=== PATIENT | female | born 1985 | race Caucasian/White ===

== ENCOUNTER 2022-01-10 08:04 | Outpatient (CLI) | payer OTHER, SELFPAY ==
--- OUTSIDE RECORDS SUMMARY | 2022-01-10 08:07 | XMS_ITS | Encounter Summary ---
:1985 Author Organization [facility] Address [address] [place] [address] Care Team Providers Name Role Phone Anca Matos MD Primary Care Provider Callie Kumar Unavailable Unavailable Reason for Visit Auth/Cert Specialty Diagnoses / Procedures Referred By Contact Refer red To Contact sweat band separator Diagnoses Previous section Previous section [Z98.891] [facility] Labor And Deliv eduardo Procedures ZZC DELIVERY ONLY ZZC DELIVERY+ CARE ZZC C-SEC ONLY,PREV C-SEC SECTION repeat [address] [place] [address] Phone: Fax: Referral ID Status Reason Start Date Expiration Date Visits Requ ested Visits Authorized [id number] 1 1 Encounter Details Date Type Department Care Team Description 03/07/2020 Anesthesia Event [facility] Segundo Oglesby MD [facility] ANESTHESIA [address] [facility] [place] [address] [facility] Mikel Santana, APPELLATE CONFEREE ARCH SUPPORT TECHNICIAN [facility] ANES [address] [place] [address] [address] [place] [address] Anesthesia Record Procedure Summary Procedure Name Responsible Anesthesia Start Anesthesia Stop Time Anesthesiologist Time SECTION Junaid Oglesby, 03/07/20 0855 03/07 1048 repeat (Abdomen) MD Events Date Time Event Comment 03/07/2020 0855 An Start 0855 Present 0858 An Start Data 0900 MD Present 0905 Present 0910 Present 0911 An Induction 0911 MD Present 09 MD Present 09 MD Present 09 AN INCISION 0932 MD Present 0935 MD Present 0935 Uterine Incision 0937 Baby Delivered 0937 MD Present 0938 Placenta Delivered 0940 MD Present 1008 MD Present 1043 an stop data 1048 An Stop Electronically s igned by Mikel Santana APRN CRNA on March 07, 2020 10:48 AM 1048 MD Present Name Total bupivacaine spinal 0.75% in dextrose 8.25% 10.5 mg morphine PF 1mg/mL 0.3 mg ondansetron 2mg/mL 4 mg oxytocin 30 units in 500 mL 0.9% NaCl infusion 500 mL ceFAZolin (ANCEF) intermittent infusion 2 g in 100 mL dextrose PRE-MIX 2 g phenylephrine 0.1 mg/ml infusion (mcg/min) 700 mcg lactated ringers infusion 1,800 mL Agents Name NO HELIOX O2 N2O Air Exp Sevoflurane Exp Isoflurane Exp Desflurane Exp N2O Ins Sevoflurane Ins Isoflurane Ins Desflurane O2 Auxiliary Blood No blood administrations on file. Lines, Drains, and Airways Type Details Placement Removal Incision/Surgical Site 03/07/20; 1033; 03/07/20 1033 by Abdomen Mariana Nash RN Peripheral IV 03/07/20; 0735; 18 G; 03/07/20 0735 by 03/08/20 1045 by BD; Left; Lower Sarika Pacheco RN [place], [facility], forearm; RN Chlorhexidine; None; Tolerated well Urethral Catheter 03/07/20; 0910; No; 03/07/20 0910 by 03/07/20 1130 by Anesthesia; 16 fr Mariana Nash RN Miller, Diane M, RN documented in this encounter Social History Tobacco Use Types Packs/Day Years Used Date Smoking Tobacco: Never Smokeless Tobacco: Never Alcohol Use Standard Drinks/Week Comments No 0 (1 standard drink = 0.6 oz pure alcoho l) Sex Assigned at Date Recorded Not on file COVID-19 Exposure Response Date Recorded In the last month, have you been in contact with No / Unsure 03/06/2020 3:52 PM PROFESSOR OF CHEMICAL ENGINEERING someone who was confirmed or suspected to have Coronavirus / COVID-19? documented as of this encounter OR Notes Anesthesia Postprocedure Evaluation - Shayne Hays MD - 03/07/2020 2:08 PM CST Patient: Mindy Jacob Procedure(s): SECTION repeat Diagnosis:Previous section [Z98.891] Diagnosis Additional Information: No value filed. Anesthesia Type: Spinal Note: Anesthesia Post Evaluation Patient location during evaluation: Phase 2 Patient participation: Able to fully participate in evaluation Level of consciousness: awake Pain management: adequate Airway patency: patent Cardiovascular status: acceptable Respiratory status: acceptable Hydration status: acceptable PONV: controlled Anesthetic complications: None Last vitals: Vitals: 03/07/20 1245 03/07/20 1300 03/07/20 1330 BP: 139/84 (!) 142/84 127/71 Pulse: Resp: Temp: 98 ??F (36.7 ??C) 98.4 ??F (36.9 ??C) SpO2: 100% Electronically Signed By: Shayne Hays MD March 07, 2020 2:08 PM ESSOR OF CHEMICAL ENGINEERING Anesthesia Procedure Notes - Junaid Oglesby MD - 03/07/2020 9:14 AM CSTAssociated Order(s): Spinal Block Procedure note : intrathecal Staff - Anesthesiologist: Junaid Oglesby MD Performed By: anesthesiologist Pre-Procedure Performed by Junaid Oglesby MD Location: OB, OR Pre-Anesthestic Checklist: patient identified, IV checked, risks and benefits discussed, informed consent, monitors and equipment checked and pre-op evaluation Timeout Correct Patient: Yes Correct Procedure: Yes Correct Site: Yes Correct Laterality: N/A Correct Position: Yes Site Marked: No . Procedure Documentation ASA 2 . Procedure: intrathecal, . Patient Position:sitting Insertion Site:L2-3 (midline approach) Patient Prep/Sterile Barriers; mask, sterile gloves, povidone-iodine 7.5% surgical scrub. . Needle: Spinal Needle (gauge): 22 Spinal/LP Needle Length (inches): 5 # of attempts: 1 and # of redirects: 3 No introducer used . Assessment/Narrative Paresthesias: No. . . . Time Injected: 09:11 Comments: corey CLARKE [id number], exp. 2021-06-20 10.5 mg bupivicaine and 0.3 mg morphine placed. ESSOR OF CHEMICAL ENGINEERING Anesthesia Preprocedure Evaluation - Junaid Oglesby MD - 03/07/2020 8:52 AM CST 0852Anesthesia Pre-Procedure Evaluation Patient: Mindy Jacob : 1985 Preoperative Diagnosis: Previous section [Z98.891] Procedure(s): SECTION repeat Past Medical History: Diagnosis Date ??? Coagulation disorder (H) Poss Gestational thrombocitopenia ??? Depressive disorder anxiety ??? Deviated septum 05/08/2011 ??? Esotropia, unspecified ??? Generalized anxiety disorder 01/03/2011 ??? OCP (oral contraceptive pills) initiation 01/03/2011 ??? PONV (postoperative nausea and vomiting) ??? Thyroid nodule 01/03/2011 partial thyroidectomy on left ??? Varicella without mention of complication Past Surgical History: Procedure Laterality Date ??? SECTION 01/10/2010 ??? SECTION 05/31/2012 Procedure: SECTION; Repeat Section; Surgeon: Anca Matos MD; Location: [facility] L+D ??? MARKETING RECRUITER SURGERY 2009 c/s ??? THYROIDECTOMY 05/13/2011 Procedure:THYROIDECTOMY; Left Thyroid Lobectomy ; Surgeon:DANIEL DECKER; Location:[facility] OR ? ? [facility] NONSPECIFIC PROCEDURE 1993 & Eye surgeries Anesthesia Evaluation . Pt has had prior anesthetic. Type: General No history of anesthetic complications ROS/MED HX ENT/Pulmonary: - neg pulmonary ROS Neurologic: - neg neurologic ROS Cardiovascular: - neg cardiovascular ROS METS/Exercise Tolerance: Hematologic: - neg hematologic ROS Musculoskeletal: - neg musculoskeletal ROS GI/Hepatic: - neg GI/hepatic ROS Renal/Genitourinary: - ROS Renal section negative Endo: - neg endo ROS Psychiatric: (+) psychiatric history anxiety and depression Infectious Disease: - neg infectious disease ROS Malignancy: - no malignancy Other: (+) Possibly C-spine cleared: N/A, no H/O Chronic Pain,no other significant disability Physical Exam Normal systems: cardiovascular, pulmonary and dental Airway Mallampati: II TM distance: >3 FB Neck ROM: full Dental Cardiovascular Pulmonary Lab Results Component Value Date WBC 6.2 03/07/2020 HGB 10.5 (L) 03/07/2020 HCT 32.3 (L) 03/07/2020 PLT 122 (L) 03/07/2020 NA 142 07/04/2011 POTASSIUM 3.7 07/04/2011 CHLORIDE 103 07/04/2011 CO2 24 07/04/2011 BUN 9 07/04/2011 CR 0.77 07/04/2011 GLC 102 (H) 07/04/2011 CARL 9.6 07/04/2011 ALBUMIN 4.6 07/04/2011 PROTTOTAL 8.0 07/04/2011 ALT 12 07/04/2011 AST 14 07/04/2011 ALKPHOS 129 07/04/2011 BILITOTAL 1.5 (H) 07/04/2011 INR 0.9 04/30/2011 TSH 2.76 04/30/2011 T4 0.71 01/03/2011 HCG Negative 07/04/2011 HCGS Negative 09/09/2010 Preop Vitals BP Readings from Last 3 Encounters: 03/07/20 136/88 05/07/18 149/86 10/02/16 128/74 Pulse Readings from Last 3 Encounters: 03/07/20 100 05/07/18 75 10/02/16 98 Resp Readings from Last 3 Encounters: 03/07/20 18 05/07/18 20 10/02/16 16 SpO2 Readings from Last 3 Encounters: 03/07/20 98% 05/07/18 100% 10/02/16 100% Temp Readings from Last 1 Encounters: 03/07/20 99 ??F (37.2 ??C) (Oral) Ht Readings from Last 1 Encounters: 03/07/20 1.676 m (5' 6) Wt Readings from Last 1 Encounters: 03/07/20 115.7 kg (255 lb) Estimated body mass index is 41.16 kg/m?? as calculated from the following: Height as of this encounter: 1.676 m (5' 6). Weight as of this encounter: 115.7 kg (255 lb). Anesthesia Plan History & Physical Review History and physical reviewed and following examination; no interval change. ASA Status: 2 . NPO Status: > 8 hours Plan for Spinal PONV prophylaxis: Ondansetron (or other 5HT-3) and Dexamethasone or Solumedrol The patient is not a current smoker , Patient not instructed to abstain from smoking on day of procedure and patient did not smoke on day of surgery Postoperative Care Postoperative pain management: IV analgesics, Oral pain medications and Neuraxial analgesia. Consents Anesthetic plan, risks, benefits and alternatives discussed with: Patient.. Junaid Oglesby MD . ESSOR OF CHEMICAL ENGINEERING documented in this encounter Miscellaneous Notes Anesthesia Care Transfer Note - Mikel Santana APRN CRNA - 03/07/2020 10:48 AM CST Patient: Mindy Jacob Procedure(s): SECTION repeat Diagnosis: Previous section [Z98.891] Diagnosis Additional Information: No value filed. Anesthesia Type: Spinal Note: Airway :Room Air Patient transferred to:Labor and Delivery Handoff Report: Identifed the Patient, Identified the Reponsible Provider, Reviewed the pertinent medical history, Discussed the surgical course, Reviewed Intra-OP anesthesia mangement and issues during anesthesia, Set expectations for post-procedure period and Allowed opportunity for questions and acknowledgement of understanding Vitals: (Last set prior to Anesthesia Care Transfer) JARRELL VITALS 03/07/2020 1013 - 03/07/2020 1048 03/07/2020 Pulse: 74 SpO2: 98 % Electronically Signed By: Mikel Santana APRN CRNA March 07, 2020 10:48 AM ESSOR OF CHEMICAL ENGINEERING documented in this encounter Plan of Treatment Not on filedocumented as of this encounter Procedures Procedure Name Priority Date/Time Associated Diagnosis Comme nts ANE SPINAL BLOCK Routine 03/07/2020 9:14 AM Resul ts for this FORM PROFESSOR OF CHEMICAL ENGINEERING procedure are i n the results section. documented in this encounter Results Spinal Block (03/07/2020 9:14 AM PROFESSOR OF CHEMICAL ENGINEERING) Narrative Junaid Oglesby MD - 0 9:14 AM PROFESSOR OF CHEMICAL ENGINEERING Junaid Oglesby MD ? 03/07/2020 ??9:16 AM Procedure note : intrathecal Staff - Anesthesiologist: ??Junaid Oglesby MD Performed By: anesthesiologist Pre-Procedure Performed by Junaid Oglesby M D Location: OB, OR ?? Pre-Anesthestic Checklist: patient ident ified, IV checked, risks and benefits discussed, informed consent, mo nitors and equipment checked and pre-op evaluation ?? Timeout Correct Patient: Yes Correct Procedure: Yes Correct Site: Yes Correct Laterality: N/A Correct Position: Yes Site Marked: No . Procedure Documentation ASA 2 . ?? Procedure: intrathecal, . Patient Position:sitting Insertion Site: L2-3 ??(midline approach) Patient Prep/Sterile Barriers; mask, jacklyn rile gloves, povidone-iodine 7.5% surgical scrub. ??. ??Needle: ??Spinal N eedle (gauge): 22 ??Spinal/LP Needle Length (inches): 5 # of attempts: 1 and ??# of redirects: ??3 No introducer used . ?? Assessment/Narrative Paresthesias: No. ??. ??. ??. Time Injec sudhir: 09:11 ??Comments: ??PENRM, lot [id number], exp. 2021-06-20 10.5 mg bupivicaine and 0.3 mg morphine placed. Junaid Oglesby MD DC ANESTHESIA documented in this encounter Visit Diagnoses Not on filedocumented in this encounter Administered Medications Inactive Administered Medications - up to 3 most recent administrations Medication Order MAR Action Action Date Dose Rate Site bupivacaine 0.75% in dextrose Given 03/07/2020 9:11 AM PROFESSOR OF CHEMICAL ENGINEERING 10.5 mg 8.25% (intrathecal) (SENSORCAINE) 0.75-8.25 % injection PRN, Starting on Thu03/07/20 at 0911, Anesthesia Intra-op ceFAZolin (ANCEF) intermittent infusion 2 g in Given 020 8:55 AM PROFESSOR OF CHEMICAL ENGINEERING 2 g 100 mL dextrose PRE-MIX Routine, 2 g, Intravenous, PRE-OP/PRE-PROCEDURE, Starting on Thu03/07/20 at 0731, For 1 dose, Give no sooner than 30 minutes prior to incision. If patient weight is greater than or equal to 120 kg increase dose to 3 g., Indications: Perioperative Pharmacoprophylaxis, Pre-procedure lactated ringers infusion New Bag 03/07/2020 9:29 AM PROFESSOR OF CHEMICAL ENGINEERING at 200 mL/hr, Intravenous, CONTINUOUS, Up to 500 mL total, Pre-procedure, Starting on Thu03/07/20 at 0800, Until Thu03/07/20 at 1308 New Bag 03/07/2020 7:45 AM PROFESSOR OF CHEMICAL ENGINEERING 200 mL/hr morphine (PF) (DURAMORPH) injection Given 03/07/2020 9:11 AM PROFESSOR OF CHEMICAL ENGINEERING 0.3 mg Intrathecal, PRN, Administer over 4-5 Minutes, Starting on Thu03/07/20 at 0911, Anesthesia Intra-op ondansetron (ZOFRAN) injection Given 03/07/2020 9:00 AM PROFESSOR OF CHEMICAL ENGINEERING 4 mg PRN, Administer over 2-5 Minutes, Starting on Thu03/07/20 at 0900, Anesthesia Intra-op oxytocin (PITOCIN) 30 units in 500 mL 0.9% Given 03/07 10:36 AM PROFESSOR OF CHEMICAL ENGINEERING 499 mLs NaCl infusion Intravenous, PRN, Starting on Thu03/07/20 at 0938, Anesthesia Intra-op Given 03/07/2020 9:38 AM PROFESSOR OF CHEMICAL ENGINEERING 1 mL phenylephrine (KARINA-SYNEPHRINE) New Bag 03/07/2020 9:14 AM 50 mcg/m in 30 mL/hr injection PROFESSOR OF CHEMICAL ENGINEERING Intravenous, CONTINUOUS PRN, Starting on Thu03/07/20 at 0914, Anesthesia Intra-op documented in this encounter Care Teams Internal Grinding Machine Operator Relationship Specialty Start Date End Date Anca Matos MD PCP - General sweat band separator 05/12/12 Callie Kumar Assigned OBGYN Provider 01/13/20 04/20/21 documented as of this encounter
--- OUTSIDE RECORDS SUMMARY | 2022-01-10 08:07 | XMS_ITS | Encounter Summary ---
:1985 Author Organization [facility] Address [address] [place] [address] Care Team Providers Name Role Phone Anca Matos MD Primary Care Provider Callie Kumar Unavailable Unavailable Encounter Details Date Type Department Care Team Description 03/04/2020 Travel Social History Tobacco Use Types Packs/Day Years Used Date Smoking Tobacco: Never Smokeless Tobacco: Never Alcohol Use Standard Drinks/Week Comments No 0 (1 standard drink = 0.6 oz pure alcoho l) Sex Assigned at Date Recorded Not on file COVID-19 Exposure Response Date Recorded In the last month, have you been in contact Unable to assess 03/04/2020 9:17 AM HYBRID TESTER with someone who was confirmed or suspected to have Coronavirus / COVID-19? documented as of this encounter Plan of Treatment Not on filedocumented as of this encounter Visit Diagnoses Not on filedocumented in this encounter Care Teams Front Clerk Relationship Specialty Start Date End Date Anca Matos MD PCP - General hose sprayer 05/12/12 Callie Kumar Assigned OBGYN Provider 01/13/20 04/20/21 documented as of this encounter
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
--- OUTSIDE RECORDS SUMMARY | 2022-01-10 08:07 | XMS_ITS | Encounter Summary ---
:1985 Author Organization [facility] Address [address] [place] [id number] Care Team Providers Name Role Phone Anca Matos MD Primary Care Provider Callie Kumar Unavailable Unavailable Reason for Visit Reason Comments Scheduled Section Auth/Cert Specialty Diagnoses / Procedures Referred By Contact Refer red To Contact trace clerk Diagnoses Previous section Previous section [Z98.891] [facility] Del[facility] eduardo Procedures ZZC DELIVERY ONLY Z[facility] DELIVERY+ CARE ZZC C-SEC ONLY,PREV C-SEC SECTION repeat [address] [place], [place] [address] Phone: Fax: Referral ID Status Reason Start Date Expiration Date Visits Requ ested Visits Authorized [id number] 1 1 Encounter Details Date Type Department Care Team Description 03/07/2020 - Hospital Encounter [facility] Alba Villarreal of 03/09/2020 Corry Birthangel Erazo MD by [address] [place] section [place], [place] OBGYN CONSULTS (Primary Dx) [id number] [phone] [address] [id number] Social History Tobacco Use Types Packs/Day Years Used Date Smoking Tobacco: Never Smokeless Tobacco: Never Alcohol Use Standard Drinks/Week Comments No 0 (1 standard drink = 0.6 oz pure alcoho l) Sex Assigned at Date Recorded Not on file COVID-19 Exposure Response Date Recorded In the last month, have you been in contact with No / Unsure 03/06/2020 3:52 PM BUILDING ILLUMINATING ENGINEER someone who was confirmed or suspected to have Coronavirus / COVID-19? documented as of this encounter Last Filed Vital Signs Vital Sign Reading Time Taken Comments Blood Pressure 130/78 03/09/2020 7:54 AM BUILDING ILLUMINATING ENGINEER Pulse 77 03/09/2020 7:54 AM BUILDING ILLUMINATING ENGINEER Temperature 36.7 ??C (98 ??F) 03/09/2020 7:54 AM BUILDING ILLUMINATING ENGINEER Respiratory Rate 20 03/09/2020 7:54 AM BUILDING ILLUMINATING ENGINEER Oxygen Saturation 98% 03/08/2020 5:02 AM BUILDING ILLUMINATING ENGINEER Inhaled Oxygen Concentration - - Weight 115.7 kg (255 lb) 03/07/2020 7:10 AM BUILDING ILLUMINATING ENGINEER Height 167.6 cm (5' 6) 03/07/2020 7:25 AM BUILDING ILLUMINATING ENGINEER Body Mass Index 41.16 03/07/2020 7:10 AM BUILDING ILLUMINATING ENGINEER documented in this encounter Discharge Summaries Alba Villarreal MD - 03/09/2020 11:40 AM CST Admit Date: 03/07/2020 Discharge Date: 03/09/2020 ADMISSION DIAGNOSES: 1. Intrauterine , 39 weeks' gestation. 2. Previous section x 2. 3. Patient elects repeat section. 4. Gestational thrombocytopenia. DISCHARGE DIAGNOSES: Status post repeat low segment transverse section and lysis of minimalomental adhesions. PATIENT IDENTIFICATION: Stuart Diego is a 34-year-old woman, 4, para 2, who was admitted to [facility] for repeat section. The patient was followed at our officesince early . Her course was complicated by 2 previous sections. 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 She had a repeat section in 2012. The patient furthermore is of advanced maternal age, elevated BMI and has gestational thrombocytopenia. She also has a mixed anxiety and depression disorder. The patient was followed during this since the first trimester. She was monitored carefully given her history of 2 previous C- sections and her history of -induced hypertension. She was followed very carefully in the third trimester with blood pressure evaluations and pree clampsia laboratory evaluations as necessary. She had a normal [id number] test and a normal 20-week ultrasound. The patient had a normal 1-hour glucose screen, and there was no evidence of gestational diabetes. She was found to have a low platelet count at the initial visit, and this was monitored during the . Her platelet count always remained above 100,000 and was in general, between 120 and 130,000. The platelet count was repeated the morning of surgery and was 122,000. The patient elected to have a repeat section given her 2 previous C-sections. A preoperative historyand physical was performed. She was felt to be an excellent candidate for surgery. Appropriate consent forms were signed. The patient's and her 's questions were answered to their satisfaction, and we proceeded. A spinal anesthetic was planned, particularly given the platelet count above 100,000. HOSPITAL COURSE: The patient was admitted on 03/07/2020. She underwent a repeat low segment transverse section and lysis of minimal omental adhesions. She was delivered of an infant female, 8 pounds 12 ounces with Apgars of 8 and 9 at 1 and 5 minutes, respectively. No resuscitation was necessary. The baby was in a cephalic presentation. There was a nuchal cord and a cord draped around the baby's torso. The amniotic fluid was clear, and there was no evidence of infection. The uterus, fallopian tubes and ovaries were normal. The uterine cavity was completely normal. The placenta was anteriorand otherwise appeared normal with 3 vessels. The delivery was unremarkable. The patient's blood loss for the surgery was 903 mL, mainly due to lower uterine segment vascularity. The surgery was otherwise uncomplicated. The patient tolerated the procedure well, and she had excellent anesthesia. The patient's postoperative course was unremarkable. By postoperative day #1, she was being managed with oral pain medication. She was tolerating a regular diet and voiding. Her vital signs were normal. Her hemoglobin reached a ruben of 8.3 grams percent. Oral iron supplementation was initiated and continued after discharge. The patient's blood type was AB positive, and her rubella titer showed immunity. The patient was ready for hospital discharge by postoperative day #2. She expressed a desire forhospital discharge, and this was accomplished. Appropriate indications to call or return were reviewed, and the patient expressed understanding. On 03/09/2020, the patient was discharged home without incident. She was given instructions regarding the Steri-Strips on the incision and subcuticular closure. The patient continued her iron supplementation at discharge. She was instructed to return in 6 weeks for a routine visit. She was also offered a 2-week visit for any mood issues if necessary. ALBA VILLARREAL MD MT: Name: STUART DIEGO Account: [id number] : 1985 Admit Date: 03/07/2020 Discharge Date: 03/09/2020 Document: [id number] cc: Alba Matos MD DING ILLUMINATING ENGINEER documented in this encounter Discharge Instructions Discharge InstructionsSarah Tracy, RN - 03/09/2020 10:03 AM CST Contact your doctor if you have a temperature >100.4F, if you experience heavy bleeding and are soaking through a pad in less than one hour, if you are not able to eat or drink, or have severe abdominal pain. Nothing in the vagina for 6 weeks post . No intercourse, tampons or douching. Showers are okay. No soaking in a bath, sitz baths for 15-20 min 2x daily are okay. Please make a follow up appointment in the office in 4-6 weeks. Please call the office with chest pain with shortness of breath or blurry vision with a headache, orupper abdominal pain as this could be concerning for preeclampsia (blood pressure problems with and post ). No heavy lifting over 20 pounds for 6 weeks If you have increase in drainage or signs of infection (redness, warmth), please be seen. Postop Instructions Activity ?? Do not lift more than 10 pounds for 6 weeks after surgery. Ask family and friends for help when you need it. ?? No driving until you have stopped taking your pain medications (usually two weeks after surgery). ?? No heavy exercise or activity for 6 weeks. Don't do anything that will put a strain on your surgery site. ?? Don't strain when using the toilet. Your care team may prescribe a stool softener if you have problems with your bowel movements. To care for your incision: ?? Keep the incision clean and dry. ?? Do not soak your incision in water. No swimming or hot tubs until it has fully healed. You may soak in the bathtub if the water level is below your incision. ?? Do not use peroxide, gel, cream, lotion, or ointment on your incision. ?? Adjust your clothes to avoid pressure on your surgery site (check the elastic in your underwear for example). You may see a small amount of clear or pink drainage and this is normal. Check with your health care provider: ?? If the drainage increases or has an odor. ?? If the incision reddens, you have swelling, or develop a rash. ?? If you have increased pain and the medicine we prescribed doesn't help. ?? If you have a fever above 100.4 F (38 C) with or without chills when placing thermometer under your tongue. The area around your incision (surgery wound), will feel numb. This is normal. The numbness should go away in less than a year. Keep your hands clean: Always wash your hands before touching your incision (surgery wound). This helps reduce your risk ofinfection. If your hands aren't dirty, you may use an alcohol hand-rub to clean your hands. Keep your nails clean and short. Call your healthcare provider if you have any of these symptoms: ?? You soak a sanitary pad with blood within 1 hour, or you see blood clots larger than a golf ball. ?? Bleeding that lasts more than 6 weeks. ?? Vaginal discharge that smells bad. ?? Severe pain, cramping or tenderness in your lower belly area. ?? A need to urinate more frequently (use the toilet more often), more urgently (use the toilet veryquickly), or it roe when you urinate. ?? Nausea and vomiting. ?? Redness, swelling or pain around a vein in your leg. ?? Problems or a red or painful area on your breast. ?? Chest pain and cough or are gasping for air. ?? Problems with coping with sadness, anxiety or depression. If you have concerns about hurting yourself or the baby, call your provider immediately. ?? You have questions or concerns after you return home. DING ILLUMINATING ENGINEER AttachmentsThe following attachments cannot be sent through Care Everywhere. Section (), Discharge Instructions for ([place]oz[place]ican), Nutrition While ([place]oz[place]ican)documented in this encounter Medications at Time of Discharge Medication Sig Dispensed Refills Start Date End Date acetaminophen (TYLENOL) Take 3 tablets (975 60 tablet 0 325 MG tabletIndications: mg) by mouth every 6 Delivery of by hours section Ferrous Gluconate (FERGON) Take 20 mg by mouth 90 tablet 0 03/09/2020 240 (27 Fe) MG daily chewable TABSIndications: Delivery of by section ibuprofen (ADVIL/MOTRIN) Take 1 tablet (800 60 tablet 0 800 MG tabletIndications: mg) by mouth every 6 Delivery of by hours section oxyCODONE (ROXICODONE) 5 Take 1 tablet (5 mg) 20 tablet 0 1 05/10/2019 MG tabletIndications: by mouth every 4 Delivery of by hours as needed for section severe pain Vit-Fe Take 1 tablet by 0 Fumarate-FA ( mouth daily. MULTIVITAMIN PLUS IRON) 27-0.8 MG TABS senna-docusate Take 1 tablet by 60 tablet 0 03/09/2020 (SENOKOT-S/PERICOLACE) mouth 2 times daily 8.6-50 MG tabletIndications: Delivery of by section sertraline (ZOLOFT) 50 MG Take 50 mg by mouth 0 tablet daily documented as of this encounter Progress Notes Lorraine Solomon MD - 03/09/2020 8:11 AM CST Post- Note S: Patient is doing well today. Pain is controlled with PO medications. Tolerating regular diet without nausea or vomiting. Ambulating without dizziness. Urinating without difficulty. Lochia normal. . Has passed gas, no BM yet. Would like to go home today. Mood is good today O: Patient Vitals for the past 24 hrs: BP Temp Temp src Pulse Resp 03/09/20 0754 130/78 98 ??F (36.7 ??C) Oral 77 20 03/09/20 0030 135/76 97.8 ??F (36.6 ??C) Oral 78 18 03/08/20 1714 119/73 -- -- 81 18 03/08/20 1040 114/68 98 ??F (36.7 ??C) Oral 78 18 Gen: Resting comfortably, NAD Pulm: Breathing comfortably on room air Abd: Soft, appropriately ttp, non-distended.Fundus at 1 below umbilicus, firm and non-tender. Incision: c/d/i with sutures/steri strips Ext: non-tender, trace bilateral LE edema No intake/output data recorded. Hgb: Hemoglobin Date Value Ref Range Status 03/08/2020 8.3 (L) 11.7 - 15.7 g/dL Final 03/07/2020 10.5 (L) 11.7 - 15.7 g/dL Final Assessment/Plan: 34 year old on POD2 after rpt LTCS at 39w0d 1. Continue with routine management 2. Incision is c/d/I with sutures 3. EBL: 903 ml ; pre hemoglobin 10.5, post hemogobin 8.3, acute surgical blood loss anemia, no symptoms of anemia. On iron, will discharge with iron as well. 4. Lab Results Component Value Date ABO AB 03/06/2020 RH Pos 03/06/2020 5. Feed: 6. CV/RESP: no acute issues. VSS -history of gHTN in last 7. DVT PPX: ambulation 8. Gestational thrombocytopenia: follow up in post period. Predelivery was 122. 9. COVID negative 10. History of anxiety and depressoin Dispo: Anticipate DC home today. Warning signs reviewed. Follow-up in 4-6 weeks. Consider 2 week post visit for mood if needed. MD Mira Greenberg SANITIZER 03/09/2020, 8:12 AM DING ILLUMINATING ENGINEER Augusta Briseno MD - 03/08/2020 9:06 AM CST OB Post-op Section Progress Note POD# 1 S: Patient doing well. Pain well controlled with oral Tylenol/Motrin for pain medication. Ambulating. Tolerating reg diet. No N/V. Passing flatus. Voiding. Bleeding is normal. . O: BP 118/69 Pulse 77 Temp 98.4 ??F (36.9 ??C) Resp 16 Ht 1.676 m (5' 6) Wt 115.7 kg (255lb) LMP 06/08/2019 SpO2 98% Unknown BMI 41.16 kg/m?? UOP- Since [place] 575cc Gen- A&O, NAD Abd- soft, non tender, non distended Fundus- firm, non tender Incision/Dressing- C/D/I Ext- non-tender, trace edema. Hemoglobin Date Value Ref Range Status 03/08/2020 8.3 (L) 11.7 - 15.7 g/dL Final AB + Rubella immune A/P: 34 year old POD# 1 s/p repeat LTCS 1. Routine post-op cares 2. Analgesia adequate 3. Ambulate 4. Discharge home POD#2 Augusta Briseno MD 03/08/2020 9:07 AM DING ILLUMINATING ENGINEER documented in this encounter H&P Notes Alba Villarreal MD - 03/07/2020 8:25 AM CST I visited with the patient and her in the pre-induction area and once again discussed the proposed procedure being a repeat section. The patient has had two previous deliveries and has gestational thrombocytopenia. Her platelet count today is 122,000. She has signed appropriat e consent forms and a blood transfusion consent. All questions were answered and we will proceed. DING ILLUMINATING ENGINEER Source Note - Ita, Provider - 03/06/2020 5:48 PM BUILDING ILLUMINATING ENGINEER documented in this encounter Miscellaneous Notes Plan of Care - Sarah Tracy RN - 03/09/2020 11:20 AM CST Data: Vital signs within normal limits. checks within normal limits - see flow record. Patient eating and drinking normally. Patient able to empty bladder independently and is up ambulating.No apparent signs of infection. Incision healing well. Patient performing self cares and is able to care for infant. Action: Patient medicated during the shift for pain and cramping. See MAR. Patient reassessed within1 hour after each medication and pain was improved - patient stated she was comfortable. Patient education done about discharge instructions, take home medications, post depression, and follow up appointments. Patient verbalized understanding of all discharge instructions and states she has no further questions/concerns at this time. Response: Positive attachment behaviors observed with infant. Support persons present. Plan: Anticipate discharge home with . DING ILLUMINATING ENGINEER Plan of Care - Deisi Wilburn RN - 03/09/2020 4:10 AM CST Patient vital signs stable and meeting expected outcomes. independently, feels like milk is starting to come in. Up independently and voiding adequately. Pain well controlled with tylenoland ibuprofen. Incision CDI, with steri strips. Able to perform all cares for self and infant. Bonding well with baby. FOB present and supportive at bedside. Will continue to monitor. DING ILLUMINATING ENGINEER Plan of Care - Kristin Wray RN - 03/08/2020 1:49 PM CST Patient vitally stable, voiding without issue, tolerating regular diet, ambulating independently, IVSL removed. checks WDL. Pain adequately managed with prn Tylenol and Ibuprofen. Foam tapeoff incision today, steri strips remain and are intact. Patient up in shower, tolerated well. Breastf eeding independently. present and supportive. Attentive to infant, independent with self andinfant cares. Retained care of patient from [id number]. Stable as above. Working on discharge paperwork, would liketo discharge tomorrow 03/09. DING ILLUMINATING ENGINEER Plan of Care - Erika Kraft RN - 03/08/2020 4:05 AM CST Patient vital signs stable and meeting expected outcomes. well with minimal assistancefrom staff. Patient also requesting to start pumping to help bring milk in. Discussed normal path, and patient stated she didn't have any issues feeding her other kids. Up independently and voiding adequately. No bouts of emesis this shift. Patient requested one dose of zofran, just as a precaution. Pain well controlled with tylenol and toradol. Incision WDL. Able to perform all cares for self and infant. Bonding well with baby. present and supportive at bedside. Will continue to monitor. DING ILLUMINATING ENGINEER Plan of Care - Erika Kraft RN - 03/07/2020 9:29 PM CST Patients mobililty level scored using the bedside mobility assistance tool (BMAT). Patient is at a mobility level test number: 4. Mobility equipment used: none required. Required assist of 0 staff members. Further use of BMAT scoring not required. DING ILLUMINATING ENGINEER Plan of Care - Irene Hernandez RN - 03/07/2020 5:25 PM CST Pt. vitals stable. Pain managed with scheduled Toradol. Dressing CDI, without signs of infection. Fluid bolus given due to low urine output. Patient nauseous and zofran given without much improvement. Scopolamine patch in place. Ambulating SBA. Independent in personal and cares. infant. Attentive to infant needs and bonding well with infant. FOB at bedside. DING ILLUMINATING ENGINEER Op Note - Alba Villarreal MD - 03/07/2020 4:54 PM CST Procedure Date: 03/07/2020 PREOPERATIVE DIAGNOSES: 1. Intrauterine , 39 weeks' gestation. 2. Previous section x 2, patient elects repeat section. 3. Gestational thrombocytopenia. POSTOPERATIVE DIAGNOSES: 1. Intrauterine , 39 weeks' gestation. 2. Previous section x 2, patient elects repeat section. 3. Gestational thrombocytopenia. Repeat section, lysis of minimal omental adhesions. SURGEON: Alba Villarreal MD ELECTRONICS UTILITY WORKER: Maria M Adams MD ANESTHESIA: Spinal. BLOOD LOSS: 903 mL. PATIENT IDENTIFICATION: Stuart Diego is a 34-year-old female, 4, para 2, who is to undergo the above-named procedure for a desire for repeat section. The patient was followed at our office since early . Her course was complicated by her 2 previous sections. The patient had a in 12/2009 for mild -induced hypertension with thrombocytopenia and a failed induction. She had a repeat section in 2012. The patient, furthermore,is of advanced maternal age, elevated BMI, and gestational thrombocytopenia. She also has a mixed anxiety and depression disorder. The patient was followed during this since the first trimester. She was monitored carefully, given her history of 2 previous sections and her history ofpregnancy-induced hypertension. The patient was monitored carefully particularly into the third trimester with blood pressure evaluations and preeclampsia laboratory evaluations as necessary. She had a normal [id number] test and a normal 20-week ultrasound. The patient had a normal 1-hour glucose screen, and there was no evidence of gestational diabetes. She was found to have a low platelet count at the initial visit, and this was monitored during the . Her platelet count always remained above 100,000 and was, in general, between 120,000 and 130,000. The platelet count was repeated in the morning of surgery and was 122,000. The patient elected a repeat section, which wasrecommended given her history of 2 previous sections. A preoperative history and physical was performed, and she was felt to be an excellent candidate for surgery. Appropriate consent forms wer e signed. The patient's and her 's questions were answered to their satisfaction, and we proceeded. A spinal anesthetic was planned, particularly given the platelet count above 100,000. OPERATIVE FINDINGS: At the time of section, the patient was delivered of an female, 8 pounds 12 ounces with Apgars of 8 and 9 at 1 and 5 minutes respectively. The baby required no resuscitation. The baby was in a cephalic presentation. There was a nuchal cord and a cord draped around the baby's torso. The amniotic fluid was clear, and there was no evidence of infection. The uterus, fallopian tubes and ovaries were normal. The uterine cavity was completely normal. The placenta was anterior and otherwise appeared normal with 3 vessels. The delivery was atraumatic, and there were no com plications of the procedure. OPERATIVE PROCEDURE: Stuart Diego was taken to the operating room at [facility]. She was placed in the sitting position. Dr. Oglesby then placed a spinal anesthetic. The patient was quickly placed in the left lateral tilt position. heart tones were identified and were in the normal range with normal variability. The patient was then prepped and draped in the usual fashion for section. Once the patient was completely prepped and draped, all instruments were readied. The spinal anesthetic was tested using a pinch technique, and the patient had excellent anesthesia. It should be noted that a timeout was held, during which the patient's identity, medical record number, date of and surgery to be performed were reviewed. All members of the operating room staff werein agreement with the scheduled procedure and the patient's identity. She had also received 2 grams of Ancef. A low transverse skin incision was made, excising the previous scar. The dissection was carried down to the fascia. The underlying fascia was incised bilaterally and the fascial incision extended using Donis scissors. The rectus muscles were then from the fascia both superiorly and inferiorly. The underlying peritoneum was identified. The peritoneum was elevated and incised, entering the peritoneal cavity. The peritoneal incision was extended superiorly and inferiorly, with care taken to avoid injury to the dome of the bladder. The bladder blade was placed and the lower uterine segment identified. The bladder flap was then created and the bladder dissected away from the lower uterine segment. Hysterotomy was performed, and the uterine incision was extended using bandage scissors. Clear fluid was present. The baby was then delivered by cephalic presentation through the uterine incision without difficulty. As noted above, there was a nuchal cord and a cord around the baby's torso. The product of the was an female, 8 pounds 12 ounces with Apgars of 8 and 9 at 1 and 5 minutes respectively. The baby was immediately shown to the patient and her . The baby was in excellent condition, had a strong cry, and was appropriately suctioned. The umbilical cord was then doubly clamped, ligated, and the baby was brought to the warmer. No resuscitation was necessary. The placenta was then removed manually and was intact with a 3-vessel cord. Uterus was cleansed of all clot and membrane. The uterus was closed in two layers. The first was a running locked stitch of 0 Vicryl, and the second was an imbricating stitch of 0 Monocryl. Additional figure-of-X sutures were placed for hemostasis. Excellent uterine hemostasis was achieved. The bladder flap was then closed using 3-0 Vicryl in a running unlocked stitch. Copious irrigation of the abdomen and pelvis was then performed with the findings documented above. All sponge and needle counts were correct. The anterior peritoneum was closed using a running unlocked stitch of 3-0 Vicryl. It should be noted that upon entering the peritoneal cavity initially, there were a few filmy adhesions of the omentum to the anterior abdominal wall. These were easily lysed, and hemostasis was confirmed on the adherent portionof the omentum. At closure, once the peritoneum was closed, hemostasis was confirmed in the subfascial tissues. The fascia was closed using a running unlocked stitch of 0 Vicryl x2, meeting in the midline. Excellent fascial reapproximation was achieved, and the fascial integrity was normal. Copious irrigation of the subcutaneous was performed. The subcutaneous was reapproximated using 3-0 Vicryl in the interrupted sutures. The skin was closed using a subcuticular stitch of 4-0 Monocryl. Satisfactoryskin reapproximation was achieved with a subcuticular closure. Steri-Strips were applied, and an island dressing was placed. The procedure was then brought to a close. All final sponge and needle counts were correct. A debriefing was held, during which the patient's identity was again reviewed, the surgery performed, namely a repeat section with lysis of minimal omental adhesions, the only specimen was cord blood, and the product of the an infant female, 8 pounds 12 ounces with Apgars of 8 and 9. There were no intraoperative complications identified. The quantitative blood loss was 903 mL. The patient's vital signs were normal, and she was in excellent condition when brought to the recovery room. ALBA VILLARREAL MD MT: HANNA Name: STUART DIEGO Account: [id number] : 1985 Procedure Date: 03/07/2020 Document: [id number] DING ILLUMINATING ENGINEER Provider Notification - Irene Hernandez RN - 03/07/2020 4:37 PM CST 03/07/20 1636 Provider Notification Provider Name/Title Dr. Villarreal Method of Notification Phone Request Evaluate-Remote Notification Reason Medication Request;Status Update MD updated on patient's nausea and multiple episodes of emesis. Urine output of 100mL over the last 3 hours. New orders to discontinue pitocin, increase Zofran dose, and give bolus of LR. DING ILLUMINATING ENGINEER Plan of Care - Sarika Pacheco RN - 03/07/2020 1:00 PM CST Data: Stuart Diego transferred to [facility] via cart at 1300. Baby transferred via parent's arms. Action: Receiving unit notified of transfer: Yes. Patient and family notified of room change. Reportgiven to Autumn GALLEGOS at 1300. Belongings sent to receiving unit. Accompanied by Registered Nurse. Oriented patient to surroundings. Call light within reach. ID bands double-checked with receiving RN. Response: Patient tolerated transfer and is stable. DING ILLUMINATING ENGINEER Plan of Care - Sarika Pacheco RN - 03/07/2020 12:07 PM CST Returned to MAC # 1 at 1043 following a scheduled repeat . Incision is covered with an Island dressing, which had blood shadowing along the incision line. Island dressing was re enforced with and ABD dressing and foam tape. This is dry and intact. Denies any pain. Baby placed skin to skin and breast fed well on both sides. DING ILLUMINATING ENGINEER Brief Op Note - Alba Villarreal MD - 03/07/2020 10:44 AM CST [facility] Brief Operative Note Pre-operative diagnosis: Previous section [Z98.891] Post-operative diagnosis Same, with omental adhesions to the anterior abdominal wall Procedure: Procedure(s): SECTION repeat, lysis of omental adhesions Surgeon(s): Surgeon(s) and Role: * Alba Villarreal MD - Primary Lumber Yard Worker Mraia M Vital Estimated blood loss: 903 ml Specimens: ID Type Source Tests Collected by Time Destination 1 : Cord blood Blood OR DOCUMENTATION ONLY Alba Villarreal MD 03/07/2020 9:37 AM Findings: Infant female 8# 12 oz Apgars. Baby in cephalic presentation. Clear fluid. Normal uterine cavity. Tubes and ovaries normal. Few adhesions of the omentum to the anterior abdominal wall, lysed during entry. No complications. DING ILLUMINATING ENGINEER Plan of Care - Sarika Pacheco RN - 03/07/2020 10:43 AM CST Continuous cardiac monitoring is being followed by Deandra Riggins RN/TT. DING ILLUMINATING ENGINEER Plan of Care - Sarika Pacheco RN - 03/07/2020 8:00 AM CST [facility]. VS stable. Positive movement. EFM monitors explained and placed x's 2. Baseline FHR 145, moderate variability with accelerations present. PIV placed. CBC with Plts drawn. LR is infusing. Procedure explained to patient. Questions answered. Consents signed. Patient prepped for surgery. DING ILLUMINATING ENGINEER Pharmacy-Admission Medication History - [facility] - 03/06/2020 9:51 AM CST Admission medication history interview status for this patient is complete. See [facility] admission navigator for allergy information, prior to admission medications and immunization status. Med rec completed by preadmitting RN Reviewed by Gemma Ortega RN (Registered Nurse) on 02/29/20 at 1532 No further clarifications needed - note on zoloft order says has not been taking while Prior to Admission medications Medication Sig Last Dose Taking? Auth Provider Vit-Fe Fumarate-FA ( MULTIVITAMIN PLUS IRON) 27-0.8 MG TABS Take 1 tablet by mouth daily. Yes Reported, Patient sertraline (ZOLOFT) 50 MG tablet Take 50 mg by mouth daily Reported, Patient DING ILLUMINATING ENGINEER documented in this encounter Plan of Treatment Not on filedocumented as of this encounter Procedures Procedure Name Priority Date/Time Associated Diagnosis Comme nts HEMOGLOBIN Routine 03/08/2020 7:07 AM Results f or this BUILDING ILLUMINATING ENGINEER procedure are i n the results section. SECTION 03/07/2020 8:35 AM Previous BUILDING ILLUMINATING ENGINEER section Special Needs 5'7 259.6# stated CBC WITH PLATELETS STAT 03/07/2020 7:35 AM BUILDING ILLUMINATING ENGINEER Results for this procedure are in the results sec tion. GROUP B STREP PCR Routine 02/13/2020 Results fo r this procedure are in the results sec tion. documented in this encounter Results (ABNORMAL) Hemoglobin (03/08/2020 7:07 AM BUILDING ILLUMINATING ENGINEER) P athologist Signature Hemoglobin 8.3 (L) 11.7 - 15.7 03/08/2020 [place] g/dL 7:38 AM [facility] Specimen Anatomical Collection Method Collection Time Receive d Time (Source) Location / / Volume Laterality Blood specimen 03/08/2020 7:07 AM 020 7:08 (specimen) BUILDING ILLUMINATING ENGINEER AM BUILDING ILLUMINATING ENGINEER Alba Villarreal MD LAB - BLOOD ORDERABLES Performing Organization Address City/State/ZIP Code Phon e Number [facility] [address] [address] [facility] [address] [phone] (ABNORMAL) CBC with platelets (03/07/2020 7:35 AM BUILDING ILLUMINATING ENGINEER) Analysis Performed At Patho logist Time Signature WBC 6.2 4.0 - 11.0 03/07/2020 [place] 10e9/L 7:54 AM [facility] RBC Count 3.47 (L) 3.8 - 5.2 03/07/2020 [facility] 10e12/L 7:54 AM [facility] Hemoglobin 10.5 (L) 11.7 - 03/07/2020 [facility] 15.7 g/dL 7:54 AM [facility] Hematocrit 32.3 (L) 35.0 - 03/07/2020 [facility] 47.0 % 7:54 AM [facility] MCV 93 78 - 100 03/07/2020 [facility] fl 7:54 AM [facility] MCH 30.3 26.5 - 03/07/2020 [facility] 33.0 pg 7:54 AM [facility] MCHC 32.5 31.5 - 03/07/2020 [facility] 36.5 g/dL 7:54 AM [facility] RDW 12.9 10.0 - 03/07/2020 [facility] 15.0 % 7:54 AM [facility] Platelet Count 122 (L) 150 - 450 03/07/2020 [facility] 10e9/L 7:54 AM [facility] Specimen Anatomical Collection Method Collection Time Receive d Time (Source) Location / / Volume Laterality Blood specimen 03/07/2020 7:35 AM 020 7:51 (specimen) BUILDING ILLUMINATING ENGINEER AM BUILDING ILLUMINATING ENGINEER Alba Villarreal MD LAB - BLOOD ORDERABLES Performing Organization Address City/State/ZIP Code Phon e Number [facility] [address] [place] [phone] Group B strep PCR (02/13/2020) P athologist Signature Group B Strep negative PCR Patient Reported LAB - MICRO GENERAL ORDERABL ES documented in this encounter Visit Diagnoses Diagnosis Delivery of by sectio n - Primary Delivery of by sectio n Post-operative state Other postprocedural status documented in this encounter Administered Medications Inactive Administered Medications - up to 3 most recent administrations Medication Order MAR Action Action Date Dose Rate Site acetaminophen (TYLENOL) tablet 975 Given 03/07/2020 8:17 AM BUILDING ILLUMINATING ENGINEER 975 mg mg 975 mg, Oral, ONCE, On Thu03/07/20 at 0800, For 1 dose, Pre procedure Maximum acetaminophen dose from all sources = 75 mg/kg/day not to exceed 4 grams/day. acetaminophen (TYLENOL) tablet 975 mg Given 03/09/2020 6:26 AM BUILDING ILLUMINATING ENGINEER 975 mg 975 mg, Oral, EVERY 6 HOURS, First dose on Thu03/07/20 at 1130, Maximum acetaminophen dose from all sources = 75 mg/kg/day not to exceed 4 grams/day., Post-procedure Given 03/09/2020 12:30 AM BUILDING ILLUMINATING ENGINEER 975 mg Given 03/08/2020 5:16 PM BUILDING ILLUMINATING ENGINEER 975 mg dextrose 5% in lactated ringers infusion New Bag 03/07/2020 6:54 PM BUILDING ILLUMINATING ENGINEER 125 mL/hr at 125 mL/hr, Intravenous, CONTINUOUS, Subsequent IV at nurse's discretion. DC IV when tolerating fluids or at nurse's discretion & saline lock., Post-procedure, Starting on Thu03/07/20 at 1130, Until Thu03/09/20 at 1343 ferrous gluconate (FERGON) tablet 324 mg Given 03/09/2020 7:53 AM BUILDING ILLUMINATING ENGINEER 324 mg 324 mg, Oral, DAILY WITH BREAKFAST, First dose on Thu03/09/20 at 0900, DO NOT CRUSH. Absorbed best on an empty stomach. If stomach upset occurs, can take with meals. ibuprofen (ADVIL/MOTRIN) tablet 800 mg Given 03/09/2020 7:53 AM BUILDING ILLUMINATING ENGINEER 800 mg 800 mg, Oral, EVERY 6 HOURS, First dose on Kia 03/08/20 at 0700, Post-procedure Given 03/09/2020 1:42 AM BUILDING ILLUMINATING ENGINEER 800 mg Given 03/08/2020 6:51 PM BUILDING ILLUMINATING ENGINEER 800 mg ketorolac (TORADOL) injection 30 mg Given 03/08/2020 1:01 AM BUILDING ILLUMINATING ENGINEER 30 mg 30 mg, Intravenous, EVERY 6 HOURS, First dose on Thu03/07/20 at 1230, For 3 doses, Can cause pain on injection. If ordered intravenously (IV) : administer through a running maintenance fluid over 1 minute followed by a flush. If patient complains of pain on injection, may dilute 15-30 mg in 5 mL and push over 1 to 2 minutes. , Post-procedure Given 03/07/2020 6:01 PM BUILDING ILLUMINATING ENGINEER 30 mg Given 03/07/2020 12:13 PM BUILDING ILLUMINATING ENGINEER 30 mg lactated ringers BOLUS 1,000 mL New Bag 03/07/2020 5:05 PM BUILDING ILLUMINATING ENGINEER 1,000 mLs 1000 mL/hr Intravenous, 1,000 mL, ONCE, at 1,000 mL/hr, Administer over 1 Hours, On Thu03/07/20 at 1700, For 1 dose lactated ringers infusion New Bag 03/07/2020 9:29 AM BUILDING ILLUMINATING ENGINEER at 200 mL/hr, Intravenous, CONTINUOUS, Up to 500 mL total, Pre-procedure, Starting on Thu03/07/20 at 0800, Until Thu03/07/20 at 1308 New Bag 03/07/2020 7:45 AM BUILDING ILLUMINATING ENGINEER 200 mL/hr lactated ringers infusion at 100 mL/hr, Intravenous, CONTINUOUS, Continue until IV catheter is weaned, Starting on Thu03/07/20 at 1000, Until Thu03/09/20 a t 1343 nalbuphine (NUBAIN) injection 2.5-5 mg 2.5-5 mg, Intravenous, EVERY 6 HOURS PRN, other, for p ruritus, Starting on Thu03/07/20 at 0847, Give 2.5 mg initially. If pruritus persists after 30 minutes, may give additional 2.5 mg. If effective, th en repeat effective dose Q6H PRN pruritus. Note to RN: Do not discontinue this anes thesia order until 24 hours after epidural infusion discontinued. naloxone (NARCAN) injection 0.2 mg 0.2 mg, Intravenous, EVERY 2 MIN PRN, op ioid reversal, Starting on Thu03/07/20 at 0847, Administer intravenous route when available and notify provider when administered. For unintended sedation or respiratory depression if all of the below criteria are met: ~ respiratory rate LES S than or EQUAL to 8. ~SaO2 less than 92% and or/end-tidal CO2 is greater than 50. ~ the patient is receiving an opioid, has unintended sedations assessed as RASS (-3), and is cur rently not on mechanical ventilation. RASS scale moderate (-3) is movement or eye opening to voice but no eye contact. Patient Monitoring Once the patient has demonstrated a response to the naloxone, continue to monitor respiratory rate, depth, oxygen saturation and end-tidal CO2 (if available) every 15 mi nutes x 2, then every 30 minutes x 2, then every 1 hour x 1 after each naloxone dose. Consider zeus bynum to ICU if patient respiratory parameters have not improved after 4 nalox one doses. For ordered IV doses 0.1-2mg give IVP. Give each 0.4mg over 15 seconds in emergency situations. For non-emergent situations further dilu te in 9mL of NS to facilitate titration of response. naloxone (NARCAN) injection 0.2 mg 0.2 mg, Intramuscular, EVERY 2 MIN PRN, opioid reversal, Starting on Thu03/07/20 at 0847, Administer intramuscular if an intravenous ro cabazon is not available and notify provider when administered. For unintended jose carlos tion or respiratory depression if all of the below criteria are met: ~ respiratory rate LESS than or EQUAL to 8. ~SaO2 less than 92% and or/end-tidal CO2 i s greater than 50. ~ the patient is receiving an opioid, has unin tended sedations assessed as RASS (-3), and is currently not on mechanical ventilati on. RASS scale moderate (-3) is movement or eye opening to voice but no eye contact. Patient Monitoring Once the patient has demonstrated a response to the naloxone, continue to m onitor respiratory rate, depth, oxygen saturation and end-tidal CO2 (if availab le) every 15 minutes x 2, then every 30 minutes x 2, then every 1 hour x 1 after each naloxone dose. Consider transfer to ICU if patient respiratory parameters have not improved after 4 naloxone doses. For ordered IV doses 0.1-2mg give IVP. Give each 0.4mg over 15 seconds in emergency situations. For non -emergent situations further dilute in 9mL of NS to facilitate titration of response. naloxone (NARCAN) injection 0.4 mg 0.4 mg, Intravenous, EVERY 2 MIN PRN, op ioid reversal, Starting on Thu03/07/20 at 0847, Administer intravenous route when available and notify provider when administered. For unintended sedation or respiratory depression if all of the below criteria are met: ~ respiratory rate LES S than or EQUAL to 8. ~ SaO2 less than 92% and or/end-tidal CO2 is greater than 50. ~ the patient is receiving an opioid, has unintended sedation assessed as RASS (-4 ) or (-5) and patient is currently not on mechanical ventilation. RASS scale (-4) is deep sedation with no response to voice but movement or eye opening to physical stimulation. R ASS scale (-5) is unarousable. Patient Monitoring Once the patient has demonstrated a response to the naloxone, continue to monitor respiratory rate, depth, oxygen saturation and end-tidal CO2 (if available) every 15 mi nutes x 2, then every 30 minutes x 2, then every 1 hour x 1 after each naloxone dose. Consider tr ansfer to ICU if patient respiratory parameters have not improved after 4 nalox one doses. For ordered IV doses 0.1-2mg give IVP. Give each 0.4mg over 15 seconds in emergency situations. For non-emergent situations further dilu te in 9mL of NS to facilitate titration of response. naloxone (NARCAN) injection 0.4 mg 0.4 mg, Intramuscular, EVERY 2 MIN PRN, opioid reversal, Starting on Thu03/07/20 at 0847, Administer intramuscular if an intravenous ro cabazon is not available and notify provider when administered. For unintended jose carlos tion or respiratory depression if all of the below criteria are met: ~ respiratory rate LESS than or EQUAL to 8. ~ SaO2 less than 92% and or/end-tidal CO2 is greater than 50. ~ the patient is receiving an opioid, has unin tended sedation assessed as RASS (-4) or (-5) and patient is currently not on mechanical ventil ation. RASS scale (-4) is deep sedation with no response to voice but movement o r eye opening to physical stimulation. RASS scale (-5) is unarousa ble. Patient Monitoring Once the patient has demonstrated a response to the nalox one, continue to monitor respiratory rate, depth, oxygen saturation and end-tidal CO2 (if availab le) every 15 minutes x 2, then every 30 minutes x 2, then every 1 hour x 1 after each naloxone dose. Consider transfer to ICU if patient respiratory parameters have not improved after 4 naloxone doses. For ordered IV doses 0.1-2mg give IVP. Give each 0.4mg over 15 seconds in emergency situations. For non -emergent situations further dilute in 9mL of NS to facilitate titration of response. ondansetron (ZOFRAN) injection 4 mg Given 03/07/2020 4:12 PM BUILDING ILLUMINATING ENGINEER 4 mg 4 mg, Intravenous, EVERY 4 HOURS PRN, nausea, if scopalamine patch ineffective, Administer over 2-5 Minutes, Starting on Thu03/07/20 at 0847, For 2 doses, Irritant. For ordered IV doses 0.1-4 mg, give IV Push undiluted over 2-5 minutes. ondansetron (ZOFRAN) injection 4 mg Given 03/07/2020 11:45 PM BUILDING ILLUMINATING ENGINEER 4 mg 4 mg, Intravenous, EVERY 30 MIN PRN, nausea, Administer over 2-5 Minutes, Starting on Thu03/07/20 at 0958, For 2 doses, MAX total dose = 8 mg, including OR dosing. If not resolved in 15 minutes, then go to step 2 [prochlorperazine (COMPAZINE), if ordered]. Irritant. For ordered IV doses 0.1-4 mg, give IV Push undiluted over 2-5 minutes. Given 03/07/2020 12:21 PM BUILDING ILLUMINATING ENGINEER 4 mg ondansetron (ZOFRAN) injection 8 mg 8 mg, Intravenous, EVERY 6 HOURS PRN, nausea, vomiting , Administer over 2-5 Minutes, Starting on Thu03/07/20 at 163 9, If nausea not resolved in 15 minutes, notify provider before proceeding to prochlorperazine (COMPAZINE) [if ordered]. Irritant. For ordered IV doses 0.1-4 mg, give IV Push undiluted over 2-5 minutes., Post-procedure oxytocin (PITOCIN) 30 units in New Bag 03/07/2020 3:37 PM BUILDING ILLUMINATING ENGINEER 100 mL/hr 100 mL/hr 500 mL 0.9% NaCl infusion 100 mL/hr, Intravenous, CONTINUOUS, Starting on Thu03/07/20 at 1130, Anesthesia Provider to administer at 340 mL/hr for 30 minutes (or longer per provider discretion) then decrease to 100 mL/hr. Continue until a total of 2 bags administered (1st bag initiated by Anesthesia Provider.) Discontinue IV or saline lock IV per nurse discretion., Post-procedure Rate/Dose Verify 03/07/2020 1:27 PM BUILDING ILLUMINATING ENGINEER 100 mL/hr 100 mL/hr Patient NOT a candidate for azithromycin (ZITHROMAX) antibiotic. CONTINUOUS, Starting on Thu03/07/20 at 0800, Until Fr i 03/09/20 at 1343 scopolamine (TRANSDERM) Patch/Med Applied 03/07/2020 12:04 1 patch Behind Right 72 hr patch 1 patch PM BUILDING ILLUMINATING ENGINEER Ear 1 patch, Transdermal, ONCE, Administer over 24 Hours, On Thu03/07/20 at 0900, For 1 dose, For nausea/vomiting. Apply patch to skin, behind ear. Remove after 24 hours. Each 1.5 mg patch delivers 1 mg of scopolamine. Reminder: Remove previous patch before applying new patch. senna-docusate (SENOKOT-S/PERICOLACE) Given 03/09/2020 7:[address] 1 tablet 8.6-50 MG per tablet 1 tablet 1 tablet, Oral, 2 TIMES DAILY, First dose on Thu03/07/20 at 1130, If no bowel movement in 24 hours, increase to 2 tablets PO. Hold for loose stools. Preferred agent for constipation related to opioids. Hold for loose stools., Post-procedure Given 03/08/2020 8:16 PM BUILDING ILLUMINATING ENGINEER 1 tablet Given 03/08/2020 10:40 AM BUILDING ILLUMINATING ENGINEER 1 tablet senna-docusate (SENOKOT-S/PERICOLACE) 8. 6-50 MG per tablet 2 tablet 2 tablet, Oral, 2 TIMES DAILY, First dos e on Thu03/07/20 at 1130, Hold for loose stools. Preferred agent for constipation related to op ioids. Hold for loose stools., Post-procedure sodium chloride 0.9% (bottle) Given 03/07/2020 10:20 AM BUILDING ILLUMINATING ENGINEER 500 mLs Abdominal Tissue irrigation PRN, Starting on Thu03/07/20 at 0957, Anesthesia Intra-op Given 03/07/2020 9:57 AM BUILDING ILLUMINATING ENGINEER 400 mLs sodium citrate-citric acid (BICITRA) solution Given 8:16 AM BUILDING ILLUMINATING ENGINEER 30 mLs 30 mL 30 mL, Oral, PRE-OP/PRE-PROCEDURE, Starting on Thu03/07/20 at 0731, For 1 dose, For gastric pH neutralization. GIVE WITHIN 45 minutes PRIOR TO SURGICAL PROCEDURE., Pre-procedure documented in this encounter Active and Recently Administered Medications Times are shown in BUILDING ILLUMINATING ENGINEER. Scheduled Medication Order 03/07/2020 03/08/2020 03/09/2020 acetaminophen (TYLENOL) tablet 975 mg (COMPLETED) 0817 (Given - Provider: Sarika Pacheco RN) 975 mg, Oral, ONCE, Thu03/07/20 at 0800 , For 1 dose, Pre procedure Maximum acetaminophen dose from all sources = 75 mg/kg/day not to exceed 4 grams/day. acetaminophen (TYLENOL) tablet 975 mg 1338 (Not Given - Provider: Irene Hernandez RN - Reason: Other - Comment: last dose 0817)1615 (Not Given - Provider: Irene Hernandez RN - Reason: Nausea)2252 (Given - Provider: Erika Kraft RN) 0502 (Given - Provider: Erika Kraft RN)1040 (Given - Provider: Kristin Wray RN)1716 (Given - Provider: Kristin Wray RN) 0030 (Given - Provider: Deisi Wilburn RN)0626 (Given - Provider: Deisi Wilburn RN)1230 (Canceled Entry - Provider: Orders Generic Provider - Comment: Automatically canceled at discontinue of medication order) 975 mg, Oral, EVERY 6 HOURS, First dose on Thu03/07/20 at 1130, Maximum acetaminophen dose from all sources = 75 mg/kg/day not to exceed 4 grams/day., Post-procedure ceFAZolin (ANCEF) intermittent infusion 2 g in 100 mL dextrose PRE-MIX (COMPLETED) 0855 (Given - Provider: Mikel Santana APRN [employer]NAGER [employer]) Routine, 2 g, Intravenous, PRE-OP/PRE-CT OCEDURE, Starting Thu03/07/20 at 0731, For 1 dose, Give no sooner than 30 minutes prior to incision. If patient weight is greater than or equal to 120 kg increas e dose to 3 g., Indications: Perioperative Pharmacoprophylaxis, Pre-procedure ferrous gluconate (FERGON) tablet 324 mg 0753 (Given - Provider: Farrah Bentley RN)1024 (Canceled Entry - Provider: Sarah Tracy RN) 324 mg, Oral, DAILY WITH BREAKFAST, Firs t dose on Thu03/09/20 at 0900, DO NOT CRUSH. Absorbed best on an empty stomach. If stomach upset occurs, can take with meals. ibuprofen (ADVIL/MOTRIN) tablet 800 mg 0 719 (Given - Provider: Erika Kraft RN)1322 (Given - Provider: Kristin Wray RN)1851 (Given - Provider: Kristin Wray RN) 0142 (Given - Provider: Deisi samayoa RN)0753 (Given - Provider: Farrah Bentley, ROSY)1330 (Canceled Entry - Provider: Orders Generic Provider - Comment: Automatically canceled at discontinue of medication order) 800 mg, Oral, EVERY 6 HOURS, First dose on Kia 0 at 0700, Post-procedure ketorolac (TORADOL) injection 30 mg (COMPLETED) 1213 ( Given - Provider: Sarika Pacheco, RN)1801 (Given - Provider: Irene Hernandez, ROSY) 0101 (Given - Provider: Erika Kraft, ROSY) 30 mg, Intravenous, EVERY 6 HOURS, First dose on Thu03/07/20 at 1230, For 3 doses, Can cause pain on injection. If ordered intravenously (IV) : administer through a running maintenance fluid over 1 min cabazon followed by a flush. If patient comp lains of pain on injection, may dilute 15-30 mg in 5 mL and push over 1 to 2 minutes. , Post-procedure lactated ringers BOLUS 1,000 mL (COMPLETED) 1705 (New Bag - Provider: Irene Hernandez RN) Intravenous, 1,000 mL, ONCE, at 1,000 mL /hr, Administer over 1 Hours, Thu03/07/20 at 1700, For 1 dose Measles, Mumps & Rubella Vac (MMR) injection 0.5 mL 1000 (Canceled Entry - Provider: Kristin Wray RN) 0.5 mL, Subcutaneous, ONCE, Kia 03/08/20 at 1000, For 1 dose, Give ONLY if not immune or equivocal / borderline / low level Rubella titer., Post-procedure scopolamine (TRANSDERM) 72 hr patch 1 patch (COMPLETED ) 1204 (Patch/Med Applied - Provider: Sarika Pacheco RN) 1716 (Patch/Med Removed - Provider: Tae Wray RN) 1 patch, Transdermal, ONCE, Administer o genesis 24 Hours, Thu03/07/20 at 0900, For 1 dose, For nausea/vomiting. Apply patch to skin, behind ear. Remove after 24 hours. Each 1.5 mg patch delivers 1 mg of sc opolamine. Reminder: Remove previous patch before applying new p atch. senna-docusate (SENOKOT-S/PERICOLACE) 8. 6-50 MG per tablet 1 tablet(Linked Group 1) 1158 (Not Given - Provider: Sarika callahan RN - Reason: Nausea)2144 (Not Given - Provider: Erika Kraft RN - Reason: Patient/family refused - Comment: Patient will start in the AM) 1040 (Given - Provider: Kristin Wray RN)2015 (Given - Provider: Deisi Wilburn RN) 0753 (Given - Provider: Farrah Bentley RN)1024 (Canceled Entry - Provider: Sarah Tracy RN) 1 tablet, Oral, 2 TIMES DAILY, First dos e on Thu03/07/20 at 1130, If no bowel movement in 24 hours, increase to 2 tablets PO. Hold for loose stools. Preferred agent for constipation related to opioids. Hold for loose stools., Post-procedure senna-docusate (SENOKOT-S/PERICOLACE) 8. 6-50 MG per tablet 2 tablet(Linked Group 1) 1158 (See Alternative - Provider: Sarika Pacheco RN)2143 (See Alternative - Provider: Erika Kraft RN) 1040 (See Alternative - Provider: Kristin Wray RN)2015 (See Alternative - Provider: Deisi Wilburn RN) 0753 (See Alternative - Provider: Farrah Bentley RN)1024 (See Alternative - Provider: Sarah Tracy RN) 2 tablet, Oral, 2 TIMES DAILY, First dos e on Thu03/07/20 at 1130, Hold for loose stools. Preferred agent for constipation related to opioids. Hold for loose stools., Post-procedure sodium chloride (PF) 0.9% PF flush 3 mL 1327 (Not Give n - Provider: Irene Hernandez RN - Reason: IV Infusing)1999 (Not Given - Provider: rEika Kraft RN - Reason: IV Infusing) 0338 (Canceled Entry - Provider: Erika Kraft RN)1322 (Canceled Entry - Provider: Kristin Wray RN)2336 (Not Given - Provider: Deisi Wilburn RN - Reason: Loss of IV access) 0444 (Not Given - Provider: Deisi M Olchefeski, RN - Reason: No IV Access)1130 (Canceled Entry - Provider: Orders Generic Provider - Comment: Automatically canceled at discontinue of medication order) 3 mL, Intracatheter, EVERY 8 HOURS, Firs t dose on Thu03/07/20 at 1130, And PRN to lock peripheral IV dormant line., Post-procedure sodium citrate-citric acid (BICITRA) solution 30 mL (C OMPLETED) 0816 (Given - Provider: Sarika Pacheco RN) 30 mL, Oral, PRE-OP/PRE-PROCEDURE, Start ing Thu03/07/20 at 0731, For 1 dose, For gastric pH neutralization. GIVE WITHIN 45 minutes PRIOR TO SURGICAL PROCEDURE., Pre-procedure Tdap (hshawpc-fyzgtvsayl-eugyp pertussis) (ADACEL) injection 0.5 mL 1000 (Canceled Entry - Provider: Kristin Wray RN) 0.5 mL, Intramuscular, ONCE, [facility] 0 at 1000, For 1 dose, Administer Tdap PRIOR to discharge IF ALL apply: Tdap was NOT administered in AND has NOT had a Tdap after age 10 years., Post-procedure Continuous Medication Order 03/07/2020 03/08/2020 03/09/2020 dextrose 5% in lactated ringers infusion 1854 (New Bag - Provider: Irene Hernandez RN) 0300 (Stopped - Provider: Erika Kraft RN) at 125 mL/hr, Intravenous, CONTINUOUS, S ubsequent IV at nurse's discretion. DC IV when tolerating fluids or at nurse's discretion & saline lock., Post- procedure, Starting Thu03/07/20 at 1130, Until Thu03/09/20 at 1343 lactated ringers infusion (CANCELED) 0745 (New Bag - P rovider: Sarika Pacheco RN)0929 (New Bag - Provider: Mikel Santana APRN CRNA)1036 (Anesthesia Volume Adjustment - Provider: Mikel Santana APRN CRNA) at 200 mL/hr, Intravenous, CONTINUOUS, U p to 500 mL total, Pre-procedure, Starting Thu03/07/20 at 0800, Until Thu03/07/20 at 1308 lactated ringers infusion 1327 (Canceled Entry - Provider: Lo Hernandez RN) at 100 mL/hr, Intravenous, CONTINUOUS, C ontinue until IV catheter is weaned, Starting Thu03/07/20 at 1000, Until Thu03/09/20 at 1343 oxytocin (PITOCIN) 30 units in 500 mL 0.9% NaCl infusi on 1327 (Rate/Dose Verify - Provider: Irene Hernandez RN)1537 (New Bag - Provider: Irene Hernandez RN)1706 (Stopped - Provider: Irene Hernandez RN - Comment: Per Dr. Villarreal) 100 mL/hr, at 100 mL/hr, Intravenous, CO NTINUOUS, Starting Thu03/07/20 at 1130, Anesthesia Provider to administer at 340 mL/hr for 30 minutes (or longer per provider discretion) then decrease to 100 mL /hr. Continue until a total of 2 bags ad ministered (1st bag initiated by Anesthesia Provider.) Discontinue IV or saline lock IV per nurse discretion., Post-procedure Patient NOT a candidate for azithromycin (ZITHROMAX) a ntibiotic. 1158 (Not Given - Provider: Sarika Pacheco RN - Reason: Order parameters not met) CONTINUOUS, Starting Thu03/07/20 at 0800, Until Thu03/09/20 at 1343 PRN Medication Order 03/07/2020 03/08/2020 03/09/2020 bisacodyl (DULCOLAX) Suppository 10 mg 10 mg, Rectal, DAILY PRN, constipation, Starting Thu03/09/20 at 0000, Start POD 2 Hold for loose stools., Post-procedure hydrocortisone 2.5 % cream Rectal, 3 TIMES DAILY PRN, hemorrhoids, Starting Thu03/07/20 at 1116, Apply to hemorrhoids. Send only if nurse requests., Post-procedure lactated ringers BOLUS 1,000 mL Intravenous, 1,000 mL, ONCE PRN, post pa rtum hemorrhage (PPH), Starting Thu03/07/20 at 1116, For 1 dose, Rate: 500-1000 mL/hr. Start IF HEMORRHAGE, Post-procedure lanolin cream Topical, EVERY 1 HOUR PRN, dry skin, sor eness, Starting Thu03/07/20 at 1116, Apply to sore nipples after feedings, Post-procedure lidocaine (LMX4) cream Topical, EVERY 1 HOUR PRN, pain, with VA D insertion., Starting Thu03/07/20 at 1116, Apply at least 30 minutes prior to VAD insertion. In divided doses as needed for size of site for insertion. MAX Dose : 2.5 g (?? of 5 g tube) Do NOT give if patient has a history of allergy to any local anesthetic or any bella product., Post-procedure lidocaine 1 % 0.1-1 mL 0.1-1 mL, Other, EVERY 1 HOUR PRN, mild pain with VAD insertion., Starting Thu03/07/20 at 1116, MAX dose 1 mL subcutaneous OR intradermal along the side of the vein in divided doses as needed for VAD i nsertion. Do NOT give if patient has a h istory of allergy to any local anesthetic or any bella product., Post-procedure nalbuphine (NUBAIN) injection 2.5-5 mg 2.5-5 mg, Intravenous, EVERY 6 HOURS PRN , other, for pruritus, Starting Thu03/07/20 at 0847, Give 2.5 mg initially. If pruritus persists after 30 minutes, may give additional 2.5 mg. If effective, then repeat effective dose Q6H PRN pruritus. Note to RN: Do not discontinue this anesthesia order until 24 hours after epidural infusion discontinued. naloxone (NARCAN) injection 0.2 mg 0.2 mg, Intravenous, EVERY 2 MIN PRN, op ioid reversal, Starting Thu03/07/20 at 0847, Administer intravenous route when available and notify provider when administered. For unintended sedation or respir atory depression if all of the below cri teria are met: ~ respiratory rate LESS than or EQUAL to 8. ~SaO2 less than 92% and or/end-tidal CO2 is greater than 50. ~ the patient is receiving an opioid, has unintended sedations assessed as RASS (- 3), and is currently not on mechanical ventilation. RASS scale moderate (-3) is movement or eye opening to voice but no eye contact. Patient Monitoring Once the p atient has demonstrated a response to th e naloxone, continue to monitor respiratory rate, depth, oxygen saturation and end-tidal CO2 (if available) every 15 minutes x 2, then every 30 minutes x 2, then every 1 hour x 1 after each naloxone dos e. Consider transfer to ICU if patient respiratory parameters have not improved after 4 naloxone doses. For ordered IV doses 0.1-2mg give IVP. Give each 0.4mg ove r 15 seconds in emergency situations. Fo r non-emergent situations further dilute in 9mL of NS to facilitate titration of response. naloxone (NARCAN) injection 0.2 mg 0.2 mg, Intramuscular, EVERY 2 MIN PRN, opioid reversal, Starting Thu03/07/20 at 0847, Administer intramuscular if an intravenous route is not available and notify provider when administered. For unint ended sedation or respiratory depression if all of the below criteria are met: ~ respiratory rate LESS than or EQUAL to 8. ~SaO2 less than 92% and or/end-tidal CO2 is greater than 50. ~ the patient is r eceiving an opioid, has unintended sedat ions assessed as RASS (-3), and is currently not on mechanical ventilation. RASS scale moderate (-3) is movement or eye opening to voice but no eye contact. Patie nt Monitoring Once the patient has demon strated a response to the naloxone, continue to monitor respiratory rate, depth, oxygen saturation and end-tidal CO2 (if available) every 15 minutes x 2, then colby ry 30 minutes x 2, then every 1 hour x 1 after each naloxone dose. Consider transfer to ICU if patient respiratory parameters have not improved after 4 naloxone doses. For ordered IV doses 0.1-2mg give IVP. Give each 0.4mg over 15 seconds in emergency situations. For non-emergent situations further dilute in 9mL of NS to facilitate titration of response. naloxone (NARCAN) injection 0.4 mg 0.4 mg, Intravenous, EVERY 2 MIN PRN, op ioid reversal, Starting Thu03/07/20 at 0847, Administer intravenous route when available and notify provider when administered. For unintended sedation or respir atory depression if all of the below cri teria are met: ~ respiratory rate LESS than or EQUAL to 8. ~ SaO2 less than 92% and or/end-tidal CO2 is greater than 50. ~ the patient is receiving an opioid, has unintended sedation assessed as RASS (- 4) or (-5) and patient is currently not on mechanical ventilation. RASS scale (-4) is deep sedation with no response to voice but movement or eye opening to physi sumaya stimulation. RASS scale (-5) is unar ousable. Patient Monitoring Once the patient has demonstrated a response to the naloxone, continue to monitor respiratory rate, depth, oxygen saturation and end-t idal CO2 (if available) every 15 minutes x 2, then every 30 minutes x 2, then every 1 hour x 1 after each naloxone dose. Consider transfer to ICU if patient respiratory parameters have not improved afte r 4 naloxone doses. For ordered IV doses 0.1-2mg give IVP. Give each 0.4mg over 15 seconds in emergency situations. For non-emergent situations further dilute in 9mL of NS to facilitate titration of response. naloxone (NARCAN) injection 0.4 mg 0.4 mg, Intramuscular, EVERY 2 MIN PRN, opioid reversal, Starting Thu03/07/20 at 0847, Administer intramuscular if an intravenous route is not available and notify provider when administered. For unint ended sedation or respiratory depression if all of the below criteria are met: ~ respiratory rate LESS than or EQUAL to 8. ~ SaO2 less than 92% and or/end-tidal CO2 is greater than 50. ~ the patient is receiving an opioid, has unintended jose carlos tion assessed as RASS (-4) or (-5) and patient is currently not on mechanical ventilation. RASS scale (-4) is deep sedation with no response to voice but movement or eye opening to physical stimulation. RASS scale (-5) is unarousable. Patient Monitoring Once the patient has demonstrated a response to the naloxone, continue to monitor respiratory rate, depth, oxy gen saturation and end-tidal CO2 (if basim ilable) every 15 minutes x 2, then every 30 minutes x 2, then every 1 hour x 1 after each naloxone dose. Consider transfer to ICU if patient respiratory parameter s have not improved after 4 naloxone dos es. For ordered IV doses 0.1-2mg give IVP. Give each 0.4mg over 15 seconds in emergency situations. For non-emergent situations further dilute in 9mL of NS to facilitate titration of response. NO Rho (D) immune globulin (RhoGam) needed - mother Rh POSITIVE CONTINUOUS PRN, Starting Thu03/07/20 at 1116, Until Thu03/09/20 at 1343, Post-procedure ondansetron (ZOFRAN) injection 4 mg (CANCELED) 1217 (C anceled Entry - Provider: Irene Hernandez RN)1612 (Given - Provider: Irene Hernandez RN) 4 mg, Intravenous, EVERY 4 HOURS PRN, na usea, if scopalamine patch ineffective, Administer over 2-5 Minutes, Starting Thu03/07/20 at 0847, For 2 doses, Irritant. For ordered IV doses 0.1-4 mg, give IV Push undiluted over 2-5 minutes. ondansetron (ZOFRAN) injection 4 mg (COMPLETED) 1221 ( Given - Provider: Sarika Pacheco, RN)2345 (Given - Provider: Erika Kraft, ROSY) 4 mg, Intravenous, EVERY 30 MIN PRN, franklyn sea, Administer over 2-5 Minutes, Starting Thu03/07/20 at 0958, For 2 doses, MAX total dose = 8 mg, including OR dosing. If not resolved in 15 minutes, then go t o step 2 [prochlorperazine (COMPAZINE), if ordered]. Irritant. For ordered IV doses 0.1-4 mg, give IV Push undiluted over 2-5 minutes. ondansetron (ZOFRAN) injection 8 mg 8 mg, Intravenous, EVERY 6 HOURS PRN, na usea, vomiting, Administer over 2-5 Minutes, Starting Thu03/07/20 at 1639, If nausea not resolved in 15 minutes, notify provider before proceeding to prochlorper azine (COMPAZINE) [if ordered]. Irritant . For ordered IV doses 0.1-4 mg, give IV Push undiluted over 2-5 minutes., Post-procedure oxyCODONE (ROXICODONE) tablet 5 mg 5 mg, Oral, EVERY 4 HOURS PRN, other, pa in control or improvement in physical function. Hold dose for analgesic side effects., Starting Thu03/07/20 at 1116, Notify provider to assess for uncontrolled p ain or analgesic side effects. Hold whil e on HOT CAR OPERATOR or with regular IV opioid dosing. Maximum total is 60 mg in 24 hours., Post-procedure oxytocin (PITOCIN) 30 units in 500 mL 0.9% NaCl infusion 340 mL/hr, at 340 mL/hr, Intravenous, CO NTINUOUS PRN, for hemorrhage (PPH) UNTIL bleeding subsided, Starting Thu03/07/20 at 1116, When bleeding subsides decrease rate to 100 mL/hr. Notify pr ovider immediately when infusion begun. Oxytocin is first line medication for PPH., Post-procedure oxytocin (PITOCIN) injection 10 Units 10 Units, Intramuscular, ONCE PRN, postp artum hemorrhage (PPH). IF no IV access is available., Starting Thu03/07/20 at 1116, For 1 dose, Oxytocin is first line medication for PPH., Post-procedure simethicone (MYLICON) chewable tablet 80 mg 80 mg, Oral, 4 TIMES DAILY PRN, other, g as, Starting Thu03/07/20 at 1116, Chew., Post-procedure sodium chloride (PF) 0.9% PF flush 3 mL 3 mL, Intracatheter, EVERY 1 MIN PRN, li ne flush, for peripheral IV flush post IV meds, or to ensure patency., Starting Thu03/07/20 at 1116, Post-procedure sodium chloride 0.9% (bottle) irrigation 0957 (Given - Provider: Alba Villarreal MD)1020 (Given - Provider: Alba Villarreal MD) PRN, Starting Thu03/07/20 at 0957, Anesthesia Intra-op sodium phosphate (FLEET ENEMA) 1 enema 1 enema, Rectal, DAILY PRN, constipation , , Starting Thu03/09/20 at 0000, Use if bisacodyl not effective. Start POD 2. Hold for loose stools., Post-procedure tranexamic acid 1 g in 100 mL 0.7% NaCl IV bag (premix) 1 g, Intravenous, Administer over 10 Min utes, EVERY 30 MIN PRN, Post- hemorrhage (PPH), Starting Thu03/07/20 at 1116, For 2 doses, Provider consultation REQUIRED and MUST be administered as soon as the ONSET of bleeding AND within 3 ho urs of regardless of cause of the PPH (atony OR laceration). IF bleeding continues, a 2nd dose may be administered after 30 minutes. IF concern for DIC (Dis seminated Intravascular Coagulation), ob tain coagulation studies PRIOR to administration. Mix in 50 mL or 100 mL normal saline and infuse. Contraindications include: history of PE (Pulmonary Emboli), DV T (Deep Vein Thrombosis) and current Sub arachnoid hemorrhage and active DIC., Post-procedure Linked Groups Order Group 1: senna-docusate (SENOKOT-S/PERICOLACE) 8.6-50 MG per tablet 1 tabletJump to med 1 tablet, Oral, 2 TIMES DAILY, First dos e on Thu03/07/20 at 1130
If no bowel movement in 24 hours, increase to 2 tablets PO. Hold for loose stools. Preferred agent for constipation related to opioids.&nbs p;Hold for loose stools.
Post-procedure Or senna-docusate (SENOKOT-S/PERICOLACE) 8.6-50 MG per tablet 2 tabletJump to med 2 tablet, Oral, 2 TIMES DAILY, First dos e on Thu03/07/20 at 1130
Hold for loose stools. Preferred agent for constipation related to opioids. Hold for loose stools.
Post-procedure documented in this encounter Care Teams Senior Licensing Manager Relationship Specialty Start Date End Date Anca Matos MD PCP - General trace clerk 05/12/12 Callie Kumar Assigned OBGYN Provider 01/13/20 04/20/21 documented as of this encounter
--- OUTSIDE RECORDS SUMMARY | 2022-01-10 08:07 | XMS_ITS | Encounter Summary ---
:1985 Author Organization [facility] Address [address] [place] [id number] Care Team Providers Name Role Phone Anca Matos MD Primary Care Provider Callie Kumar Unavailable Unavailable Encounter Details Date Type Department Care Team Description 03/06/2020 Travel Social History Tobacco Use Types Packs/Day Years Used Date Smoking Tobacco: Never Smokeless Tobacco: Never Alcohol Use Standard Drinks/Week Comments No 0 (1 standard drink = 0.6 oz pure alcoho l) Sex Assigned at Date Recorded Not on file COVID-19 Exposure Response Date Recorded In the last month, have you been in contact with No / Unsure 03/06/2020 3:52 PM 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 documented as of this encounter Plan of Treatment Not on filedocumented as of this encounter Visit Diagnoses Not on filedocumented in this encounter Care Teams Announcer Relationship Specialty Start Date End Date Anca Matos MD PCP - General investigator vice 05/12/12 Callie Kumar Assigned OBGYN Provider 01/13/20 04/20/21 documented as of this encounter
--- OUTSIDE RECORDS SUMMARY | 2022-01-10 08:07 | XMS_ITS | Encounter Summary ---
:1985 Author Organization [facility] Address [address] [place] [address] Care Team Providers Name Role Phone Anca Matos MD Primary Care Provider Callie Kumar Unavailable Unavailable Reason for Visit Reason Comments Scheduled Section Auth/Cert Specialty Diagnoses / Procedures Referred By Contact Refer red To Contact header setup operator Diagnoses Previous section Previous section [Z98.891] Rh Labor And Deliv eduardo Procedures ZZC DELIVERY ONLY ZZC DELIVERY+ CARE ZZC C-SEC ONLY,PREV C-SEC SECTION repeat [address] [place], [place] [address] Phone: Fax: Referral ID Status Reason Start Date Expiration Date Visits Requ ested Visits Authorized [id number] 1 1 Encounter Details Date Type Department Care Team Description 03/07/2020 Surgery [facility] Alba Villarreal, SECTION repeat Birthplace [address] [facility] [place], [place] [id number] [place] [address] [address] [place] [address] Surgery Details Date/Time Status Location OR Service Patient Case Case Traum a Class Class Type Case? 03/07/20 8:40 Posted RH L+D LD 01 Obstetrics Surgery AM Admit Panel 1 Procedure LRB Anes Op Region Wound Class Commen ts SECTION repeat N/A Spinal Abdomen II-Clean Con taminated Surgeon Surgeon Role Service Panel Alba Villarreal MD Primary Obstetrics 1 Special Needs 5'7 259.6# stated documented in this encounter Social History Tobacco [...] with No / Unsure 03/06/2020 3:52 PM CONDUIT BENDER someone who was confirmed or suspected to have Coronavirus / COVID-19? documented as of this encounter Last Filed Vital Signs Vital Sign Reading Time Taken Comments Blood Pressure 136/88 03/07/2020 7:48 AM CONDUIT BENDER Pulse 100 03/07/2020 7:25 AM CONDUIT BENDER Temperature 37.2 ??C (99 ??F) 03/07/2020 7:25 AM CONDUIT BENDER Respiratory Rate 18 03/07/2020 7:25 AM CONDUIT BENDER Oxygen Saturation 98% 03/07/2020 7:48 AM CONDUIT BENDER Inhaled Oxygen Concentration - - Weight 115.7 kg (255 lb) 03/07/2020 7:10 AM CONDUIT BENDER Height 167.6 cm (5' 6) 03/07/2020 7:25 AM CONDUIT BENDER Body Mass Index 41.16 03/07/2020 7:10 AM CONDUIT BENDER documented in this encounter Discharge Summaries Alba [...] 4, para 2, who was admitted to [facility] for repeat section. The patient was followed [...] evaluations as necessary. She had a normal [id number] test and a normal 20-week ultrasound. The [...] VILLARREAL MD MT: Name: STUART DIEGO Account: [id number] : 1985 Admit Date: 03/07/2020 Discharge Date: 03/09/2020 Document: [id number] cc: Alba Matos MD UIT BENDER documented in this encounter Discharge Instructions Discharge InstructionsSarah Tracy RN - 03/09/2020 10:03 AM CST Contact [...] questions or concerns after you return home. UIT BENDER AttachmentsThe following attachments cannot be sent through Care Everywhere. Section (), Discharge Instructions for (Congolese), Nutrition While (Congolese)documented in this encounter Medications at Time of [...] for mood if needed. MD Mira Greenberg ADVENTURE EDUCATION TEACHER 03/09/2020, 8:12 AM UIT BENDER Augusta Briseno MD - 03/08/2020 9:06 AM [...] POD#2 Augusta Briseno MD 03/08/2020 9:07 AM UIT BENDER documented in this encounter H&P Notes Alba [...] questions were answered and we will proceed. UIT BENDER Source Note - Ita Provider - 03/06/2020 5:48 PM CONDUIT BENDER documented in this encounter Miscellaneous Notes Plan [...] cares and is able to care for . Action: Patient medicated during the shift for [...] time. Response: Positive attachment behaviors observed with . Support persons present. Plan: Anticipate discharge home with . UIT BENDER Plan of Care - Deisi Wilburn RN [...] supportive at bedside. Will continue to monitor. UIT BENDER Plan of Care - Kristin Wray RN - 03/08/2020 1:49 PM CST Patient vitally stable, voiding without issue, tolerating regular diet, ambulating independently, IVSL removed. checks WDL. Pain adequately managed with prn Tylenol and Ibuprofen. Foam tapeoff incision today, steri strips remain and are intact. Patient up in shower, tolerated well. Breastf eeding independently. present and supportive. Attentive to , independent with self andinfant cares. Retained care of patient from [phone]. Stable as above. Working on discharge paperwork, would liketo discharge tomorrow 03/09. UIT BENDER Plan of Care - Erika Kraft RN [...] supportive at bedside. Will continue to monitor. UIT BENDER Plan of Care - Erika Kraft RN - 03/07/2020 9:29 PM CST Patients mobililty level scored using the bedside mobility assistance tool (BMAT). Patient is at a mobility level test number: 4. Mobility equipment used: none required. Required assist of 0 staff members. Further use of BMAT scoring not required. UIT BENDER Plan of Care - Irene Hernandez RN - 03/07/2020 5:25 PM CST Pt. vitals stable. Pain managed with scheduled Toradol. Dressing CDI, without signs of infection. Fluid bolus given due to low urine output. Patient nauseous and zofran given without much improvement. Scopolamine patch in place. Ambulating SBA. Independent in personal and infant cares. . Attentive to needs and bonding well with infant. FOB at bedside. UIT BENDER Op Note - Alba Villarreal MD - [...] minimal omental adhesions. SURGEON: Alba Villarreal MD ADMINISTRATIVE ASSISTANT OFFICE MANAGER: Maria M Adams MD ANESTHESIA: Spinal. BLOOD [...] evaluations as necessary. She had a normal [id number] test and a normal 20-week ultrasound. The [...] section, the patient was delivered of an infant female, 8 [...] was taken to the operating room at [facility]. She was placed in the sitting position. [...] and the baby was brought to the infant warmer. No resuscitation was necessary. The placenta [...] MD MT: HANNA Name: STUART DIEGO Account: [id number] : 1985 Procedure Date: 03/07/2020 Document: [id number] UIT BENDER Provider Notification - Irene Hernandez RN - 03/07/2020 4:37 PM CST 03/07/20 1636 Provider Notification Provider Name/Title Dr. Villarreal Method of Notification Phone Request Evaluate-Remote Notification Reason Medication Request;Status Update updated on patient's nausea and multiple episodes of emesis. Urine output of 100mL over the last 3 hours. New orders to discontinue pitocin, increase Zofran dose, and give bolus of LR. UIT BENDER Plan of Care - Sarika Pacheco RN - 03/07/2020 1:00 PM CST Data: Stuart Diego transferred to [facility] via cart at 1300. Baby transferred via parent's arms. Action: Receiving unit notified of transfer: Yes. Patient and family notified of room change. Reportgiven to Autumn GALLEGOS at 1300. Belongings sent to receiving unit. Accompanied by Registered Nurse. Oriented patient to surroundings. Call light within reach. ID bands double-checked with receiving RN. Response: Patient tolerated transfer and is stable. UIT BENDER Plan of Care - Sarika Pacheco RN [...] and breast fed well on both sides. UIT BENDER Brief Op Note - Alba Villarrela MD - 03/07/2020 10:44 AM CST Brief Operative Note Pre-operative diagnosis: Previous section [Z98.891] Post-operative diagnosis Same, with omental adhesions to the anterior abdominal wall Procedure: Procedure(s): SECTION repeat, lysis of omental adhesions Surgeon(s): Surgeon(s) and Role: * Alba Villarreal MD - Primary Commanding Officer Garage Maria M Vital Estimated blood loss: 903 ml Specimens: ID Type Source Tests Collected by Time Destination 1 : Cord blood Blood OR DOCUMENTATION ONLY Alba Villarreal MD 03/07/2020 9:37 AM Findings: female 8# 12 oz Apgars. Baby in cephalic presentation. Clear fluid. Normal uterine cavity. Tubes and ovaries normal. Few adhesions of the omentum to the anterior abdominal wall, lysed during entry. No complications. UIT BENDER Plan of Care - Sarika Pacheco RN - 03/07/2020 10:43 AM CST Continuous cardiac monitoring is being followed by Deandra Riggins RN/TT. UIT BENDER Plan of Care - Sarika Pacheco RN - 03/07/2020 8:00 AM CST Patient [facility] to [facility] for scheduled C/S. VS stable. Positive movement. EFM monitors explained and placed x's 2. Baseline FHR 145, moderate variability with accelerations present. PIV placed. CBC with Plts drawn. LR is infusing. Procedure explained to patient. Questions answered. Consents signed. Patient prepped for surgery. UIT BENDER Pharmacy-Admission Medication History - Herlinda Lucero RPH - 03/06/2020 9:51 AM CST Admission medication history interview status for this patient is complete. See [facility] admission navigator for allergy information, prior to [...] 50 mg by mouth daily Reported, Patient UIT BENDER documented in this encounter Plan of Treatment Not on filedocumented as of this encounter Procedures Procedure Name Priority Date/Time Associated Diagnosis Comme nts HEMOGLOBIN Routine 03/08/2020 7:07 AM Results f or this CONDUIT BENDER procedure are i n the results section. SECTION 03/07/2020 8:35 AM Previous CONDUIT BENDER section Special Needs 5'7 259.6# stated CBC WITH PLATELETS STAT 03/07/2020 7:35 AM CONDUIT BENDER Results for this procedure are in the results sec tion. GROUP B STREP PCR Routine 02/13/2020 Results fo r this procedure are in the results sec tion. documented in this encounter Results (ABNORMAL) Hemoglobin (03/08/2020 7:07 AM CONDUIT BENDER) athologist Signature Hemoglobin 8.3 (L) 11.7 - 15.7 03/08/2020 [place] g/dL 7:38 AM [facility] Specimen Anatomical Collection Method Collection Time Receive d Time (Source) Location / / Volume Laterality Blood specimen 03/08/2020 7:07 AM 020 7:08 (specimen) CONDUIT BENDER AM CONDUIT BENDER Alba Villarreal MD LAB - BLOOD ORDERABLES Performing Organization Address City/State/ZIP Code Phon e Number [place] [id number] [place], [place] [address] [facility] [address] [place], [place] [address], [facility] [phone] (ABNORMAL) CBC with platelets (03/07/2020 7:35 AM CONDUIT BENDER) Analysis Performed At Patho logist Time Signature WBC 6.2 4.0 - 11.0 03/07/2020 [facility] 10e9/L 7:54 AM [facility] RBC Count 3.47 (L) 3.8 - 5.2 03/07/2020 [facility] 10e12/L 7:54 AM [facility] Hemoglobin 10.5 (L) 11.7 - 03/07/2020 [facility] 15.7 g/dL 7:54 AM [facility] Hematocrit 32.3 (L) 35.0 - 03/07/2020 [facility] 47.0 % 7:54 AM [facility] MCV 93 78 - 100 03/07/2020 [facility] fl 7:54 AM [facility] MCH 30.3 26.5 - 03/07/2020 [facility] 33.0 pg 7:54 AM [facility] MCHC 32.5 31.5 - 03/07/2020 [facility] 36.5 g/dL 7:54 AM [facility] RDW 12.9 10.0 - 03/07/2020 [facility] 15.0 % 7:54 AM [facility] Platelet Count 122 (L) 150 - 450 03/07/2020 [facility] 10e9/L 7:54 AM [facility] Specimen Anatomical Collection Method Collection Time Receive d Time (Source) Location / / Volume Laterality Blood specimen 03/07/2020 7:35 AM 020 7:51 (specimen) CONDUIT BENDER AM CONDUIT BENDER Alba Villarreal MD LAB - BLOOD ORDERABLES Performing Organization Address City/State/ZIP Code Phon e Number M [facility] [address] [place], [place] [address] [facility] [address] [place], [place] [address], [facility] [phone] Group B strep PCR (02/13/2020) P athologist Signature Group B Strep negative PCR Patient Reported LAB - MICRO GENERAL ORDERABL ES documented in this encounter Visit Diagnoses Diagnosis Delivery of by sectio n - Primary Previous section Other postprocedural status documented in this encounter Administered Medications Inactive Administered Medications - up to 3 most recent administrations Medication Order MAR Action Action Date Dose Rate Site acetaminophen (TYLENOL) tablet 975 Given 03/09/2020 6:26 AM CONDUIT BENDER 975 mg mg 975 mg, Oral, EVERY 6 HOURS, First dose on Thu03/07/20 at 1130, Maximum acetaminophen dose from all sources = 75 mg/kg/day not to exceed 4 grams/day., Post-procedure Given 03/09/2020 12:30 AM CONDUIT BENDER 975 mg Given 03/08/2020 5:16 PM CONDUIT BENDER 975 mg dextrose 5% in lactated ringers infusion New Bag 03/07/2020 6:54 PM CONDUIT BENDER 125 mL/hr at 125 mL/hr, Intravenous, CONTINUOUS, Subsequent IV at nurse's discretion. DC IV when tolerating fluids or at nurse's discretion & saline lock., Post-procedure, Starting on Thu03/07/20 at 1130, Until Thu03/09/20 at 1343 ferrous gluconate (FERGON) tablet 324 mg Given 03/09/2020 7:53 AM CONDUIT BENDER 324 mg 324 mg, Oral, DAILY WITH BREAKFAST, First dose on Thu03/09/20 at 0900, DO NOT CRUSH. Absorbed best on an empty stomach. If stomach upset occurs, can take with meals. ibuprofen (ADVIL/MOTRIN) tablet 800 mg Given 03/09/2020 7:53 AM CONDUIT BENDER 800 mg 800 mg, Oral, EVERY 6 HOURS, First dose on Kia 03/08/20 at 0700, Post-procedure Given 03/09/2020 1:42 AM CONDUIT BENDER 800 mg Given 03/08/2020 6:51 PM CONDUIT BENDER 800 mg lactated ringers infusion at 100 mL/hr, Intravenous, CONTINUOUS, Continue until IV catheter is weaned, Starting on Thu03/07/20 at 1000, Until Thu03/09/20 a t 1343 nalbuphine (NUBAIN) injection 2.5-5 mg 2.5-5 mg, Intravenous, EVERY 6 HOURS PRN, other, for p ruritus, Starting on Thu03/07/20 at 0847, Give 2.5 mg initially. If pruritus persists after 30 minutes, may give additional 2.5 mg. If effective, [facility] repeat effective dose Q6H PRN pruritus. Note [...] 0847, Administer intramuscular if an intravenous ro upper [place] is not available and notify provider when [...] 0847, Administer intramuscular if an intravenous ro [place] is not available and notify provider when [...] facilitate titration of response. ondansetron (ZOFRAN) injection 8 mg 8 mg, [...] units in New Bag 03/07/2020 3:37 PM CONDUIT BENDER 100 mL/hr 100 mL/hr 500 mL 0.9% [...] discretion., Post-procedure Rate/Dose Verify 03/07/2020 1:27 PM CONDUIT BENDER 100 mL/hr 100 mL/hr Patient NOT a candidate for azithromycin (ZITHROMAX) antibiotic. CONTINUOUS, Starting on Thu03/07/20 at 0800, Until Fr i 03/09/20 at 1343 senna-docusate (SENOKOT-S/PERICOLACE) Given 03/09/2020 7:[address] 1 tablet 8.6-50 MG per tablet 1 tablet 1 tablet, Oral, 2 TIMES DAILY, First dose on Thu03/07/20 at 1130, If no bowel movement in 24 hours, increase to 2 tablets PO. Hold for loose stools. Preferred agent for constipation related to opioids. Hold for loose stools., Post-procedure Given 03/08/2020 8:16 PM CONDUIT BENDER 1 tablet Given 03/08/2020 10:40 AM CONDUIT BENDER 1 tablet senna-docusate (SENOKOT-S/PERICOLACE) 8. 6-50 MG per tablet 2 tablet 2 tablet, Oral, 2 TIMES DAILY, First dos e on Thu03/07/20 at 1130, Hold for loose stools. Preferred agent for constipation related to op ioids. Hold for loose stools., Post-procedure sodium chloride 0.9% (bottle) Given 03/07/2020 10:20 AM CONDUIT BENDER 500 mLs Abdominal Tissue irrigation PRN, Starting on Thu03/07/20 at 0957, Anesthesia Intra-op Given 03/07/2020 9:57 AM CONDUIT BENDER 400 mLs documented in this encounter Active and Recently Administered Medications Times are shown in CONDUIT BENDER. Scheduled Medication Order 03/07/2020 03/08/2020 03/09/2020 acetaminophen (TYLENOL) tablet 975 mg (COMPLETED) 08 (Given - Provider: Sarika Pacheco RN) 975 mg, Oral, ONCE, Thu03/07/20 at 0800 , For 1 dose, Pre procedure Maximum acetaminophen dose from all sources = 75 mg/kg/day not to exceed 4 grams/day. acetaminophen (TYLENOL) tablet 975 mg 1338 (Not Given - Provider: Irene Hernandez RN - Reason: Other - Comment: last dose [phone] (Not Given - Provider: Irene Hernandez RN - Reason: Nausea)2252 (Given - Provider: Erika Kraft RN) 0502 (Given - Provider: Erika Kraft, ROSY)1040 (Given - Provider: Kristin Wray, RN)1716 (Given - Provider: Kristin Wray RN) 0030 (Given - Provider: Deisi Wilburn, ROSY)0626 (Given - Provider: Deisi Wilburn, ROSY)1230 (Canceled Entry - Provider: Orders Generic Provider - Comment: Automatically canceled at discontinue of medication order) 975 mg, Oral, EVERY 6 HOURS, First dose on Thu03/07/20 at 1130, Maximum acetaminophen dose from all sources = 75 mg/kg/day not to exceed 4 grams/day., Post-procedure ceFAZolin (ANCEF) intermittent infusion 2 g in 100 mL dextrose PRE-MIX (COMPLETED) 0855 (Given - Provider: Mikel Santana APRN CRNA) Routine, 2 g, Intravenous, PRE-OP/PRE-FL OCEDURE, Starting Thu03/07/20 at 0731, For 1 [...] 1213 ( Given - Provider: Sarika Pacheco, ROSY)1801 (Given - Provider: Irene Hernandez RN) 0101 (Given - Provider: Erika Kraft RN) 30 mg, Intravenous, EVERY 6 HOURS, First dose on Thu03/07/20 at 1230, For 3 doses, Can cause pain on injection. If ordered intravenously (IV) : administer through a running maintenance fluid over 1 min [place] followed by a flush. If patient comp [...] Reason: Nausea)2144 (Not Given - Provider: Erika Kraft, ROSY - Reason: Patient/family refused - Comment: Patient will start in the AM) 1040 (Given - Provider: Kristin Wray RN)2016 (Given - Provider: Deisi Wilburn, ROSY) 0753 (Given - Provider: Farrah Bentley, ROSY)1024 (Canceled Entry - Provider: Sarah Tracy RN) [...] 1) 1158 (See Alternative - Provider: Sarika Pacheco, RN)2144 (See Alternative - Provider: Erika Kraft RN) 1040 (See Alternative - Provider: Kristin rWay RN)2016 (See Alternative - Provider: Deisi Wilburn RN) [...] Provider: Irene Hernandez RN - Reason: IV Infusing)2000 (Not Given - Provider: Erika Kraft RN - Reason: IV Infusing) 0338 (Canceled Entry - Provider: Erika Kraft RN)1322 (Canceled Entry - Provider: Kristin Wray RN)2336 (Not Given - Provider: Deisi Wilburn RN - Reason: Loss of IV access) 0444 (Not Given - Provider: Deisi Wilburn RN - Reason: No IV Access)1130 (Canceled Entry - Provider: Orders Generic Provider - Comment: Automatically canceled at discontinue of medication order) 3 mL, Intracatheter, EVERY 8 HOURS, Firs t dose on Thu03/07/20 at 1130, And PRN to lock peripheral IV dormant line., Post-procedure sodium citrate-citric acid (BICITRA) solution 30 mL (C OMPLETED) 0816 (Given - Provider: Sarika Pacheco, ROSY) 30 mL, Oral, PRE-OP/PRE-PROCEDURE, Start ing Thu03/07/20 at 0731, For 1 dose, For gastric pH neutralization. GIVE WITHIN 45 minutes PRIOR TO SURGICAL PROCEDURE., Pre-procedure Tdap (cgiwnmf-whqncmhpia-mlril pertussis) (ADACEL) injection 0.5 mL 1000 (Canceled Entry - Provider: Kristin Wray RN) 0.5 mL, Intramuscular, ONCE, [place] 0 at 1000, For 1 dose, Administer Tdap PRIOR to discharge IF ALL apply: Tdap was NOT administered in AND has NOT had a Tdap after age 10 years., Post-procedure Continuous Medication Order 03/07/2020 03/08/2020 03/09/2020 dextrose 5% in lactated ringers infusion 1854 (New Bag - Provider: Irene Hernandez RN) 0300 (Stopped - Provider: Erika Kraft, ROSY) at 125 mL/hr, Intravenous, CONTINUOUS, S ubsequent IV at nurse's discretion. DC IV when tolerating fluids or at nurse's discretion & saline lock., Post- procedure, Starting Thu03/07/20 at 1130, Until Thu03/09/20 at 1343 lactated ringers infusion (CANCELED) 0745 (New Bag - P rovider: Sarika Pacheco RN)0929 (New Bag - Provider: Mikel Santana APRN STEREOTYPER HELPER)1036 (Anesthesia Volume Adjustment - Provider: Mikel Santana APRN STEREOTYPER HELPER) at 200 mL/hr, Intravenous, CONTINUOUS, U p [...] 1217 (C anceled Entry - Provider: Irene Hernandez, ROSY)1612 (Given - Provider: Irene Hernandez, ROSY) 4 mg, Intravenous, EVERY 4 HOURS PRN, [...] analgesic side effects. Hold whil e on RING CUTTER LATHE OPERATOR or with regular IV opioid dosing. [...]
Post-procedure documented in this encounter Care Teams Steam Plant Operator Relationship Specialty Start Date End Date Anca Matos MD PCP - General header setup operator 05/12/12 Callie Kumar Assigned OBGYN Provider 01/13/20 04/20/21 documented as of this encounter
--- OUTSIDE RECORDS SUMMARY | 2022-01-10 08:07 | XMS_ITS | Encounter Summary ---
:1985 Author Organization [facility] Address [address] [place] [id number] Care Team Providers Name Role Phone Anca Matos MD Primary Care Provider Callie Kumar Unavailable Unavailable Encounter Details Date Type Department Care Team Description 03/06/2020 Hospital Encounter [facility] Red Villarreal Pre -operative [facility] Laboratory [facility] [address] [facility] [place], [place]SULTS [id number] [phone] [address] [place] [address] Social History Tobacco Use Types Packs/Day Years Used Date Smoking Tobacco: Never Smokeless Tobacco: Never Alcohol Use Standard Drinks/Week Comments No 0 (1 standard drink = 0.6 oz pure alcoho l) Sex Assigned at Date Recorded Not on file COVID-19 Exposure Response Date Recorded In the last month, have you been in contact with No / Unsure 03/06/2020 3:52 PM MANAGER MEAT someone who was confirmed or suspected to have Coronavirus / COVID-19? documented as of this encounter Medications at Time of Discharge Medication Sig Dispensed Refills Start Date End Date acetaminophen (TYLENOL) Take 3 tablets (975 60 tablet 0 325 MG tabletIndications: mg) by mouth every 6 Delivery of by hours section Ferrous Gluconate Take 20 mg by mouth 90 tablet 0 0 (FERGON) 240 (27 Fe) MG daily chewable TABSIndications: [...] 50 mg by mouth 0 tablet daily Ferrous Gluconate (FERGON Take 20 mg by mouth 0 03/09/2020 PO) daily chewable documented as of this encounter Plan of Treatment Not on filedocumented as of this encounter Procedures Procedure Name Priority Date/Time Associated Diagnosis Comme nts TREPONEMA ABS W Routine 03/06/2020 4:11 PM Pre-operative Resul ts for this REFLEX TO RPR AND MANAGER MEAT laboratory procedure are in TITER examination the results section. HEMOGLOBIN Routine 03/06/2020 4:11 PM Pre-operative Results for this [facility]NAGER [facility] laboratory procedure are i n examination the results section. ABO/RH TYPE AND Routine 03/06/2020 4:11 PM Pre-operative Resul ts for this SCREEN [facility]NAGER MEAT laboratory procedure are i n examination the results section. documented in this encounter Results Treponema Abs w Reflex to RPR and Titer (03/06/2020 4:11 PM MANAGER MEAT) [facility] gist Method Time Signature Treponema Nonreactive NR^Nonrea 03/07/2020 [facility] ctive 12:25 PM MANAGER MEAT [facility] Comment: Methodology Change: Test performed on D[employer] Liaison XL by Treponema pallidum Total Antibodies Assay as of . Specimen Anatomical Collection Method Collection Time Receive d Time (Source) Location / / Volume Laterality Blood specimen 03/06/2020 4:11 PM 020 4:12 (specimen) MANAGER MEAT PM MANAGER MEAT Red Villarreal MD LAB - BLOOD ORDERABLES Performing Organization Address City/State/ZIP Code Phon e Number [facility] [address] [place] [address] [facility] (ABNORMAL) Hemoglobin (03/06/2020 4:11 PM MANAGER MEAT) P athologist Signature Hemoglobin 10.4 (L) 11.7 - 15.7 03/06/2020 [facility] g/dL 4:25 PM [facility] Specimen Anatomical Collection Method Collection Time Receive d Time (Source) Location / / Volume Laterality Blood specimen 03/06/2020 4:11 PM 020 4:12 (specimen) MANAGER MEAT PM MANAGER MEAT Red Villarreal MD LAB - BLOOD ORDERABLES Performing Organization Address City/State/ZIP Code Phon e Number [facility] [address] [place], [place] [address] [address], [facility] [phone] ABO/Rh type and screen (03/06/2020 4:11 PM MANAGER MEAT) Patholo gist Method Time Signature ABO AB 03/06/2020 [facility] 5:01 PM [facility] RH(D) Pos [facility] Antibody Neg 03/06/2020 [facility] Screen 5:01 PM [facility] Test Valid [facility] 03/06/2020 [facility] Only At [facility] 5:01 PM [facility] Specimen 03/09/2020 03/06/2020 [facility] Expires 5:01 PM [facility] Specimen Anatomical Collection Method Collection Time Receive d Time (Source) Location / / Volume Laterality Blood specimen 03/06/2020 4:11 PM 020 4:12 (specimen) MANAGER MEAT PM MANAGER MEAT Red Villarreal MD LAB - BLOOD BANK TEST ORDER Performing Organization Address City/[facility]/ZIP [facility] Phon e Number [facility] [address] [place], [place] [address] [facility] [address] [place], [place] [address], [facility] [phone] documented in this encounter Visit Diagnoses Diagnosis Pre-operative laboratory examination Pre-procedural laboratory examination documented in this encounter Care Teams Component Design Engineer Relationship Specialty Start Date End Date Anca Matos MD PCP - General fuel cell designer 05/12/12 Callie Kumar Assigned OBGYN Provider 01/13/20 04/20/21 documented as of this encounter
--- OUTSIDE RECORDS SUMMARY | 2022-01-10 08:08 | XMS_ITS | Encounter Summary ---
:1985 Author Organization [place] Address [address] [place] [id number] Care Team Providers Name Role Phone Anca Matos MD Primary Care Provider Reason for Visit Reason Comments Threatened Miscarriage Encounter Details Date Type Department Care Team Description 10/02/[address] [facility] Roger Zapata te miscarriage; [facility] Emergency Dep t MD Gómez Blighted ovum [address] [facility] EMERGENCY PHYSICIANS [facility] [id number] [id number] [phone] [address] [place] [address] (Wo rk) Social History Tobacco Use Types Packs/Day Years Used Date Smoking Tobacco: Never Smokeless Tobacco: Never Alcohol Use Standard Drinks/Week Comments No 0 (1 standard drink = 0.6 oz pure alcoho l) Sex Assigned at Date Recorded Not on file documented as of this encounter Last Filed Vital Signs Vital Sign Reading Time Taken Comments Blood Pressure 128/74 10/02/2016 11:03 Simultaneous fi ling. AM CDT User may not hav e seen previous data. Pulse 98 10/02/2016 11:03 AM CDT Temperature 36.5 ??C (97.7 ??F) 10/02/2016 9:29 AM CDT Respiratory Rate 16 10/02/2016 9:29 AM CDT Oxygen Saturation 100% 10/02/2016 11:03 AM CDT Inhaled Oxygen - - Concentration Weight - - Height - - Body Mass Index - - documented in this encounter Discharge Instructions Discharge InstructionsRoger Zapata MD - 10/02/2016 12:02 PM CDT Images from the original note were not included. Please make an appointment to follow up with [facility] [employer] early next week for a recheck and repeat beta hCG Return to ER immediately if you develop: worsening bleeding (>1 pad or tampon per hour), severe abdominal or pelvic pain, new lightheadedness/dizziness/shortness of breath, Fever > 101, persistent nausea or vomiting OR you have any other concerns about your health. Use tylenol and/or ibuprofen for pain or discomfort Use Oxycodone for severe pain uncontrolled by above medications Opioid Medication Information You have been given a prescription for an opioid (narcotic) pain medicine and/or have received a pain medicine while here in the emergency department. These medicines can make you drowsy or impaired. You must not drive, operate dangerous equipment, or engage in any other dangerous activities while taking these medications. If you drive while taking these medications, you could be arrested for DUI, ordriving under the influence. Do not drink any alcohol while you are taking these medications. Opioid pain medications can cause addiction. If you have a history of chemical dependency of any type, you are at a higher risk of becoming addicted to pain medications. Only take these prescribed medications to treat your pain when all other options have been tried. Take it for as short a time and asfew doses as possible. Store your pain pills in a secure place, as they are frequently stolen and provide a dangerous opportunity for children or visitors in your house to start abusing these powerful medications. We will not replace any lost or stolen medicine. As soon as your pain is better, you should flush all your remaining medication. Many prescription pain medications contain Tylenol (acetaminophen), including Vicodin, Tylenol #3, Beth[place], Lortab, and Percocet. You should not take any extra pills of Tylenol if you are using these prescription medications or you can get very sick. Do not ever take more than 4000 mg of acetaminophen in any 24 hour period. All opioids tend to cause constipation. Drink plenty of water and eat foods that have a lot of fiber, such as fruits, vegetables, prune juice, apple juice and high fiber cereal. Take a laxative if you don???t move your bowels at least every other day. Miralax, Milk of Magnesia, Colace, or Senna can beused to keep you regular. Incomplete Miscarriage Today's exams show your has ended suddenly. This can be emotionally difficult. There is little that can be done to change the way you feel. But understand that miscarriages are common. About 1 or 2 out of every [address] Some even end before you know you are . This happens for a number of reasons, and usually the cause is never known. It???s important you know that it is not your fault. It didn???t happen because you did anything wrong. Having sex or exercising does not cause a miscarriage. These activities are usually safe unless you have pain or bleeding or your doctor tells you to stop. Even minor falls won???t cause a miscarriage.Miscarriages happen because things were not developing as they were supposed to. No medicine can prevent a miscarriage. After you have recovered, you should still be able to get again. But before trying, talk with your healthcare provider. It appears that your miscarriage is not yet complete. Some tissue from the is in the uterus. You will probably have more cramping and bleeding for the next few days as the tissue leaves your uterus.??Usually??all of the tissue will pass out by itself. But sometimes tissue remains. In that case, it must be removed to stop bleeding and prevent infection. Home care Follow these tips to take of yourself at home: ?? You can go back to your normal activities if you don???t have heavy bleeding or pain. ?? You may have some cramping and bleeding, but it shouldn???t be severe. Until the bleeding stops completely and to prevent infection: ?? Don???t have sex until your healthcare provider says it???s OK. ?? Use sanitary napkins instead of tampons. ?? Don???t douche. Having a miscarriage can be very difficult emotionally. It is natural to feel sadness or grief. It may help to talk about your feelings with family and friends, or with a counselor. Follow-up care You may pass tissue.??If you see anything, it may??appear as a 1-inch or larger piece of escobar or pink flesh. If tissue has not passed from your vagina within the next 5 days, you need to see your healthcare provider for another exam. To prevent infection in the uterus, your provider might need to take out the tissue by surgery. Or you may be given medicine to take at home to help your body expel the rest of the tissue. If you had an ultrasound, a radiologist will review it. You will be told of any new findings that may affect your care. Call 911 Call 911 if you have: ?? Severe pain and very heavy bleeding ?? Severe lightheadedness, passing out, or fainting ?? Rapid heart rate ?? Difficulty breathing ?? Confusion or difficulty waking up When to seek medical advice Call your healthcare provider right away if any of these occur: ?? Heavy bleeding. This means soaking 1 new pad an hour over 3 hours. ?? Foul-smelling vaginal discharge ?? Fever of 100.4??F (38??C) or higher, or as directed by your healthcare provider ?? Pain in your lower belly (abdomen) that gets worse ?? Weakness or dizziness Date Last Reviewed: 11/22/2015 ?? [id number] [employer]. [address] [place] [address]. All rights reserved. This information is not intended as a substitute for professional medical care. Always follow your healthcare professional's instructions. documented in this encounter Medications at Time of Discharge Medication Sig Dispensed Refills Start Date End Date Vit-Fe Take 1 tablet by 0 Fumarate-FA ( mouth daily. MULTIVITAMIN PLUS IRON) 27-0.8 MG TABS ondansetron (ZOFRAN ODT) Take 1 tablet (4 mg) 10 tablet 0 0 10/02/2016 10/05/2016 4 MG ODT tab by mouth every 8 hours as needed oxyCODONE (ROXICODONE) 5 Take 1-2 tablets 12 tablet 0 10/0202/29/2020 MG IR tablet (5-10 mg) by mouth every 6 hours as needed for moderate to severe pain documented as of this encounter ED Notes Radha Peres RN - 10/02/2016 12:25 PM CDT Pt expressed concerns for cramping and pain from taking Cytotec. aware, will place order for painmedication. ABCs intact. Roxana Hernandez RN - 10/02/2016 9:35 AM CDT Patient is 10 weeks , diagnosed with demise last week after lack of heartbeat on ultrasound. Bleeding started at 0200 today with cramping. Tearful. Roger Zapata MD - 10/02/2016 9:20 AM CDT History Chief Complaint: Threatened Miscarriage HPI Mindy Jacob is a 31 year old female who presents with abdominal pain and vaginal bleeding. Patient is currently 10 weeks with known demise after ultrasound done at [facility] [employer] clinic 1 week ago. Round 2 AM this morning she had the onset of vaginal bleeding and lower abdominal cramping. She's been passing large clots has not noticed any tissue, it has been changing a pad and less than one hour apart was scheduled to have another ultrasound today at the clinic called them and was referred here to the emergency department. Previous records show she is Rh+ for a blood type. She has no known coagulopathy other than mild -induced thrombocytopenia. Denies any significant lightheadedness and dizziness chest pain shortness of breath. No assisted reproduction. Allergies: Celexa [Citalopram Hydrobromide] Sulfamethoxazole W/Trimethoprim Medications: Oxycodone Multivitamin plus Iron Past Medical History: Coagulation disorder Deviated septum Esotropia, unspecified Generalized anxiety disorder OCP (oral contraceptive pills) initiation PONV (postoperative nausea and vomiting) Thyroid nodule Varicella without mention of complication Past Surgical History: Eye surgeries section x2 Gynecological surgery- c/s Thyroidectomy Family History: Maternal Grandmother: Neurologic Disorder Maternal Grandfather: Heart Disease Paternal Grandmother: Hypertension Social History: Smoking Status: Never Smoker Smokeless Tobacco: Never Used Alcohol Use: Negative Marital Status: Review of Systems ROS: 10 point ROS neg other than the symptoms noted above in the HPI. Physical Exam Vitals: Patient Vitals for the past 24 hrs: BP Temp Temp src Pulse Heart Rate Resp SpO2 10/02/16 1103 128/74 - - 98 98 - 100 % 10/02/16 0930 148/83 - - - - - 100 % 10/02/16 0929 (!) 145/98 97.7 ??F (36.5 ??C) Oral 94 94 16 100 % Physical Exam HEENT: mmm Neck: supple CV: ppi, regular Resp: speaking in full sentences with any resp distress Abd:soft, mild ttp lower abd Pelvic: Exam done with female assistant property manager in room (Ert/Rn). Exam showed normal external genitalia, multiple small clotsnoted again ongoing bleeding cervical os closed Ext: no edema Skin: warm dry well perfused Neuro: Alert, no gross motor or sensory deficits, gait stable Emergency Department Course Imaging: Radiology findings were communicated with the patient who voiced understanding of the findings. US Pelvic Complete with Transvaginal 2.3 cm complex fluid collection in the lower uterine segment is consistent with retained products of conception. Reading per radiology Laboratory: Laboratory findings were communicated with the patient who voiced understanding of the findings. CBC: WBC 10.2, HGB 12.4, PLT 165 HCG quantitative : 6501 (H) Interventions: 1001 NS 500 mLs IV 1158 Zofran 4 mg PO 1224 Cytotec 800 mcg Rectal 1233 Oxycodone 5 mg PO Emergency Department Course: Nursing notes and vitals reviewed. I performed an exam of the patient as documented above. IV was inserted and blood was drawn for laboratory testing, results above. The patient was sent for a US Pelvic Complete with Transvaginal while in the emergency department, results above. [address] Vikas Gibbons from [facility] [employer] regarding patient's presentation, findings, and plan of care. I discussed the treatment plan with the patient. They expressed understanding of this plan and consented to discharge. They will be discharged home with instructions for care and follow up. In addition, the patient will return to the emergency department if their symptoms persist, worsen, if new symptoms arise or if there is any concern. All questions were answered. I personally reviewed the imaging and laboratory results with the patient and answered all related questions prior to discharge. Impression & Plan Medical Decision Making: Mindy Jacob is a 31 year old female currently 10 weeks with known demise basedon ultrasound at OB clinic one week ago here with acute onset of lower abdominal cramping and bleeding, likely in the process of having a miscarriage. No signs of significant secondary blood loss on pelvic exam here. No tissue at the cervical O???s opening. Will do an ultrasound to evaluate retained products. Discussed with [employer] medications versus DNC versus expected management. She is Rh positive no indication for Rhogam. Remained stable here in the emergency department. Hemoglobin and platelet count normal. Ultrasound showing retained products in the lower uterine segment. Pain and bleeding did not significantly recur here in the ED. Discussed with her [facility] [employer] physician and will do Cytotec here in the ED and then discharge her home. She will return with new or worsening pain or bleeding and follow up with [facility] [employer] early next week. Her and her significant other were comfortable and agreed with this plan. Diagnosis: ICD-10-CM 1. Incomplete miscarriage O03.4 2. Blighted ovum O02.0 Disposition: The patient is discharged to home. Discharge Medications: New Prescriptions ONDANSETRON (ZOFRAN ODT) 4 MG ODT TAB Take 1 tablet (4 mg) by mouth every 8 hours as needed OXYCODONE (ROXICODONE) 5 MG IR TABLET Take 1-2 tablets (5-10 mg) by mouth every 6 hours as needed for moderate to severe pain Scribe Disclosure: Noe Cox, am serving as a scribe at 9:53 AM on 10/02/2016 to document services personally performed by Roger Zapata DO, based on my observations and the provider's statements to me. [facility] EMERGENCY DEPARTMENT Roger Zapata MD 10/02/16 0670 documented in this encounter Plan of Treatment Not on filedocumented as of this encounter Procedures Procedure Name Priority Date/Time Associated Comments Diagnosis US PELVIC STAT 10/02/2016 11:06 Results for this TRANSABDOMINAL AND AM CDT procedure are in TRANSVAGINAL the results section. CBC WITH PLATELETS & STAT 10/02/2016 10:00 Res ults for this DIFFERENTIAL AM CDT procedure are i n the results section. HCG QUANTITATIVE STAT 10/02/2016 10:00 Results for this AM CDT procedure are i n the results section. documented in this encounter Results US Pelvic Complete with Transvaginal (10/02/2016 11:06 AM CDT) Anatomical Region Laterality Modality Abdomen/Pelvis Ultrasound Specimen (Source) Anatomical Location Collection Method / Collectio n Time Received Time / Laterality Volume Impressions 10/02/2016 12:38 PM CDT IMPRESSION: 2.3 cm complex fluid collection in the lower uterine segment is consistent with retained prod ucts of conception. MARLON JACKMAN MD Narrative 10/02/2016 12:38 PM CDT ULTRASOUND PELVIC COMPLETE WITH TRANSVAGINAL October 02, 2016 11:06 AM ?? HISTORY: Known miscarriage, evaluate for products of conception. COMPARISON: None. FINDINGS: Transabdominal and transvagina l imaging was performed. Transvaginal imaging was performed to be tter visualize the endometrium and adnexa. Uterus is normal in size and position measuring 8.3 x 5.2 x 4.7 cm. There is complex fluid collect ion in the lower uterine segment measuring approximately 2.3 x 1. 1 x 1.8 cm consistent with retained products of conception. Endomet rium in the upper uterus is normal in thickness at 0.8 cm. The right ovary is normal in size and appearance. Left ovary not seen. No free pelvic fluid. Procedure Note Marlon Jackman MD - 10/02/2016Form atting of this note might be different from the original. ULTRASOUND PELVIC COMPLETE WITH TRANSVAG INAL October 02, 2016 11:06 AM HISTORY: Known miscarriage, evaluate for products of conception. COMPARISON: None. FINDINGS: Transabdominal and transvagina l imaging was performed. Transvaginal imaging was performed to be tter visualize the endometrium and adnexa. Uterus is normal in size and position measuring 8.3 x 5.2 x 4.7 cm. There is complex fluid collect ion in the lower uterine segment measuring approximately 2.3 x 1. 1 x 1.8 cm consistent with retained products of conception. Endomet rium in the upper uterus is normal in thickness at 0.8 cm. The right ovary is normal in size and appearance. Left ovary not seen. No free pelvic fluid. IMPRESSION: 2.3 cm complex fluid collect ion in the lower uterine segment is consistent with retained prod ucts of conception. MARLON JACKMAN MD Roger Zapata MD IMG US ORDERABLES (ABNORMAL) HCG quantitative (10/02/2016 10:00 AM CDT) [facility] Method Time Signature HCG Quantitative 6,501 (H) 0 - 5 [place] Serum IU/L [facility] Comment: Specimen run with a dilution Specimen Anatomical Collection Method Collection Time Receive d Time (Source) Location / / Volume Laterality Blood specimen 10/02/2016 10:00 7 (specimen) AM CDT 10:12 AM CDT Roger Zapata MD LAB - BLOOD ORDERABLES Performing Organization Address City/State/ZIP Code Phon e Number [place] [address] [address] [place] [address] [facility] [address] [phone] (ABNORMAL) CBC with platelets differential (10/02/2016 10:00 AM CDT) [facility] Method Time Signature WBC 10.2 4.0 - [place] 11.0 [facility] 10e9/[facility] RBC Count 3.97 3.8 - 5.2 [place] 10e12/L [facility] Hemoglobin 12.4 11.7 - [place] 15.7 g/dL [facility] Hematocrit 36.1 35.0 - [place] 47.0 % [facility] MCV 91 78 - 100 [facility] MCH 31.2 26.5 - [place] 33.0 pg [facility] MCHC 34.3 31.5 - [place] 36.5 g/dL [facility] RDW 13.1 10.0 - [place] 15.0 % [facility] Platelet Count 165 150 - 450 [place] 10e9/L [facility] Diff Method Automated [facility] % Neutrophils 83.1 % [facility] % Lymphocytes 11.9 % [facility] % Monocytes 4.1 % [facility] % Eosinophils 0.2 % [facility] % Basophils 0.3 % [facility] % Immature 0.4 % [place] Granulocytes [facility] Nucleated RBCs 0 0 /100 [facility] Absolute 8.4 (H) 1.6 - 8.3 [place] Neutrophil 10e9/L [facility] Absolute 1.2 0.8 - 5.3 [place] Lymphocytes 10e9/L [facility] Absolute 0.4 0.0 - 1.3 [place] Monocytes 10e9/L [facility] Absolute 0.0 0.0 - 0.7 [place] Eosinophils 10e9/L [facility] Absolute 0.0 0.0 - 0.2 [place] Basophils 10e9/L [facility] Abs Immature 0.0 0 - 0.4 [place] Granulocytes [address] [place] [address] Absolute 0.0 [place] Nucleated RBC [facility] Specimen Anatomical Collection Method Collection Time Receive d Time (Source) Location / / Volume Laterality Blood specimen 10/02/2016 10:00 7 (specimen) AM CDT 10:12 AM CDT Roger Zapata MD LAB - BLOOD ORDERABLES Performing Organization Address City/State/ZIP Code Phon e Number [place] [address] [phone] documented in this encounter Visit Diagnoses Diagnosis Incomplete miscarriage Incomplete spontaneous without mention of complication Blighted ovum Other abnormal products of conception documented in this encounter Administered Medications Inactive Administered Medications - up to 3 most recent administrations Medication Order MAR Action Action Date Dose Rate Site 0.9% sodium chloride BOLUS New Bag 10/02/2016 10:01 AM CDT 500 mLs Intravenous, 500 mL, ONCE, On Kia 10/02/16 at 0954, For 1 dose misoprostol (CYTOTEC) suppository 800 mc g Given 10/02/2016 12:24 PM CDT 800 mcg 800 mcg, Rectal, ONCE, On Kia 10/02/16 at 1154, For 1 dose ondansetron (ZOFRAN-ODT) ODT tab 4 mg Given 10/02/2016 11:58 AM CDT 4 mg 4 mg, Oral, ONCE, On Kia 10/02/16 at 1154, For 1 dose, With dry hands, peel back foil backing and gently remove tablet; do not push oral disintegrating tablet through foil backing; administer immediately on tongue and oral disintegrating tablet dissolves in seconds; then swallow with saliva; liquid not required. oxyCODONE (ROXICODONE) IR tablet 5 mg Given 10/02/2016 12:33 PM CDT 5 mg 5 mg, Oral, ONCE, On Kia 10/02/16 at 1231, For 1 dose documented in this encounter Active and Recently Administered Medications Times are shown in CDT. Scheduled Medication Order 09/30/2016 10/01/2016 10/02/2016 0.9% sodium chloride BOLUS (COMPLETED) 1001 (New Bag - Provider: Roxana Hernandez, ROSY)1119 (Stopped - Provider: Roxana Hernandez, ROSY) Intravenous, 500 mL, ONCE, Kia 10/02/16 at 0954, For 1 dose misoprostol (CYTOTEC) suppository 800 mcg (COMPLETED) 1224 (Given - Provider: Radha Peres, ROSY) 800 mcg, Rectal, ONCE, Kia 10/02/16 at 1154, For 1 dose ondansetron (ZOFRAN-ODT) ODT tab 4 mg (COMPLETED) 1158 (Given - Provider: Roxana Hernandez, ROSY) 4 mg, Oral, ONCE, Kia 10/02/16 at 1154, F or 1 dose, With dry hands, peel back foil backing and gently remove tablet; do not push oral disintegrating tablet through foil backing; administer immediately on tongue and oral disintegrating tablet d issolves in seconds; then swallow with saliva; liquid not required. oxyCODONE (ROXICODONE) IR tablet 5 mg (COMPLETED) 1233 (Given - Provider: Radha Peres RN) 5 mg, Oral, ONCE, On Kia 10/02/16 at 1231, For 1 dose documented in this encounter Care Teams Valet Runner Relationship Specialty Start Date End Date Anca Matos MD PCP - General cane furniture maker 05/12/12 documented as of this encounter
--- OUTSIDE RECORDS SUMMARY | 2022-01-10 08:08 | XMS_ITS | Encounter Summary ---
:1985 Author Organization [facility] Address [address] [place] [address] Care Team Providers Name Role Phone Anca Matos MD Primary Care Provider Reason for Referral Diagnostic Imaging Ultrasound (Routine) - Closed Specialty Diagnoses / Procedures Referred By Contact Refer red To Contact Diagnoses related condition, antepartum Syed Tijerina MD Procedures [facility] [address] [place] [address] [place] [address] Referral ID Status Reason Start Date Expiration Date Visits Requ ested Visits Authorized [id number] Closed 09/26/2019 09/25/2020 1 1 (Routine) - Closed Specialty Diagnoses / Procedures Referred By Contact Refer red To Contact Diagnoses related condition, antepartum Syed Tijerina MD [facility] [address] [place] [address] [place] [address] Referral ID Status Reason Start Date Expiration Date Visits Requ ested Visits Authorized [id number] Closed 09/26/2019 09/25/2020 1 1 Encounter Details Date Type Department Care Team Description 09/26/2019 Transcribe [facility] Syed Tijerina Pre gnancy related Maternal MD Coleman condition, [facility] antepartum ( Primary [facility]) [address] [place], [place] [id number] Social History Tobacco Use Types Packs/Day Years Used Date Smoking Tobacco: Never Smokeless Tobacco: Never Alcohol Use Standard Drinks/Week Comments No 0 (1 standard drink = 0.6 oz pure alcoho l) Sex Assigned at Date Recorded Not on file documented as of this encounter Plan of Treatment Scheduled Referrals Name Type Priority Associated Diagnoses Order S chedule [facility] Referral Routine related Order ed: 09/26/2019 REFERRAL- condition, antepartum documented as of this encounter Results [facility] US Comprehensive Single (10/18/2019 9:41 AM CDT) Anatomical Region Laterality Modality Ultrasound Specimen (Source) Anatomical Collection Method Collection Time Re ceived Time Location / / Volume Laterality 10/18/2019 8:59 AM CDT Impressions 10/18/2019 12:05 PM CDT IMPRESSION 1) Phillips intrauterine at 1 8 & 6/7 weeks gestational age. 2) None of the anomalies commonly detect ed by ultrasound were evident in the detailed anatomic survey, however some views were suboptimal, as described above. 3) Growth parameters and estimated weight were consistent with established dates. 4) The amniotic fluid volume appeared no rmal. 5) Normal activity for gestational age. 6) On transabdominal imaging the cervix appears long and closed. Narrative 10/18/2019 12:05 PM CDT Comprehensive Pat. Name: STUART DIEGO Study Date: 8:59am Pat. NO: [id number] Referring ??MD: LYNDA TIJERINA Site: [facility] [employer] Operator: Davida eLpe RD MS : 1985 Age: 34 INDICATION Advanced Maternal Age, Class II Obesity METHOD Transabdominal ultrasound examination. V iew: Suboptimal view: limited by maternal body habitus Phillips . Number of fetuses: 1 DATING ? Date ?Details ?Gest. age ?COY LMP ?06/08/2019 ? 18 w + 6 d ? 03/14/2020 Prior assessment ? / ? GA: 10 w + 3 d ?19 w + 2 d ? 03/11/2020 U/S ? 10/18/2019 ? based upon AC, BPD, Femur, HC ? 19 w + 0 d ? 03/13/2020 Assigned dating ?Dating performed on 10/18/2019, based on the LMP ?18 w + 6 d ? 03/14/2020 GENERAL EVALUATION Cardiac activity present. FHR 147 bpm. movements present. Presentation cephalic. Placenta No Previa, > 2 cm from internal os, anterior. Umbilical cord 3 vessel cord. Amniotic fluid Amount of AF: normal. MVP 3.6 cm. BIOMETRY Main Biometry: BPD ?42.4 ?mm ? 18w 6d ?Dai PEARSON ?58.4 ?mm ? 19w 1d ?Nicolive ?160.9 ?mm ?18w 6d ?Hadlock Cerebellum tr ?19.3 ? mm ?18w 5d ?Nicolaides AC ?143.7 ?mm ?19w 5d ?Hadlock Femur ?28.5 ? mm ?18w 5d ?Hadlock Humerus ?29.4 ?mm ? 19w 4d ?Meme Weight Calculation: EFW ? 280 ? g EFW (lb,oz) ? 0 lb 10 ? oz EFW by ?Hadlock ([id number]) Head / Face / Neck Biometry: Stationary Steam Engineer ? 8.3 ? mm CM ?3.7 ? mm Nasal bone ? 5.5 ? mm Nuchal fold ? 3.8 ? mm ANATOMY The following structures appear normal: Head / Neck ? Cranium. Head size. Head shape. Lateral ventricles. Choroid plexus. Midline falx. Cavum septi pellucidi. Cerebellum. Cisterna magna. ? Parenchyma. Thalami. Vermis. ? Neck. Nuchal fold. Face ? Lips. Profile. Nose. Maxilla. Mandible. Orbits. Lens. Heart / Thorax ?Situs. Bicaval view. Superior vena cava. Inferior vena cava. 6-nlgohd-efqthjp view. Cardiac position. Cardiac size. Cardiac rhythm. ? Right lung. Left lung. Diaphragm. Abdomen ? Abdominal wall. Cord insertion. Stomach. Kidneys. Bladder. Liver. Bowel. Genitals. Extremities / Skeleton ?Rig ht arm. Left arm. Right leg. Left leg. The following structures could not be ad equately visualized: Heart / Thorax ?4-chamber view: suboptimal subcostal view, normal apical. RVOT view. LVOT view. Aortic arch view. Ductal arch view. 3-vessel view. Spine ?Cervical spine. Thoracic spine. Lumbar spine. Sacral spine. Extremities / Skeleton ?Rig ht hand. Left hand. Right foot. Left foot. Gender: female, suboptimal. MATERNAL STRUCTURES Cervix ?Visualized ? Appearance: Appears Closed ? Approach - Transabdominal: Cervical length 37.0 mm Right Ovary ?Visualized Left Ovary ?Visualized RECOMMENDATION Thank-you for referring your patient for a comprehensive ultrasound. She had cell-free DNA screening showing the expected amounts of chromosomes 21, 18 & 13. MSAFP was 1.24 MoM. I discussed the findings on today's ultr asound with the patient. I reviewed the limitations of ultrasound both in detecting aneuploidy and structural abnormalities. Ultrasound, when views completed, can routinely dete ct 80-90% of structural abnormalities. We discussed the availability of amniocentesis for the precise diagnosis of chromosomal abnormalities and Stuart declined. COVID -19 precautions were reviewed. Follow-up is scheduled here in three wee ks to reassess anatomy that was suboptimally seen today. Return to primary provider for continued care. If you have questions regarding today's evaluation or if we can be of further service, please contact the [facility]. anomalies may be present but not detected Procedure Note CrossCallie MD - 10/18/2019For matting of this note might be different from the original. Comprehensive Pat. Name:STUART DIEGOSage Date:10/17 8:59am Pat. NO: [id number] MD:SYED WHEELER [facility]Davida Lepe RDMS :1985Age:34 INDICATION Advanced Maternal Age, Class II Obesity METHOD Transabdominal ultrasound examination. V iew: Suboptimal view: limited by maternal body habitus Phillips . Number of fetuses: 1 DATING Date Details Gest. age COY LMP 06/08/2019 18 w + 6 d 03/14/2020 Prior assessment 08/17/2019 GA: 10 w + 3 d 19 w + 2 d 03/11/2020 U/S 10/18/2019 based upon AC, BPD, Femur, HC 19 w + 0 d 03/13/2020 Assigned dating Dating performed on 09/21, based on the LMP 18 w + 6 d 03/14/2020 GENERAL EVALUATION Cardiac activity present. FHR 147 bpm. movements present. Presentation cephalic. Placenta No Previa, > 2 cm from internal os, anterior. Umbilical cord 3 vessel cord. Amniotic fluid Amount of AF: normal. MVP 3.6 cm. BIOMETRY Main Biometry: BPD 42.4 mm 18w 6d Hadlock OFD 58.4 mm 19w 1d Nicolaides HC 160.9 mm 18w 6d Hadlock Cerebellum tr 19.3 mm 18w 5d Nicolaides AC 143.7 mm 19w 5d Hadlock Femur 28.5 mm 18w 5d Hadlock Humerus 29.4 mm 19w 4d Meme Weight Calculation: EFW 280 g EFW (lb,oz) 0 lb 10 oz EFW by Dai ([id number]) Head / Face / Neck Biometry: Stationary Steam Engineer 8.3 mm CM 3.7 mm Nasal bone 5.5 mm Nuchal fold 3.8 mm ANATOMY The following structures appear normal: Head / Neck Cranium. Head size. Head sha pe. Lateral ventricles. Choroid plexus. Midline falx. Cavum septi pellucidi. Cerebellum. Cisterna magna. Parenchyma. Thalami. Vermis. Neck. Nuchal fold. Face Lips. Profile. Nose. Maxilla. Simi ble. Orbits. Lens. Heart / Thorax Situs. Bicaval view. Supe rior vena cava. Inferior vena cava. 1-ifjqru-noibnsl view. Cardiac position. Cardiac size. Cardiac rhythm. Right lung. Left lung. Diaphragm. Abdomen Abdominal wall. Cord insertion. Stomach. Kidneys. Bladder. Liver. Bowel. Genitals. Extremities / Skeleton Right arm. Left a rm. Right leg. Left leg. The following structures could not be ad equately visualized: Heart / Thorax 4-chamber view: suboptima l subcostal view, normal apical. RVOT view. LVOT view. Aortic arch view. Ductal arch view. 3-vessel view. Spine Cervical spine. Thoracic spine. Raisa mbar spine. Sacral spine. Extremities / Skeleton Right hand. Left hand. Right foot. Left foot. Gender: female, suboptimal. MATERNAL STRUCTURES Cervix Visualized Appearance: Appears Closed Approach - Transabdominal: Cervical dick gth 37.0 mm Right Ovary Visualized Left Ovary Visualized RECOMMENDATION Thank-you for referring your patient for a comprehensive ultrasound. She had cell-free DNA screening showing the expected amounts of chromosomes 21, 18 & 13. MSAFP was 1.24 MoM. I discussed the findings on today's ultr asound with the patient. I reviewed the limitations of ultrasound both in detecting aneuploidy and structural abnormalities. Ultrasound, when views completed, can routinely dete ct 80-90% of structural abnormalities. We discussed the availability of amniocentesis for the precise diagnosis of chromosomal abnormalities and Stuart declined. COVID -19 precautions were reviewed. Follow-up is scheduled here in three we ks to reassess anatomy that was suboptimally seen today. Return to primary provider for continued care. If you have questions regarding today's evaluation or if we can be of further service, please contact the [facility]. anomalies may be present but not detected IMPRESSION 1) Phillips intrauterine at 1 8 & 6/7 weeks gestational age. 2) None of the anomalies commonly detect ed by ultrasound were evident in the detailed anatomic survey, however some views were suboptimal, as described above. 3) Growth parameters and estimated weight were consistent with established dates. 4) The amniotic fluid volume appeared no rmal. 5) Normal activity for gestational age. 6) On transabdominal imaging the cervix appears long and closed. Syed Tijerina MD [facility] US ORDERABLES documented in this encounter Visit Diagnoses Diagnosis related condition, antepartum - Primary related condition, antepartum documented in this encounter Care Teams Post Framer Relationship Specialty Start Date End Date Anca Matos MD PCP - General book mender 05/12/12 documented as of this encounter
--- OUTSIDE RECORDS SUMMARY | 2022-01-10 08:08 | XMS_ITS | Encounter Summary ---
:1985 Author Organization [place] Address [address] [place] [address] Care Team Providers Name Role Phone Anca Matos MD Primary Care Provider Reason for Referral Diagnostic Imaging Ultrasound (Routine) - Closed Specialty Diagnoses / Procedures Referred By Contact Refer red To Contact Diagnoses AMA (advanced maternal age) multigravida 35+, unspecified trimester Obesity affecting in second trimester Callie Kumar Procedures [facility] Single F/U [address] [address] Referral ID Status Reason Start Date Expiration Date Visits Requ ested Visits Authorized [id number] Closed 10/18/2019 10/17/2020 1 1 Reason for Visit Diagnostic Imaging Ultrasound (Routine) - Closed Specialty Diagnoses / Procedures Referred By Contact Refer red To Contact Diagnoses AMA (advanced maternal age) multigravida 35+, unspecified trimester Obesity affecting in second trimester Callie Kumar Procedures [facility] Single F/U [address] [address] Referral ID Status Reason Start Date Expiration Date Visits Requ ested Visits Authorized [id number] Closed 10/18/2019 10/17/2020 1 1 Encounter Details Date Type Department Care Team Description 11/08/2019 Hospital Encounter [facility] Callie Kumar AMA (advanced maternal age) multigravida 35+, unspecified trimester; Maternal Georgia Valentino MD [address], [place] [address] Obesity affecting in second tr [facility] [address] [facility] [address] [place] [address] Social History Tobacco Use Types Packs/Day Years Used Date Smoking Tobacco: Never Smokeless Tobacco: Never Alcohol Use Standard Drinks/Week Comments No 0 (1 standard drink = 0.6 oz pure alcoho l) Sex Assigned at Date Recorded Not on file COVID-19 Exposure Response Date Recorded In the last month, have you been in contact with No / Unsure 11/08/2019 9:02 AM CDT someone who was confirmed or suspected to have Coronavirus / COVID-19? documented as of this encounter Medications at Time of Discharge Medication Sig Dispensed Refills Start Date End Date Vit-Fe Take 1 tablet by 0 Fumarate-FA ( mouth daily. MULTIVITAMIN PLUS IRON) 27-0.8 MG TABS sertraline (ZOLOFT) 50 MG Take 50 mg by mouth 0 tablet daily oxyCODONE (ROXICODONE) 5 Take 1-2 tablets 12 tablet 0 10/0202/29/2020 MG IR tablet (5-10 mg) by mouth every 6 hours as needed for moderate to severe pain documented as of this encounter Plan of Treatment Not on filedocumented as of this encounter Procedures Procedure Name Priority Date/Time Associated Diagnosis Comme nts [facility] COMPREHENSIVE Routine 11/08/2019 10:09 AMA (advanced Re sults for this SINGLE F/U AM CDT maternal age) procedure are in multigravida 35+, the result s unspecified section. trimester Obesity affecting in second trimester documented in this encounter Results [facility] Comprehensive Single F/U (11/08/2019 10:09 AM CDT) Anatomical Region Laterality Modality Ultrasound Specimen (Source) Anatomical Collection Method Collection Time Re ceived Time Location / / Volume Laterality 11/08/2019 9:01 AM CDT Impressions 11/08/2019 10:19 AM CDT IMPRESSION 1) Phillips intrauterine at 2 1 & 6/7 weeks gestational age. 2) None of the anomalies commonly detect ed by ultrasound were evident in the anatomic survey as described above, specifically views that were previously suboptimal appear normal today. 3) Growth parameters and estimated weight were consistent with established dates. 4) The amniotic fluid volume appeared no rmal. 5) Normal activity for gestational age. 6) On transabdominal imaging the cervix appears long and closed. Narrative 11/08/2019 10:19 AM CDT Comp Follow Up Pat. Name: STUART DIEGO Study Date: 9:01am Pat. NO: [id number] Referring ??: LYNDA YEBOAH Site: [facility] Racker Octave Board: Marlyn King RDMS : 1985 Age: 34 INDICATION Advanced Maternal Age, Class II Obesity. Suboptimal anatomy on previous u/s. METHOD Transabdominal ultrasound examination. V iew: Suboptimal view: limited by maternal body habitus Phillips . Number of fetuses: 1 DATING ? Date ?Details ?Gest. age ?COY LMP ?06/08/2019 ? 21 w + 6 d ? 03/14/2020 Prior assessment ? 5/ ? GA: 10 w + 3 d ?22 w + 2 d ? 03/11/2020 U/S ? 11/08/2019 ? based upon AC, BPD, Femur, HC ? 21 w + 5 d ? 03/15/2020 Assigned dating ?Dating performed on 11/08/2019, based on the LMP ?21 w + 6 d ? 03/14/2020 GENERAL EVALUATION Cardiac activity present. FHR 142 bpm. movements present. Presentation transverse with head to mat ernal right. Placenta No Previa, > 2 cm from internal os, ante rior. Umbilical cord 3 vessel cord . Amniotic fluid Amount of AF: normal. MVP 3.9 cm. BIOMETRY Main Biometry: BPD ?48.7 ?mm ? 20w 5d ?Hadlock OFD ?73.8 ?mm ? 22w 5d ?Nicolaides HC ?198.5 ?mm ?22w 0d ?Hadlock Cerebellum tr ?22.6 ? mm ?21w 2d ?Nicolaides AC ?170.5 ?mm ?22w 0d ?Hadlock Femur ?37.9 ? mm ?22w 1d ?Hadlock Weight Calculation: EFW ? 468 ? g EFW (lb,oz) ? 1 lb 1 ?oz EFW by ?Hadlock ([id number]) Head / Face / Neck Biometry: Bridal Sales Consultant ? 7.4 ? mm CM ?2.9 ? mm ANATOMY The following structures appear normal: Head / Neck ? Cranium. Head size. Head shape. Lateral ventricles. Midline falx. Cavum septi pellucidi. Cerebellum. Cisterna magna. Thalami. Face ? Lips. Profile. Nose. Heart / Thorax ?4-chamber view. RVOT view. LVOT view. Situs. Aortic arch view. Ductal arch view. 3-vessel view. 2-vdxecx-emeruvl view. ? Diaphragm. Abdomen ? Stomach. Kidneys. Bladder. Spine ?Cervical spine. Thoracic spine. Lumbar spine. Sacral spine. Extremities / Skeleton ?Rig ht hand. Left hand. Right foot. Left foot. Gender: female. MATERNAL STRUCTURES Cervix ?Visualized ? Appearance: Appears Closed ? Approach - Transabdominal: Cervical length 58.1 mm Right Ovary ?Not examined Left Ovary ?Not examined RECOMMENDATION Thank-you for referring your patient for an ultrasound to reassess anatomy that was previously suboptimally seen on comprehensive survey. I discussed the findings on today's ultr asound with the patient. I reviewed the limitations of ultrasound. Further ultrasound studies as clinically indicated. Return to primary provider for continued care. If you have questions regarding today's evaluation or if we can be of further service, please contact the [facility]. anomalies may be present but not detected Procedure Note Georgia Valentino MD - 11/08/2019 Comp Follow Up Pat. Name:Joshua DIEGO Date:11/07 9:01am Pat. NO: [id number] MD:SYED WHEELER [facility]Marlyn King RD Kenneth :1985Age:34 INDICATION Advanced Maternal Age, Class II Obesity. Suboptimal anatomy on previous u/s. METHOD Transabdominal ultrasound examination. V iew: Suboptimal view: limited by maternal body habitus Phillips . Number of fetuses: 1 DATING Date Details Gest. age OCY LMP 06/08/2019 21 w + 6 d 03/14/2020 Prior assessment 08/17/2019 GA: 10 w + 3 d 22 w + 2 d 03/11/2020 U/S 11/08/2019 based upon AC, BPD, Femur, HC 21 w + 5 d 03/15/2020 Assigned dating Dating performed on 10/21, based on the LMP 21 w + 6 d 03/14/2020 GENERAL EVALUATION Cardiac activity present. FHR 142 bpm. movements present. Presentation transverse with head to mat ernal right. Placenta No Previa, > 2 cm from internal os, ante rior. Umbilical cord 3 vessel cord . Amniotic fluid Amount of AF: normal. MVP 3.9 cm. BIOMETRY Main Biometry: BPD 48.7 mm 20w 5d Hadlock OFD 73.8 mm 22w 5d Nicolaides HC 198.5 mm 22w 0d Hadlock Cerebellum tr 22.6 mm 21w 2d Nicolaides AC 170.5 mm 22w 0d Hadlock Femur 37.9 mm 22w 1d Hadlock Weight Calculation: EFW 468 g EFW (lb,oz) 1 lb 1 oz EFW by Hadlock ([id number]) Head / Face / Neck Biometry: Bridal Sales Consultant 7.4 mm CM 2.9 mm ANATOMY The following structures appear normal: Head / Neck Cranium. Head size. Head sha pe. Lateral ventricles. Midline falx. Cavum septi pellucidi. Cerebellum. Cisterna magna. Thalami. Face Lips. Profile. Nose. Heart / Thorax 4-chamber view. RVOT view . LVOT view. Situs. Aortic arch view. Ductal arch view. 3-vessel view. 4-qclobb-dbywuib view. Diaphragm. Abdomen Stomach. Kidneys. Bladder. Spine Cervical spine. Thoracic spine. Raisa mbar spine. Sacral spine. Extremities / Skeleton Right hand. Left hand. Right foot. Left foot. Gender: female. MATERNAL STRUCTURES Cervix Visualized Appearance: Appears Closed Approach - Transabdominal: Cervical dikc gth 58.1 mm Right Ovary Not examined Left Ovary Not examined RECOMMENDATION Thank-you for referring your patient for an ultrasound to reassess anatomy that was previously suboptimally seen on comprehensive survey. I discussed the findings on today's ultr asound with the patient. I reviewed the limitations of ultrasound. Further ultrasound studies as clinically indicated. Return to primary provider for continued care. If you have questions regarding today's evaluation or if we can be of further service, please contact the [facility]. anomalies may be present but not detected IMPRESSION 1) Phillips intrauterine at 2 1 & 6/7 weeks gestational age. 2) None of the anomalies commonly detect ed by ultrasound were evident in the anatomic survey as described above, specifically views that were previously suboptimal appear normal today. 3) Growth parameters and estimated weight were consistent with established dates. 4) The amniotic fluid volume appeared no rmal. 5) Normal activity for gestational age. 6) On transabdominal imaging the cervix appears long and closed. Callie Kumar [facility] US ORDERABLES documented in this encounter Visit Diagnoses Diagnosis AMA (advanced maternal age) multigravida 35+, unspecified trimester Obesity affecting in second tr imester documented in this encounter Care Teams Sheet Metal Assembler And Riveter Relationship Specialty Start Date End Date Anca Matos MD PCP - General calender wind up helper 05/12/12 documented as of this encounter
--- OUTSIDE RECORDS SUMMARY | 2022-01-10 08:08 | XMS_ITS | Encounter Summary ---
:1985 Author Organization [place] Address [address] [place] [address] Care Team Providers Name Role Phone Anca Matos MD Primary Care Provider Callie Kumar Unavailable Unavailable Georgia Valentino MD Unavailable Encounter Details Date Type Department Care Team Description 02/29/2020 Orders Only [facility] Red Villarreal, Pre-op [facility] Laboratory laboratory examination [address] JANNETTE OBANDREW (Primary Dx) [place], [place] CONSULTS [id number] [phone] [address] [place] [address] Social History Tobacco Use Types Packs/Day Years Used Date Smoking Tobacco: Never Smokeless Tobacco: Never Alcohol Use Standard Drinks/Week Comments No 0 (1 standard drink = 0.6 oz pure alcoho l) Sex Assigned at Date Recorded Not on file COVID-19 Exposure Response Date Recorded In the last month, have you been in contact with No / Unsure 02/29/2020 3:30 PM KNOT CUTTER someone who was confirmed or suspected to have Coronavirus / COVID-19? documented as of this encounter Plan of Treatment Not on filedocumented as of this encounter Results Treponema Abs w Reflex to RPR and Titer (03/06/2020 4:11 PM KNOT CUTTER) [facility] Method Time Signature Treponema Nonreactive NR^Nonrea 03/07/2020 [facility] Antibodies ctive 12:25 PM KNOT CUTTER [facility] Comment: Methodology Change: Test performed on e DiaSorin Liaison XL by Treponema pallidum Total Antibodies Assay as of . Specimen Anatomical Collection Method Collection Time Receive d Time (Source) Location / / Volume Laterality Blood specimen 03/06/2020 4:11 PM 020 4:12 (specimen) KNOT CUTTER PM KNOT CUTTER Red Villarreal MD LAB - BLOOD ORDERABLES Performing Organization Address City/State/ZIP Code Phon e Number [facility] [address] [place] [address] [facility] (ABNORMAL) Hemoglobin (03/06/2020 4:11 PM KNOT CUTTER) P athologist Signature Hemoglobin 10.4 (L) 11.7 - 15.7 03/06/2020 [facility] g/dL 4:25 PM [facility] Specimen Anatomical Collection Method Collection Time Receive d Time (Source) Location / / Volume Laterality Blood specimen 03/06/2020 4:11 PM 020 4:12 (specimen) KNOT CUTTER PM KNOT CUTTER Red Villarreal MD LAB - BLOOD ORDERABLES Performing Organization Address City/State/ZIP Code Phon e Number [facility] [address] [phone] [facility] [address] [phone] ABO/Rh type and screen (03/06/2020 4:11 PM KNOT CUTTER) Patholo gist Method Time Signature ABO AB 03/06/2020 [facility] 5:01 PM [facility] RH(D) Pos [facility] Antibody Neg 03/06/2020 [place] Screen 5:01 PM [facility] Test Valid [place] 03/06/2020 [facility] Only At [facility] 5:01 PM [facility] Specimen 03/09/2020 03/06/2020 [facility] Expires 5:01 PM [facility] Specimen Anatomical Collection Method Collection Time Receive d Time (Source) Location / / Volume Laterality Blood specimen 03/06/2020 4:11 PM 020 4:12 (specimen) KNOT CUTTER PM KNOT CUTTER Red Villarreal MD LAB - BLOOD BANK TEST ORDER Performing Organization Address City/State/ZIP Code Phon e Number [facility] [address] [place], [place] [address] [facility] [address] [place], [place] [address] [facility] [phone] documented in this encounter Visit Diagnoses Diagnosis Pre-operative laboratory examination - P rimary Pre-procedural laboratory examination documented in this encounter Care Teams Attorney At Law Relationship Specialty Start Date End Date Anca Matos MD PCP - General aircraft armament mechanic 05/12/12 Callie Kumar Assigned OBGYN Provider 01/13/20 04/20/21 Georgia Valentino MD Assigned OBGYN Provider 04/21/21 05/11/[address] [place] [address] documented as of this encounter
--- OUTSIDE RECORDS SUMMARY | 2022-01-10 08:08 | XMS_ITS | Encounter Summary ---
:1985 Author Organization [place] Address [address] [place] [address] Care Team Providers Name Role Phone Adolfo Reyes MD Primary Care Provider Reason for Visit Reason Onset Date Comments ER F/U 07/07/2011 ER 07/04/11 ABD PAIN Encounter Details Date Type Department Care Team Description 07/07/2011 Telephone [facility] Adolfo Reyes MD ER F/U (ER 07/04/11 ABD [facility] [place] [address] PAIN) [id number] [place] [phone] Social History Tobacco Use Types Packs/Day Years Used Date Smoking Tobacco: Never Smokeless Tobacco: Never Alcohol Use Standard Drinks/Week Comments No 0 (1 standard drink = 0.6 oz pure alcoho l) Sex Assigned at Date Recorded Not on file documented as of this encounter Miscellaneous Notes Telephone Encounter - Meng Swan - 07/11/2011 9:22 AM CDT ED / Discharge Outreach Protocol Patient Contact Attempt # 3 Was call answered? No. Left message on voicemail with information to call me back. (Use smartphrase outreacheddischarge to continue) Meng Bar RN Telephone Encounter - Bhavani Rogers - 07/09/2011 2:29 PM CDT ED / Discharge Outreach Protocol Patient Contact Attempt # 2 Was call answered? No. Left message on voicemail with information to call me back. (Use smartphrase outreacheddischarge to continue) Telephone Encounter - Meng Swan - 07/08/2011 11:24 AM CDT ED / Discharge Outreach Protocol Patient Contact Attempt # 1 Was call answered? No. Left message on voicemail with information to call me back. (Use smartphrase outreacheddischarge to continue) Meng Bar, RN Telephone Encounter - Danya Mojica - 07/07/2011 11:08 AM CDT Pls call pt for ER 07/04/11 ABD PAIN follow up. Danya Mojica Batch Attendant documented in this encounter Plan of Treatment Not on filedocumented as of this encounter Visit Diagnoses Not on filedocumented in this encounter Care Teams Teller Supervisor Relationship Specialty Start Date End Date Adolfo Reyes MD PCP - General Family Practice 01/17/11 05/11/12 [address] [place] [address] documented as of this encounter
--- OUTSIDE RECORDS SUMMARY | 2022-01-10 08:08 | XMS_ITS | Encounter Summary ---
:1985 Author Organization [place] Address [address] [place] [address]. [place] [address] Care Team Providers Name Role Phone Anca Matos MD Primary Care Provider Reason for Visit Reason Comments Ultrasound L2-suboptimal anatomy Encounter Details Date Type Department Care Team Description [facility] Georgia Valentino MD [address] [place] [address] [phone] age) multigravida 35+, Medicine Center unspecified trimester [place] (Primary Dx) [address] [facility] [address] [place] [address] Social History Tobacco Use Types [...] / COVID-19? documented as of this encounter Progress Notes Georgia Valentino MD - 11/08/2019 9:15 AM CDT Please see Imaging tab under Chart Review for full details. Georgia Valentino MD Maternal Medicine documented in this encounter Plan of Treatment Not on filedocumented as of this encounter Visit Diagnoses Diagnosis AMA (advanced maternal age) multigravida 35+, unspecified trimester - Primary documented in this encounter Care Teams Display Mechanic Relationship Specialty Start Date End Date Anca Matos MD PCP - General road oiler 05/12/12 documented as of this encounter
--- OUTSIDE RECORDS SUMMARY | 2022-01-10 08:08 | XMS_ITS | Encounter Summary ---
:1985 Author Organization [place] Address [address] [place] [address] Care Team Providers Name Role Phone Anca Matos MD Primary Care Provider Encounter Details Date Type Department Care Team Description 05/28/2012 Hospital Encounter [facility] Anca Matos ie, [facility] [address] [facility] [address] [place] [address] [place] [address] (Wo rk) Social History Tobacco Use Types Packs/Day Years Used Date Smoking Tobacco: Never Smokeless Tobacco: Never Alcohol Use Standard Drinks/Week Comments No 0 (1 standard drink = 0.6 oz pure alcoho l) Sex Assigned at Date Recorded Not on file documented as of this encounter Medications at Time of Discharge Medication Sig Dispensed Refills Start Date End Date Vit-Fe Take 1 tablet by 0 Fumarate-FA ( mouth daily. MULTIVITAMIN PLUS IRON) 27-0.8 MG TABS oxyCODONE (ROXICODONE) 5 Take 1-2 tablets by 30 tablet 0 10/02/2016 MG immediate release mouth every 3 hours tabletIndications: S/P as needed. repeat low transverse documented as of this encounter Plan of Treatment Not on filedocumented as of this encounter Procedures Procedure Name Priority Date/Time Associated Comments Diagnosis HEMOGLOBIN Routine 05/28/2012 10:42 AM Results for this SOURCING ANALYST procedure are i n the results section. ABO/RH TYPE AND Routine 05/28/2012 10:42 AM Resul ts for this SCREEN SOURCING ANALYST procedure are i n the results section. documented in this encounter Results (ABNORMAL) Hemoglobin (05/28/2012 10:42 AM SOURCING ANALYST) P athologist Signature Hemoglobin 11.5 (L) 11.7 - 15.7 [place] g/dL [facility] Specimen Anatomical Collection Method Collection Time Receive d Time (Source) Location / / Volume Laterality 05/28/2012 10:42 05/28/2012 AM SOURCING ANALYST 10:45 AM SOURCING ANALYST Anca Matos MD LAB - BLOOD ORDERABLES Performing Organization Address City/[facility]/ZIP Code Phon e Number [facility] [address] [place], [place] [address] [facility] ABO/Rh type and screen (05/28/2012 10:42 AM SOURCING ANALYST) Analysis Performed At Patho logist Time Signature ABO AB [facility] RH(D) Pos [facility] Antibody Neg [place] Screen [facility] Specimen 05/31/2012 [place] Expires [facility] Specimen Anatomical Collection Method Collection Time Receive d Time (Source) Location / / Volume Laterality 05/28/2012 10:42 05/28/2012 AM SOURCING ANALYST 10:45 AM SOURCING ANALYST Anca Matos MD LAB - BLOOD BANK TEST ORDER Performing Organization Address City/[facility]/ZIP Code Phon e Number [facility] [address] [place], [place] [address] [facility] documented in this encounter Visit Diagnoses Not on filedocumented in this encounter Care Teams Mortar Mixer Relationship Specialty Start Date End Date Anca Matos MD PCP - General scrubber machine tender 05/12/12 documented as of this encounter
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
--- OUTSIDE RECORDS SUMMARY | 2022-01-10 08:08 | XMS_ITS | Encounter Summary ---
:1985 Author Organization [facility] Address [address] [place] [id number] Care Team Providers Name Role Phone Anca Matos MD Primary Care Provider Callie Kumar Unavailable Unavailable Encounter Details Date Type Department Care Team Description 01/15/2020 Orders Only [facility] Red Villarreal Encoun ter for screening [facility] for other viral [address] [facility] (Primary Dx) [place], [place] [id number] [phone] [address] [place] [address] Social History Tobacco Use Types Packs/Day Years Used Date Smoking Tobacco: Never Smokeless Tobacco: Never Alcohol Use Standard Drinks/Week Comments No 0 (1 standard drink = 0.6 oz pure alcoho l) Sex Assigned at Date Recorded Not on file documented as of this encounter Plan of Treatment Not on filedocumented as of this encounter Results Asymptomatic COVID-19 Virus (Coronavirus) by PCR (03/04/2020 9:15 AM [employer]ACHINE OPERATOR) Component Value Ref Test Analysis Performed At [facility] Range Method Time Signature COVID-19 Nasopharyngeal 03/04/2020 [place] Virus PCR to 9:36 AM [employer] MACHINE OPERATOR CLINICS [facility] - [place] Source [place] COVID-19 Test received-See 03/04/2020 INFECTIOUS Virus PCR to reflex to IDDL 10:[address] [facility] - test SARS CoV2 [employer] OPERATOR DIAGNOSTIC Result (COVID-19) Virus LABORATORY, RT-PCR [facility] Specimen (Source) Anatomical Collection Method Collection Time Re ceived Time Location / / Volume Laterality Specimen from 03/04/2020 9:15 03/04/2020 nasopharyngeal AM [employer] MACHINE OPERATOR 9:35 AM [employer] P[employer] MACHINE OPERATOR structure (specimen) Red Villarreal MD LAB - MICRO GENERAL ORDERABL ES Performing Organization Address City/State/ZIP Code Phon e Number INFECTIOUS DISEASES DIAGNOSTIC [address] [facility] [place] [address] LABORATORY, [facility] [address] [place] [address] [facility] documented in this encounter Visit Diagnoses Diagnosis Encounter for screening for other viral diseases - Primary documented in this encounter Care Teams Pelt Shearer Relationship Specialty Start Date End Date Anca Matos MD PCP - General exterminator 05/12/12 Callie Kumar Assigned OBGYN Provider 01/13/20 04/20/21 documented as of this encounter
--- OUTSIDE RECORDS SUMMARY | 2022-01-10 08:08 | XMS_ITS | Encounter Summary ---
:1985 Author Organization [facility] Address [address] [place] [address] Care Team Providers Name Role Phone Adolfo Reyes MD Primary Care Provider Reason for Visit Auth/Cert - Closed Specialty Diagnoses / Procedures Referred By Contact Refer red To Contact Surgery Diagnoses Left Thyroid Nodule Rh Periop Services Procedures [facility] [address] [place], [place] [phone] Phone: Fax: Referral ID Status Reason Start Date Expiration Date Visits Requ ested Visits Authorized [id number] Closed 05/08/2011 11/04/2011 1 1 Encounter Details Date Type Department Care Team Description 05/13/2011 - [facility], OCP (oral contraceptive pills) initiation; 05/14/2011 Encounter [place] [id number] Sabrina Servin MD Generalized anxiety disorder; Surgical [address] Postoperative pain [address] [place], [place] [id number] Social History Tobacco Use Types Packs/Day Years Used Date Smoking Tobacco: Never Smokeless Tobacco: Never Alcohol Use Standard Drinks/Week Comments No 0 (1 standard drink = 0.6 oz pure alcoho l) Sex Assigned at Date Recorded Not on file documented as of this encounter Last Filed Vital Signs Vital Sign Reading Time Taken Comments Blood Pressure 130/77 05/14/2011 7:25 AM WINE MAKER Pulse 86 05/14/2011 7:25 AM WINE MAKER Temperature 36 ??C (96.8 ??F) 05/14/2011 7:25 AM WINE MAKER Respiratory Rate 16 05/14/2011 7:25 AM WINE MAKER Oxygen Saturation 100% 05/14/2011 7:25 AM WINE MAKER Inhaled Oxygen Concentration - - Weight 93.8 kg (206 lb 12.7 oz) 05/13/2011 7:53 AM WINE MAKER Height 170.2 cm (5' 7.01) 05/13/2011 7:53 AM WINE MAKER Body Mass Index 32.38 05/13/2011 7:53 AM WINE MAKER documented in this encounter Discharge Instructions Discharge InstructionsCallie Soriano - 05/14/2011 9:50 AM CST HOME CARE FOLLOWING THYROIDECTOMY/LOBECTOMY Carri Mustafa E. Gavin RESULTS: Call the office regarding your final pathology report if you have not received your results after 2 full business days. INCISIONAL CARE: You may remove the dressing 24 hours after the drain was removed; replace the gauze if it becomes soiled. You may expect a small amount of drainage from your previous drain site. After removing the dressing, you may shower. Do not submerse incision in water for 1 week. Sutures will absorb and do not need to be removed. Leave the steri-strips (white paper tapes) in place until they fall off, or remove at 2 weeks aftersurgery. A lump/ridge under the incision is normal and will gradually resolve. ACTIVITY: Light Activity -- you may immediately be up and about as tolerated. Driving -- you may drive when comfortable and off narcotic pain medications. Light Work -- resume when comfortable off pain medications. (If you can drive, you probably can work.) Strenuous Work/Activity -- limit lifting to 20 pounds for 1 week. Progressively increase with time. Active Sports (running, biking, etc.) -- cautiously resume after 1 week. DIET: No restrictions. Increased fluid intake is recommended. While taking pain medications, increase dietary fiber or add a fiber supplementation like Metamucil or Citrucel to help prevent constipation - a possible side effect of pain medications. DISCOMFORT: Use pain medications as prescribed by your surgeon. Take the pain medication with some food, when possible, to minimize side effects. Intermittent use of ice packs may help during the first 48 hours. Expect gradual improvement. CALCIUM SUPPLEMENTATION: Some patients are prescribed to take a calcium supplement after surgery. Please take as prescribed. Watch for symptoms of numbness or tingling around the mouth or in the fingers or toes. This may be a sign of a low calcium level. Please contact the office so we can evaluate your symptoms. You may needto have your blood calcium level checked by doing a simple blood test. We may also need to make adjustments in your calcium dose. Not all patients require calcium monitoring and supplementation post-op. If your calcium was monitored and stabilized after surgery, the risk of having issues with low calcium once you are home is very small. RETURN APPOINTMENT: Schedule a follow-up visit 1-3 weeks post-op (you may do this any time after surgery is scheduled). Office Return to Dr Browning's office in 4-6 weeks for follow-up appointment. CONTACT US IF THE FOLLOWING DEVELOPS: 1. A fever that is above 101?? 2. If there is a large amount of drainage, bleeding, or swelling. 3. Severe pain that is not relieved by your prescription. 4. Drainage that is thick, cloudy, yellow, green or white. 5. Any other questions not answered by ???Frequently Asked Questions?? sheet. FREQUENTLY ASKED QUESTIONS: Q: How should my incision look? A: Normally your incision will appear slightly swollen with light redness directly along the incision itself as it heals. It may feel like a bump or ridge as the healing/scarring happens, and over time(3-4 months) this bump or ridge feeling should slowly go away. In general, clear or pink watery drainage can be normal at first as your incision heals, but should decrease over time. Q: How do I know if my incision is infected? A: Look at your incision for signs of infection, like redness around the incision spreading to surrounding skin, or drainage of cloudy or foul-smelling drainage. If you feel warm, check your temperature to see if you are running a fever. If any of these things occur, please notify the nurse at our office. We may need you to come into the office for an incision check. Q: How do I take care of my incision? A: If you have a dressing in place - Starting the day after surgery, replace the dressing 1-2 times a day until there is no further drainage from the incision. At that time, a dressing is no longer needed. Try to minimize tape on the skin if irritation is occurring at the tape sites. If you have significant irritation from tape on the skin, please call the office to discuss other method of dressing your incision. Small pieces of tape called ???steri-strips?? may be present directly overlying your incision; these may be removed 10 days after surgery unless otherwise specified by your surgeon. If these tapes start to loosen at the ends, you may trim them back until they fall off or are removed. A: If you had ???Dermabond?? tissue glue used as a dressing (this causes your incision to look shiny with a clear covering over it) - This type of dressing wears off with time and does not require more dressings over the top unless it is draining around the glue as it wears off. Do not apply ointments or lotions over the incisions until the glue has completely worn off. Q: There is a piece of tape or a sticky ???lead?? still on my skin. Can I remove this? A: Sometimes the sticky ???leads?? used for monitoring during surgery or for evaluation in the emergency department are not all removed while you are in the hospital. These sometimes have a tab or metal dot on them. You can easily remove these on your own, like taking off a band-aid. If there is a gel substance under the ???lead?? , simply wipe/clean it off with a washcloth or paper towel. Q: What can I do to minimize constipation (very hard stools, or lack of stools)? A: Stay well hydrated. Increase your dietary fiber intake or take a fiber supplement -with plenty ofwater. Walk around frequently. You may consider an lhyy-buc-qcclbnt stool-softener. Your Pharmacist can assist you with choosing one that is stocked at your pharmacy. Constipation is also one of the most common side effects of pain medication. If you are using pain medication, be pro-active and try toPREVENT problems with constipation by taking the steps above BEFORE constipation becomes a problem. Q: What do I do if I need more pain medications? A: Call the office to receive refills. Be aware that certain pain meds cannot be called into a pharmacy and actually require a paper prescription. A change may be made in your pain med as you progress thru your recovery period or if you have side effects to certain meds. --Pain meds are NOT refilled after 5pm on weekdays, and NOT AT ALL on the weekends, so please look ahead to prevent problems. Q: Why am I having a hard time sleeping now that I am at home? A: Many medications you receive while you are in the hospital can impact your sleep for a number of days after your surgery/hospitalization. Decreased level of activity and naps during the day may alsomake sleeping at night difficult. Try to minimize day-time naps, and get up frequently during the day to walk around your home during your recovery time. Sleep aides may be of some help, but are not recommended for long-term use. Q: I am having some back discomfort. What should I do? A: This may be related to certain positioning that was required for your surgery, extended periods of time in bed, or other changes in your overall activity level. You may try ice, heat, acetaminophen,or ibuprofen to treat this temporarily. Note that many pain medications have acetaminophen in them and would state this on the prescription bottle. Be sure not to exceed the maximum of 4000mg per day of acetaminophen. If the pain you are having does not resolve, is severe, or is a flare of back pain you have had onother occasions prior to surgery, please contact your primary physician for further recommendations or for an appointment to be examined at their office. Q: Why am I having headaches? A: Headaches can be caused by many things: caffeine withdrawal, use of pain meds, dehydration, high blood pressure, lack of sleep, over-activity/exhaustion, flare-up of usual migraine headaches. If youfeel this is related to muscle tension (a band-like feeling around the head, or a pressure at the low-back of the head) you may try ice or heat to this area. You may need to drink more fluids (try electrolyte drink like Gatorade), rest, or take your usual migraine medications. If your headaches do not resolve, worsen, are accompanied by other symptoms, or if your blood pressure is high, please call your primary physician for recommendation and/or examination. Q: I am unable to urinate. What do I do? A: A small percentage of people can have difficulty urinating initially after surgery. This includesbeing able to urinate only a very small amount at a time and feeling discomfort or pressure in the very low abdomen. This is called ???urinary retention?? , and is actually an urgent situation. Proceedto your nearest Emergency department for evaluation (not an Urgent Care Center). Sometimes the bladder does not work correctly after certain medications you receive during surgery, or related to certain procedures. You may need to have a catheter placed until your bladder recovers. When planning to goto an Emergency department, it may help to call the ER to let them know you are coming in for this problem after a surgery. This may help you get in quicker to be evaluated. If you have symptoms of a urinary tract infection, please contact your primary physician for the proper evaluation and treatment. If you have other questions, please call the office Thursday thru Thursday between 8am and 5pm to discuss with the nurse or physician assistant vice president. # There is a surgeon SYSTEMS PLANNER on weekday evenings and over the weekend in case of urgent need only, andmay be contacted at the same number. If you are having an emergency, call 911 or proceed to your nearest emergency department. MAKER documented in this encounter Medications at Time of Discharge Medication Sig Dispensed Refills Start Date End Date hydrocodone-acetaminophen Take 1-2 tablets by 30 tablet 0 0 05/14/2011 05/21/2012 5-325 MG per mouth every 4 hours tabletIndications: as needed. Postoperative pain norgestrel-ethinyl Take 1 tablet by 3 Package 3 01/03/2011 05/21/2012 estradiol (LO/OVRAL) mouth daily. 0.3-30 MG-MCG per tabletIndications: OCP (oral contraceptive pills) initiation sertraline (ZOLOFT) 50 MG Take 1 tablet by 90 tablet 1 12/2306/02/2011 tabletIndications: mouth daily. Generalized anxiety disorder documented as of this encounter Progress Notes Callie Soriano - 05/14/2011 10:02 AM CST D: Patient has orders to discharge. A/I: Reviewed discharge orders with the patient. PIV removed. Medication orders were reviewed and instructions given as to the frequency to take each med. Prescription for [place] sent with patient. Patient belongings sent with patient. Patient instructed to follow up with primary physican with any further questions they may have. Patient states they understand discharge orders as they are written and has no questions. P: Patient was discharged at 1005 accompanied by family. MAKER Pema Ferraro PA-C - 05/14/2011 9:17 AM CST [facility] General Surgery Progress Note Assessment and Plan: Assessment: POD #1, s/p Left Thyroid Lobectomy Plan: DC home Rx [place] RTC 1-3 weeks Interval History: Doing well, denies pain. Strong voice. Tolerating PO. Voiding OK. Physical Exam: Vitals were reviewed All vitals stable I/O last 3 completed shifts: In: 4392 [P.O.:1480; I.V.:2912] Out: 4685 [Urine:4625; Drains:35; Blood:25] Incision cdi. JUAN J serosanguinous--removed. Data: Recent Labs Lab Test 05/08/11 1130 01/03/11 1058 09/09/10 1855 ??? HGB 13.5 13.2 14.0 ??? WBC 5.5 4.5 5.9 Pema Ferraro PA-C MAKER documented in this encounter H&P Notes Malathi Decker MD - 05/12/2011 4:20 PM WINE MAKER MAKER Theresa Ortiz - 05/12/2011 10:36 AM CST This note is for the purpose of making the H&P performed in clinic within the last 30 days available in the hospital surgical encounter. MAKER Source Note - Valencia Gann - 05/08/2011 11:31 AM WINE MAKER [facility] [id number] [place] [id number] PRE-OP EVALUATION: Today's date: 05/08/2011 Stuart Diego (: 1985) presents for pre-operative evaluation assessment as requested by Dr. Decker. She requires evaluation and anesthesia risk assessment prior to undergoing surgery/procedure for treatment of thyroid . Date of Surgery/ Procedure: 05/13/11 Time of Surgery/ Procedure: [facility] Hospital/Surgical Facility: [facility] Fax number for surgical facility: [phone] Primary Physician: Dr. Reyes Type of Anesthesia Anticipated: General History of anesthesia complications: YES: Personal HX nausea vomiting History of abnormal bleeding: NONE History of blood transfusions: NO Patient has a Health Care Directive or Living Will: NO PREOP QUESTIONNAIRE 1- NO - Do you ever have any pain or discomfort in your chest? 2- NO - Have you ever had a severe pain across the front of your chest lasting for half an hour or more? 3- YES - Do you have swelling in your feet or ankles at times? 4- NO - Are you troubled by shortness of breath when: walking on the level/ up a slight hill/ at night? 5- NO - Does your chest ever sound wheezy or whistling? 6- NO - Do you currently have a cold, bronchitis or other respiratory infection? 7- NO - Have you had a cold, bronchitis or other respiratory infection within the last 2 weeks? 8- YES - Do you usually have a cough? 9- YES - Do you sometimes get pains in the calves of your legs when you walk? 10-YES - Do you or anyone in your family have previous history of blood clots? grandma 11-NO - Do you or does anyone in your family have serious bleeding problem such as prolonged bleeding following surgeries or cuts? 12-NO - Have you ever had problems with anemia or been told to take iron pills? 13-NO - Have you had any abnormal blood loss such as black, tarry or bloody stools, or abnormal vaginal bleeding? 14-YES - Have you or any of your relatives ever had problems with anesthesia? 15-NO - Do you snore or stop breathing at night? 16-NO - Do you have any prosthetic heart valves or joints? 17-NO - Is there any chance that you may be ? HPI: DEPRESSION - Patient has a long history of Depression of moderate severity requiring medication for control with recent symptoms being stable..Current symptoms of depression include none. . Patient Active Problem List Diagnoses Date Noted ??? Thyroid nodule [241.0B] 01/03/2011 ??? Generalized anxiety disorder [300.02] 01/03/2011 ??? OCP (oral contraceptive pills) initiation [V25.01D] 01/03/2011 ??? CARDIOVASCULAR SCREENING; LDL GOAL LESS THAN 160 [V81.2LR] 01/20/2010 ??? DYSTHYMIC DISORDER [300.4] 03/07/2006 ??? JOINT PAIN-LOWER LEG [719.46] 02/17/2006 ??? DERMATOPHYTOSIS OF FOOT [110.4] 02/17/2006 ??? ANXIETY STATE NOS [300.00] 01/29/2006 ??? PHOBIA NOS [300.20] 01/09/2004 Past Medical History Diagnosis Date ??? Esotropia, unspecified ??? Varicella without mention of complication ??? OCP (oral contraceptive pills) initiation 01/03/2011 ??? Generalized anxiety disorder 01/03/2011 ??? Thyroid nodule 01/03/2011 Past Surgical History Procedure Date ? ? C nonspecific procedure 1993 & Eye surgeries Current outpatient prescriptions Medication Sig ??? sertraline (ZOLOFT) 50 MG tablet Take 1 tablet by mouth daily. ??? norgestrel-ethinyl estradiol (LO/OVRAL) 0.3-30 MG-MCG per tablet Take 1 tablet by mouth daily. OTC products: no recent use of OTC ASA, NSAIDS or Steroids Allergies Allergen Reactions ??? Sulfamethoxazole W/trimethoprim septra ??? Celexa (Citalopram Hydrobromide) GI Disturbance Latex Allergy: NO History Substance Use Topics ??? Smoking status: Never Smoker ??? Smokeless tobacco: Never Used ??? Alcohol Use: No History Drug Use No REVIEW OF SYSTEMS: C: NEGATIVE for fever, chills, change in weight E/M: NEGATIVE for ear, mouth and throat problems R: NEGATIVE for significant cough or SOB CV: NEGATIVE for chest pain, palpitations or peripheral edema GI: NEGATIVE for nausea, abdominal pain, heartburn, or change in bowel habits EXAM: BP 108/76 Pulse 82 Temp(Src) 98 ??F (36.7 ??C) (Oral) Resp 20 Ht 5' 7 (1.702 m) Wt 207 lb(93.895 kg) BMI 32.42 kg/m2 SpO2 99% GENERAL APPEARANCE: healthy, alert and no distress HENT: ear canals and TM's normal and nose and mouth without ulcers or lesions NECK: thyroid nodules. RESP: lungs clear to auscultation - no rales, rhonchi or wheezes CV: regular rate and rhythm, normal S1 S2, no S3 or S4 and no murmur, click or rub ABDOMEN: soft, nontender, no HSM or masses and bowel sounds normal NEURO: Normal strength and tone, sensory exam grossly normal, mentation intact and speech normal DIAGNOSTICS: Preop Testing Labs: see EPIC IMPRESSION: Reason for surgery/procedure: thyroid nodule. Diagnosis/reason for consult: pre op. The proposed surgical procedure is considered INTERMEDIATE risk. For above listed surgery and anesthesia: Patient is at LOW risk for surgery/procedure and perioperative/procedure complications. RECOMMENDATIONS: --Approval given to proceed with proposed procedure, without further diagnostic evaluation. Signed Electronically by: Adolfo Reyes MD. Copy of this evaluation report is provided to requesting physician. Preop Guidelines documented in this encounter OR Notes OR Anesthesia - Malathi Decker MD - 05/15/2011 6:43 PM WINE MAKER MAKER documented in this encounter Miscellaneous Notes Initial Assessments - Malathi Decker MD - 05/15/2011 6:42 PM WINE MAKER MAKER Plan of Care - Guillermina Gutierres - 05/14/2011 5:38 AM CST Problem: IP GENERAL POC-ADULT,OB,BEHAVIORAL FVCPM Goal: Individualization/Patient-Specific Goal (Adult,OB,Behavioral The patient and/or their mechanical service representative will achieve their patient-specific goals related to the plan of care. The patient-specific goals include: Pt. Likes ice to neck and provide reassurance as pt. Has some anxiety Surgery left thyroid lobectomy 05/13/11 Outcome: Improving nauseated, zofran with relief. Denies pain. Dsg cdi. Ice to neck. Sm amt drg from juan j. Up ind. voiding. MAKER Plan of Care - Becky Galloway, ROSY - 05/13/2011 10:20 PM CST Problem: IP GENERAL POC-ADULT,OB,BEHAVIORAL FVCPM Goal: Individualization/Patient-Specific Goal (Adult,OB,Behavioral The patient and/or their mechanical service representative will achieve their patient-specific goals related to the plan of care. The patient-specific goals include: Pt. Likes ice to neck and provide reassurance as pt. Has some anxiety Surgery left thyroid lobectomy 05/13/11 Outcome: Improving Pt complaining of no pain. Ice pack to neck. JUAN J CDI with 10ml output. Patient tolerated a clear liquid diet for dinner so advanced to full liquid for breakfast. Tolerated pudding. Santos dc'd at 1915. Patient up for a walk with no dizziness. Voided 300ml after santos out. Slight headache which Tylenol took care of. Saline locked. in room with patient for the night. MAKER Pharmacy-Admission Medication History - Juan Pablo Martinez RPH - 05/13/2011 3:34 PM CST Med rec completed MAKER Plan of Care - Bree Puga RN - 05/13/2011 3:02 PM CST Problem: IP GENERAL POC-ADULT,OB,BEHAVIORAL FVCPM Goal: Individualization/Patient-Specific Goal (Adult,OB,Behavioral The patient and/or their mechanical service representative will achieve their patient-specific goals related to the plan of care. The patient-specific goals include: Pt. Likes ice to neck and provide reassurance as pt. Has some anxiety Surgery left thyroid lobectomy 05/13/11 Outcome: Improving Some nausea but tolerating clear liquids and frances cracker compazine given MAKER Op Note - Malathi Decker MD - 05/13/2011 10:15 AM CST General Surgery Operative Note PREOPERATIVE DIAGNOSIS: Left Thyroid Nodule POSTOPERATIVE DIAGNOSIS: Same PROCEDURE: Thyroid Lobectomy, Left ANESTHESIA: General. PREOPERATIVE MEDICATIONS: Ancef IV. SURGEON: Malathi Decker MD SUPERVISOR WOOL SHEARING: Pema Ferraro PA-C ESTIMATED BLOOD LOSS: 25 cc INDICATIONS: Stuart Diego is a 25 year old female with a thyroid nodule found recently. Her primary physician found it on an exam for URI symptoms. A biopsy showed that it was benign, but she is having compression symptoms. It was 3.5 cm and she is here today for left thyroid lobectomy, possible total thyroidectomy. PROCEDURE: The patient was placed supine, head and neck in extension between the scapulas and transverse cervical neck creases had been marked in the preinduction area and the one most suitable was utilized for exposure. Superior and inferior skin flaps raised. Midline fascia opened and reflected to the left. The upper pole was taken down by double ligation and division. The nodule occupies most of the lobe and is smooth and soft. The middle thyroidal vein and the inferior pole veins were ligated and divided and the gland reflected medially, up and out of the incision. Posterior dissection was thendone under direct vision after the gland was reflected medially. The superior parathyroid and the recurrent laryngeal nerve were seen and preserved during that posterior dissection. The ligament of Londono was taken down meticulously. The inferior thyroidal artery was ligated and divided. The inferior parathyroid was seen and preserved as well. Once we dissected across the anterior trachea, we divided t hrough the isthmus and frozen section confirmed a follicular lesion, benign by frozen section. We then irrigated the site, inspected for hemostasis and closed over a 10 round JUAN J drain with running 3-0 Vicryl for the midline fascia, interrupted for platysma and 4-0 subcuticular Monocryl for skin. The patient was transferred to recovery in good condition. INTRAOPERATIVE FINDINGS: Follicular lesion, benign by frozen section. Both left sided parathyroid glands and left RLN seen and preserved. Specimens: ID Type Source Tests Collected by Time Destination A : left thyroid lobe suture [place] superior pole Tissue SURGICAL PATHOLOGY EXAM MALATHI DECKER 05/13/2011 9:54 AM Pathology Malathi Decker MD MAKER documented in this encounter Plan of Treatment Not on filedocumented as of this encounter Procedures Procedure Name Priority Date/Time Associated Diagnosis Comme nts SURGICAL PATHOLOGY Routine 05/13/2011 9:54 AM Res ults for this EXAM WINE MAKER procedure are i n the results section. THYROIDECTOMY, 05/13/2011 8:34 AM Left Thyroid Nodule TOTAL WINE MAKER HIM OTHER SCAN Routine 05/13/2011 documented in this encounter Results Surgical pathology exam (05/13/2011 9:54 AM WINE MAKER) Component Value Ref Test Analysis Performed At [facility] Range Method Time Signature Copath Report Patient Name: STUART DIEGO MR#: [id number] Specimen #: [id number] Collected: 05/13/2011 Received: 05/13/2011 Reported: 05/14/2011 13:45 Ordering Phy(s): MALATHI DECKER SPECIMEN(S): Thyroid, lobectomy, left FINAL DIAGNOSIS: Thyroid, left lobe, resection - 1. ?Follicular adenoma. 2. ? Chronic thyroiditis. 3. ? No evidence of malignancy. Electronically signed out by: Ernie Lama M.D. CLINICAL HISTORY: Left thyroid nodule. GROSS: The specimen, labeled left thyroid lobe, consists of 21 gm and 4 cm x 3 cm x 2 cm spherical red-purple soft thyroid lobe. ??A sutu re arroyo the upper pole. ??The anterior surface is marked with black ink. ??The posterior surface is marked with blue ink. ??The specimen is serially sectioned from superior to inferior poles. ??The thyroid lob e is largely replaced by a 2.7 cm in diameter encapsulated tumor-like les ion made of carlin to pink to hemorrhagic soft tissue. ??The capsule is thi n. ??The adjacent thyroid parenchyma is without significant lesions. ??The specimen is submitted in its entirety. SUMMARY OF SECTIONS: 1. ??Frozen section. 2 through 8. ??Rest of encapsulated thyroid tumor-like lesio n. 9. ??Non-tumorous thyroid parenchyma. MGP/kd INTRAOPERATIVE CONSULTATION: [place] SECTION DIAGNOSIS: Thyroid gland, left lobe, resection - Encapsulated follicula r tumor, pending permanent sections (MGP). MICROSCOPIC: Sections show an encapsulated macrofollicular tumor. ??The c apsule is of variable thickness. ??The tumor shows different morphology t leonardo the adjacent non-neoplastic parenchyma and lacks cytologic featu res of papillary of carcinoma. ??No capsular or vascular invasion a re identified. ??The adjacent thyroid parenchyma shows chronic thyroiditis. MGP/kd 05-14-11 TESTING LAB LOCATION: [address] ??[id number] COLLECTION SITE: Client: [facility] Location: [facility] (R) Specimen Anatomical Collection Method Collection Time Receive d Time (Source) Location / / Volume Laterality 05/13/2011 9:54 AM 2 WINE MAKER 10:02 AM WINE MAKER Malathi Decker MD LAB - [facility] Performing Organization Address City/State/ZIP Code Phon e Number [facility] [place] SECTION - [place] Other Scan (05/13/2011) Narrative This result has an attachment that is no t available. Malathi Decker MD IP NURSING ACTIVITY documented in this encounter Visit Diagnoses Diagnosis OCP (oral contraceptive pills) initiatio n General counseling for prescription of o ral contraceptives Generalized anxiety disorder Postoperative pain Other acute postoperative pain documented in this encounter Administered Medications Inactive Administered Medications - up to 3 most recent administrations Medication Order MAR Action Action Date Dose Rate Site acetaminophen (TYLENOL) tablet Given 05/13/2011 8:04 PM WINE MAKER 650 mg 325-650 mg 325-650 mg, Oral, EVERY 4 HOURS PRN, mild pain, or temp > 102 degrees F., Starting on Thu05/13/11 at 1154, Max dose Acetaminophen = 4 gm / 24 hours. May give in addition to other zjo-htmnnrkyeaafv-nhoalmyfnn analgesic if moderate to severe pain is unrelieved 15 minutes after administration., Post-procedure dextrose 5 % and 0.45 % NaCl + KCl 20 New Bag 05/13/2011 1:[address] 100 mL/hr mEq/L at 100 mL/hr, Intravenous, CONTINUOUS, Discontinue IV fluids when PO well tolerated., Post-procedure, Starting on Thu05/13/11 at 1230, Until Thu05/13/11 at 1958 metoclopramide (REGLAN) injection 10 mg Given 05/13/2011 4:42 PM WINE MAKER 10 mg 10 mg, Intravenous, EVERY 6 HOURS PRN, Nausea and Vomiting, Starting on Thu05/13/11 at 1154, Use with caution due to possible interaction with sertraline. This is Step 3 of nausea and vomiting protocol. Give if nausea not resolved 15 minutes after giving prochlorperazine. If nausea not resolved in 15-30 minutes, Notify ., Post-procedure metoprolol (LOPRESSOR) injection 1-2 mg Given 05/13/2011 11:35 AM WINE MAKER 5 mg 1-2 mg, Intravenous, EVERY 5 MIN PRN, high blood pressure, for SBP > 160 and HR > 60. , Starting on Thu05/13/11 at 1112, Max cumulative dose = 10 mg. For PACU USE ONLY. DC WHEN TRANSFERRED TO FLOOR., PACU ondansetron (ZOFRAN) 2 MG/ML injection Starting on Thu05/13/11 at 1157, For 1 dose, JEFF SORIANO: Cabinet Override ondansetron (ZOFRAN) injection 4 mg Given 05/13/2011 11:54 PM WINE MAKER 4 mg 4 mg, Intravenous, EVERY 6 HOURS PRN, nausea, vomiting, Administer over 2-5 Minutes, Starting on Thu05/13/11 at 1154, Post-procedure Given 05/13/2011 11:57 AM WINE MAKER 4 mg phenol-menthol (CEPASTAT) lozenge 1-2 Given 05/14/2011 7:[address] 2 lozenges lozenge 1-2 lozenge, Buccal, EVERY 1 HOUR PRN, moderate pain, Starting on Thu05/13/11 at 1154, Post-procedure Given 05/13/2011 3:33 PM WINE MAKER 2 lozenges prochlorperazine (COMPAZINE) tablet 5-10 mg Given 05/13/2011 1:17 PM WINE MAKER 5 mg 5-10 mg, Oral, EVERY 6 HOURS PRN, nausea, vomiting, Starting on Thu05/13/11 at 1154, Offer first, Post-procedure sodium chloride 0.9 % flush 3 mL Given 05/13/2011 11:54 PM WINE MAKER 3 mLs 3 mL, Intravenous, EVERY 8 HOURS, First dose on Thu05/13/11 at 1100, And Q1H PRN, to lock peripheral IV dormant line. , Pre-procedure zolpidem (AMBIEN) tablet 5 mg Given 05/13/2011 10:15 PM WINE MAKER 5 mg 5 mg, Oral, AT BEDTIME PRN, sleep, Starting on Thu05/13/11 at 1154, Post-procedure documented in this encounter Active and Recently Administered Medications Times are shown in WINE MAKER. Scheduled Medication Order 05/12/2011 05/13/2011 05/14/2011 ceFAZolin (ANCEF) IVPB 2 g (COMPLETED) 0 840 (Given - Provider: Yassine Chen, FORMING PRESS OPERATOR CORPORATE TREASURY ANALYST) 2 g, Intravenous, for 30 Minutes, PRE-OP /PRE-PROCEDURE, For 1 dose, Give first dose within 1 hour PRIOR to incision., Pre-procedure sodium chloride 0.9 % flush 3 mL (CANCELED) 1100 (Not Given - Provider: Bree Puga, ROSY - Reason: IV Infusing)1900 (Not Given - Provider: Telma Torres LPN - Reason: IV Infusing)2354 (Given - Provider: Guillermina Gutierres) 0815 (Not Given - Provider: Carly Ardon LPN - Reason: Loss of IV access) 3 mL, Intravenous, EVERY 8 HOURS, First dose on Thu05/13/11 at 1100, And Q1H PRN, to lock peripheral IV dormant line. , Pre-procedure Continuous Medication Order 05/12/2011 05/13/2011 05/14/2011 dextrose 5 % and 0.45 % NaCl + KCl 20 mEq/L (CANCELED) 1337 (New Bag - Provider: Bree Puga, ROSY) Intravenous, at 100 mL/hr, CONTINUOUS, S tarting Thu05/13/11 at 1230, Discontinue IV fluids when PO well tolerated., Post-procedure PRN Medication Order 05/12/2011 05/13/2011 05/14/2011 acetaminophen (TYLENOL) tablet 325-650 mg (CANCELED) 2003 (Given - Provider: Becky Galloway, ROSY) 325-650 mg, Oral, EVERY 4 HOURS PRN, mil d pain, or temp > 102 degrees F., Starting Thu05/13/11 at 1154, Max dose Acetaminophen = 4 gm / 24 hours. May give in addition to other ryn-krbbkvnhqxqlj-unxmu ining analgesic if moderate to severe pa in is unrelieved 15 minutes after administration., Post-procedure hydrocodone-acetaminophen 5-325 MG per tablet 1-2 tablet 1-2 tablet, Oral, EVERY 4 HOURS PRN, mod erate to severe pain, Starting e 05/13/11 at 1154, Post-procedure metoclopramide (REGLAN) injection 10 mg (CANCELED) 164 (Given - Provider: Becky Galloway, ROSY) 10 mg, Intravenous, EVERY 6 HOURS PRN, N ausea and Vomiting, Starting Thu05/13/11 at 1154, Use with caution due to possible interaction with sertraline. This is Step 3 of nausea and vomiting protocol. Gi ve if nausea not resolved 15 minutes aft er giving prochlorperazine. If nausea not resolved in 15-30 minutes, Notify ., Post-procedure metoprolol (LOPRESSOR) injection 1-2 mg (CANCELED) 1135 (Given - Provider: Meng Mirza, ROSY) 1-2 mg, Intravenous, EVERY 5 MIN PRN, hi gh blood pressure, for SBP > 160 and HR > 60. , Starting Thu05/13/11 at 1112, Max cumulative dose = 10 mg. For PACU USE ONLY. DC WHEN TRANSFERRED TO FLOOR., PACU ondansetron (ZOFRAN) injection 4 mg (CANCELED) 1157 (Given - Provider: Callie Soriano)2354 (Given - Provider: Guillermina Gutierres) 4 mg, Intravenous, EVERY 6 HOURS PRN, na usea, vomiting, for 2 Minutes, Starting Thu05/13/11 at 1154, Post-procedure phenol-menthol (CEPASTAT) lozenge 1-2 lozenge (CANCELED) 1533 (Given - Provider: Telma Torres LPN) 0733 (Given - Provider: Carly Farrah Harry-Lowe, NURSING CENTER TUTOR) 1-2 lozenge, Buccal, EVERY 1 HOUR PRN, m oderate pain, Starting Thu05/13/11 at 1154, Post-procedure prochlorperazine (COMPAZINE) tablet 5-10 mg (CANCELED) 1317 (Given - Provider: Bree Puga, ROSY) 5-10 mg, Oral, EVERY 6 HOURS PRN, nausea , vomiting, Starting Thu05/13/11 at 1154, Offer first, Post-procedure zolpidem (AMBIEN) tablet 5 mg (CANCELED) 5 (Given - Provider: Becky Galloway, ROSY) 5 mg, Oral, AT BEDTIME PRN, sleep, Starting Thu 2 at 1154, Post-procedure documented in this encounter Care Teams Tube Splicer Relationship Specialty Start Date End Date Adolfo Reyes MD PCP - General Family Practice 01/17/11 05/11/12 [address] [place] [address] documented as of this encounter
--- OUTSIDE RECORDS SUMMARY | 2022-01-10 08:08 | XMS_ITS | Encounter Summary ---
:1985 Author Organization [place] Address [address] [place] [address] Care Team Providers Name Role Phone Anca Matos MD Primary Care Provider Callie Kumar Unavailable Unavailable Georgia Valentino MD Unavailable Encounter Details Date Type Department Care Team Description 02/29/2020 Orders Only [facility] Red Villarreal, Pre-op [facility] Laboratory laboratory examination [address] JANNETTE OBANDREW (Primary Dx) [place], [place] [id number] [phone] [address] [place] [address] Social History Tobacco Use Types Packs/Day Years Used Date Smoking Tobacco: Never Smokeless Tobacco: Never Alcohol Use Standard Drinks/Week Comments No 0 (1 standard drink = 0.6 oz pure alcoho l) Sex Assigned at Date Recorded Not on file COVID-19 Exposure Response Date Recorded In the last month, have you been in contact with No / Unsure 02/29/2020 3:30 PM MERCURY RECOVERER someone who was confirmed or suspected to have Coronavirus / COVID-19? documented as of this encounter Plan of Treatment Scheduled Orders Name Type Priority Associated Diagnoses Order S chedule ABO/Rh type and screen Blood Bank Routine Pre-operative Orde red: 02/29/2020 laboratory examination Hemoglobin Lab Routine Pre-operative Ordered: 02/28 laboratory examination Treponema Abs w Reflex Lab Routine Pre-operative Orde red: 02/29/2020 to RPR and Titer laboratory examination documented as of this encounter Visit Diagnoses Diagnosis Pre-operative laboratory examination - P rimary Pre-procedural laboratory examination documented in this encounter Care Teams Sales Representative Jewelry Relationship Specialty Start Date End Date Anca Matos MD PCP - General egg buyer 05/12/12 Callie Kumar Assigned OBGYN Provider 01/13/20 04/20/21 Georgia Valentino MD Assigned OBGYN Provider 04/21/21 05/11/[address] [place] [address] documented as of this encounter
--- OUTSIDE RECORDS SUMMARY | 2022-01-10 08:08 | XMS_ITS | Encounter Summary ---
:1985 Author Organization [place] Address [address] [place] [address] Care Team Providers Name Role Phone Anca Matos MD Primary Care Provider Reason for Visit Reason Comments Ultrasound L2-AMA Encounter Details Date Type Department Care Team Description 10/14/2019 PRE VISIT [facility]aternal Michelle Sanchez RN Ultrasound (L2-AMA) [facility] [place] [address] [place] [address] Social History Tobacco Use Types Packs/Day Years [...] on filedocumented in this encounter Care Teams Learning Designer Relationship Specialty Start Date End Date Anca Matos MD PCP - General sap bw architect 05/12/12 documented as of this encounter
--- OUTSIDE RECORDS SUMMARY | 2022-01-10 08:08 | XMS_ITS | Encounter Summary ---
:1985 Author Organization [place] Address [address] [place] [address] Care Team Providers Name Role Phone Anca Matos MD Primary Care Provider Encounter Details Date Type Department Care Team Description 05/07/2018 Travel Social History Tobacco Use Types Packs/Day [...] on filedocumented in this encounter Care Teams Night Baker Relationship Specialty Start Date End Date Anca Matos MD PCP - General electronic parts salesperson 05/12/12 documented as of this encounter
--- OUTSIDE RECORDS SUMMARY | 2022-01-10 08:08 | XMS_ITS | Encounter Summary ---
:1985 Author Organization [place] Address [address] [place] [address]. [place] [address] Care Team Providers Name Role Phone Adolfo Reyes MD Primary Care Provider Reason for Visit Reason Onset Date Comments Refill Request 06/02/2011 pt requesting refill for Sertraline HCL 50mg tabs Encounter Details Date Type Department Care Team Description 06/02/[address] [facility] Coleman Reyes MD Refill Request (pt [place] [address] [place] [address] [place], [place] Sertraline HCL 50mg [place] [address] tabs) [address] [phone] Social History Tobacco Use Types Packs/Day Years Used Date Smoking Tobacco: Never Smokeless Tobacco: Never Alcohol Use Standard Drinks/Week Comments No 0 (1 standard drink = 0.6 oz pure alcoho l) Sex Assigned at Date Recorded Not on file documented as of this encounter Miscellaneous Notes Telephone Encounter - Meng Swan - 06/03/2011 8:50 AM CDT Unable to approve PSO. Per protocol, sent to provider for authorization. Meng Bar RN Telephone Encounter - Erika Glasgow - 06/02/2011 6:32 PM CDT DEPRESSION/ANXIETY Last Office Visit: 05/08/[address] HUERTAS for pre-op Last PHQ-9 score on record= 2 Date: 01/20/2011 SSRI: Celexa, Lexapro, Luvox, Paxil, Prozac/Sarafem, Zoloft OV: 6mths or as indicated in chart. If <18 yrs of age q 3 mths or as indicated in chart Should have OV 1-2 mths after initial RX ANXIETY: follow up q 12 mths Tests: PHQ-9 q 6 mths If PHQ9 has been done once in the last 6 mths, and if score is 5 or less, OK to refill for 12 mths ANXIETY: if SSRI for anxiety, PHQ9 is not needed Max Refills: 6mths TCA: Elavil, Norpramine, Pamelor,Aventyl (Nortriptyline), Sinequan, Tofranil OV: 6mths or as indicated in chart <18 yrs of age q 3 mths or as indicated in chart Tests: PHQ9 q 6 mths PHQ9 can be administered over the phone--if 5 or less can refill for another 6mths If PHQ9 has been done once in the last 6 mths, and if score is 5 or less, OK to refill for 12 mths Max Refills: 6mths If Amitriptylline is used for insomnia, migraine or neuropathy a PHQ9 is not needed. OTHERS:: Desyrel ITrazadone), Remeron, Serzone, Wellbutrin For Serzone only: ALT 8 04/30/2011 OV: 6mths or as indicated in chart <18 yrs of age q 3 mths or as indicated in chart Tests: Annual-ALT/AST (Serzone only) PHQ9 q 6mths. PHQ9 may be administered over the phone. If 5 or less may refill for anlother 6mths. If >5 pt should see provider. Max Refills: 6mths If Trazodone is RX'd for insomnia a PHQ9 is not required. SEROTONIN/ NOREPINEPHRINE REUPTAKE INHIBITORS: Cymbalta, Effexor, Effexor XR, Pristiq BP Readings from Last 3 Encounters: 05/14/11 130/77 05/14/11 130/77 05/08/11 108/76 ALT 8 04/30/2011 CHOL 133 01/03/2011 HDL 46 01/03/2011 LDL 75 01/03/2011 TRIG 63 01/03/2011 CHOLHDLRATIO 2.9 01/03/2011 Creatinine Date Value Range Status 04/30/2011 0.88 - (mg/dL) Final ] OV: 6mths or as indicated in chart <18 yrs of age q 3 mths or as indicated in chart Tests: ANNUAL: BP, AST/ALT, FLP (Effexor and XR, Pristiq) Creatinine (Effexor and XR, Pristiq) If PHQ9 has been done once in the last 12 mths, and is 5 or less, it is OK to refill for 12 mths (May be done via a phone call) Max Refills: 6mths Erika Glasgow/URBAN documented in this encounter Plan of Treatment Not on filedocumented as of this encounter Visit Diagnoses Diagnosis Generalized anxiety disorder - Primary documented in this encounter Care Teams C D Stripper Relationship Specialty Start Date End Date Adolfo Reyes MD PCP - General Family Practice 01/17/11 05/11/12 [address] [place] [address] documented as of this encounter
--- OUTSIDE RECORDS SUMMARY | 2022-01-10 08:08 | XMS_ITS | Encounter Summary ---
:1985 Author Organization [place] Address [address] [place] [address]. [place] [address] Care Team Providers Name Role Phone Anca Matos MD Primary Care Provider Reason for Visit Reason Onset Date Comments ER F/U 06/03/2012 IP PREVIOUS SECTION 06/02/12 Encounter Details Date Type Department Care Team Description 06/03/2012 Telephone [facility] Adolfo Reyes MD ER F/U (IP PREVIOUS Clinic [place] [id number] [place] [address] SECTION [address] [place], [place] 06/02/12) [place], [place] [id number] Social History Tobacco Use Types Packs/Day Years Used Date Smoking Tobacco: Never Smokeless Tobacco: Never Alcohol Use Standard Drinks/Week Comments No 0 (1 standard drink = 0.6 oz pure alcoho l) Sex Assigned at Date Recorded Not on file documented as of this encounter Miscellaneous Notes Telephone Encounter - Meng Swan - 08/20/2012 3:57 PM CDT , followed by OB-Pourer Bull Ladle. Meng Swan RN Telephone Encounter - Danya Mojica - 06/03/2012 10:40 AM CDT Please call patient for IP follow up. Danya Mojica Cloth Shrinking Tester documented in this encounter Plan of Treatment Not on filedocumented as of this encounter Visit Diagnoses Not on filedocumented in this encounter Care Teams Tennis Court Attendant Relationship Specialty Start Date End Date Anca Matos MD PCP - General manager of transportation 05/12/12 documented as of this encounter
--- OUTSIDE RECORDS SUMMARY | 2022-01-10 08:08 | XMS_ITS | Encounter Summary ---
:1985 Author Organization [facility] Address [address] [place] [id number] Care Team Providers Name Role Phone Adolfo Reyes MD Primary Care Provider Reason for Visit Reason Comments Abdominal Pain Encounter Details Date Type Department Care Team Description 07/04/2011 Emergency [facility] Yassine Boo al pain, acute, [facility] Emergency Dep t MD Junaid right lower quadrant [address] [facility] EM[facility]GENCY [facility]YSIC[facility] [id number] [facility] [phone] [place], [place] [address] (Wo rk) Social History Tobacco Use Types Packs/Day Years Used Date Smoking Tobacco: Never Smokeless Tobacco: Never Alcohol Use Standard Drinks/Week Comments No 0 (1 standard drink = 0.6 oz pure alcoho l) Sex Assigned at Date Recorded Not on file documented as of this encounter Last Filed Vital Signs Vital Sign Reading Time Taken Comments Blood Pressure 128/77 07/04/2011 12:55 PM CDT Pulse - - Temperature 36.6 ??C (97.9 ??F) 07/04/2011 12:55 PM CDT Respiratory Rate 18 07/04/2011 12:55 PM CDT Oxygen Saturation 100% 07/04/2011 12:55 PM CDT Inhaled Oxygen Concentration - - Weight - - Height - - Body Mass Index - - documented in this encounter Discharge Instructions AttachmentsThe following attachments cannot be sent through Care Everywhere. ABDOMINAL PAIN, POSSIBLE APPENDICITIS (FEMALE) (HUNGARIAN)documented in this encounter Medications at Time of Discharge Medication Sig Dispensed Refills Start Date End Date ondansetron (ZOFRAN ODT) 4 Take 1 tablet by 10 tablet 0 07/07/2011 MG disintegrating tablet mouth every 8 hours as needed for nausea for 3 days. hydrocodone-acetaminophen Take 1-2 tablets by 30 tablet 0 0 05/14/2011 05/21/2012 5-325 MG per mouth every 4 hours tabletIndications: as needed. Postoperative pain norgestrel-ethinyl Take 1 tablet by 3 Package 3 01/03/2011 05/21/2012 estradiol (LO/OVRAL) mouth daily. 0.3-30 MG-MCG per tabletIndications: OCP (oral contraceptive pills) initiation sertraline (ZOLOFT) 50 MG Take 1 tablet by 90 tablet 3 05/2105/21/2012 tabletIndications: mouth daily. Generalized anxiety disorder documented as of this encounter ED Notes Yassine Boo MD - 07/04/2011 11:06 AM CDT History Chief Complaint: Abdominal Pain HPI Mindy Jacob is a 25 year old female who presents with abdominal pain. The patient reports thatshe noticed the onset of RLQ/right suprapubic pain this morning at approximately 0300. This pain woke her from her sleep and she notes associated nausea and vomiting without hematemesis. The patient reports lack of appetite but denies any fevers, dysuria, hematuria, vaginal discharge or difficulty urinating. The patient reports that the pain started on the right side and has not moved. Her LMP was approximately two weeks ago and this was normal for her. The patient states that certain movements makethe pain worse and nothing seems to make the pain better. The patient denies any diarrhea, constipation or any other physical complaints at this time. Allergies: Sulfamthoxazole with trimethoprim Celexa Medications: Zoloft Past Medical History: Esotropia Varicella Anxiety disorder Thyroid nodule Deviated septum PONV Past Surgical History: Eye surgeries Thyroidectomy Family / Social History: The patient has a negative family history. Marital Status: . at bedside. The patient has never been a smoker and denies alcohol use. Review of Systems Constitutional: Negative for fever. Gastrointestinal: Positive for nausea, vomiting and abdominal pain. Negative for diarrhea and constipation. Negative for hematemesis Genitourinary: Negative for dysuria, hematuria, vaginal discharge and difficulty urinating. All other systems reviewed and are negative. Physical Exam First Vitals: BP: 139/91 mmHg Heart Rate: 108 Temp: 97.8 ??F (36.6 ??C) Resp: 18 SpO2: 100 % Physical Exam Constitutional: She is oriented to person, place, and time. She appears well- developed and well-nourished. No distress. HENT: Head: Normocephalic. Mouth/Throat: Oropharynx is clear and moist. No visible trauma Eyes: Conjunctivae and EOM are normal. No scleral icterus. Neck: Normal range of motion. No tracheal deviation present. Cardiovascular: Normal rate, regular rhythm and normal heart sounds. Exam reveals no gallop and no friction rub. No murmur heard. Pulmonary/Chest: Effort normal and breath sounds normal. No stridor. No respiratory distress. She has no wheezes. She has no rales. Abdominal: Soft. Bowel sounds are normal. She exhibits no distension and no mass. Tenderness is present. She has no rebound, no guarding and no pain at McBurney's point. tenderness to palpation just to right of suprapubic region, no masses, no palpable hernia, no rebound or guarding, no other tenderness Musculoskeletal: Normal range of motion. She exhibits no edema and no tenderness. Lymphadenopathy: She has no cervical adenopathy. Neurological: She is alert and oriented to person, place, and time. No cranial nerve deficit. Normal strength and sensation all extremities Skin: Skin is warm and dry. No rash noted. No erythema. Psychiatric: She has a normal mood and affect. Judgment normal. Emergency Department Course Imaging: US Pelvic with doppler: 1. Bicornuate configuration of the uterus. 2. Otherwise unremarkable pelvic ultrasound. No convincing sonographic evidence for ovarian torsion.Reading per radiology. Laboratory: CBC: WBC 6.8 (wnl) HGB 14.2 (wnl) PLT 157 (wnl) NEUT 78.0 (high) LYMP 15.9 (low) o/w WNL BMP: Creatinine 0.77 (wnl) glucose 102 (high) bilirubin total 1.5 (high) o/w WNL UA: clear, light yellow urine o/w WNL HCG: negative Interventions: IV Fluids, 1.0L, IV Zofran, 4mg, IV Toradol, 30 mg, IV Emergency Department Course: I reviewed the patient's medical record. A peripheral IV was established. An NPO order was placed. 11:07 AM The patient was seen and examined by myself. I discussed the course of care with the patient including laboratory and diagnostic studies. She understands and is agreeable to the plan. Rechecked the patient, findings and plan explained to the patient. Patient discharged home, status improved, with instructions regarding supportive care, medications and reasons to return as well as the importance of close follow-up was reviewed. Impression & Plan Medical Decision Making: This is a 25 year old female that presents with nausea and RLQ abdominal pain. Her pain was just to the right of the suprapubic region but was not over McBurney's point and she has absolutely no rebound or guarding. She had a negative psoas sign as well as obturator sign and had a normal white count. I did not feel that a CT scan was indicated at this time. She did get improvement with toradol. I didultrasound the ovary to evaluate for cyst or torsion and there is no evidence of this and she is otherwise not . She denied any vaginal discharge and I did not feel that a pelvic exam was indicated and was otherwise afebrile. I have made it very clear to the patient, and did have a long discussion with her that I am concerned for possible appendicitis currently in an early presentation. But at this point it does not appear that she has enough evidence to warrant a CT scan. I states that if she continues to have the pain in 12 hours she needs to be reevaluated at that time. Otherwise, in themean time if she has progressively worsening pain, pain that moves into the RLQ, fevers, persistent nausea, vomiting or pain uncontrolled by tylenol or ibuprofen she needs to return immediately. She isunderstanding and agrees with this plan. She is very aware that this could possibly be an early appendicitis and warrant emergency surgery. Follow up with primary care provider in three to five days otherwise with the ED as described above. Diagnosis: 1. Abdominal pain, possibly early appendicitis INy, am serving as a scribe at 11:07 AM on 07/04/2011 to document services personally performed by Dr. Boo, based on my observations and the provider's statements to me. Yassine Boo MD 07/07/11 1314 Pau Peacock RN - 07/04/2011 10:48 AM CDT In Triage: ABC's intact. Alert and oriented x 3. Right sided abd pain, n/v that started at 0300 this am. Home meds: zoloft documented in this encounter Plan of Treatment Not on filedocumented as of this encounter Procedures Procedure Name Priority Date/Time Associated Comments Diagnosis US PELVIS COMPLETE W STAT 07/04/2011 11:56 Res ults for this TRANSVAGINAL AND AM CDT procedure a re in DOPPLER LIMITED the results section. CBC WITH PLATELETS & STAT 07/04/2011 11:10 Res ults for this DIFFERENTIAL AM CDT procedure are i n the results section. COMPREHENSIVE STAT 07/04/2011 11:10 Results fo r this METABOLIC PANEL AM CDT procedure ar e in the results section. HCG QUALITATIVE URINE STAT 07/04/2011 10:55 Re sults for this AM CDT procedure are i n the results section. URINE MACROSCOPIC WITH STAT 07/04/2011 10:55 R esults for this REFLEX TO MICRO AM CDT procedure ar e in the results section. documented in this encounter Results US Pelvic w/ doppler (07/04/2011 11:56 AM CDT) Anatomical Region Laterality Modality Abdomen/Pelvis Other Specimen (Source) Anatomical Collection Method Collection Time Re ceived Time Location / / Volume Laterality 07/04/2011 11:56 AM CDT Impressions 07/04/2011 12:07 PM CDT US PELVIC W/DOPPLER ?Jul 04, 2011 11 :56:00 AM HISTORY: Right lower quadrant abdominal pain. TECHNIQUE: ??Transvaginal images were pe rformed to better evaluate the patient's uterus, ovaries and endometria l stripe. Spectral Doppler and wave form analysis was also performed to evaluate blood flow to the ovaries. COMPARISON: Pelvic ultrasound dated 09/09. FINDINGS: ??The uterus is measured at 7. 7 x 3.8 x 5.5 cm. The uterus has a bicornuate appearance. No fibroids are evident. Endometrial stripe measures 0.8 cm in the right horn , and 1.1 cm in the left forearm, and is within normal limits for a premenopausal patient. A small amount of nonspecific fluid is not ed within the endocervical canal. The right ovary is unremarkable. The left ovary is unremarkable. No adnexal masses are pres ent. No free pelvic fluid is present. ??Spectral Doppler and waveform analysis demonstrate arterial flow to both ovaries. Venous blood flow is not convincingly identified in the ovaries, however the ovaries do n ot appear enlarged or edematous. IMPRESSION: 1. Bicornuate configuration of the uteru s. 2. Otherwise unremarkable pelvic ultraso und. No convincing sonographic evidence for ovarian torsion. Yassine Boo MD IMG US ORDERABLES (ABNORMAL) CBC with platelets differential (07/04/2011 11:10 AM CDT) [facility] gist Method Time Signature WBC 6.8 4.0 - [place] 11.0 [facility] 10e9/L [facility] RBC Count 4.65 3.8 - 5.2 [place] 10e12/L [facility] Hemoglobin 14.3 11.7 - [place] 15.7 g/dL [facility] Hematocrit 42.2 35.0 - [place] 47.0 % [facility] MCV 91 78 - 100 [facility] MCH 30.8 26.5 - [facility] 33.0 pg [facility] MCHC 33.9 31.5 - [place] 36.5 g/dL [facility] RDW 12.6 10.0 - [facility] 15.0 % [facility] Platelet Count 157 150 - 450 [place] 10e9/L [facility] Diff Method Automated [facility] % Neutrophils 78.0 (H) 40 - 75 % [facility] % Lymphocytes 15.9 (L) 20 - 48 % [facility] % Monocytes 5.6 0 - 12 % [facility] % Eosinophils 0.1 0 - 6 % [facility] % Basophils 0.1 0 - 2 % [facility] % Immature 0.3 0 - 0.4 % [place] Granulocytes [facility] Absolute 5.3 1.6 - 8.3 [place] Neutrophil 10e9/L [facility] Absolute 1.1 0.8 - 5.3 [facility] Lymphocytes 10e9/L [facility] Absolute 0.4 0.0 - 1.3 [place] Monocytes 10e9/L [facility] Absolute 0.0 0.0 - 0.7 [place] Eosinophils 10e9/L [facility] Absolute 0.0 0.0 - 0.2 [place] Basophils 10e9/L [facility] Abs Immature 0.0 0 - 0.03 [place] Granulocytes [address] [place] [address] LAB Specimen Anatomical Collection Method Collection Time Receive d Time (Source) Location / / Volume Laterality Blood specimen 07/04/2011 11:10 2 (specimen) AM CDT 11:27 AM CDT Yassine Boo MD LAB - BLOOD ORDERABLES Performing Organization Address City/State/ZIP Code Phon e Number [facility] [address] [place], [place] [address] [facility] (ABNORMAL) Comprehensive metabolic panel (07/04/2011 11:10 AM CDT) Analysis Performed At Patho logist Time Signature Sodium 142 133 - 144 [place] mmol/L [facility] Potassium 3.7 3.4 - 5.3 [place] mmol/L [facility] Chloride 103 94 - 109 [place] mmol/L [facility] Carbon Dioxide 24 20 - 32 [place] mmol/L [facility] Anion Gap 15 6 - 17 [place] mmol/L [facility] Glucose 102 (H) 60 - 99 [place] mg/dL [facility] Urea Nitrogen 9 5 - 24 [place] mg/dL [facility] Creatinine 0.77 0.52 - [facility] 1.04 mg/dL [facility] GFR Estimate >90 >60 [place] mL/min/1.[address] [place] [address] LAB GFR Estimate If >90 >60 [place] Black mL/min/1.[address] LAB Calcium 9.6 8.5 - 10.4 [place] mg/dL [facility] Bilirubin Total 1.5 (H) 0.2 - 1.3 [place] mg/dL [facility] Albumin 4.6 3.9 - 5.1 [place] g/dL [facility] Protein Total 8.0 6.8 - 8.8 [place] g/dL [facility] Alkaline 129 40 - 150 [place] Phosphatase U/L [facility] ALT 12 0 - 50 U/L [facility] AST 14 0 - 45 U/L [facility] Specimen Anatomical Collection Method Collection Time Receive d Time (Source) Location / / Volume Laterality Blood specimen 07/04/2011 11:10 2 (specimen) AM CDT 11:27 AM CDT Yassine Boo MD LAB - BLOOD ORDERABLES Performing Organization Address City/State/ZIP Code Phon e Number [facility] [address], [place] [address] [facility] HCG qualitative urine (07/04/2011 10:55 AM CDT) P athologist Signature HCG Qual Urine Negative NEG [facility] Specimen Anatomical Collection Method Collection Time Receive d Time (Source) Location / / Volume Laterality Urine specimen URINE SPECIMEN 07/04/2011 10:55 2 012 (specimen) OBTAINED BY CLEAN AM CDT 11:03 AM C DT CATCH PROCEDURE / Unknown Rolan Guajardo MD LAB - URINE ORDERABLES Performing Organization Address City/State/ZIP Code Phon e Number [facility] [address], [place] [address] [facility] UA reflex to microscopic (07/04/2011 10:55 AM CDT) Patholo gist Method Time Signature Color Urine Light Yellow [facility] Appearance Urine Clear [facility] Glucose Urine Negative NEG mg/dL [facility] Bilirubin Urine Negative NEG [facility] Ketones Urine Negative NEG mg/dL [facility] Specific [place] 1.007 1.003 - [place] Urine 1.035 [facility] Blood Urine Negative NEG [facility] pH Urine 7.0 5.0 - 7.0 [place] pH [facility] Protein Albumin Negative NEG mg/dL [place] Urine [facility] Urobilinogen Normal 0.0 - 2.0 [place] mg/dL mg/dL [facility] Nitrite Urine Negative NEG [facility] Leukocyte Negative NEG [place] [facility] Source [facility] LAB Specimen Anatomical Collection Method Collection Time Receive d Time (Source) Location / / Volume Laterality Urine specimen URINE SPECIMEN 07/04/2011 10:55 012 (specimen) OBTAINED BY CLEAN AM CDT 11:03 AM C DT CATCH PROCEDURE / Unknown Rolan Guajardo MD LAB - URINE ORDERABLES Performing Organization Address City/State/ZIP Code Phon e Number [facility] [address] [place], [place] [address] [facility] documented in this encounter Visit Diagnoses Diagnosis Abdominal pain, acute, right lower quadr ant Abdominal pain, right lower quadrant documented in this encounter Administered Medications Inactive Administered Medications - up to 3 most recent administrations Medication Order MAR Action Action Date Dose Rate Site ketorolac (TORADOL) injection 30 Given 07/04/2011 11:19 AM CDT 3 0 mg mg 30 mg, Intravenous, ONCE, On Thu07/04/11 at 1115, For 1 dose, Do not give within 6 hours of Ibuprofen. ondansetron (ZOFRAN) injection 4 mg Given 07/04/2011 11:15 AM CDT 4 mg 4 mg, Intravenous, EVERY 30 MIN PRN, nausea, vomiting, Administer over 2-5 Minutes, Starting on Thu07/04/11 at 1113, For 3 doses, May repeat in 30 minutes as needed, up to 3 doses. sodium chloride 0.9 % BOLUS New Bag 07/04/2011 11:10 AM CDT 1, 000 mLs 1000 mL/hr 1,000 mL Intravenous, 1,000 mL, ONCE, at 1,000 mL/hr, Administer over 1 Hours, On Thu07/04/11 at 1115, For 1 dose documented in this encounter Active and Recently Administered Medications Times are shown in CDT. Scheduled Medication Order 07/02/2011 07/03/2011 07/04/2011 ketorolac (TORADOL) injection 30 mg (COMPLETED) 1119 (Given - Provider: Roxana Gomez RN) 30 mg, Intravenous, ONCE, Thu07/04/11 at 1115, For 1 dose, Do not give within 6 hours of Ibuprofen. sodium chloride 0.9 % BOLUS 1,000 mL (CANCELED) 1110 (New Bag - Provider: Roxana Gomez RN) Intravenous, 1,000 mL, ONCE, at 1,000 mL /hr, for 1 Hours, Thu07/04/11 at 1115, For 1 dose PRN Medication Order 07/02/2011 07/03/2011 07/04/2011 ondansetron (ZOFRAN) injection 4 mg (CANCELED) 1115 (Given - Provider: Roxana Gomez RN) 4 mg, Intravenous, EVERY 30 MIN PRN, franklyn sea, vomiting, for 2 Minutes, Starting Thu07/04/11 at 1113, For 3 doses, May repeat in 30 minutes as needed, up to 3 doses. documented in this encounter Care Teams Civil Clerk Relationship Specialty Start Date End Date Adolfo Reyes MD PCP - General Family Practice 01/17/11 05/11/12 [id number] [place] [address] documented as of this encounter
--- OUTSIDE RECORDS SUMMARY | 2022-01-10 08:08 | XMS_ITS | Encounter Summary ---
:1985 Author Organization [facility] Address [address] [place] [address]. [place] [address] Care Team Providers Name Role Phone Anca Matos MD Primary Care Provider Encounter Details Date Type Department Care Team Description 05/31/2012 Anesthesia Event M [facility]as [facility]n [facility] Fidencio [address] [place] [address] ANESTHESIA [phone] [place], [place] [address] (Wo rk) Anesthesia Record Procedure Summary Procedure Name Responsible Anesthesia Start Anesthesia Stop Time Anesthesiologist Time Repeat Paras Gavin MD 05/31/12 1128 05/31/12 1236 Section (Abdomen) Events Date Time Event Comment 05/31/2012 1128 An Start 1130 An Start Data 1139 Present 1146 ITN to 1151 Uterine Incision 1153 Baby Delivered 1153 MD Present 1154 Placenta Delivered 1154 Quick Note Apgars 9/9; EBL 500 cc 1213 MD Present 1230 MD Present 1231 an stop data 1236 An Stop Electronically s igned by Concepcion Lyon on May 31, 2012 12:36 P M Name Total bupivacaine spinal 0.75% in dextrose 8.25% 14 mg morphine PF 1 mg/mL 0.2 mg glycopyrrolate 0.2 mg/mL 0.2 mg ondansetron 2 mg/mL 4 mg oxytocin 20 units in 1000mL lactated ringer's infusion Cannot be calculated ceFAZolin (ANCEF) IVPB 2 g 2 g LR 2,500 mL Agents Name O2 Blood No blood administrations on file. Lines, Drains, and Airways Type Details Placement Removal Peripheral IV 05/31/12; 0935; 18 G; 05/31/12 0935 by 06/01/12 1449 by Left; Hand; Sarika Pacheco RN Lake, Kelly E, RN Chlorhexidine; Topical; Tolerated well Urethral Catheter 05/31/12; 1135; 05/31/12 1135 by 06/01/12 0543 by Anesthesia; 16 fr Sarika Pacheco, Jaleesa Carter RN Incision/Surgical Site 05/31/12; 1228; 05/31/12 1228 by 10/02/16 1256 by Lower; Abdomen; Sarika Pahceco, Pop Durand 10/02/16; 1256 L, RN documented in this encounter Social History Tobacco Use Types Packs/Day Years Used Date Smoking Tobacco: Never Smokeless Tobacco: Never Alcohol Use Standard Drinks/Week Comments No 0 (1 standard drink = 0.6 oz pure alcoho l) Sex Assigned at Date Recorded Not on file documented as of this encounter OR Notes Anesthesia Postprocedure Evaluation - Rolan Rizo MD - 05/31/2012 1:55 PM CDT Anesthesia Post-Evaluation Note Patient: Mindy Jacob Patient location: Labor and Delivery Procedure(s) Performed: Procedure(s) with comments: SECTION - Repeat Section Anesthesia type: Spinal Block Patient Condition Respiratory Function (RR / SpO2 / Airway Patency): Satisfactory Cardiac Function (HR / Rhythm / BP): Satisfactory Mental Status: Satisfactory Temperature: Satisfactory Pain Control: Satisfactory PONV: None Beta-Brock Therapy: None indicated Hydration Status: Satisfactory Last Vitals: Filed Vitals: 05/31/12 1246 05/31/12 1251 05/31/12 1301 BP: 113/56 118/57 125/58 Pulse: Temp: Resp: 16 16 16 SpO2: 95% Additional Comments: Anesthesia Procedure Notes - Concepcion Lyon APRN CRNA - 05/31/2012 11:36 AM CDT Associated Order(s): ANE SPINAL BLOCK FORM Pre-Procedure Performed by: Paras Gavin MD Referred by: Location: OR Preanesthetic checklist: patient identified, IV checked, site marked, risks and benefits discussed, informed consent, monitors and equipment checked, pre-op evaluation, at physician/surgeon's request and post-op pain management Timeout Correct Patient: Yes Correct Procedure: Yes Correct Site: Yes Correct Laterality: Yes Correct Position: Yes Site Marked: Yes Procedure Procedure: intrathecal (midline approach) Insertion site: L2-3. Position: sitting Prep: chlorhexidine gluconate and isopropyl alcohol Needle: (). # of attempts: 2. # of redirects:. Spinal Needle: Olivia tip (22 G, 3.5 in). introducer Assessment/Narrative clear CSF fluid removed. Paresthesia's: Yes (transient lefft leg- resolved). Time Injected: 11:34 Anesthesia Preprocedure Evaluation - Paras Gavin MD - 05/31/2012 9:51 AM CDT Anesthesia Evaluation . Pt has had prior anesthetic. Type: General and Regional History of anesthetic complications PONV ROS/MED HX Pulmonary: - neg pulmonary ROS Neurologic: - neg neurologic ROS Cardiovascular: - neg cardiovascular ROS METS/Exercise Tolerance: Hematologic: Comments: Lab Test 05/31/12 05/28/12 07/04/11 05/08/11 04/30/11 01/03/11 0930 1042 1110 1130 0000 1058 WBC -- -- 6.8 5.5 -- 4.5 HGB -- 11.5* 14.3 13.5 -- -- MCV -- -- 91 92 -- 90 PLT 113* -- 157 176 -- -- INR -- -- -- -- 0.9 -- Lab Test 07/04/11 04/30/11 01/03/11 01/10/10 10/07/06 1110 0000 1058 1540 1352 NA 142 -- 141 -- 140 POTASSIUM 3.7 -- 3.9 -- 4.1 CHLORIDE 103 -- 105 -- 103 CO2 24 -- 26 -- 26 BUN 9 -- 11 9 -- CR 0.77 0.88 0.79 -- -- ANIONGAP 15 -- 10 -- 12 CARL 9.6 -- 9.4 -- 9.6 GLC 102* -- 90 -- 67 (+) Other Hematologic 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 Hx of lobectomy. - neg endo ROS Psychiatric: - neg psychiatric ROS Infectious Disease: - neg infectious disease ROS Other: - neg other ROS Physical Exam Normal systems: cardiovascular, pulmonary and dental Airway Mallampati: I TM distance: >3 FB Neck ROM: full Dental Cardiovascular Rhythm and rate: regular and normal (-) no friction rub, no systolic click and no murmur Pulmonary breath sounds clear to auscultation(-) no rhonchi, no decreased breath sounds, no wheezes, no ralesand no stridor Anesthesia Plan ASA Score 2 . Plan for Spinal Routine analgesia and antiemetics to be used for post-operative care.Anesthetic plan, risks, benefits and alternatives discussed with: patient or employee representative. History & Physical Review History and physical reviewed; no interval change. . documented in this encounter Miscellaneous Notes Addendum Note - Junaid Oglesby MD - 05/31/2012 3:13 PM CDT Addendum created 05/31/12 1513 by Junaid Oglesby MD Modules edited:Orders Anesthesia Care Transfer Note - Concepcion Lyon APRN CRNA - 05/31/2012 12:36 PM CDT Anesthesia Care Transfer Note Patient: Mindy Jacob Transferred to: Labor and Delivery Patient vital signs: stable Airway: none documented in this encounter Plan of Treatment Not on filedocumented as of this encounter Procedures Procedure Name Priority Date/Time Associated Diagnosis Comme nts ANE SPINAL BLOCK Routine 05/31/2012 11:38 AM Resu lts for this FORM CDT procedure are i n the results section. documented in this encounter Results Spinal Block (05/31/2012 11:38 AM CDT) Narrative Concepcion Lyon APRN CRNA - 05/31/2012 1 1:38 AM CDT Concepcion Lyon CRNA ? 05/31/2012 11:38 AM Pre-Procedure Performed by: Paras Gavin MD Referred by: Location: OR Preanesthetic checklist: patient identif ied, IV checked, site marked, risks and benefits discussed, in formed consent, monitors and equipment checked, pre-op evaluation , at physician/surgeon's request and post-op pain management Timeout Correct Patient: Yes Correct Procedure: Yes Correct Site: Yes Correct Laterality: Yes Correct Position: Yes Site Marked: Yes Procedure Procedure: intrathecal (midline approach ) ??Insertion site: L2-3. Position: sitting Prep: chlorhexidine gluconate and isopro pyl alcohol Needle: (). # of attempts: 2. # of redir ects:. Spinal Needle: Olivia tip (22 G, 3.5 i n). introducer Assessment/Narrative clear CSF fluid removed. Paresthesia's: Yes (transient lefft leg- resolved). Time Injected: 11:34 Procedure Note Concepcion Lyon APRN CRNA - 05/31/2012 1 1:36 AM CDT Pre-Procedure Performed by: Paras Gavin MD Referred by: Location: OR Preanesthetic checklist: patient identif ied, IV checked, site marked, risks and benefits discussed, informed consent, monitors and equipment checked, pre-op evaluation, at physician/surgeon's request and post-op pain management Timeout Correct Patient: Yes Correct Procedure: Yes Correct Site: Yes Correct Laterality: Yes Correct Position: Yes Site Marked: Yes Procedure Procedure: intrathecal (midline approach ) Insertion site: L2-3. Position: sitting Prep: chlorhexidine gluconate and isopro pyl alcohol Needle: (). # of attempts: 2. # of redir ects:. Spinal Needle: Olivia tip (22 G, 3.5 i n). introducer Assessment/Narrative clear CSF fluid removed. Paresthesia's: Yes (transient lefft leg- resolved). Time Injected: 11:34 Concepcion Lyon DURABLE MEDICAL EQUIPMENT REPAIRER LAGGING MACHINE OPERATOR ND ANESTHESIA documented in this encounter Visit Diagnoses Not on filedocumented in this encounter Administered Medications Inactive Administered Medications - up to 3 most recent administrations Medication Order MAR Action Action Date Dose Rate Site bupivacaine 0.75% in dextrose Given 05/31/2012 11:34 AM CDT 14 m g 8.25% (intrathecal) (SENSORCAINE) 0.75-8.25 % injection PRN, Starting on Thu05/31/12 at 1138, Anesthesia Intra-op ceFAZolin (ANCEF) IVPB 2 g Given 05/31/2012 11:29 AM CDT 2 g Routine, 2 g, Intravenous, PRE-OP/PRE-PROCEDURE, Starting on Thu05/31/12 at 0905, For 1 dose, Give no sooner than 30 minutes prior to incision., Indications: Perioperative Pharmacoprophylaxis, Pre-procedure glycopyrrolate (ROBINUL) injection Given 05/31/2012 11:30 AM CDT 0.2 mg PRN, Starting on Thu05/31/12 at 1130, Anesthesia Intra-op lactated ringers infusion New Bag 05/31/2012 11:00 AM CDT mL Intravenous, CONTINUOUS PRN, Anesthesia Intra-op, Starting on Thu05/31/12 at 1100, Until Thu05/31/12 at 1236 morphine (PF) (ASTRAMORPH / DURAMORPH) Given 05/31/2012 11:34 AM CDT 0.2 mg injection PRN, moderate to severe pain, Starting on Thu05/31/12 at 1138, Anesthesia Intra-op ondansetron (ZOFRAN) injection Given 05/31/2012 11:39 AM CDT 4 mg PRN, nausea, vomiting, Administer over 2-5 Minutes, Starting on Thu05/31/12 at 1139, Anesthesia Intra-op oxytocin 20 units in 1000mL lactated rigers New Bag 05/31/2012 11: 53 AM CDT mL solution infusion Intravenous, CONTINUOUS PRN, Starting on Thu05/31/12 at 1153, Anesthesia Intra-op documented in this encounter Care Teams Salesperson [employer] Relationship Specialty Start Date End Date Anca Matos MD PCP - General school laboratory technician 05/12/12 documented as of this encounter
--- OUTSIDE RECORDS SUMMARY | 2022-01-10 08:08 | XMS_ITS | Encounter Summary ---
:1985 Author Organization [facility] Address [address] [place] [id number] Care Team Providers Name Role Phone Anca Matos MD Primary Care Provider Callie Kumar Unavailable Unavailable Reason for Visit Reason Onset Date Comments Covid 19 Testing 03/04/2020 Encounter Details Date Type Department Care Team Description 03/04/2020 Orders Only [facility] Red Villarreal Encoun ter for screening Urgent Care Chey JUSTICE for other viral [address] OBGYN diseases [place], [place] CONSULTS [phone] [phone] [address] [place] [address] Social History Tobacco Use Types Packs/Day Years Used Date Smoking Tobacco: Never Smokeless Tobacco: Never Alcohol Use Standard Drinks/Week Comments No 0 (1 standard drink = 0.6 oz pure alcoho l) Sex Assigned at Date Recorded Not on file COVID-19 Exposure Response Date Recorded In the last month, have you been in contact Unable to assess 03/04/2020 9:17 AM RUG CLEANER HAND with someone who was confirmed or suspected to have Coronavirus / COVID-19? documented as of this encounter Progress Notes Alejo Montalvo MA - 03/04/2020 9:20 AM CST COVID-19 PCR test completed. Patient handout For Patients Who Have Been Tested for Covid-19 (Coronavirus) was given to the patient, which includes test result notification process. CLEANER HAND documented in this encounter Plan of Treatment Not on filedocumented as of this encounter Procedures Procedure Name Priority Date/Time Associated Diagnosis Comme nts SARS-COV-2 Routine 03/04/2020 9:15 AM Encounter for Results for this (COVID-19) VIRUS RUG CLEANER HAND screening for other proc edure are in RT-PCR viral diseases the results section. COVID-19 VIRUS Routine 03/04/2020 9:15 AM Encounter for Result s for this (CORONAVIRUS) BY RUG CLEANER HAND screening for other proc edure are in PCR viral diseases the results section. documented in this encounter Results SARS-CoV-2 COVID-19 Virus (Coronavirus) RT-PCR Nasopharyngeal (03/04/2020 9:15 AM RUG CLEANER HAND) [facility] Method Time Signature SARS-CoV-2 Nasopharyngeal 03/05/2020 INFECTIOUS Virus 2:53 PM RUG CLEANER HAND DISEASES Specimen DIAGNOSTIC Source LABORATORY, [facility] SARS-CoV-2 NEGATIVE 03/05/2020 INFECTIOUS PCR Result 2:53 PM RUG CLEANER HAND DISEASES DIAGNOSTIC LABORATORY, [facility] Comment: SARS-CoV2 (COVID-19) RNA not de tected, presumed negative. SARS-CoV-2 PCR Testing was performed using the Aptima SARS-CoV-2 Assay on the [employer] Instrument System. 03/05/2020 2:53 PM INFECTIO US DISEASES Comment Additional information about this Emergency Use Authorization (EUA) assay can be found via [facility] DIAGNOSTIC the Lab Guide. LABORATORY, [facility] Comment: This test should be ordered for the dete ction of SARS-CoV-2 in individuals who meet SARS-CoV-2 clinical and/or epidemi ological criteria. Test performance is unknown in asymptomatic patients. This test is for in vitro diagnostic use under the FDA EUA for laboratories certified under CLIA to perform high com plexity testing. This test has not been FDA cleared or approved. A negative result does not rule out the presence of PCR inhibitors in the specimen or target RNA in concentration below the limit of detection for the assay. The possibility of a false negati ve should be considered if the patient's recent exposure or clinical pr esentation suggests COVID-19. This test was validated by the [facility] Infectious Diseases Diagnostic Laboratory. This laboratory i s certified under the Clinical Laboratory Improvement Amendments of 198 8 (CLIA-88) as qualified to perform high complexity laboratory testing. Specimen (Source) Anatomical Collection Method Collection Time Re ceived Time Location / / Volume Laterality Specimen from 03/04/2020 9:15 03/04/2020 nasopharyngeal AM RUG CLEANER HAND 9:35 AM RUG CLEANER HAND structure (specimen) Red Villarreal MD LAB - MICRO GENERAL ORDERABL ES Performing Organization Address City/[facility]/ZIP Code Phon e Number INFECTIOUS DISEASES DIAGNOSTIC [address] [facility], [place] [address] LABORATORY, [facility] Asymptomatic COVID-19 Virus (Coronavirus) by PCR (03/04/2020 9:15 AM RUG CLEANER HAND) Component Value Ref Test Analysis Performed At [facility] gist Range Method Time Signature COVID-19 [facility]/04[facility]2020 [facility] to 9:36 AM RUG CLEANER HAND CLINICS [facility] Source [facility] COVID-19 Test received-See 03/04/2020 INFECTIOUS Virus PCR to reflex to IDDL 10:42 PM DISEASES [facility] - test SARS CoV2 RUG CLEANER HAND DIAGNOSTIC Result (COVID-19) Virus LABORATORY, RT-PCR [facility] Specimen (Source) Anatomical Collection Method Collection Time Re ceived Time Location / / Volume Laterality Specimen from 03/04/2020 9:15 03/04/2020 nasopharyngeal AM RUG CLEANER HAND 9:35 AM RUG CLEANER HAND structure (specimen) Red Villarreal MD LAB - MICRO GENERAL ORDERABL ES Performing Organization Address City/[facility]/ZIP Code Phon e Number INFECTIOUS DISEASES DIAGNOSTIC [address] [facility], [place] [address] LABORATORY, [facility] [address] [place], [place] [address] [place] documented in this encounter Visit Diagnoses Diagnosis Encounter for screening for other viral diseases documented in this encounter Care Teams Ball Thread Machine Tender Relationship Specialty Start Date End Date Anca Matos MD PCP - General safety trainer 05/12/12 Callie Kumar Assigned OBGYN Provider 01/13/20 04/20/21 documented as of this encounter
--- OUTSIDE RECORDS SUMMARY | 2022-01-10 08:08 | XMS_ITS | Encounter Summary ---
:1985 Author Organization [facility] Address [address] [place] [address]. [place] [address] Care Team Providers Name Role Phone Anca Matos MD Primary Care Provider Reason for Referral Diagnostic Imaging Ultrasound (Routine) - Closed Specialty Diagnoses / Procedures Referred By Contact Refer red To Contact Diagnoses AMA (advanced maternal age) multigravida 35+, unspecified trimester Obesity affecting in second trimester Callie Kumar Procedures [facility] F/U [address] [place] [address] Referral ID Status Reason Start Date Expiration Date Visits Requ ested Visits Authorized [id number] Closed 10/18/2019 10/17/2020 1 1 Reason for Visit Reason Comments Ultrasound L2-AMA, history of pre-eclam psia with first delivery, history of c/section x2 Encounter Details Date Type Department Care Team Description 10/18/2019 Office Visit [facility] Syed Tijerina MD [facility] [address] [place], [place] [id number] AMA (advanced maternal age) multigravida 35+, unspecified trimester (Primary Dx); Maternal Callie Kumar Obesity affecting in second tr [facility] [address] [facility] [address] [place] [address] Social History Tobacco Use Types Packs/Day Years Used Date Smoking Tobacco: Never Smokeless Tobacco: Never Alcohol Use Standard Drinks/Week Comments No 0 (1 standard drink = 0.6 oz pure alcoho l) Sex Assigned at Date Recorded Not on file COVID-19 Exposure Response Date Recorded In the last month, have you been in contact with No / Unsure 10/18/2019 8:43 AM CDT someone who was confirmed or suspected to have Coronavirus / COVID-19? documented as of this encounter Progress Notes Callie Kumar MD - 10/18/2019 9:15 AM CDT Images from the original note were not included. Please see ultrasound report under imaging tab for details on ultrasound performed today. Callie Kumar MD Water Server, FAMILY CASEWORKER Maternal- Medicine [email or web address] [phone] (Academic office) [phone] (Pager) documented in this encounter Plan of Treatment Not on filedocumented as of this encounter Results MFM US Comprehensive Single F/U (11/08/2019 10:09 AM CDT) [...] STUART DIEGO Study Date: 9:01am Pat. NO: [id number] Referring ??MD: LYNDA TIJERINA Site: [facility] Cherry Pitter: Marlyn King RDMS : 1985 Age: 34 [...] Biometry: BPD ?48.7 ?mm ? 20w 5d ?Dai OFSusan ?73.8 ?mm ? 22w 5d ?Nicolaides HC ?198.5 ?mm ?22w 0d ?Hadlock Cerebellum tr ?22.6 ? mm ?21w 2d ?Nicolaides AC ?170.5 ?mm ?22w 0d ?Hadlock Femur ?37.9 ? mm ?22w 1d ?Hadlock Weight Calculation: EFW ? 468 ? g EFW (lb,oz) ? 1 lb 1 ?oz EFW by ?Hadlock ([id number]) Head / Face / Neck Biometry: Lining Parts Sewer ? 7.4 ? mm CM ?2.9 ? mm ANATOMY The following structures appear normal: Head / Neck ? Cranium. Head size. Head shape. Lateral ventricles. Midline falx. Cavum septi pellucidi. Cerebellum. Cisterna magna. Thalami. Face ? Lips. Profile. Nose. Heart / Thorax ?4-chamber view. RVOT view. LVOT view. Situs. Aortic arch view. Ductal arch view. 3-vessel view. 6-lhqjpy-bbqgqfm view. ? Diaphragm. Abdomen ? Stomach. Kidneys. [...] MD - 11/08/2019 Comp Follow Up Pat. Name:DIEGOSTUARTStmemo Date:11/07 9:01am Pat. NO: [id number] MD:SYED WHEELER Site:RidgesSonographer:PIERRE Llanes :1985Age:34 INDICATION Advanced Maternal Age, Class II Obesity. Suboptimal anatomy on previous u/s. METHOD Transabdominal ultrasound examination. V iew: Suboptimal view: limited by maternal body habitus Phillips . Number of fetuses: 1 DATING Date Details Gest. age COY LMP 06/08/2019 21 w + 6 d 03/14/2020 Prior assessment 08/17/2019 GA: 10 w + 3 d 22 w + 2 d 03/11/2020 U/S 11/08/2019 based upon AC, BPD, Femur, HC 21 w + 5 d 03/15/2020 Assigned dating Dating performed on 10/21, based on the LMP w + 6 d 03/14/2020 GENERAL EVALUATION [...] (lb,oz) 1 lb 1 oz EFW by Dai ([id number]) Head / Face / Neck Biometry: Lining Parts Sewer 7.4 mm CM 2.9 mm ANATOMY The following structures appear normal: Head / Neck Cranium. Head size. Head sha pe. Lateral ventricles. Midline falx. Cavum septi pellucidi. Cerebellum. Cisterna magna. Thalami. Face Lips. Profile. Nose. Heart / Thorax 4-chamber view. RVOT view . LVOT view. Situs. Aortic arch view. Ductal arch view. 3-vessel view. 0-bwysse-rysllfp view. Diaphragm. Abdomen Stomach. Kidneys. Bladder. Spine Cervical spine. Thoracic spine. Raisa mbar spine. Sacral spine. Extremities / Skeleton Right hand. Left hand. Right foot. Left foot. Gender: female. MATERNAL STRUCTURES Cervix Visualized Appearance: Appears Closed Approach - Transabdominal: Cervical dick gth 58.1 mm Right Ovary Not examined [...] cervix appears long and closed. Callie Kumar [facility] US ORDERABLES documented in this encounter Visit Diagnoses Diagnosis AMA (advanced maternal age) multigravida 35+, unspecified trimester - Primary Obesity affecting in second tr imester AMA (advanced maternal age) multigravida 35+, unspecified trimester Obesity affecting in second tr imester documented in this encounter Care Teams Dog Or Animal Sitter Relationship Specialty Start Date End Date Anca Matos MD PCP - General semiconductor packages leak tester 05/12/12 documented as of this encounter
--- OUTSIDE RECORDS SUMMARY | 2022-01-10 08:08 | XMS_ITS | Encounter Summary ---
:1985 Author Organization [facility] Address [address] [place] [address]. [place] [address] Care Team Providers Name Role Phone Anca Matos MD Primary Care Provider Encounter Details Date Type Department Care Team Description 09/26/2019 Medical Correspondence [facility] REFERRAL Health Info Mgmt Non-Provider JANNETTE AMAYA [facility] [address] [place] [phone] Social History Tobacco Use Types Packs/Day Years [...] on filedocumented in this encounter Care Teams Mulling Machine Operator Relationship Specialty Start Date End Date Anca Matos MD PCP - General factory machine computer operator 05/12/12 documented as of this encounter
--- OUTSIDE RECORDS SUMMARY | 2022-01-10 08:08 | XMS_ITS | Encounter Summary ---
:1985 Author Organization [facility] Address [address] [place] [address] Care Team Providers Name Role Phone Anca Matos MD Primary Care Provider Reason for Referral Diagnostic Imaging Ultrasound (Routine) - Closed Specialty Diagnoses / Procedures Referred By Contact Refer red To Contact Diagnoses related condition, antepartum Syed Tijerina MD Procedures [facility] Comprehensive Single [facility] [address] [facility] [address] [place] [address] Referral ID Status Reason Start Date Expiration Date Visits Requ ested Visits Authorized [id number] Closed 09/26/2019 09/25/2020 1 1 Reason for Visit Diagnostic Imaging Ultrasound (Routine) - Closed Specialty Diagnoses / Procedures Referred By Contact Refer red To Contact Diagnoses related condition, antepartum Syed Tijerina MD Procedures [facility] Comprehensive Single [facility] [address] [place] [address] [place] [address] Referral ID Status Reason Start Date Expiration Date Visits Requ ested Visits Authorized [id number] Closed 09/26/2019 09/25/2020 1 1 Encounter Details Date Type Department Care Team Description 10/18/2019 Hospital Encounter [facility] Shonda Tijerina MD [facility] [address] [place] [address] related Maternal Callie Kumar [facility] antepartum [place] [address] [facility] [address] [place] [id number] Social History Tobacco Use Types Packs/Day Years [...] severe pain documented as of this encounter Progress Notes Callie Kumar MD - 10/18/2019 8:45 AM CDT Error documented in this encounter Plan of Treatment Not on filedocumented as of this encounter Procedures Procedure Name Priority Date/Time Associated Comments Diagnosis [facility] COMPREHENSIVE Routine 10/18/2019 9:41 AM rela sudhir Results for this SINGLE CDT condition, procedure are i n antepartum the results section. documented in this encounter Results [facility] Comprehensive Single (10/18/2019 9:41 AM CDT) [...] STUART DIEGO Study Date: 8:59am Pat. NO: [id number] Referring ??MD: LYNDA TIJERINA Site: [facility] Wool Hanker: Davida Lepe RD MS : 1985 Age: 34 INDICATION [...] Biometry: BPD ?42.4 ?mm ? 18w 6d ?Hadlock OFD ?58.4 ?mm ? 19w 1d ?Nicolaides HC ?160.9 ?mm ?18w 6d ?Hadlock Cerebellum tr ?19.3 ? mm ?18w 5d ?Nicolaides AC ?143.7 ?mm ?19w 5d ?Hadlock Femur ?28.5 ? mm ?18w 5d ?Hadlock Humerus ?29.4 ?mm ? 19w 4d ?Meme Weight Calculation: EFW ? 280 ? g EFW (lb,oz) ? 0 lb 10 ? oz EFW by ?Hadlock ([id number]) Head / Face / Neck Biometry: [employer] Business Development Officer ? 8.3 ? mm CM ?3.7 ? [...] view. Superior vena cava. Inferior vena cava. 9-[id number]-mfixmrb view. Cardiac position. Cardiac size. Cardiac rhythm. [...] be present but not detected Procedure Note Callie Kumar MD - 10/18/2019For matting of this note might be different from the original. Comprehensive Pat. Name:Joshua DIEGO Date:10/17 8:59am Pat. NO: [id number] MD:SYED WHEELER Site:RidgesSonographer:Davida Lepe RDMS :1985Age:34 INDICATION Advanced Maternal Age, [...] (lb,oz) 0 lb 10 oz EFW by uLislock ([id number]) Head / Face / Neck Biometry: [employer] Business Development Officer 8.3 mm CM 3.7 mm Nasal bone [...] Supe rior vena cava. Inferior vena cava. 5-czbwlg-svsgggk view. Cardiac position. Cardiac size. Cardiac rhythm. [...] appears long and closed. Syed Tijerina MD [facility] ORDERABLES documented in this encounter Visit Diagnoses Diagnosis related condition, antepartum documented in this encounter Care Teams Insurance Office Manager Relationship Specialty Start Date End Date Anca Matos MD PCP - General science job titles 05/12/12 documented as of this encounter
--- OUTSIDE RECORDS SUMMARY | 2022-01-10 08:08 | XMS_ITS | Encounter Summary ---
:1985 Author Organization [facility] Address [address] [place] [address] Care Team Providers Name Role Phone Anca Matos MD Primary Care Provider Encounter Details Date Type Department Care Team Description 11/08/2019 Travel Social History Tobacco Use Types Packs/Day [...] on filedocumented in this encounter Care Teams Human Resources Executive Assistant Relationship Specialty Start Date End Date Anca Matos MD PCP - General filling and stapling machine operator 05/12/12 documented as of this encounter
--- OUTSIDE RECORDS SUMMARY | 2022-01-10 08:08 | XMS_ITS | Encounter Summary ---
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 05/31/12 11:30 Posted RH L+D LD 01 Obstetrics Surgery Requested AM Admit Time Panel 1 Procedure LRB Anes Op Region Wound Class Commen ts Repeat N/A Spinal Abdomen II-Clean Contaminate d Repeat Section Section Surgeon Surgeon Role Service Panel Anca Michelle MD Primary Obstetrics 1 Special Needs 5'7# stated documented in this encounter Social History Tobacco Use Types Packs/Day Years Used Date Smoking Tobacco: Never Smokeless Tobacco: Never Alcohol Use Standard Drinks/Week Comments No 0 (1 standard drink = 0.6 oz pure alcoho l) Sex Assigned at Date Recorded Not on file documented as of this encounter Last Filed Vital Signs Vital Sign Reading Time Taken Comments Blood Pressure 136/82 06/02/2012 7:33 AM CDT Pulse 75 06/02/2012 7:33 AM CDT Temperature 36 ??C (96.8 ??F) 06/02/2012 7:33 AM CDT Respiratory Rate 16 06/02/2012 7:33 AM CDT Oxygen Saturation 100% 05/31/2012 2:00 PM CDT Inhaled Oxygen Concentration - - Weight 109.3 kg (241 lb) 05/31/2012 9:23 AM CDT Height 167.6 cm (5' 6) 05/31/2012 9:23 AM CDT Body Mass Index 38.9 05/31/2012 9:23 AM CDT documented in this encounter Discharge Instructions Discharge InstructionsAutumn Posey LPN - 06/02/2012 9:30 AM CDT [facility] Vaginal Delivery or Discharge Instructions Activity: Go back to your normal activities, except per your Physician's instructions. Diet: You may eat a regular diet. Drink plenty of fluids. Call your Doctor or Contamination Consultant if you have any of these symptoms: * You soak a sanitary pad with blood within 1 hour, or you see clots larger than a golf ball. * Bleeding that lasts more than 6 weeks. *Bad-smelling fluid that comes out of your vagina. *A fever above 100.4 degrees Fahrenheit (38.4 degrees Celsius) with or without chills. * Severe pain, cramping, or tenderness in your lower belly area. * Increased pain, swelling, redness or fluid around your stitches. * A need to urinate more frequently (use the toilet more often), more urgently (use the toilet very quickly), or it roe when you urinate. * Redness, swelling, or pain around a vein in your leg. * Problems coping with sadness, anxiety, or depression. * Problems , or a red or painful area on your breast. * You have questions or concerns after you return home. Immunization History Administered Date(s) Administered ? ? DT (PEDS <7y) 11/10/1996 ??? Influenza 02/06/2003 ??? MMR 11/10/1996 ??? Pneumococcal 23 valent 02/06/2003 ??? TDAP (ADACEL AGES 11-64) 01/30/2010 documented in this encounter Medications at Time of Discharge Medication Sig Dispensed Refills Start Date End Date Vit-Fe Take 1 tablet by 0 Fumarate-FA ( mouth daily. MULTIVITAMIN PLUS IRON) 27-0.8 MG TABS oxyCODONE (ROXICODONE) 5 Take 1-2 tablets by 30 tablet 0 10/02/2016 MG immediate release mouth every 3 hours tabletIndications: S/P as needed. repeat low transverse documented as of this encounter Progress Notes Red Villarreal MD - 06/02/2012 8:36 AM CDT OB Post-op Section Progress Note POD# 2 S: Patient doing well. Pain adequately controlled with oral pain medication. Ambulating. Tolerating regular diet. No N/V. Passing flatus. Voiding. Bleeding a normal amount post C/S. . Patient requests discharge home today. O: BP 136/82 Pulse 75 Temp(Src) 96.8 ??F (36 ??C) (Oral) Resp 16 Ht 1.676 m (5' 6) Wt 109.317 kg (241 lb) BMI 38.90 kg/m2 SpO2 100% LMP 06/20/2011 ? Unknown Gen- A&O, NAD Lungs- CTAB CV-RRR Abd- soft, non-tender, +BS, no rebound or guarding, fundus firm at umbilicus Incision- C/D/I Ext- non-tender, no edema. Pneumoboots in place lower extremities. Hemoglobin Date Value Range Status 06/01/2012 10.1* 11.7 - 15.7 g/dL Final AB positive Rubella immune Platelet count 113,000 on 05/31/12 A/P: 26 year old POD# 2 s/p repeat LTCS. Gestational thrombocytopenia. Patient requests discharge today. 1. Routine post-op cares 2. Patient would like to be discharged today. 3. OK for discharge, but would recommend RTC to have her peace removed in 2-5 days. 4. Rx for Oxycodone 5. Use Tylenol along with the Oxycodone, will defer the use of Ibuprofen with the platelets count asis. 6. Post op and post instructions given 7. Check platelet count again prior to discharge today. Red Villarreal 06/02/2012 8:36 AM Valery Piper MD - 06/01/2012 8:09 AM CDT OB Post-op Section Progress Note POD# 1 S: Patient doing well. Pain well controlled with IV/oral pain medication. Ambulating. Tolerating regular diet. No N/V. Passing flatus. Voiding. Bleeding normal amount. . O: BP 131/78 Pulse 90 Temp(Src) 97.7 ??F (36.5 ??C) (Oral) Resp 18 Ht 1.676 m (5' 6) Wt 109.317 kg (241 lb) BMI 38.90 kg/m2 SpO2 100% LMP 06/20/2011 ? yes UOP- 24hr 1900 Gen- A&O, NAD Abd- soft, non-tender, no rebound or guarding, fundus firm at umbilicus Incision- dressing C/D/I Ext- non-tender, no edema. Hemoglobin Date Value Range Status 06/01/2012 10.1* 11.7 - 15.7 g/dL Final AB + Rubella immune A/P: 26 year old POD# 1 s/p repeat LTCS. Gestational thrombocytopenia, platelets 113K yesterday. 1. Routine post-op cares 2. Anticipate d/c home on POD#3 3. Remove dressing later today with shower. Valery Piper 06/01/2012 8:09 AM Anca Michelle MD - 05/31/2012 12:36 PM CDT OB Brief Operative Note 1. Pre-op diagnosis- 26 year old IUP at 39w3d Repeat 2. Post-op diagnosis- Same Delivered 3. Procedure- Repeat Low Transverse Section via Pfannenstiel skin incision with 2-layer uterine closure 4. Surgeon- ANCA MICHELLE MD 5. Technical Sales Director- TOMMIE Tucker 6. EBL- 500 ml 7. 8. UOP- 50 ml 9. Complications- None apparent 10. Anesthesia- Spinal with duramorph 11. Findings- Viable Male infant delivered on 05/31/2012 at from vtx presentation. Apgars 9 at one minute and 9 at five minutes. Weight 7 lbs 12 oz. Clear amniotic fluid Placenta appeared grossly normal. Normal appearing uterus, tubes and ovaries. ANCA MICHELLE MD 05/31/2012 12:37 PM documented in this encounter H&P Notes Abstract, Provider - 05/30/2012 12:51 AM CST ADMINISTRATOR Abstract, Provider - 05/26/2012 3:37 PM CST ADMINISTRATOR Abstract, Provider - 05/24/2012 4:17 PM CST ADMINISTRATOR documented in this encounter Consult Notes Sarah Simms RN - 06/01/2012 12:04 PM CDT visit. Mom reports baby is nursing well without problem or questions. Encouraged Mom to call us PRN documented in this encounter Miscellaneous Notes Plan of Care - Autumn Posey LPN - 06/02/2012 11:27 AM CDT Reviewed OB education and discharge instructions. Also reviewed signs and symptoms of depression. Baby bands matched with mother with two identifiers. Patient has no further questions at this time. Patient is ready for discharge. Plan of Care - Karen Aden RN - 06/02/2012 6:20 AM CDT Problem: IP GENERAL POC-ADULT,OB,BEHAVIORAL [facility] Goal: Individualization/Patient-Specific Goal (Adult,OB,Behavioral The patient and/or their ambulatory services representative will achieve their patient-specific goals related to the plan of care. The patient-specific goals include: Rest. Outcome: Improving Pt able to get periods of rest between cares during the night. States PO pain medications working well to relieve incisional discomfort. Wearing pneumo boots when in bed. No support person present thisshift; independent w/ self and baby cares. Desires D/C today, if possible. Plan to continue to cluster cares to encourage rest and assist prn. Karen Aden Rn Plan of Care - Karen Aden RN - 06/02/2012 1:32 AM CDT Problem: Following Section Delivery (Adult, Obstetrics) Goal: Prevent/Manage Potential Problems Outcome: No Change Report received from Elizabeth Ferguson Rn. Cares assumed @ 3255. Karen Aden Rn Plan of Care - Alyson Sood RN - 06/01/2012 9:45 PM CDT Problem: IP GENERAL POC-ADULT,OB,BEHAVIORAL [facility] Goal: Individualization/Patient-Specific Goal (Adult,OB,Behavioral The patient and/or their ambulatory services representative will achieve their patient-specific goals related to the plan of care. The patient-specific goals include: Comfort and rest, shower, walk in the hallway 4 times Outcome: Improving Doing well with self and infant cares, breast feeding independently. Oxycodone for pain with stated relief. Ambulating in room, tolerating regular diet, voiding good amounts. Family here visiting, FOB present and supportive. Plan of Care - Hanny Gifford RN - 06/01/2012 3:31 PM CDT Report given to Elizabeth Marty Plan of Care - Hanny Gifford RN - 06/01/2012 11:24 AM CDT Problem: IP GENERAL POC-ADULT,OB,BEHAVIORAL [facility] Goal: Individualization/Patient-Specific Goal (Adult,OB,Behavioral The patient and/or their ambulatory services representative will achieve their patient-specific goals related to the plan of care. The patient-specific goals include: Comfort and rest, shower, walk in the hallway 4 times Assumed care at 0715. Data: Vital signs within normal limits. checks within normal limits - see flow record. Patient eating and drinking normally. Patient able to empty bladder independently and is up ambulating.No apparent signs of infection. Incision healing well. Patient performing self cares and is able to care for . Action: Patient medicated during the shift for pain. See MAR. Patient reassessed within 1 hour aftereach medication and pain was improved - patient stated she was comfortable. Response: Positive attachment behaviors observed with . Support persons present. Plan: Anticipate discharge on 06/03/12. Plan of Care - Jaleesa Ahn RN - 06/01/2012 7:25 AM CDT verbal report given to Carri Gifford RN Plan of Care - Jaleeas Ahn RN - 06/01/2012 6:05 AM CDT Up to bathroom with assist. Able to ambulate, voided a small amount after removal of catheter. Took a walk in the hallway. Tolerated well. Plan of Care - Jaleesa Ahn RN - 05/31/2012 11:36 PM CDT Report received, assumed cares. Plan of Care - Ann Mack RN - 05/31/2012 11:27 PM CDT Report given to ROSY Castelan. Plan of Care - Ann Mack RN - 05/31/2012 10:40 PM CDT Problem: Following Section Delivery (Adult, Obstetrics) Goal: Prevent/Manage Potential Problems Denies pain. Was up to stand, walk in the halls and sat in the chair for a short period of time. Tolerating crackers without nausea. Denies pain. Plan of Care - Ann Mack RN - 05/31/2012 10:39 PM CDT Problem: IP GENERAL POC-ADULT,[facility] Goal: Individualization/Patient-Specific Goal (Adult,OB,Behavioral The patient and/or their ambulatory services representative will achieve their patient-specific goals related to the plan of care. The patient-specific goals include: Comfort and rest, no nausea. Patient was given zofran at beginning of shift. Was tolerating clear liquid diet without problems. After given IV Toradol, patient reported she was nauseated. Requested not to receive anymore of it because she felt that way after her first dose. Dr. Tenorio aware. Provider Notification - Ann Mack RN - 05/31/2012 10:08 PM CDT 05/31/120 Provider Notification Provider Name/Title Dr. Tenorio Method of Notification Phone Request Evaluate-Remote Notification Reason Other (decreased urine output) Updated of 150 cc of urine output over last 8 hours. No new orders. Monitor. Plan of Care - Karla De Jesus RN - 05/31/2012 3:35 PM CDT Problem: Following Section Delivery (Adult, Obstetrics) Goal: Prevent/Manage Potential Problems Outcome: No Change Nausea 3 MD notified and put in orders. Plan of Care - Karla De Jesus RN - 05/31/2012 3:34 PM CDT Problem: Perioperative Period (Adult, Obstetrics) Goal: Prevent/Manage Potential Problems Outcome: No Change C/O slight nausea 3, no emesis, Dr. Oglesby was notified and put in orders. Scant shadow on dressing on arrival which has not increased. 100 CC U/O. Denies pain. Moves legs and feet in bed. Aromatherapy at bedside. Report and care of patient given to Ann GALLEGOS @ 1510 Provider Notification - Karla De Jesus RN - 05/31/2012 3:20 PM CDT 05/31/12 1508 Provider Notification Provider Name/Title Dr. Oglesby Updated on patient feels nausea 3 no emesis, had zofran in procedure, MD to write orders for another dose of zofran and also reglan. Plan of Care - Karla De Jesus RN - 05/31/2012 2:28 PM CDT Report received from Eve GALLEGOS and care received @ 1400. Spouse, baby and family present, patient denies pain or nausea. Oriented to unit, moving feet a little and able to lift legs a little.Call light inreach. Op Note - Anca Michelle MD - 05/31/2012 12:46 PM CDT PREOPERATIVE DIAGNOSES: 1. Intrauterine at term. 2. Previous section, gestational thrombocytopenia. POSTOPERATIVE DIAGNOSES: 1. Intrauterine at term. 2. Previous section, gestational thrombocytopenia. PROCEDURE: Repeat low segment transverse section. SURGEON: Anca Michelle M.D. ANESTHESIA: Spinal. PREOPERATIVE DIAGNOSIS AND STATUS: Ms. Stuart Diego is a 26-year-old 2, para 1-0-0-1 with an EDC of 06/04/2012. She had a previous section and is admitted for repeat section. Her was complicated by gestational thrombocytopenia. Platelets prior to surgery were 110,000. OPERATIVE FINDINGS: The patient delivered a healthy male weighing 7 pounds 12 ounces with Apgars of 9 at 1 minute and 9 at 5 minutes. The uterus, tubes, ovaries and placenta were all entirely normal. DESCRIPTION OF PROCEDURE: The patient was taken to the operating room, given a satisfactory spinal anesthetic. She was placed in the supine position and prepped and draped in a sterile manner. A repeatincision was made through the old scar and carried from the skin to the level of the fascia. The fascia was opened with a Donis scissors and undermined from the underlying anterior rectus muscles. The midline was isolated and opened, taking care to avoid injury to the bladder. The vesicouterine peritoneum was then opened. The bladder was bluntly dissected from the anterior edge of the uterus. A transverse incision was made into the lower uterine segment and extended laterally by blunt dissection. Rupt ure of membranes then produced clear fluid. The was then delivered from the vertex position. He was immediately suctioned. The cord was doubly clamped and cut and the baby was handed to the nurses in attendance. The placenta was then manually removed. The uterus was closed in layers, first a running locked 0 Vicryl followed by an 0 Vicryl Lembert's horizontal imbricating suture. Several additional figure-of-X sutures were needed in the middle to provide adequate hemostasis in an area where the lower uterine segment was thin. The pelvis was then irrigated. The peritoneum was closed with a running 3-0 Vicryl. The fascia was closed with 0 Vicryl starting in each corner meeting in the middle. Subcutaneous tissue was irrigated and the skin was closed with peace. The patient tolerated the procedure well and went to the PAR in stable condition. Estimated blood loss was 500 cc. ANCA MICHELLE MD MT: [id number] Name: STUART DIEGO Account: [id number] : 1985 Procedure Date: 05/31/2012 Document: [id number] Plan of Care - Sarika Pacheco RN - 05/31/2012 10:15 AM CDT Data: Patient admitted to room MAC#1 at 0911. Patient is a . record reviewed. Obstetric History T1 TAB0 SAB0 E0 M0 L1 Name of Baby 1 Susie ??? Outcome Date 06/10/09 GA 39w 0d ??? Delivery Type , Low Transverse ??? at 1 min. Not recorded at 5 min. Not recorded ??? Living Yes Name of Baby 2 Not recorded ??? Outcome Date Not recorded GA Not recorded ??? Delivery Type Not recorded ??? at 1 min. Not recorded at 5 min. Not recorded ??? Living Not recorded . Medical History: Past Medical History Diagnosis Date ??? Esotropia, unspecified ??? Varicella without mention of complication ??? OCP (oral contraceptive pills) initiation 01/03/2011 ??? Generalized anxiety disorder 01/03/2011 ??? Thyroid nodule 01/03/2011 ??? Deviated septum 05/08/2011 ??? PONV (postoperative nausea and vomiting) ??? Coagulation disorder Poss Gestationa thrombocitopenia . Gestational age 39w3d. Vital signs per doc flowsheet. movement present. Patient reports Schedule Surgery as reason for admission. Support persons Garry Diego is present. Action: Care of patient assumed on admission. Verbal consent for EFM, external monitors applied. Admission assessment completed. Patient and support persons educated on pre op procedure . Patientinstructed to report change in movement, contractions, vaginal leaking of fluid or bleeding, abdominal pain, or any concerns related to the to her nurse/physician. Patient oriented to room, call light in reach. Response: Plan per provider is to proceed with scheduled repeat and get a stat plt count. Patient verbalized understanding of education and verbalized agreement with plan. Pharmacy-Admission Medication History - Juan Pablo Martinez RPH - 05/23/2012 3:05 PM CST Med rec completed per pharmacy salesperson ADMINISTRATOR documented in this encounter Plan of Treatment Not on filedocumented as of this encounter Procedures Procedure Name Priority Date/Time Associated Diagnosis Comme nts PLATELET COUNT Timed 06/02/2012 10:08 AM Result s for this CDT procedure are i n the results section. HEMOGLOBIN Routine 06/01/2012 7:00 AM Results f or this CDT procedure are i n the results section. SECTION 05/31/2012 11:19 AM Previous CDT Section Special Needs 5'7, 241# stated PLATELET COUNT STAT 05/31/2012 9:30 AM CDT Res ults for this procedure are in the resu lts section. GROUP B STREP PCR Routine 05/10/2012 Results fo r this procedure are in the resu lts section. RUBELLA ANTIBODY IGG Routine 11/13/2011 Results for this procedure are in the resu lts section. HIV 1 AND 2 ANTIBODY Routine 11/13/2011 Results for this procedure ([facility]) are in the resu lts section. HEPATITIS B SURFACE Routine 11/13/2011 Results for this procedure ANTIGEN are in the resu lts section. ANTI TREPONEMA Routine 11/13/2011 Results for t his procedure are in the resu lts section. documented in this encounter Results (ABNORMAL) Platelet count (06/02/2012 10:08 AM CDT) P athologist Signature Platelet Count 108 (L) 150 - 450 [place] 10e9/L [facility] Specimen Anatomical Collection Method Collection Time Receive d Time (Source) Location / / Volume Laterality Blood specimen 06/02/2012 10:08 3 (specimen) AM CDT 10:18 AM CDT Red Villarreal MD LAB - BLOOD ORDERABLES Performing Organization Address City/[facility]/ZIP Code Phon e Number M [facility] [address], [place] [address] [facility] (ABNORMAL) Hemoglobin (06/01/2012 7:00 AM CDT) athologist [facility] Hemoglobin 10.1 (L) 11.7 - 15.7 [place] g/dL [facility] Specimen Anatomical Collection Method Collection Time Receive d Time (Source) Location / / Volume Laterality Blood specimen 06/01/2012 7:00 AM 013 7:20 (specimen) CDT AM CDT Anca Michelle MD LAB - BLOOD ORDERABLES Performing Organization Address City/[facility]/ZIP Code Phon e Number M [facility] [address], [place] [address] [facility] (ABNORMAL) Platelet count (05/31/2012 9:30 AM CDT) athologist [facility] Platelet Count 113 (L) 150 - 450 [place] 10e9/L [facility] Specimen Anatomical Collection Method Collection Time Receive d Time (Source) Location / / Volume Laterality Blood specimen 05/31/2012 9:30 AM 013 9:38 (specimen) CDT AM CDT Anca Michelle MD LAB - BLOOD ORDERABLES Performing Organization Address City/[facility]/ZIP [facility] Phon e Number [facility] [address], [place] [address] [facility] Group B strep PCR (05/10/2012) [facility] Strep negative PCR Patient Reported LAB - MICRO GENERAL ORDERABL ES Rubella antibody IgG (11/13/2011) athologist [facility] Rubella JOSEFINA IgG immune Specimen (Source) Anatomical Location Collection Method / Collectio n Time Received Time / Laterality Volume Blood specimen (specimen) Patient Reported LAB - BLOOD ORDERABLES HIV 1 and 2 Antibody (11/13/2011) athologist Signature HIV-1 & HIV-2 Antibody HIV 1&2 negative Antibody Specimen (Source) Anatomical Location Collection Method / Collectio n Time Received Time / Laterality Volume Blood specimen (specimen) Patient Reported LAB - BLOOD ORDERABLES Hepatitis B surface antigen (11/13/2011) athologist Signature Hep B Surface negative Agn Specimen (Source) Anatomical Location Collection Method / Collectio n Time Received Time / Laterality Volume Blood specimen (specimen) Patient Reported LAB - BLOOD ORDERABLES Anti treponema EIA (11/13/2011) [facility] gist Method Time Signature Treponema non reactive pallidum Antibody Specimen (Source) Anatomical Location Collection Method / Collectio n Time Received Time / Laterality Volume Blood specimen (specimen) Patient Reported LAB - BLOOD ORDERABLES documented in this encounter Visit Diagnoses Not on filedocumented in this encounter Administered Medications Inactive Administered Medications - up to 3 most recent administrations Medication Order MAR Action Action Date Dose Rate Site sodium chloride 0.9% Given 05/31/2012 12:06 500 mLs Operative (bottle) irrigation PM CDT Site/Surgical S ite PRN, Starting on 05/31/12 at 1206, Area to irrigate and instructions: ., Anesthesia Intra-op documented in this encounter Active and Recently Administered Medications Times are shown in CDT. Scheduled Medication Order 05/31/2012 06/01/2012 06/02/2012 ceFAZolin (ANCEF) IVPB 2 g (COMPLETED) 1129 (Given - P rovider: Concepcion Lyon APRN BONDING MACHINE SETTER) 2 g, Intravenous, PRE-OP/PRE-PROCEDURE, For 1 dose, Give no sooner than 30 minutes prior to incision., Indications: Surgical Prophylaxis, Pre-procedure citric acid-sodium citrate (BICITRA) solution 30 mL (C OMPLETED) 1004 (Given - Provider: Sarika Pacheco RN) 30 mL, Oral, PRE-OP/PRE-PROCEDURE, For 1 dose, For gastric pH neutralization. GIVE WITHIN 45 minutes PRIOR TO SURGICAL PROCEDURE., Pre-procedure ketorolac (TORADOL) injection 30 mg (CANCELED) 1255 (G iven - Provider: Eve Munoz RN)1912 (Given - Provider: Ann Mack RN) 30 mg, Intravenous, EVERY 6 HOURS, First dose on Thu05/31/12 at 1300, For 24 hours, Give first dose in PACU (alright to give with narcotic analgesic if ordered) X 24 hours, Post-procedure lactated ringers BOLUS 1,000 mL (COMPLETED) 0936 (New Bag - Provider: Sarika Pacheco RN) Intravenous, 1,000 mL, ONCE, Thu05/31/12 at 0915, For 1 dose, Prior to surgery. IF preeclamptic give only 500 mL, Pre-procedure senna-docusate (SENOKOT-S;PERICOLACE) 8. 6-50 MG per tablet 1-2 tablet (CANCELED) 223 (Given - Provider: Ann Mack RN) 0909 (Give n - Provider: Hanny Gifford RN)1999 (Given - Provider: Roya Craig LPN) 0951 (Given - Provider: Georgia Morales RN) 1-2 tablet, Oral, 2 TIMES DAILY, First d ose on Thu05/31/12 at 2100, Start with 1 tablet PO BID, If no bowel movement in 24 hours, increase to 2 tablets po BID. Hold for loose stools. Preferred agent for constipation related to opioids., Post-procedure sodium chloride (PF) 0.9% PF flush 3 mL (CANCELED) 130 0 (Not Given - Provider: Eve Munoz RN - Reason: IV Infusing)2232 (Not Given - Provider: Ann Mack RN - Reason: IV Infusing) 0327 (Given - Provider: Jaleesa rolle RN)0634 (Not Given - Provider: Jaleesa Ahn RN - Reason: Other - Comment: times changed)1130 (Not Given - Provider: Alyson Sood RN - Reason: Loss of IV access - Comment: saline lock d/c'd) 0330 (Canceled Entry - Provider: Karen Aden RN) 3 mL, Intravenous, EVERY 8 HOURS, First dose on Thu05/31/12 at 1300, And Q1H PRN, to lock peripheral IV dormant line. , Post-procedure 1930 (Not Given - Provider: Alyson Sood RN - Reason: Loss of IV access - Comment: saline lock d/c'd) Continuous Medication Order 05/31/2012 06/01/2012 06/02/2012 dextrose 5 % in lactated ringers infusion (CANCELED) 1 315 (Not Given - Provider: Eve Munoz RN - Reason: Order parameters not met)1943 (New Bag - Provider: Ann Mack RN) 0327 (Stopped - Provider: Jaleesa Ahn, ROSY) at 125 mL/hr, Intravenous, CONTINUOUS, S ubsequent IV at nurse's discretion. DC IV when tolerating fluids or at nurse's discretion & saline lock., Post-procedure lactated ringers infusion (CANCELED) 1011 (New Bag - P rovider: Sarika Pacheco RN) at 125 mL/hr, Intravenous, CONTINUOUS, Pre-procedure PRN Medication Order 05/31/2012 06/01/2012 06/02/2012 acetaminophen (TYLENOL) tablet 650 mg (CANCELED) 0740 (Given - Provider: Autumn Posey LPN) 650 mg, Oral, EVERY 4 HOURS PRN, mild pa in, fever greater than 102??F, Starting Thu05/31/12 at 1248, Maximum acetaminophen daily dose 4000 mg. Maximum acetaminophen dose from all sources = 75 mg/kg/day not to exceed 4 grams/day., Post-procedure lidocaine 4 % (LMX4) cream (COMPLETED) 0936 (Given - P rovider: Sarika Pacheco RN) Topical, ONCE PRN, mild pain, with VAD i nsertion or accessing implanted port,, Starting Thu05/31/12 at 0905, For 1 dose, Do NOT give if patient has a history of allergy to any local anesthetic or any c felicia product. Apply 30 min prior to VAD insertion or port access. MAX Dose: 2.5 gm (?? of 5 gm tube), Pre-procedure metoclopramide (REGLAN) injection 10 mg (CANCELED) 194 1 (Given - Provider: Ann Mack RN) 10 mg, Intravenous, EVERY 6 HOURS PRN, S tarting 05/31/12 at 1512, nausea, vomiting, N/V not relieved by ondansetron, Avoid use if patient has full bowel obstruction or perforation. ondansetron (ZOFRAN) injection 4 mg (CANCELED) 1536 (G iven - Provider: Ann Mack, RN) 4 mg, Intravenous, EVERY 4 HOURS PRN, na usea, if scopalamine patch ineffective, for 2 Minutes, Starting Thu05/31/12 at 1148, For 2 doses oxyCODONE (ROXICODONE) immediate release tablet 5-10 mg 1024 (Given - Provider: Hanny Gifford, RN)1958 (Given - Provider: Roya Craig LPN) 0047 (Given - Provider: Karen Aden RN) 5-10 mg, Oral, EVERY 3 HOURS PRN, modera te to severe pain, Starting Thu05/31/12 at 1248, Hold while on METALLURGIST PROCESS, Post-procedure oxytocin (PITOCIN) 20 units in 0.9% NaCl 1000 mL (COMP LETED) 1259 (Given - Provider: Eve Munoz, ROSY) 500-1,000 mL/hr, Intravenous, at 500-1,0 00 mL/hr, ONCE PRN, hemorrhage, Starting Thu05/31/12 at 1248, For 1 dose, Post-procedure, Start IF HEMORRHAGE Bolus of 1000 mL . Run at 500- 1000 mL/hr. until uterine atony is resolved at nurses discretion . sodium chloride 0.9% (bottle) irrigation (CANCELED) 12 06 (Given - Provider: Anca Michelle MD) PRN, Starting Thu05/31/12 at 1206, Area to irrigate and instructions: ., Anesthesia Intra-op No Frequency Medication Order 05/31/2012 06/01/2012 06/02/2012 ibuprofen (ADVIL,MOTRIN) 800 MG tablet (COMPLETED) 0103 (Given - Provider: Jaleesa Ahn, ORSY) Starting on Thu06/01/12 at 0059, For 1 d DOUGLAS greene DEBORAH: cabinet override documented in this encounter Care Teams Wet End Tester Relationship Specialty Start Date End Date Anca Michelle MD PCP - General tunnel kiln operator 05/12/12 documented as of this encounter
--- OUTSIDE RECORDS SUMMARY | 2022-01-10 08:08 | XMS_ITS | Encounter Summary ---
:1985 Author Organization [facility] Address [address] [place] [address] Care Team Providers Name Role Phone Anca Michelle MD Primary Care Provider Reason for Visit Reason Comments Schedule Surgery repeat Auth/Cert - Closed Specialty Diagnoses / Procedures Referred By Contact Refer red To Contact harm reduction worker Diagnoses Previous Section Rh Labor And Delivery Procedures SECTION [address] [place], [place] [address] Phone: Fax: Referral ID Status Reason Start Date Expiration Date Visits Requ ested Visits Authorized [id number] Closed 1 1 Encounter Details Date Type Department Care Team Description 05/31/2012 - [facility] Anca Michelle, S/ P repeat low 06/02/2012 Encounter [facility] transverse [address] ([facility]) [place] [id number] [place] [id number] [facility] [phone] [place] [address] (Wo rk) Social History Tobacco Use Types Packs/Day Years Used Date Smoking Tobacco: Never Smokeless Tobacco: Never Alcohol Use Standard Drinks/Week Comments No 0 (1 standard drink = 0.6 oz pure alcoho l) Sex Assigned at Date Recorded Not on file documented as of this encounter Last Filed Vital Signs Vital Sign Reading Time Taken Comments Blood Pressure 137/79 05/31/2012 3:00 PM CDT Pulse 71 05/31/2012 3:00 PM CDT Temperature 36.7 ??C (98.1 ??F) 05/31/2012 3:00 PM CDT Respiratory Rate 18 05/31/2012 2:45 PM CDT Oxygen Saturation 100% 05/31/2012 2:00 PM CDT Inhaled Oxygen Concentration - - Weight 109.3 kg (241 lb) 05/31/2012 9:23 AM CDT Height 167.6 cm (5' 6) 05/31/2012 9:23 AM CDT Body Mass Index 38.9 05/31/2012 9:23 AM CDT documented in this encounter Discharge Instructions Discharge InstructionsAutumn Posey LPN - 06/02/2012 9:30 AM CDT [facility] Vaginal Delivery or Discharge Instructions Activity: Go back to your normal activities, except per your Physician's instructions. Diet: You may eat a regular diet. Drink plenty of fluids. Call your Doctor or Regrind Mill Operator if you have any of these symptoms: [...] discharge today. Red Villarreal 06/02/2012 8:36 AM YT Valery Piper MD - 06/01/2012 8:09 AM [...] closure 4. Surgeon- ANCA MICHELLE MD 5. Senior Procurement Specialist- TOMMIE Tucker 6. EBL- 500 ml 7. 8. UOP- 50 ml 9. Complications- None apparent 10. Anesthesia- Spinal with duramorph 11. Findings- Viable Male delivered on 05/31/2012 at from vtx presentation. Apgars 9 at one minute and 9 at five minutes. Weight 7 lbs 12 oz. Clear amniotic fluid Placenta appeared grossly normal. Normal appearing uterus, tubes and ovaries. ANCA MICHELLE MD 05/31/2012 12:37 PM documented in this encounter H&P Notes Abstract, Provider - 05/30/2012 12:51 AM CST CTOR OF ROOMS Abstract, Provider - 05/26/2012 3:37 PM CST CTOR OF ROOMS Abstract, Provider - 05/24/2012 4:17 PM CST CTOR OF ROOMS documented in this encounter Consult Notes Sarah [...] Individualization/Patient-Specific Goal (Adult,OB,Behavioral The patient and/or their account manager sales representative will achieve their patient-specific goals related [...] from Elizabeth Ferguson Rn. Cares assumed @ 1660. Karen Aden Rn Plan of Care - Alyson Sood RN - 06/01/2012 9:45 PM CDT Problem: IP GENERAL POC-ADULT,OB,BEHAVIORAL FVCPM Goal: Individualization/Patient-Specific Goal (Adult,OB,Behavioral The patient and/or their account manager sales representative will achieve their patient-specific goals related to the plan of care. The patient-specific goals include: Comfort and rest, shower, walk in the hallway 4 times Outcome: Improving Doing well with self and cares, breast feeding independently. Oxycodone for pain with stated relief. Ambulating in room, tolerating regular diet, voiding good amounts. Family here visiting, FOB present and supportive. Plan of Care - Hanny Gifford RN - 06/01/2012 3:31 PM CDT Report given to Elizabeth Ferguson Plan of Care - Hanny Gifford RN - 06/01/2012 11:24 AM CDT Problem: IP GENERAL POC-ADULT,OB,BEHAVIORAL FVCPM Goal: Individualization/Patient-Specific Goal (Adult,OB,Behavioral The patient and/or their account manager sales representative will achieve their patient-specific goals related [...] comfortable. Response: Positive attachment behaviors observed with infant. Support persons present. Plan: Anticipate discharge on 06/03/12. Plan of Care - Jaleesa Ahn RN - 06/01/2012 7:25 AM CDT verbal report given to Carri Gifford RN Plan of Care - Jaleesa Ahn RN - 06/01/2012 6:05 AM CDT [...] 10:39 PM CDT Problem: IP GENERAL POC-ADULT,OB,BEHAVIORAL FVCPM Goal: Individualization/Patient-Specific Goal (Adult,OB,Behavioral The patient and/or their account manager sales representative will achieve their patient-specific goals related [...] Mack RN - 05/31/2012 10:08 PM CDT 05/31/12 2200 Provider Notification Provider Name/Title Dr. Tenorio Method [...] of membranes then produced clear fluid. The infant was then delivered from the vertex position. [...] the procedure well and went to the [facility] in stable condition. Estimated blood loss was 500 cc. ANCA MICHELLE MD MT: [id number] Name: STUART DIEGO Account: [id number] : 1985 Procedure Date: 05/31/2012 Document: [id number] Plan of Care - Sarika Pacheco RN [...] as reason for admission. Support persons Garry Cecil is present. Action: Care of patient assumed [...] PM CST Med rec completed per pharmacy consultant CTOR OF ROOMS documented in this encounter Plan of Treatment [...] Platelet Count 108 (L) 150 - [address] [facility] 10e9/L [facility] Specimen Anatomical Collection Method Collection Time Receive d Time (Source) Location / / Volume Laterality Blood specimen 06/02/2012 10:08 3 (specimen) AM CDT 10:18 AM CDT Red Villarreal MD LAB - BLOOD ORDERABLES Performing Organization Address City/State/ZIP Code Phon e Number M [facility] [address] [place] [address] [facility] (ABNORMAL) Hemoglobin (06/01/2012 7:00 AM CDT) athologist [facility] Hemoglobin 10.1 (L) 11.7 - 15.[address] [facility] [facility] g/dL [facility] Specimen Anatomical Collection Method Collection Time Receive d Time (Source) Location / / Volume Laterality Blood specimen 06/01/2012 7:00 AM 013 7:20 (specimen) CDT AM CDT Anca Michelle MD LAB - BLOOD ORDERABLES Performing Organization Address City/State/[facility] Phon e Number [facility] [address], [place] [address] [facility] (ABNORMAL) Platelet count (05/31/2012 9:30 AM CDT) athologist [facility] Platelet Count 113 (L) 150 - [address] [facility] [address] [facility] 10e9/L [facility] Specimen Anatomical Collection Method Collection Time Receive d Time (Source) Location / / Volume Laterality Blood specimen 05/31/2012 9:30 AM 013 9:38 (specimen) CDT AM CDT Anca Michelle MD LAB - BLOOD ORDERABLES Performing Organization Address City/State/[facility] Phon e Jeff [facility] [address], [place] [address] [facility] Group B strep PCR (05/10/2012) athologist [facility] Group B Strep negative PCR Patient Reported LAB - MICRO GENERAL ORDERABL ES Rubella antibody IgG (11/13/2011) athologist [facility] Rubella JOSEFINA IgG immune Specimen (Source) Anatomical [...] BLOOD ORDERABLES Hepatitis B surface antigen (11/13/2011) P athologist Signature Hep B Surface negative Agn Specimen (Source) Anatomical Location Collection Method / Collectio n Time Received Time / Laterality Volume Blood specimen (specimen) Patient Reported LAB - BLOOD ORDERABLES Anti treponema EIA (11/13/2011) Patholo gist Method Time Signature Treponema non reactive pallidum Antibody Specimen (Source) Anatomical Location Collection Method / Collectio n Time Received Time / Laterality Volume Blood specimen (specimen) Patient Reported LAB - BLOOD ORDERABLES documented in this encounter Visit Diagnoses Diagnosis S/P repeat low transverse - Pr imary delivery, without mention of in dication, unspecified as to episode of care S/P repeat low transverse delivery, without mention of in dication, unspecified as to episode of care documented in this encounter Administered Medications Inactive Administered Medications - up to 3 most recent administrations Medication Order MAR Action Action Date Dose Rate Site acetaminophen (TYLENOL) tablet 650 Given 06/02/2012 7:40 AM CDT 650 mg mg 650 mg, Oral, EVERY 4 HOURS PRN, mild pain, fever greater than 102??F, Starting on Thu05/31/12 at 1248, Maximum acetaminophen daily dose 4000 mg. Maximum acetaminophen dose from all sources = 75 mg/kg/day not to exceed 4 grams/day., Post-procedure citric acid-sodium citrate (BICITRA) Given 05/31/2012 10:04 AM C DT 30 mLs solution 30 mL 30 mL, Oral, PRE-OP/PRE-PROCEDURE, Starting on Thu05/31/12 at 0905, For 1 dose, For gastric pH neutralization. GIVE WITHIN 45 minutes PRIOR TO SURGICAL PROCEDURE., Pre-procedure dextrose 5 % in lactated ringers New Bag 05/31/2012 7:43 PM CDT 125 mL/hr infusion at 125 mL/hr, Intravenous, CONTINUOUS, Subsequent IV at nurse's discretion. DC IV when tolerating fluids or at nurse's discretion & saline lock., Post-procedure, Starting on Thu05/31/12 at 1300, Until Thu06/02/12 at 0637 ibuprofen (ADVIL,MOTRIN) 800 MG tablet Given 06/01/2012 1:03 AM CDT 800 mg Starting on Thu06/01/12 at 0059, For 1 dose, JALEESA AHN: cabinet override ketorolac (TORADOL) 30 MG/ML injection Starting on Thu05/31/12 at 1254, For 1 dose, Susan PACHECO: cabinet override ketorolac (TORADOL) injection 30 mg Given 05/31/2012 7:12 PM CDT 30 mg 30 mg, Intravenous, EVERY 6 HOURS, First dose on Thu05/31/12 at 1300, For 24 hours, Give first dose in PACU (alright to give with narcotic analgesic if ordered) X 24 hours, Post-procedure Given 05/31/2012 12:55 PM CDT 30 mg lactated ringers BOLUS 1,000 mL New Bag 05/31/2012 9:36 AM CDT 1,000 mLs Intravenous, 1,000 mL, ONCE, On Thu05/31/12 at 0915, For 1 dose, Prior to surgery. IF preeclamptic give only 500 mL, Pre-procedure lactated ringers infusion New Bag 05/31/2012 10:11 AM CDT 1,000 mLs 125 mL/hr at 125 mL/hr, Intravenous, CONTINUOUS, Pre-procedure, Starting on Thu05/31/12 at 0915, Until Thu05/31/12 at 1403 lidocaine 4 % (LMX4) cream Given 05/31/2012 9:36 AM CDT Topical, ONCE PRN, mild pain, with VAD insertion or accessing implanted port,, Starting on Thu05/31/12 at 0905, For 1 dose, Do NOT give if patient has a history of allergy to any local anesthetic or any bella product. Apply 30 min prior to VAD insertion or port access. MAX Dose: 2.5 gm (?? of 5 gm tube), Pre-procedure metoclopramide (REGLAN) injection 10 mg Given 05/31/2012 7:41 PM CDT 10 mg 10 mg, Intravenous, EVERY 6 HOURS PRN, nausea, vomiting, N/V not relieved by ondansetron, Starting on Thu05/31/12 at 1512, Avoid use if patient has full bowel obstruction or perforation. ondansetron (ZOFRAN) injection 4 mg Given 05/31/2012 3:36 PM CDT 4 mg 4 mg, Intravenous, EVERY 4 HOURS PRN, nausea, if scopalamine patch ineffective, Administer over 2-5 Minutes, Starting on Thu05/31/12 at 1148, For 2 doses oxyCODONE (ROXICODONE) immediate release Given 06/02/2012 12:47 AM CDT 5 mg tablet 5-10 mg 5-10 mg, Oral, EVERY 3 HOURS PRN, moderate to severe pain, Starting on Thu05/31/12 at 1248, Hold while on PLASMA SPECIALIST, Post-procedure Given 06/01/2012 7:58 PM CDT 5 mg Given 06/01/2012 10:24 AM CDT 5 mg oxytocin (PITOCIN) 20 units in Given 05/31/2012 12:59 PM CDT 1,000 mL/hr 999 mL/hr 0.9% NaCl 1000 mL 500-1,000 mL/hr, Intravenous, ONCE PRN, hemorrhage, Starting on Thu05/31/12 at 1248, For 1 dose, Start IF HEMORRHAGE Bolus of 1000 mL . Run at 500-1000 mL/hr. until uterine atony is resolved at nurses discretion., Post-procedure oxytocin 20 units in 0.9% NaCl (PITOCIN) 20 Units/1000 mL infusion Starting on Thu05/31/12 at 1254, For 1 dose, Susan PACHECO: cabinet override senna-docusate (SENOKOT-S;PERICOLACE) Given 06/02/2012 9:51 AM C DT 1 tablet 8.6-50 MG per tablet 1-2 tablet 1-2 tablet, Oral, 2 TIMES DAILY, First dose on Thu05/31/12 at 2100, Start with 1 tablet PO BID, If no bowel movement in 24 hours, increase to 2 tablets po BID. Hold for loose stools. Preferred agent for constipation related to opioids., Post-procedure Given 06/01/2012 8:00 PM CDT 1 tablet Given 06/01/2012 9:09 AM CDT 1 tablet sodium chloride (PF) 0.9% PF flush 3 mL Given 06/01/2012 3:27 AM CDT 3 mLs 3 mL, Intravenous, EVERY 8 HOURS, First dose on Thu05/31/12 at 1300, And Q1H PRN, to lock peripheral IV dormant line. , Post-procedure documented in this encounter Active and Recently Administered Medications Times are shown in CDT. Scheduled Medication Order 05/31/2012 06/01/2012 06/02/2012 ceFAZolin (ANCEF) IVPB 2 g (COMPLETED) 1129 (Given - P rovider: Concepcion Lyon APRN C ARCHITECT) 2 g, Intravenous, PRE-OP/PRE-PROCEDURE, For 1 dose, Give no sooner than 30 minutes prior to incision., Indications: Surgical Prophylaxis, Pre-procedure citric acid-sodium citrate (BICITRA) solution 30 mL (C OMPLETED) 1004 (Given - Provider: Sarika Pacheco, RN) 30 mL, Oral, PRE-OP/PRE-PROCEDURE, For 1 dose, For gastric pH neutralization. GIVE WITHIN 45 minutes PRIOR TO SURGICAL PROCEDURE., Pre-procedure ketorolac (TORADOL) injection 30 mg (CANCELED) 1255 (G iven - Provider: Eve Munoz, RN)1912 (Given - Provider: Ann Mack RN) 30 mg, Intravenous, EVERY 6 HOURS, First dose on Thu05/31/12 at 1300, For 24 hours, Give first dose in PACU (alright to give with narcotic analgesic if ordered) X 24 hours, Post-procedure lactated ringers BOLUS 1,000 mL (COMPLETED) 0936 (New Bag - Provider: Sarika Pacheco, ROSY) Intravenous, 1,000 mL, ONCE, Thu05/31/12 at 0915, For 1 dose, Prior to surgery. IF preeclamptic give only 500 mL, Pre-procedure senna-docusate (SENOKOT-S;PERICOLACE) 8. 6-50 MG per tablet 1-2 tablet (CANCELED) 223 (Given - Provider: Ann Mack RN) 09 (Give n - Provider: Hanny Gifford, ROSY)1999 (Given - Provider: Roya Craig LPN) 0951 [...] IV Infusing) 0327 (Given - Provider: Jaleesa rolle, RN)0634 (Not Given - Provider: Jaleesa Ahn [...] Mack RN) 0327 (Stopped - Provider: Jaleesa Ahn RN) at 125 mL/hr, Intravenous, CONTINUOUS, S ubsequent IV at nurse's discretion. DC IV when tolerating fluids or at nurse's discretion & saline lock., Post-procedure lactated ringers infusion (CANCELED) 1011 (New Bag - P rovider: Sarika Pacheco, ROSY) at 125 mL/hr, Intravenous, CONTINUOUS, Pre-procedure PRN [...] (COMPLETED) 0936 (Given - P rovider: Sarika Pacheco, RN) Topical, ONCE PRN, mild pain, with [...] (CANCELED) 194 1 (Given - Provider: Ann Mack, RN) 10 mg, Intravenous, EVERY 6 HOURS PRN, S tarting Thu05/31/12 at 1512, nausea, vomiting, N/V not relieved by ondansetron, Avoid use if patient has full bowel obstruction or perforation. ondansetron (ZOFRAN) injection 4 mg (CANCELED) 1536 (G iven - Provider: Ann Mack RN) 4 mg, Intravenous, EVERY 4 HOURS PRN, na usea, if scopalamine patch ineffective, for 2 Minutes, Starting Thu05/31/12 at 1148, For 2 doses oxyCODONE (ROXICODONE) immediate release tablet 5-10 mg 1024 (Given - Provider: Hanny Gifford RN)1958 (Given - Provider: Roya Craig LPN) 0047 (Given - Provider: Karen Aden, ROSY) 5-10 mg, Oral, EVERY 3 HOURS PRN, modera te to severe pain, Starting Thu05/31/12 at 1248, Hold while on PLASMA SPECIALIST, Post-procedure oxytocin (PITOCIN) 20 units in 0.9% NaCl 1000 mL (COMP LETED) 1259 (Given - Provider: Eve Munoz, RN) 500-1,000 mL/hr, Intravenous, at 500-1,0 00 mL/hr, ONCE PRN, hemorrhage, Starting Thu05/31/12 at 1248, For 1 dose, Post-procedure, Start IF HEMORRHAGE Bolus of 1000 mL . Run at 500- 1000 mL/hr. until uterine atony is resolved at nurses discretion . sodium chloride 0.9% (bottle) irrigation (CANCELED) 12 06 (Given - Provider: Anca Michelle MD) PRN, Starting 05/31/12 at 1206, Area to irrigate and instructions: ., Anesthesia Intra-op No Frequency Medication Order 05/31/2012 06/01/2012 06/02/2012 ibuprofen (ADVIL,MOTRIN) 800 MG tablet (COMPLETED) 0103 (Given - Provider: Jaleesa Ahn, RN) Starting on Thu06/01/12 at 0059, For 1 d oseDOUGLAS DEBORAH: cabinet override documented in this encounter Care Teams Saddle Mechanic Relationship Specialty Start Date End Date Anca Michelle MD PCP - General harm reduction worker 05/12/12 documented as of this encounter
--- OUTSIDE RECORDS SUMMARY | 2022-01-10 08:08 | XMS_ITS | Encounter Summary ---
:1985 Author Organization [facility] Address [address] [place] [address] Care Team Providers Name Role Phone Anca Matos MD Primary Care Provider Callie Kumar Unavailable Unavailable Encounter Details Date Type Department Care Team Description 02/29/2020 Travel Social History Tobacco Use Types Packs/Day Years Used Date Smoking Tobacco: Never Smokeless Tobacco: Never Alcohol Use Standard Drinks/Week Comments No 0 (1 standard drink = 0.6 oz pure alcoho l) Sex Assigned at Date Recorded Not on file COVID-19 Exposure Response Date Recorded In the last month, have you been in contact with No / Unsure 02/29/2020 3:30 PM MILL HAND someone who was confirmed or suspected to have Coronavirus / COVID-19? documented as of this encounter Plan of Treatment Not on filedocumented as of this encounter Visit Diagnoses Not on filedocumented in this encounter Care Teams Women Specialist Relationship Specialty Start Date End Date Anca Matos MD PCP - General winding lathe operator 05/12/12 Callie Kumar Assigned OBGYN Provider 01/13/20 04/20/21 documented as of this encounter
--- OUTSIDE RECORDS SUMMARY | 2022-01-10 08:08 | XMS_ITS | Encounter Summary ---
:1985 Author Organization [facility] Address [address] [place] [id number] Care Team Providers Name Role Phone Anca Matos MD Primary Care Provider Encounter Details Date Type Department Care Team Description 10/18/2019 Travel Social History Tobacco Use Types Packs/Day [...] on filedocumented in this encounter Care Teams Routing Clerk Relationship Specialty Start Date End Date Anca Matos MD PCP - General credit professional 05/12/12 documented as of this encounter
--- OUTSIDE RECORDS SUMMARY | 2022-01-10 08:09 | XMS_ITS | Encounter Summary ---
:1985 Author Organization [facility] Address [address] [place] [address]. [place] [address] Care Team Providers Name Role Phone Barry Galo MD Primary Care Provider Reason for Visit Reason Comments Eye Problem right eye pink eye? X 2 days roe, itches. and sore Imm/Inj tdap? Encounter Details Date Type Department Care Team Description 01/30/2010 Office Visit [facility] Barry Galo-di s combinations N[facility]; [facility] [place] Conjunctivitis, acute; [address] [facility] [id number] [place] [address] Need [place] [address] [phone] Social History Tobacco Use Types Packs/Day Years Used Date Smoking Tobacco: Never Alcohol Use Standard Drinks/Week Comments No 0 (1 standard drink = 0.6 oz pure alcoho l) Sex Assigned at Date Recorded Not on file documented as of this encounter Last Filed Vital Signs Vital Sign Reading Time Taken Comments Blood Pressure 120/78 01/30/2010 10:19 AM EMERGENCY DEPARTMENT Pulse 100 01/30/2010 10:19 AM EMERGENCY DEPARTMENT Temperature 36.6 ??C (97.8 ??F) 01/30/2010 10:19 AM EMERGENCY DEPARTMENT Respiratory Rate - - Oxygen Saturation - - Inhaled Oxygen Concentration - - Weight 92.1 kg (203 lb) 01/30/2010 10:19 AM EMERGENCY DEPARTMENT Height - - Body Mass Index 32.77 05/15/2009 9:17 AM EMERGENCY DEPARTMENT documented in this encounter Progress Notes Trav Glass - 01/30/2010 11:25 AM EMERGENCY DEPARTMENT Addended by: TRAV GLASS on: 01/30/2010 Modules accepted: Orders GENCY DEPARTMENT Barry Galo - 01/30/2010 11:12 AM CST Symptoms of eye itching, mattering and watering since two days ago. Did start with a household contact. Does not attend day care. Does have associated uri symptoms of coryza,cough and fever. No abnormality of ear, throat,lungs,skin, adenopathy and no neck stiffness. No corneal fluoroscein uptake or foreign body seen. Bacterial conjunctivitis Discussed immunization update, tdap, wellness and baby care GENCY DEPARTMENT documented in this encounter Nursing Notes 01/30/2010 10:15 AM CST >> TRAV GLASS Wed Jan 30, 2010 10:22 AM Patient presents with: Eye Problem - right eye pink eye? X 2 days roe, itches. and sore Imm/Inj - tdap? Initial BP 120/78 Pulse 100 Temp(Src) 97.8 ??F (36.6 ??C) (Oral) Wt 92.08 kg (203 lb) Estimated Body mass index is 32.76 kg/(m^2) as calculated from the following: Height as of 05/15/09: 5' 6(1.676 m). Weight as of this encounter: 203 lb(92.08 kg). BP completed using cuff size large r arm Health Maintenance Updated with Patient: Yes Trav Glass MA documented in this encounter Plan of Treatment Not on filedocumented as of this encounter Visit Diagnoses Diagnosis Need for prophylactic vaccination and in oculation against other combinations of diseases Conjunctivitis, acute Acute conjunctivitis, unspecified Need for Tdap vaccination Need for prophylactic vaccination with c ombined qtvyyzqiau-rqfyeiw-deicqxful (DTP) vaccine documented in this encounter Care Teams Colorer Relationship Specialty Start Date End Date Barry Galo MD PCP - General 04/14/03 01/16/11 [address] [place], [place] [id number] documented as of this encounter
--- OUTSIDE RECORDS SUMMARY | 2022-01-10 08:09 | XMS_ITS | Encounter Summary ---
:1985 Author Organization [facility] Address [address] [place] [address] Care Team Providers Name Role Phone Barry Galo MD Primary Care Provider [phone] Encounter Details Date Type Department Care Team Description 09/09/2010 Results Only [facility] Garry Diaz MD Hospital Results EMERGENCY [facility] [address] [place], [place] [address] (Wo rk) Social History [...] Priority Date/Time Associated Comments Diagnosis US PELVIC Routine 09/09/2010 7:38 PM Results f or this TRANSABDOMINAL AND CDT procedure are in TRANSVAGINAL the results section. documented in this encounter Results US Pel W/Trans* (09/09/2010 7:38 PM CDT) Anatomical Region Laterality Modality Abdomen/Pelvis Other Specimen (Source) Anatomical Collection Method Collection Time Re ceived Time Location / / Volume Laterality 09/09/2010 7:38 PM CDT Impressions 09/09/2010 9:32 PM CDT US PELVIC-TRANSVAGINAL ??Sep 09, 2010 7: 38:00 PM ?? HISTORY: ??Abdominal pain. ?? COMPARISON: None. FINDINGS: Transabdominal and transvagina l imaging performed. Transvaginal imaging performed to better visualize the ovaries. The uterus is normal in size and position me asuring 6.8 x 2.9 x 4.2 cm. Endometrium is normal thickness at 2 mm. The ovaries are normal in size and appearance bilaterally. There i s a dominant 1.8 cm left ovarian follicle, within physiologic pino its. Color Doppler and Doppler waveform analysis of the ovaries shows n ormal blood flow bilaterally. There is no evidence of torsion. No free pelvic fluid. IMPRESSION: ??Normal pelvis. Garry Diaz MD IMG US ORDERABLES documented in this encounter Visit Diagnoses Not on filedocumented in this encounter Care Teams Machine Wedger Relationship Specialty Start Date End Date Barry Galo MD PCP - General 04/14/03 01/16/11 [address] [place] [address] documented as of this encounter
--- OUTSIDE RECORDS SUMMARY | 2022-01-10 08:09 | XMS_ITS | Encounter Summary ---
:1985 Author Organization [facility] Address [address] [place] [address] Care Team Providers Name Role Phone Adolfo Reyes MD Primary Care Provider Reason for Visit (Routine) - Closed Specialty Diagnoses / Procedures Referred By Contact Refer red To Contact Radiology Diagnoses US BX THYROID FNA Procedure Notes: Left thyroid nodule Rh Ultrasound Procedures RADIOLOGY [address] [place], [place] [address] Phone: Fax: Referral ID Status Reason Start Date Expiration Date Visits Requ ested Visits Authorized Closed 01/23/2011 01/23/2012 1 1 Encounter Details Date Type Department Care Team Description 01/27/2011 Hospital Encounter [facility] Bautista Garry Erazo eft thyroid nodule [facility] MD Ismael [address] [facility] [address] [facility] [address] [place] [id number] Social History Tobacco Use Types Packs/Day Years Used Date Smoking Tobacco: Never Smokeless Tobacco: Never Alcohol Use Standard Drinks/Week Comments No 0 (1 standard drink = 0.6 oz pure alcoho l) Sex Assigned at Date Recorded Not on file documented as of this encounter Medications at Time of Discharge Medication Sig Dispensed Refills Start Date End Date norgestrel-ethinyl Take 1 tablet by 3 Package 3 01/03/2011 05/21/2012 estradiol (LO/OVRAL) mouth daily. 0.3-30 MG-MCG per tabletIndications: OCP (oral contraceptive pills) initiation sertraline (ZOLOFT) 50 MG Take 1 tablet by 90 tablet 1 12/2306/02/2011 tabletIndications: mouth daily. Generalized anxiety disorder documented as of this encounter Progress Notes Emy Cook RN - 01/27/2011 12:00 PM CST Left thyroid biopsy complete without difficulty. All discharge criteria met. T ADJUSTER documented in this encounter Procedure Notes Chico Garcia - 01/27/2011 12:01 PM CST US guided thyroid FNA of a Left thyroid nodule. Specimens to pathology. Patient tolerated well. T ADJUSTER documented in this encounter Plan of Treatment Pending Results Name Type Priority Associated Diagnoses Date/Ti me Cytology non pick pulling machine tender Lab Routine 01/27/2011 11:30 AM LIGHT ADJUSTER documented as of this encounter Procedures Procedure Name Priority Date/Time Associated Comments Diagnosis FINE NEEDLE Routine 01/27/2011 1:04 PM Results f or this ASPIRATION LIGHT ADJUSTER procedure are i n the results section. US BIOPSY THYROID Routine 01/27/2011 12:04 PM Left thyroid nod ule Results for this FINE NEEDLE LIGHT ADJUSTER procedure are i n ASPIRATION the results section. CYTOLOGY NON CHILDCARE ADMINISTRATOR Routine 01/27/2011 11:30 AM LIGHT ADJUSTER documented in this encounter Results Fine needle aspiration (01/27/2011 1:04 PM LIGHT ADJUSTER) Component Value Ref Test Analysis Performed At [facility] Method Time Signature Copath Patient Name: STUART DIEGO COPCARMEN Report MR#: [id number] Specimen #: [id number] Collected: 01/27/2011 Received: 01/27/2011 Reported: 01/29/2011 14:23 Ordering Phy(s): GARRY BAUM Additional Phy(s): CHICO GARCIA SPECIMEN/STAIN PROCESS: FNAleft -thyroid nodule ? Pap-Cyto x 14 ---- CYTOLOGIC INTERPRETATION: Thyroid, left lobe nodule, FNA: ?? Benign. Consistent with a benign nodule (includes adenomatoid nodule , colloid nodule, etc.). Resampling is suggested if the lesion changes its characteri stics (see microscopic description). The [place] Implied Risk of Malignancy and Recommended Clin ical Management: Benign has a 0-3% risk of malignancy, recommended management is clinical follow-up. Specimen Adequacy: Satisfactory for evaluation. Electronically signed out by: Brianne Marlow M.D. Processed and screened at [facility] CLINICAL HISTORY: Left thyroid nodule. , GROSS: FNA left -thyroid nodule: ??Received are 14 fixed slides, al l Pap stained. MICROSCOPIC: The smears demonstrate low cellularity and modest amount of colloid. The follicular cells exhibit bland and uniform cytologic fea tures. ??No predominant microfollicular pattern or diagnostic nuclear fe atures of papillary carcinoma identified. ??Rare equivocal pseudoinclu sions are noted within some follicular cells which are considered ko factual given absence of increased cellularity, papillary architectu re, chromatin clearing, or chromatin enlargement and overlapping . ??Based on the overall cytologic features, the diagnosis of benign nodu le is favored. Internal consultation obtained (MGP). /farzaneh 01-29-11 TESTING LAB LOCATION: [address] ??[address] COLLECTION SITE: Client: ??[facility] Location: ??RHUS (R) Specimen Anatomical Collection Method Collection Time Receive d Time (Source) Location / / Volume Laterality 01/27/2011 1:04 PM 1 1:04 LIGHT ADJUSTER PM LIGHT ADJUSTER Garry Baum MD LAB - [facility] SPECIAL DIAG OR DERABLES Performing Organization Address City/State/ZIP Code Phon e Number [place] US guided thyroid FNA (01/27/2011 12:04 PM LIGHT ADJUSTER) Anatomical Region Laterality Modality Head Ultrasound Specimen (Source) Anatomical Collection Method Collection Time Re ceived Time Location / / Volume Laterality 01/27/2011 12:04 PM LIGHT ADJUSTER Impressions 01/27/2011 3:22 PM LIGHT ADJUSTER ULTRASOUND BIOPSY THYROID FINE NEEDLE PIRATION ??Jan 27, 2011 12:04 PM HISTORY: Left thyroid nodule. PROCEDURE: Written informed consent is o btained from the patient prior to the procedure. The risks and benefits including bleeding and infection are discussed with the patient and the patient wishes to continue. The initial ultrasound images demonstrate a large, predominantly solid left thyroid lobe no dule measured at 3.5 x 3.0 x 2.2 cm on prior thyroid ultrasound dated 01/07/2011. The patient's neck is then prepped, draped and anesthe tized in the usual sterile fashion utilizing anesthetic spray. Thre e passes with a 25-gauge needle under direct ultrasound guidance are made into the nodule(s) and specimens are placed on slides to se nd to pathology for further evaluation. The patient tolerated the pr ocedure well. IMPRESSION: Ultrasound guided thyroid bi opsy x one left nodule(s). Garry Baum MD IMG US ORDERABLES documented in this encounter Visit Diagnoses Diagnosis Left thyroid nodule Nontoxic uninodular goiter documented in this encounter Care Teams Electronic Warfare Technical Relationship Specialty Start Date End Date Adolfo Reyes MD PCP - General Family Practice 01/17/11 05/11/12 [address] [place] [address] documented as of this encounter
--- OUTSIDE RECORDS SUMMARY | 2022-01-10 08:09 | XMS_ITS | Encounter Summary ---
:1985 Author Organization [facility] Address [address] [place] [address] Care Team Providers Name Role Phone Barry Galo MD Primary Care Provider Encounter Details Date Type Department Care Team Description 01/10/2010 Operative Report INTERFACED REPORT Anca Michelle MD (Hop Picker) [address] [address] (Wo rk) Social History Tobacco Use Types Packs/Day Years Used Date Smoking Tobacco: Never Alcohol Use Standard Drinks/Week Comments No 0 (1 standard drink = 0.6 oz pure alcoho l) Sex Assigned at Date Recorded Not on file documented as of this encounter Progress Notes Anca Michelle - 01/11/2010 8:32 AM CDT FINAL PREOPERATIVE DIAGNOSIS: Intrauterine at term, mild induced hypertension, thrombocytopenia, failed induction. POST-PROCEDURE DIAGNOSIS: Intrauterine at term, mild induced hypertension, thrombocytopenia, failed induction. PROCEDURE: Primary low segment transverse section. SURGEON: Anca Michelle MD INSTRUCTION DEAN: ALISA Tucker ANESTHESIA: Spinal. PREOPERATIVE DIAGNOSIS AND STATUS: Stuart Benton is a 24-year-old primigravida with an EDC of 01/16/2010, who was admitted at 39 weeks gestation for primary section. She had a history of a low-lying placenta, as well as mild PIH, and varying levels of minimal thrombocytopenia. She had a failed induction with Cytotec. Platelets were at 90,000, and it was elected to proceed with delivery while they were in a range adequate for surgery and a spinal anesthetic. OPERATIVE FINDINGS: The patient delivered a healthy male, weighing 7 pounds 10 ounces, with Apgars of 8 at 1 minute and 9 at 5 minutes. The uterus, tubes and ovaries were all entirely normal. The placenta was anterior and low-lying in the lower uterine segment, causing some uterine atony in the loweruterine segment following the incision. There was also generalized oozing throughout the procedure. OPERATIVE PROCEDURE: The patient was taken to the operating room and given satisfactory spinal anesthetic. She was prepped and draped in a sterile manner, and placed in the supine position. A Pfannenstiel incision was sharply made through the skin and subcutaneous tissue and carried to the level of the fascia. The fascia was opened with a Donis scissors and undermined from the underlying anterior rectus muscles. The parietoperitoneum was opened, taking care to avoid entry into the bladder. The vesicouterine peritoneum was opened and bluntly dissected from the anterior edge of the uterus. A transverse incision was made in the lower uterine segment directly to the lower edge of the placenta. It was extended laterally by blunt dissection. Rupture of membranes produced clear fluid, and the baby was delivered from the vertex position without difficulty. There was a loose nuchal cord which was reducedprior to delivery of the shoulders. The cord was doubly clamped and cut, and the baby was handed to the nurses in attendance. The placenta was then manually removed. The inside of the uterus was cleared of any placental and membrane fragments. The uterus was then closed in layers, the first a running locked 0 Vicryl, followed by a 0 Vicryl Lembert horizontal imbricating suture. Three additional figure-of-x sutures were needed in the lower uterine segment for hemostasis. A vigorous massage was neededin the lower uterine segment. Throughout the procedure, the patient was given IV Pitocin as well as a dose of IM Methergine. The pelvis was then irrigated. The tubes and ovaries were inspected, and noted to be normal. The peritoneum was then grasped and closed with a running 3-0 Vicryl. The fascia was closed with 0 Vicryl, starting at each corner and meeting in the middle. The subcutaneous tissue wasirrigated. The skin was closed with peace. The patient tolerated the procedure well and went to the [facility] in stable condition. Estimated blood loss was 700 cc. Electronically signed on 01/11/2010 08:32 by ANCA MICHELLE MD MT: [id number] Name: STUART BENTON Account: [id number] : 1985 Procedure Date: 01/10/2010 Document: [id number] documented in this encounter Plan of Treatment Not on filedocumented as of this encounter Visit Diagnoses Not on filedocumented in this encounter Care Teams Supervisor Claims Relationship Specialty Start Date End Date Barry Galo MD PCP - General 04/14/03 01/16/11 [address] [place] [address] documented as of this encounter
--- OUTSIDE RECORDS SUMMARY | 2022-01-10 08:09 | XMS_ITS | Encounter Summary ---
:1985 Author Organization [facility] Address [address] [place] [address] Care Team Providers Name Role Phone Barry Galo MD Primary Care Provider Encounter Details Date Type Department Care Team Description 01/11/2010 Historic Notes INTERFACED REPORT Interface, Transcript MD gamaliel Social History Tobacco Use Types Packs/Day Years Used Date Smoking Tobacco: Never Alcohol Use Standard Drinks/Week Comments No 0 (1 standard drink = 0.6 oz pure alcoho l) Sex Assigned at Date Recorded Not on file documented as of this encounter Progress Notes Interface, P[employer] Pet [employer] Salesperson - 06/07/2010 5:29 PM CDT Baby nursed well this a.m. in FB position. Encouraged mom to review packet and to call us PRN. [Signature] Author: Isabel Cowart (RN) [Signed 10:03] documented in this encounter Plan of Treatment Not on filedocumented as of this encounter Visit Diagnoses Not on filedocumented in this encounter Care Teams Finish Inspector Relationship Specialty Start Date End Date Barry Galo MD PCP - General 04/14/03 01/16/11 [address] [place] [address] documented as of this encounter
--- OUTSIDE RECORDS SUMMARY | 2022-01-10 08:09 | XMS_ITS | Encounter Summary ---
:1985 Author Organization [facility] Address [address] [place] [address] Care Team Providers Name Role Phone Barry Galo MD Primary Care Provider Encounter Details Date Type Department Care Team Description 12/08/2010 Hospital Laboratory [facility] MD Junaid Results [facility] [address] [place], [place] [address] (Wo rk) Social History [...] Name Priority Date/Time Associated Diagnosis Comme nts RAPID STREP SCREEN STAT 12/08/2010 5:58 PM Res ults for this THROAT SWAB CDT procedure are i n the results section. BETA HEMOLYTIC Routine 12/08/2010 5:58 PM Results for this STREP GROUP A CDT procedure are in CULTURE the results section. documented in this encounter Results Beta strep group A culture (12/08/2010 5:58 PM CDT) Component Value Ref Test Analysis Performed At [facility] Range Method Time Signature Specimen Throat [facility] Culture Micro No beta EDEN hemolytic [facility] Group A isolated Micro Report FINAL 12/10/2010 EDEN Status [facility] Specimen Anatomical Collection Method Collection Time Receive d Time (Source) Location / / Volume Laterality 12/08/2010 5:58 PM 1 6:52 CDT PM CDT Barry Galo MD LAB - MICRO GENERAL ORDERABL ES Performing Organization Address City/State/ZIP Code Phon e Number M [facility] [address] [place] [address] [phone] [facility] Rapid strep screen (12/08/2010 5:58 PM CDT) Component Value Ref Test Analysis Performed At [facility] Range Method Time Signature Specimen Throat [facility] Rapid Strep A NEGATIVE: No Group A strepto coccal antigen detected by immunoassay, await EDEN Screen culture report. [facility] Micro Report FINAL 12/08/2010 [facility] Specimen Anatomical Collection Method Collection Time Receive d Time (Source) Location / / Volume Laterality 12/08/2010 5:58 PM 1 6:24 CDT PM CDT Yassine Boo MD LAB - MICRO GENERAL ORDERABL ES Performing Organization Address City/State/ZIP Code Phon e Number M [facility] [address] [place], [place] [address] [facility] documented in this encounter Visit Diagnoses Not on filedocumented in this encounter Care Teams Data Deliverables Manager Relationship Specialty Start Date End Date Barry Galo MD PCP - General 04/14/03 01/16/11 [address] [place] [address] documented as of this encounter
--- OUTSIDE RECORDS SUMMARY | 2022-01-10 08:09 | XMS_ITS | Encounter Summary ---
:1985 Author Organization [facility] Address [address] [place] [address] Care Team Providers Name Role Phone Barry Galo MD Primary Care Provider [phone] Encounter Details Date Type Department Care Team Description 01/17/2010 Historic Notes INTERFACED REPORT Interface, Transcript MD gamaliel Social History Tobacco Use Types Packs/Day Years Used Date Smoking Tobacco: Never Alcohol Use Standard Drinks/Week Comments No 0 (1 standard drink = 0.6 oz pure alcoho l) Sex Assigned at Date Recorded Not on file documented as of this encounter Progress Notes Interface, Head Of Ict - 06/07/2010 5:02 PM CDT follow up phone call. Left message with grandma to let mom know I will call her tomorrow. Grandma reports baby is NW. [Signature] Author: Sarah Simms (RN) [Signed 17:21] documented in this encounter Plan of Treatment Not on filedocumented as of this encounter Visit Diagnoses Not on filedocumented in this encounter Care Teams Inbound Call Center Agent Relationship Specialty Start Date End Date Barry Galo MD PCP - General 04/14/03 01/16/11 [address] [place] [address] documented as of this encounter
--- OUTSIDE RECORDS SUMMARY | 2022-01-10 08:09 | XMS_ITS | Encounter Summary ---
:1985 Author Organization [facility] Address [address] [place] [address] Care Team Providers Name Role Phone Barry Galo MD Primary Care Provider [phone] Encounter Details Date Type Department Care Team Description 01/11/2010 Historic Results INTERFACED REPORT Anca Matos MD [address] [address] (Wo rk) Social History Tobacco [...] Date/Time Associated Diagnosis Comme nts HEMOGLOBIN Routine 01/11/2010 6:37 AM Results f or this CDT procedure are i n the results section . PLATELET COUNT Timed 01/11/2010 12:29 AM Result s for this CDT procedure are i n the results section . documented in this encounter Results (ABNORMAL) Hemoglobin (01/11/2010 6:37 AM CDT) P athologist Signature Hemoglobin 10.2 (L) 11.7 - 15.7 [facility] g/dL Specimen (Source) Anatomical Collection Method Collection Time Re ceived Time Location / / Volume Laterality 01/11/2010 6:37 AM 0 CDT Anca Matos MD LAB - BLOOD ORDERABLES Performing Organization Address City/State/ZIP Code Phon e Number MISYS (ABNORMAL) Platelet count (01/11/2010 12:29 AM CDT) P athologist Signature Platelet Count 101 (L) 150 - 450 [facility] 10e9/L Specimen Anatomical Collection Method Collection Time Receive d Time (Source) Location / / Volume Laterality 01/11/2010 12:29 01/11/2010 AM CDT 12:01 AM CDT Anca Matos MD LAB - BLOOD ORDERABLES Performing Organization Address City/[facility] Phon e Number MISYS documented in this encounter Visit Diagnoses Not on filedocumented in this encounter Care Teams Nursery Hand Relationship Specialty Start Date End Date Barry Galo MD PCP - General 04/14/03 01/16/11 [address] [place] [address] documented as of this encounter
--- OUTSIDE RECORDS SUMMARY | 2022-01-10 08:09 | XMS_ITS | Encounter Summary ---
:1985 Author Organization [place] Address [address] [place] [address]. [place] [address] Care Team Providers Name Role Phone Barry Galo MD Primary Care Provider [phone] Reason for Visit Reason Onset Date Comments ER F/U 09/10/2010 ER follow up call Encounter Details Date Type Department Care Team Description 09/10/2010 Telephone [facility] Barry Galo ER F/U (ER follow up [facility] call[facility] [address] [place] [phone] (Wo rk) Social History Tobacco Use Types Packs/Day Years Used Date Smoking Tobacco: Never Alcohol Use Standard Drinks/Week Comments No 0 (1 standard drink = 0.6 oz pure alcoho l) Sex Assigned at Date Recorded Not on file documented as of this encounter Miscellaneous Notes Telephone Encounter - Lucero Bajwa - 09/10/2010 2:44 PM CDT Patient returned call and stated she is doing ok and has made a follow up appt with an OB to check out possible causes of excessive vaginal bleeding. Encouraged patient to call clinic with concerns andmake follow up appt if needed; provided information on nurse triage line and urgent care facilities for after hours needs. Lucero Bajwa, Care Coordination Team. Telephone Encounter - Lucero Bajwa - 09/10/2010 2:35 PM CDT Outreached to patient identified with recent ED visit for follow up; unable to contact, left messagewith my phone number requesting a callback. I will try back another time. Lucero Bajwa, Care Coordination Team. documented in this encounter Plan of Treatment Not on filedocumented as of this encounter Visit Diagnoses Not on filedocumented in this encounter Care Teams Travel Agent Relationship Specialty Start Date End Date Barry Galo MD PCP - General 04/14/03 01/16/11 [address] [place] [address] documented as of this encounter
--- OUTSIDE RECORDS SUMMARY | 2022-01-10 08:09 | XMS_ITS | Encounter Summary ---
:1985 Author Organization [place] Address [address] [place] [address]. [place] [address] Care Team Providers Name Role Phone Barry Galo MD Primary Care Provider Reason for Referral Referral not Required - Closed Specialty Diagnoses / Procedures Referred By Contact Refer red To Contact Diagnoses Thyroid nodule Adolfo Reyes MD [facility] [id number] [place] [address] [place] [address] [place] [address] [place] [address] Phone: Fax: Referral ID Status Reason Start Date Expiration Date Visits Requ ested Visits Authorized [id number] Closed 01/08/2011 07/07/2011 1 1 Encounter Details Date Type Department Care Team Description 01/08/2011 Orders Only [facility] Adolfo Reyes MD Thyroid nodule (Primary Clinic [place] [address] [place] [address] Dx) [address] [place] [phone] Social History Tobacco Use Types Packs/Day Years Used Date Smoking Tobacco: Never Alcohol Use Standard Drinks/Week Comments No 0 (1 standard drink = 0.6 oz pure alcoho l) Sex Assigned at Date Recorded Not on file documented as of this encounter Plan of Treatment Scheduled Referrals Name Type Priority Associated Diagnoses Order S [facility] ENDOCRINOLOGY ADULT Referral Routine Thyroid nodule Ordere d: 01/08/2011 REFERRAL documented as of this encounter Visit Diagnoses Diagnosis Thyroid nodule - Primary Nontoxic uninodular goiter documented in this encounter Care Teams Duck Operator Relationship Specialty Start Date End Date Barry Galo MD PCP - General 04/14/03 01/16/11 [address] [place] [address] documented as of this encounter
--- OUTSIDE RECORDS SUMMARY | 2022-01-10 08:09 | XMS_ITS | Encounter Summary ---
:1985 Author Organization [place] Address [address] [place] [address] Care Team Providers Name Role Phone Barry Galo MD Primary Care Provider [phone] Encounter Details Date Type Department Care Team Description 01/13/2010 Historic Results INTERFACED REPORT Anca Matos MD [address] [address] (Wo rk) Social History Tobacco [...] Date/Time Associated Diagnosis Comme nts HEMOGLOBIN Routine 01/13/2010 6:35 AM Results f or this CDT procedure are i n the results section . documented in this encounter Results (ABNORMAL) Hemoglobin (01/13/2010 6:35 AM CDT) P athologist Signature Hemoglobin 9.2 (L) 11.7 - 15.7 [facility] g/dL Specimen (Source) Anatomical Collection Method Collection Time Re ceived Time Location / / Volume Laterality 01/13/2010 6:35 AM 0 CDT Anca Matos MD LAB - BLOOD ORDERABLES Performing Organization Address City/State/ZIP Code Phon e Number MISYS documented in this encounter Visit Diagnoses Not on filedocumented in this encounter Care Teams Private Secretary Relationship Specialty Start Date End Date Barry Galo MD PCP - General 04/14/03 01/16/11 [address] [place] [address] documented as of this encounter
--- OUTSIDE RECORDS SUMMARY | 2022-01-10 08:09 | XMS_ITS | Encounter Summary ---
:1985 Author Organization [place] Address [address] [place] [address] Care Team Providers Name Role Phone Barry Galo MD Primary Care Provider [phone] Encounter Details Date Type Department Care Team Description 01/10/2010 Admission [facility] Alba Villarreal, (Audio Recording Engineer) [facility] Results MD [facility] [address] [phone] Social History Tobacco Use Types Packs/Day Years Used Date Smoking Tobacco: Never Alcohol Use Standard Drinks/Week Comments No 0 (1 standard drink = 0.6 oz pure alcoho l) Sex Assigned at Date Recorded Not on file documented as of this encounter Progress Notes Alba Villarreal - 01/14/2010 6:46 AM CDT FINAL PREOPERATIVE DIAGNOSES: Intrauterine 39-1/7 weeks' gestation, mild -induced hypertension, thrombocytopenia, patient declines cervical ripening and induction. PROPOSED SURGERY: A primary low segment transverse section. SURGEON: Anca Matos MD PLANNED ANESTHESIA: Spinal. PATIENT IDENTIFICATION: Stuart Benton is a 24-year-old female, 1, para 0, LMP 04/05/2009, EDC 01/16/2010 at 39-1/7 weeks gestation who is to be admitted to [facility] for primaryC-section without labor. The patient was followed at our office since early . Her OB problem list has included a history of anxiety and depression, currently on no medications. She had a low-lying placenta on an initial ultrasound and this resolved. Patient has a history of migraines. She also has been found to have thrombocytopenia in the late third trimester. She is also group B strep positive. Patient declined antepartum genetic testing. She declined a first trimester screen and a quad sc reen. A 20-week ultrasound was normal other than a low-lying placenta. A repeat ultrasound at [facility] was scheduled to follow up on the low- lying placenta. A followup ultrasound at 26 weeks' gestation showed that the placenta had migrated and was now 3.52 cm from the internal os. Patient had a 1- hour glucose that was normal. She subsequently had a group B strep culture at 36 weeks that was positive. Patient had occasional blood pressures during the that were in the high 120s-130s/high 70s. It is also of note that she had a platelet count at the time of her initial OB visitof 151,000. Patient was carefully monitored during the third trimester of . She progressed to 37 weeks' gestation and her visit was normal. Blood pressure 120/76. Patient was subsequently seen on Labor and Delivery at 38 weeks' gestation for evaluation of headache and edema. She was carefully evaluated with PIH labs and with serial blood pressure determinations and of note was a platelet count of 72,000. The decision was made to proceed with induction of labor for suspected HELLP syndrome. On 12/31/2009, the patient did receive 2 nights of cervical ripening with Cytotec and 2 fulldays of Pitocin. She was reevaluated with laboratory panel and her platelets increased to 90,000 andremained stable. The patient's blood pressure also stabilized in the 120s/70s. The patient's status w as discussed with Dr. Smith on 01/02 and the decision was made to follow up as an outpatient with a biophysical profile with Dopplers in 2 days. Patient remained on bed rest. She followed up in our office on 01/04/2010. Her blood pressure was 128/80. A biophysical profile was 8/8. The amniotic fluidwas 7.8 or the 11th percentile. Repeat labs were performed and these were normal. Patient was given PIH precautions. She subsequently returned on 01/07/2010 and she was asymptomatic. Biophysical profile was 8/8 with an amniotic fluid index of 10.6 and a Doppler was normal. Estimated weight was 7pounds. The cervix remained unfavorable and very difficult to examine. Patient's platelets from 01/07 were 85,000. Her cervix remained unfavorable. Patient was to return on 01/09/2010 for a followup evaluation and a discussion regarding delivery. Patient did return to our office on 01/09. Her blood pressure was 140/82, there was negative proteinuria. The cervix remained unfavorable. At that point I di scussed the options of management with the patient and her mother. At 39 weeks gestation, it was felt that delivery was appropriate. Patient, however, declined another trial of cervical ripening and induction. We also discussed continued observation with continued bed rest and frequent monitoring. Patient elected to have an immediate delivery. I once again discussed with her the option of cervical ripening and induction of labor but the patient declined. We therefore have now scheduled a primary lowsegment transverse section without labor for 01/10/2010. PAST MEDICAL HISTORY: Patient has a history of anxiety, depression, migraine headaches and gastroesophageal reflux disease. PREVIOUS SURGERIES: Patient had a labial cyst surgery and also surgery for eye strabismus. ALLERGIES: Patient does have some medication intolerances primarily from gastrointestinal disturbance, Bactrim, Celexa and Septra. She has no anaphylactic reaction to any medications. MEDICATIONS: Moselle's vitamins. REVIEW OF SYSTEMS: Noncontributory PHYSICAL EXAMINATION: HEENT: Normal. LUNGS: Clear. HEART: Regular rate and rhythm. ABDOMEN: Gravid, consistent with a term . PELVIC: Cervix is very posterior, fingertip to 1 cm dilated, 50% effaced at the most and the vertexis at a -3 station. EXTREMITIES: Normal with no significant pitting edema. Patient will have a CBC today at [facility] prior to surgery tomorrow. IMPRESSION: Intrauterine 39 weeks' gestation, mild -induced hypertension, likelygestational thrombocytopenia, status post failed cervical ripening and failed induction of labor. Patient declines another cervical ripening and induction. Group B strep positive. PLAN: Primary low segment transverse section without labor to be performed 01/10/[address] Anca Matos. A CBC from [facility] is pending from the evening of 01/09/2010. The procedure, pros, cons, risks and benefits were thoroughly discussed with the patient and her mother who was in attendance and they understood and wished to proceed. The implications of a sectionfor future pregnancies was discussed. We discussed the potential complications from . Patient again declines cervical ripening and a trial of labor and wishes to proceed with the . Consent forms will be signed at the time of surgery. Electronically signed on 01/14/2010 06:46 by ALBA VILLARREAL MD [place]: [id number] Name: STUART BENTON Account: [id number] : 1985 Admitted: [id number] Document: [id number] documented in this encounter Plan of Treatment Not on filedocumented as of this encounter Visit Diagnoses Not on filedocumented in this encounter Care Teams Strategic Sourcing Specialist Relationship Specialty Start Date End Date Barry Galo MD PCP - General 04/14/03 01/16/11 [address] [place] [address] documented as of this encounter
--- OUTSIDE RECORDS SUMMARY | 2022-01-10 08:09 | XMS_ITS | Encounter Summary ---
:1985 Author Organization [place] Address [address] [place] [address]. [place] [address] Care Team Providers Name Role Phone Adolfo Reyes MD Primary Care Provider Encounter Details Date Type Department Care Team Description 04/30/2011 Orders Only [facility] Coleman Reyes MD [address] [address] [place] [address] [phone] Social History Tobacco Use Types Packs/Day Years Used Date Smoking Tobacco: Never Smokeless Tobacco: Never Alcohol Use Standard Drinks/Week Comments No 0 (1 standard drink = 0.6 oz pure alcoho l) Sex Assigned at Date Recorded Not on file documented as of this encounter Plan of Treatment Not on filedocumented as of this encounter Procedures Procedure Name Priority Date/Time Associated Diagnosis Comme nts TSH Routine 04/30/2011 Results for thi s procedure are i n the results section . INR Routine 04/30/2011 Results for thi s procedure are i n the results section . CREATININE Routine 04/30/2011 Results for thi s procedure are i n the results section . ALT Routine 04/30/2011 Results for thi s procedure are i n the results section . ABSTRACT [facility] REPORT Routine 04/30/2011 documented in this encounter Results ABSTRACT [facility] REPORT (04/30/2011) Narrative This result has an attachment that is no t available. Provider Abstract LABORATORY Creatinine (04/30/2011) P athologist Signature Creatinine 0.88 mg/dL MISYS Specimen (Source) Anatomical Location Collection Method / Collectio n Time Received Time / Laterality Volume Blood specimen (specimen) Provider Abstract LAB - BLOOD ORDERABLES Performing Organization Address [facility] Phon e Number MIS[facility] ALT (04/30/2011) P athologist Signature ALT 8 U/L MISYS Specimen (Source) Anatomical Location Collection Method / Collectio n Time Received Time / Laterality Volume Blood specimen (specimen) Provider Abstract LAB - BLOOD ORDERABLES Performing Organization Address [facility] Phon e Number MISYS TSH (04/30/2011) P athologist Signature TSH 2.76 mcU/mL MISYS Specimen (Source) Anatomical Location Collection Method / Collectio n Time Received Time / Laterality Volume Blood specimen (specimen) Provider Abstract LAB - BLOOD ORDERABLES Performing Organization Address [facility] Phon e Number MISYS INR (04/30/2011) P athologist Signature PT 9.9 Seconds MISYS INR 0.9 MISYS Specimen (Source) Anatomical Location Collection Method / Collectio n Time Received Time / Laterality Volume Blood specimen (specimen) Provider Abstract LAB - BLOOD ORDERABLES Performing Organization Address [facility] Phon e Number MISYS documented in this encounter Visit Diagnoses Not on filedocumented in this encounter Care Teams Upkeep Worker Relationship Specialty Start Date End Date Adolfo Reyes MD PCP - General Family Practice 01/17/11 05/11/12 [address] [place] [address] documented as of this encounter
--- OUTSIDE RECORDS SUMMARY | 2022-01-10 08:09 | XMS_ITS | Encounter Summary ---
:1985 Author Organization [facility] Address [address] [place] [address]. [place] [address] Care Team Providers Name Role Phone Adolfo Reyes MD Primary Care Provider Reason for Visit Reason Comments Pre-Op Exam Encounter Details Date Type Department Care Team Description 05/08/2011 [facility] [address] exam (Primary Dx) [address] [place] [phone] Social History Tobacco Use Types Packs/Day Years Used Date Smoking Tobacco: Never Smokeless Tobacco: Never Alcohol Use Standard Drinks/Week Comments No 0 (1 standard drink = 0.6 oz pure alcoho l) Sex Assigned at Date Recorded Not on file documented as of this encounter Last Filed Vital Signs Vital Sign Reading Time Taken Comments Blood Pressure 108/76 05/08/2011 11:05 AM TSA SCREENER Pulse 82 05/08/2011 11:05 AM TSA SCREENER Temperature 36.7 ??C (98 ??F) 05/08/2011 11:05 AM TSA SCREENER Respiratory Rate 20 05/08/2011 11:05 AM TSA SCREENER Oxygen Saturation 99% 05/08/2011 11:05 AM TSA SCREENER Inhaled Oxygen Concentration - - Weight 93.9 kg (207 lb) 05/08/2011 11:05 AM TSA SCREENER Height 170.2 cm (5' 7) 05/08/2011 11:05 AM TSA SCREENER Body Mass Index 32.42 05/08/2011 11:05 AM TSA SCREENER documented in this encounter Progress Notes Tramaine Gann - 05/08/2011 11:08 AM CST [address] [address] PRE-OP EVALUATION: Today's date: 05/08/2011 Mindy Jacob (: 1985) presents for pre-operative evaluation assessment as requested by Dr. Henriquez. She requires evaluation and anesthesia risk assessment prior to undergoing surgery/procedure for treatment of thyroid . Date of Surgery/ Procedure: 05/13/11 Time of Surgery/ Procedure: [facility] Hospital/Surgical Facility: [facility] Fax number for surgical facility: [phone] Primary Physician: Dr. Reyes Type of Anesthesia [...] is provided to requesting physician. Preop Guidelines SCREENER documented in this encounter Nursing Notes 05/08/2011 11:00 AM CST >> TRAMAINE TREVOR [facility] May 08, 2011 11:12 AM Patient presents with: Pre-Op Exam Initial BP 108/76 Pulse 82 Temp(Src) 98 ??F (36.7 ??C) (Oral) Resp 20 Ht 5' 7 (1.702 m) Wt 207 lb (93.895 kg) BMI 32.42 kg/m2 SpO2 99% Estimated Body mass index is 32.42 kg/(m^2) as calculated from the following: Height as of this encounter: 5' 7(1.702 m). Weight as of this encounter: 207 lb(93.895 kg).. BP completed using cuff size large Tramaine Gann CMA documented in this encounter Plan of Treatment Not on filedocumented as of this encounter Procedures Procedure Name Priority Date/Time Associated Comments Diagnosis HCG QUALITATIVE URINE Routine 05/08/2011 11:34 Preop general R esults for this AM TSA SCREENER physical exam procedure are in the results section. CBC WITH PLATELETS Routine 05/08/2011 11:30 Preop general Resu lts for this AM TSA SCREENER physical exam procedure are in the results section. documented in this encounter Results HCG qualitative urine (05/08/2011 11:34 AM TSA SCREENER) athologist Signature HCG Qual Urine Negative NEG [facility] Specimen Anatomical Collection Method Collection Time Receive d Time (Source) Location / / Volume Laterality Urine specimen 05/08/2011 11:34 2 (specimen) AM TSA SCREENER 11:37 AM TSA SCREENER Adolfo Reyes MD LAB - URINE ORDERABLES Performing Organization Address City/State/ZIP Code Phon e Number [facility] [address] [place] [address] [facility] CBC with platelets (05/08/2011 11:30 AM TSA SCREENER) athologist Signature WBC 5.5 4.0 - 11.0 [place] 10e9/L [facility] RBC Count 4.43 3.8 - 5.2 [place] 10e12/L [facility] Hemoglobin 13.5 11.7 - [place] 15.7 g/dL [facility] Hematocrit 40.7 35.0 - [place] 47.0 % [facility] MCV 92 78 - 100 [facility] MCH 30.5 26.5 - [place] 33.0 pg [facility] MCHC 33.2 31.5 - [place] 36.5 g/dL [facility] RDW 12.9 10.0 - [place] 15.0 % [facility] Platelet Count 176 150 - 450 [facility]L [facility] Specimen Anatomical Collection Method Collection Time Receive d Time (Source) Location / / Volume Laterality Blood specimen 05/08/2011 11:30 2 (specimen) AM TSA SCREENER 11:33 AM TSA SCREENER Adolfo Reyes MD LAB - BLOOD ORDERABLES Performing Organization Address City/State/ZIP Code Phon e Number [facility] [id number] [place] [address] [facility] documented in this encounter Visit Diagnoses Diagnosis Preop general physical exam - Primary Other specified pre-operative examinatio n documented in this encounter Care Teams Construction Worker Relationship Specialty Start Date End Date Adolfo Reyes MD PCP - General Family Practice 01/17/11 05/11/12 [address] [place] [address] documented as of this encounter
--- OUTSIDE RECORDS SUMMARY | 2022-01-10 08:09 | XMS_ITS | Encounter Summary ---
:1985 Author Organization [place] Address [address] [place] [address]. [place] [address] Care Team Providers Name Role Phone Barry Galo MD Primary Care Provider Reason for Visit Reason Onset Date Comments Depression 01/06/2011 Encounter Details Date Type Department Care Team Description 01/06/2011 Telephone [facility] Coleman Reyes MD Depression [id number] [place] [address] [phone] Social History Tobacco Use Types Packs/Day Years Used Date Smoking Tobacco: Never Alcohol Use Standard Drinks/Week Comments No 0 (1 standard drink = 0.6 oz pure alcoho l) Sex Assigned at Date Recorded Not on file documented as of this encounter Miscellaneous Notes Telephone Encounter - Meng Bar - 01/06/2011 2:47 PM CDT LMOM to call anushka. Meng Bar RN Follow up call to Mindy after an clinic office visit 01/03/2011. Patient reports has filled and is taking medication as prescribed and is experiencing slight dizziness. Discussed slowing position changes for the next few weeks as adjusts to medication. Was patient instructed to schedule follow-up appointment? (see patient instructions from [facility]): No Has patient scheduled recommended follow-up? YES - Date of appt: 01/17/11, with provider: Dr. Reyes Do you have any questions? NO Dept: [phone] Meng Bar RN documented in this encounter Plan of Treatment Not on filedocumented as of this encounter Visit Diagnoses Not on filedocumented in this encounter Care Teams Sebd Teacher Relationship Specialty Start Date End Date Barry Galo MD PCP - General 04/14/03 01/16/11 [address] [place] [address] documented as of this encounter
--- OUTSIDE RECORDS SUMMARY | 2022-01-10 08:09 | XMS_ITS | Encounter Summary ---
:1985 Author Organization [facility] Address [address] [place] [address] Care Team Providers Name Role Phone Barry Galo MD Primary Care Provider Encounter Details Date Type Department Care Team Description 01/10/2010 Historic Results INTERFACED REPORT Anca Matos MD [address] [address] (Wo rk) Social History Tobacco Use Types Packs/Day Years Used Date Smoking Tobacco: Never Alcohol Use Standard Drinks/Week Comments No 0 (1 standard drink = 0.6 oz pure alcoho l) Sex Assigned at Date Recorded Not on file documented as of this encounter Plan of Treatment Not on filedocumented as of this encounter Procedures Procedure Name Priority Date/Time Associated Comments Diagnosis URIC ACID STAT 01/10/2010 3:40 PM Results f or this CDT procedure are i n the results section. UREA NITROGEN (BUN) STAT 01/10/2010 3:40 PM Re sults for this CDT procedure are i n the results section. CREATININE STAT 01/10/2010 3:40 PM Results f or this CDT procedure are i n the results section. AST STAT 01/10/2010 3:40 PM Results f or this CDT procedure are i n the results section. ALT STAT 01/10/2010 3:40 PM Results f or this CDT procedure are i n the results section. CBC WITH PLATELETS STAT 01/10/2010 3:40 PM Res ults for this CDT procedure are i n the results section. PLATELET COUNT STAT 01/10/2010 12:23 PM Result s for this CDT procedure are i n the results section. documented in this encounter Results (ABNORMAL) CBC with platelets (01/10/2010 3:40 PM CDT) [facility] Signature MCV 93 78 - 100 [facility] fl MCH 31.2 26.5 - [facility] 33.0 pg MCHC 33.5 31.5 - [facility] 36.5 g/dL RDW 12.9 10.0 - [facility] 15.0 % WBC 5.9 4.0 - 11.0 [facility] 10e9/L RBC Count 3.53 (L) 3.8 - 5.2 [facility] 10e12/L Hemoglobin 11.0 (L) 11.7 - [facility] 15.7 g/dL Hematocrit 32.8 (L) 35.0 - [facility] 47.0 % Platelet Count 85 (L) 150 - 450 [facility] 10e9/L Specimen Anatomical Collection Method Collection Time Receive d Time (Source) Location / / Volume Laterality 01/10/2010 3:40 PM 0 3:25 CDT PM CDT Anca Matos MD LAB - BLOOD ORDERABLES Performing Organization Address City/State/ZIP Code Phon e Number [facility] AST (01/10/2010 3:40 PM CDT) athologist Signature AST 25 0 - 45 U/L [facility] Specimen Anatomical Collection Method Collection Time Receive d Time (Source) Location / / Volume Laterality 01/10/2010 3:40 PM 0 3:25 CDT PM CDT Anca Matos MD LAB - BLOOD ORDERABLES Performing Organization Address City/State/ZIP Code Phon e Number [facility] ALT (01/10/2010 3:40 PM CDT) athologist Signature ALT 29 0 - 50 U/L [facility] Specimen Anatomical Collection Method Collection Time Receive d Time (Source) Location / / Volume Laterality 01/10/2010 3:40 PM 0 3:25 CDT PM CDT Anca Matos MD LAB - BLOOD ORDERABLES Performing Organization Address City/State/ZIP Code Phon e Number [facility] Creatinine (01/10/2010 3:40 PM CDT) athologist Signature Creatinine 0.62 0.52 - 1.04 [facility] mg/dL Comment: New IDMS-traceable calibration beginning 07/22/07 GFR Estimate >90 >60 mL/min/1.7m2 [facility] GFR Estimate If Black >90 >60 mL/min/1.7m2 M [facility] Specimen Anatomical Collection Method Collection Time Receive d Time (Source) Location / / Volume Laterality 01/10/2010 3:40 PM 0 3:25 CDT PM CDT Anca Matos MD LAB - BLOOD ORDERABLES Performing Organization Address City/State/ZIP Code Phon e Number [facility] Uric acid (01/10/2010 3:40 PM CDT) athologist Signature Uric Acid 4.8 2.5 - 6.2 [facility] mg/dL Specimen Anatomical Collection Method Collection Time Receive d Time (Source) Location / / Volume Laterality 01/10/2010 3:40 PM 0 3:25 CDT PM CDT Anca Matos MD LAB - BLOOD ORDERABLES Performing Organization Address City/[facility]/ZIP Code Phon e Number [facility] Urea nitrogen (01/10/2010 3:40 PM CDT) athologist Signature Urea Nitrogen 9 5 - 24 [facility] mg/dL Specimen Anatomical Collection Method Collection Time Receive d Time (Source) Location / / Volume Laterality 01/10/2010 3:40 PM 0 3:25 CDT PM CDT Anca Matos MD LAB - BLOOD ORDERABLES Performing Organization Address City/State/ZIP Code Phon e Number [facility] (ABNORMAL) Platelet count (01/10/2010 12:23 PM CDT) athologist Signature Platelet Count 93 (L) 150 - 450 [facility] 10e9/L Specimen Anatomical Collection Method Collection Time Receive d Time (Source) Location / / Volume Laterality 01/10/2010 12:23 01/10/2010 PM CDT 12:18 PM CDT Abeba Craig MD LAB - BLOOD ORDERABLES Performing Organization Address City/State/ZIP Code Phon e Number [facility] documented in this encounter Visit Diagnoses Not on filedocumented in this encounter Care Teams Computer Customer Support Specialist Relationship Specialty Start Date End Date Barry Galo MD PCP - General 04/14/03 01/16/11 [address] [place] [address] documented as of this encounter
--- OUTSIDE RECORDS SUMMARY | 2022-01-10 08:09 | XMS_ITS | Encounter Summary ---
:1985 Author Organization [facility] Address [address] [place] [address] Care Team Providers Name Role Phone Barry Galo MD Primary Care Provider Encounter Details Date Type Department Care Team Description 01/13/2010 Discharge Summary [facility] Anca Michelle, (Bottomer Operator) [facility] [address] [address] (Wo rk) Social History Tobacco Use Types Packs/Day Years Used Date Smoking Tobacco: Never Alcohol Use Standard Drinks/Week Comments No 0 (1 standard drink = 0.6 oz pure alcoho l) Sex Assigned at Date Recorded Not on file documented as of this encounter Progress Notes Anca Michelle - 01/31/2010 8:34 AM DELPHI DEVELOPER FINAL HISTORY OF PRESENT ILLNESS: Stuart Benton is a 24-year-old primigravida with an EDC of 01/16/2010, who was admitted for a primary section due to gestational thrombocytopenia, possible -induced hypertension. Her had been complicated by a low-lying placenta as well as mild PIH and varying levels of thrombocytopenia. She was admitted to the hospital 10 days prior to this forinduction of labor and had a failed induction with Cytotec. Because her platelets were stable and her blood pressure was stable, she was discharged to home to follow, and her platelets remained good. The day prior to surgery, however, they dropped to 90,000. It was elected to proceed with surgery while they were in a range adequate for surgery and a spinal anesthetic. The patient declined a further trial of induction. HOSPITAL COURSE: On 01/11/2010, the patient delivered a healthy male, weighing 7 pounds, 10 ounces,Apgars of 8 at 1 minute and 9 at 5 minutes, via a primary low segment transverse section. There were no operative complications with the exception of an increased amount of generalized bleeding and oozing, thought to be due to platelet malfunction. Estimated blood loss was 700 mL. Postoperatively, the patient developed hypertension in the recovery room and was started on magnesium sulfate. Her PIH labs remained stable, and the platelets slowly elevated while she was in the hospital, and she was ready for discharge on her third postoperative day. The magnesium was continued for24 hours postoperatively and the stopped. The patient will return to the clinic for a postoperative examination in 6 weeks. Electronically signed on 01/31/2010 08:33 by ANCA MICHELLE MD MT: [id number] Name: STUART BENTON Account: [id number] : 1985 Admit Date: Discharge Date: 01/13/2010 Document: [id number] HI DEVELOPER documented in this encounter Plan of Treatment Not on filedocumented as of this encounter Visit Diagnoses Not on filedocumented in this encounter Care Teams Women Specialist Relationship Specialty Start Date End Date Barry Galo MD PCP - General 04/14/03 01/16/11 [address] [place] [address] documented as of this encounter
--- OUTSIDE RECORDS SUMMARY | 2022-01-10 08:09 | XMS_ITS | Encounter Summary ---
:1985 Author Organization [facility] Address [address] [place] [address] Care Team Providers Name Role Phone Adolfo Reyes MD Primary Care Provider Encounter Details Date Type Department Care Team Description 01/22/[address] [facility] Ani Santana thyroid nodule Imaging (Primary Dx) [address] [place] [id number] Social History Tobacco Use Types Packs/Day Years Used Date Smoking Tobacco: Never Smokeless Tobacco: Never Alcohol Use Standard Drinks/Week Comments No 0 (1 standard drink = 0.6 oz pure alcoho l) Sex Assigned at Date Recorded Not on file documented as of this encounter Plan of Treatment Not on filedocumented as of this encounter Visit Diagnoses Diagnosis Left thyroid nodule - Primary Nontoxic uninodular goiter documented in this encounter Care Teams Warping Mill Operator Relationship Specialty Start Date End Date Adolfo Reyes MD PCP - General Family Practice 01/17/11 05/11/12 [address] [place] [address] documented as of this encounter
--- OUTSIDE RECORDS SUMMARY | 2022-01-10 08:09 | XMS_ITS | Encounter Summary ---
:1985 Author Organization [facility] Address [address] [place] [address] Care Team Providers Name Role Phone Barry Galo MD Primary Care Provider Encounter Details Date Type Department Care Team Description 09/09/2010 Emergency room [facility] Results EMERGENCY PHYSI MELISSA GUNTER [address] [place], [place] [address] Social History Tobacco Use Types Packs/Day Years Used Date Smoking Tobacco: Never Alcohol Use Standard Drinks/Week Comments No 0 (1 standard drink = 0.6 oz pure alcoho l) Sex Assigned at Date Recorded Not on file documented as of this encounter Progress Notes Interface, Certified Ophthalmic Technician - 09/12/2010 10:12 PM CDT FINAL Chief Complaint - History of Present Illness - MD Time:: 18:17 - Chief Complaint: Abdominal pain and vaginal spotting - HPI: Stuart Benton is a 25 y.o. female who presents to the ED for evaluation of seven months of abnormal vaginal bleeding with associated left sided suprapubic abdominal pain that radiates to her back. She reports having suprapubic abdominal pain tonight with new onset nausea and a fever of 101 degrees. She notes that the vaginal spotting began after the of her first son at which time she received her first shot of Depo-Provera. She did not like the way she felt with the Depo and did not receive another shot of this. Since this one shot of Depo she has had vaginal spotting with no normal periods. She report that before the of her son she had normal periods every month. Medications - Medications: No chronic medications Allergies Septra; Vomiting Past Medical/Family History - -: 1. G1-P1. section at 37 weeks. - Family History: No pertinent family history was reported. Social History - - Patient presents to the ED with her . - Is negative for Tobacco use, Illicit drug use, Alcohol use Review of Systems - - All other systems negative except - General Positive for fever - Gastrointestinal Positive for nausea, Positive for abdominal pain - Genitourinary Positive for vaginal bleeding - Musculoskeletal Positive for back pain Vital Signs-Triage Temp F: 98.2 degrees F Temp C: 36.7 degrees C Temp site: Oral Heart Rate: 80 bpm Resp Rate: 16 Pulse Oximetry: 99 Oxygen Delivery: Room air Cuff Systolic BP mmH Cuff Diastolic BP mmH Physical Exam - Constitutional Alert. Appears stated age. - HENT right external ear normal, left external ear normal, oropharynx clear and moist, nose normal, tympanic membranes and canals normal bilaterally. - Eyes pupils equal, round, and reactive to light, extraocular movements normal, no scleral icterus present - Neck range of motion normal, supple, no meningismus present, no stridor present, no jugular vein distention present, no cervical adenopathy present - Cardiovascular normal rate, regular rhythm, heart sounds normal, no murmur present, No added sounds - Pul/Chest Wall breath sounds normal, no respiratory distress present, no wheezes present, no rales present, no chest tenderness present - Abdominal soft, bowel sounds present, no distention present, no tenderness present, no rebound present, no guarding present, no mass present - Dark blood in vaginal vault. Cervix closed and normal. No cervical motion tenderness. No localized tenderness to ovaries. - Musculoskeletal normal range of motion, no deformity present, no edema present, no tenderness present - Neurologic alert, oriented x3, DTR's normal, no cranial nerve deficit present, normal coordination, normal strength, normal sensory - Skin warm, dry, non-diaphoretic, no rash present, normal color present - Psychiatric affect normal, judgment normal, memory normal Laboratory information - -: CBC: WNL (WBC 5.9, Hb 14.0, Platelet 183) UA: pH 8.0 (high), Protein Albumin Qualitative Urine 10, blood urine small, squamous epithelial 2 (high), o/w WNL/Negative hCG: Negative Wet Prep: Few PMNs seen. No yeast, Trichomonas, or clue cells seen. N Gonorrhea PCR: pending Chlamydia Trachomatis PCR: pending Diagnostic information - -: US Pelvic with Transvaginal: Normal pelvis. Reading per Radiology. ED Course: Interventions/Consultations/Procedures - -: Interventions: Toradol 30mg IV injection ED Course: I reviewed the patient's medical record. The patient was placed on a phototypesetting equipment monitor and continuous pulse oximeter. IV inserted. 1816 The patient was seen and examined by myself. I discussed the course of care with the patient including laboratory and diagnostic studies. She understands and is agreeable to the plan. 1843 Pelvic exam was performed with female ED nursing staff present in the room. For details please see exam section above. GC and wet prep were collected, sent and pending at this time. 0830 Recheck. I discussed the laboratory and radiology results with the patient and she understands. The patient felt improved after the above interventions. The patient will be discharged home to follow up with primary care doctor per discharge instructions. Indications for return to the ED were discussed and the patient understands. All questions were answered prior to discharge. Medical Decision Making - -: This patient has had spotting since her and being on Depo. She did not like it because it made her spot. She has continued to spot. She is not currently. I find no source of her fever of 100.1. Her ultrasound is normal and her exam is unremarkable except for the spotting which is dark blood. Her wet prep is normal. Diagnosis - -: 1. Vaginal spotting consistent with dysfunctional uterine bleeding Disposition Plan - -: I think she needs to follow up with Dr. Guallpa or one of the other OB/GYNs at [facility] CORPORATE SALES TRAINER to further evaluate her chronic spotting. In the mean time Ibuprofen. Scribe Disclosure I, Jerzy Farrell ,am serving as a scribe to document services personally performed by Dr. Garry Hinds , based on my observations and the provider's statements to me. Electronically signed on 09/12/2010 22:11 by GARRY HINDS MD As dictated by JERZY FARRELL MT: RH Name: STUART BENTON Account: [id number] : 1985 Visit Date: 09/09/2010 Document: [id number] cc: Barry Galo MD documented in this encounter Plan of Treatment Not on filedocumented as of this encounter Visit Diagnoses Not on filedocumented in this encounter Care Teams Supervisor Major Appliance Assembly Relationship Specialty Start Date End Date Barry Galo MD PCP - General 04/14/03 01/16/11 [address] [place] [address] documented as of this encounter
--- OUTSIDE RECORDS SUMMARY | 2022-01-10 08:09 | XMS_ITS | Encounter Summary ---
:1985 Author Organization [facility] Address [address] [place] [address] Care Team Providers Name Role Phone Barry Galo MD Primary Care Provider [phone] Reason for Visit Reason Comments Foot Problems top part of foot pain x 2 we eks Encounter Details Date Type Department Care Team Description 02/08/2010 Office Visit [facility] Libai Trejo in (Primary Dx); [facility] [place] BAKARI Romero Idiopathic thrombocytopenia (H) [address] [phone] [place] [address] [place] [address] Social History Tobacco Use Types Packs/Day Years Used Date Smoking Tobacco: Never Alcohol Use Standard Drinks/Week Comments No 0 (1 standard drink = 0.6 oz pure alcoho l) Sex Assigned at Date Recorded Not on file documented as of this encounter Last Filed Vital Signs Vital Sign Reading Time Taken Comments Blood Pressure 116/72 02/08/2010 2:20 PM BUSINESS RELATIONS MANAGER Pulse 87 02/08/2010 2:20 PM BUSINESS RELATIONS MANAGER Temperature 36.7 ??C (98 ??F) 02/08/2010 2:20 PM BUSINESS RELATIONS MANAGER Respiratory Rate 18 02/08/2010 2:20 PM BUSINESS RELATIONS MANAGER Oxygen Saturation 100% 02/08/2010 2:20 PM BUSINESS RELATIONS MANAGER Inhaled Oxygen Concentration - - Weight 92.1 kg (203 lb) 02/08/2010 2:20 PM BUSINESS RELATIONS MANAGER Height 167.6 cm (5' 6) 02/08/2010 2:20 PM BUSINESS RELATIONS MANAGER Body Mass Index 32.77 02/08/2010 2:20 PM BUSINESS RELATIONS MANAGER documented in this encounter Progress Notes Libia Beaulieu - 02/10/2010 1:48 PM CST CC: foot pain, Idiopathic thrombocytopenia [287.31G] Pt presents for eval of foot pain x 2 wks. Pt denies any hx of trauma. Pain is worse with weight bearing. Pt also is wanting to have her CBC rechecked. Pt was diagnosed with thrombocytopenia during herpregnancy. Exam: Skin: no edema, no bruising ROM: normal ankle/toe ROM Palpation: mildly tender over L dorsal foot region I/P: 1. Thrombocytopenia - normal CBC - resolved 2. Foot pain - appears muscular, pt to ice, rest and use NSAIDs prn pain, pt to f/u if ssx do not improve or worsen NESS RELATIONS MANAGER documented in this encounter Nursing Notes 02/08/2010 3:15 PM CST >> MOHAN EDMONDSON Fri Feb 08, 2010 2:22 PM Patient presents with: Foot Problems - top part of foot pain x 2 weeks Initial BP 116/72 Pulse 87 Temp(Src) 98 ??F (36.7 ??C) (Oral) Resp 18 Ht 5' 6 (1.676 m) Wt 203 lb (92.08 kg) SpO2 100% Estimated Body mass index is 32.76 kg/(m^2) as calculated from the following: Height as of this encounter: 5' 6(1.676 m). Weight as of this encounter: 203 lb(92.08 kg).. BP completed using cuff size regular-RA Mohan Edmondson MA documented in this encounter Plan of Treatment Not on filedocumented as of this encounter Procedures Procedure Name Priority Date/Time Associated Diagnosis Comme nts CBC WITH PLATELETS Routine 02/08/2010 2:48 Idiopathic Result s for this PM BUSINESS RELATIONS MANAGER thrombocytopenia (H) procedu re are in the results section. XR FOOT LEFT G/E 3 Routine 02/08/2010 2:32 Foot pain Result s for this VIEWS PM BUSINESS RELATIONS MANAGER procedure are i n the results section. documented in this encounter Results CBC with platelets (02/08/2010 2:48 PM BUSINESS RELATIONS MANAGER) P athologist Signature WBC 5.8 4.0 - 11.0 [place] 10e9/L [facility] RBC Count 4.09 3.8 - 5.2 [place] 10e12/L [facility] Hemoglobin 12.2 11.7 - [place] 15.7 g/dL [facility] Hematocrit 37.1 35.0 - [place] 47.0 % [facility] MCV 91 78 - 100 [facility] MCH 29.8 26.5 - [place] 33.0 pg [facility] MCHC 32.9 31.5 - [place] 36.5 g/dL [facility] RDW 12.0 10.0 - [place] 15.0 % [facility] Platelet Count 251 150 - 450 [facility] 10e9/L [facility] Specimen Anatomical Collection Method Collection Time Receive d Time (Source) Location / / Volume Laterality Blood specimen 02/08/2010 2:48 PM 010 2:50 (specimen) BUSINESS RELATIONS MANAGER PM BUSINESS RELATIONS MANAGER Libia Trejo PA-C LAB - BLOOD ORDERABLES Performing Organization Address City/State/ZIP Code Phon e Number [facility] [id number] [place] [address] [facility] X-ray lt Foot G/E 3 vws* (02/08/2010 2:32 PM BUSINESS RELATIONS MANAGER) Anatomical Region Laterality Modality Foot, Ankle Left Other Specimen (Source) Anatomical Collection Method Collection Time Re ceived Time Location / / Volume Laterality 02/08/2010 2:32 PM BUSINESS RELATIONS MANAGER Impressions 02/09/2010 10:44 AM BUSINESS RELATIONS MANAGER LEFT FOOT 3 OR MORE VIEWS ?Feb 08 010 2:32:00 PM HISTORY: ??Pain. COMPARISON: ??None. IMPRESSION: ??No acute fractures or disl ocations. Some cortical irregularity and lucency at the medial a spect of the tarsonavicular may represent partially fused ossicle or old injury. 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
--- OUTSIDE RECORDS SUMMARY | 2022-01-10 08:09 | XMS_ITS | Encounter Summary ---
:1985 Author Organization [facility] Address [address] [place] [address] Care Team Providers Name Role Phone Barry Galo MD Primary Care Provider [phone] Encounter Details Date Type Department Care Team Description 01/09/2010 Historic Results INTERFACED REPORT Anca Matos MD [address] [address] (Wo rk) Social History Tobacco [...] Name Priority Date/Time Associated Diagnosis Comme nts ABO/RH TYPE AND Routine 01/09/2010 4:20 PM Result s for this SCREEN CDT procedure are i n the results section. CBC WITH PLATELETS Routine 01/09/2010 4:20 PM Res ults for this CDT procedure are i n the results section. documented in this encounter Results (ABNORMAL) CBC with platelets (01/09/2010 4:20 PM CDT) Analysis Performed At Patho logist Time Signature MCV 93 78 - 100 [place] fl MCH 31.4 26.5 - MIS[facility] 33.0 pg MCHC 33.8 31.5 - [facility]IS[facility] 36.5 g/dL RDW 12.9 10.0 - [facility] 15.0 % WBC 6.5 4.0 - 11.0 [facility] 10e9/L RBC Count 3.73 (L) 3.8 - 5.2 [facility] 10e12/L Hemoglobin 11.7 11.7 - [facility] 15.7 g/dL Hematocrit 34.6 (L) 35.0 - [facility]IS[facility] 47.0 % Platelet Count 97 (L) 150 - 450 [facility] 10e9/L Specimen Anatomical Collection Method Collection Time Receive d Time (Source) Location / / Volume Laterality 01/09/2010 4:20 PM 0 4:16 CDT PM CDT Anca Matos MD LAB - BLOOD ORDERABLES Performing Organization Address City/[facility] Code Phon e Number [facility] ABO/Rh type and screen (01/09/2010 4:20 PM CDT) Analysis Performed At [facility] Time Signature ABO AB [facility] RH(D) Pos [facility] Antibody Neg [facility] Screen Specimen 01/12/2010 [facility] Expires Specimen Anatomical Collection Method Collection Time Receive d Time (Source) Location / / Volume Laterality 01/09/2010 4:20 PM 0 4:16 CDT PM CDT Anca Matos MD LAB - BLOOD BANK TEST ORDER Performing Organization Address City/[facility] Phon e Number M[facility] documented in this encounter Visit Diagnoses Not on filedocumented in this encounter Care Teams Senior Consumer Insights Consultant Relationship Specialty Start Date End Date Barry Galo MD PCP - General 04/14/03 01/16/11 [address] [place] [address] documented as of this encounter
--- OUTSIDE RECORDS SUMMARY | 2022-01-10 08:09 | XMS_ITS | Encounter Summary ---
:1985 Author Organization [place] Address [address] [place] [address]. [place] [address] Care Team Providers Name Role Phone Barry Galo MD Primary Care Provider Reason for Visit Reason Comments Physical physical with no pap, wants to talk about getting control, wants to see if she can have labs don e-is not fasting Anxiety had a baby, can't seem to c dania down about stuff, parent's , sleep problems Mass swollen gland on left side o f neck Encounter Details Date Type Department Care Team Description 01/03/2011 Office Visit [facility] Adolfo Reyes MD Routine general medical examination at a health care facility (Primary Dx); Clinic [address] Generalized anxiety disorder; [address] [place] [address] Thyroid nodule; [place] [address] OCP (oral contraceptive pills) initiatio n [id number] Social History Tobacco Use Types Packs/Day Years Used Date Smoking Tobacco: Never Alcohol Use Standard Drinks/Week Comments No 0 (1 standard drink = 0.6 oz pure alcoho l) Sex Assigned at Date Recorded Not on file documented as of this encounter Last Filed Vital Signs Vital Sign Reading Time Taken Comments Blood Pressure 110/60 01/03/2011 10:05 AM CDT Pulse 91 01/03/2011 10:05 AM CDT Temperature 36.7 ??C (98 ??F) 01/03/2011 10:05 AM CDT Respiratory Rate - - Oxygen Saturation 99% 01/03/2011 10:05 AM CDT Inhaled Oxygen Concentration - - Weight 93 kg (205 lb) 01/03/2011 10:05 AM CDT Height 167.6 cm (5' 6) 01/03/2011 10:05 AM CDT Body Mass Index 33.09 01/03/2011 10:05 AM CDT documented in this encounter Patient Instructions Patient InstructionsAntonieta Shukla - 01/03/2011 10:01 AM CDT PREVENTIVE HEALTH RECOMMENDATIONS: Get a Pap test each year. If you have 3 normal tests in a row, you may have the test every 2 to 3 years. You do not need a Pap test if you've had a hysterectomy (removal of uterus) and have not had cancer. You should be tested each year for STDs (sexually transmitted diseases), if you're at risk. Vaccines: Get a flu shot each year. Get a tetanus shot every 10 years. Eat at least 5 servings of fruits and vegetables daily. Eat whole-grain bread, whole-wheat pasta and brown rice instead of white grains and rice. For bone health: Eat calcium-rich foods or take calcium pills (500 to 600 mg) twice a day with food.Also take vitamin D (1000 IUs) each day. Exercise for at least 150 minutes a week (an average of 30 minutes a day, 5 days of the week). This will help you control your weight and prevent disease. Limit alcohol to one drink per day. No smoking. Wear sunscreen to prevent skin cancer. See your dentist twice a year for an exam and cleaning. Have a cholesterol test every 5 years. If you are at risk for diabetes, you should have a diabetes test (fasting glucose). documented in this encounter Progress Notes Dina Kay - 01/03/2011 12:05 PM CDT Addended by: DINA KAY on: 01/03/2011 Modules accepted: Orders Antonieta Shukla - 01/03/2011 10:01 AM CDT CC: Mindy Jacob is an 25 year old woman who presents for preventive health visit. Besides routine health maintenance, she would like to discuss control, anxiety issues, [place] in neck. Healthy Habits: Do you get at least three servings of calcium containing foods daily (dairy, green leafy vegetables,etc.)? yes Outside of work or daily activities, how many days per week do you exercise for 30 minutes or longer? seven Dietary Guidelines for Americans, 2010 USDA's MyPlate Estimated Body mass index is 32.76 kg/(m^2) as calculated from the following: Height as of 02/08/10: 5' 6(1.676 m). Weight as of 02/08/10: 203 lb(92.08 kg). Have you had an eye exam in the past two years? yes Do you see a dentist twice per year? yes Staff Signature Dasha Mack MA Abuse: Current or Past(Physical, Sexual or Emotional)- No Do you feel safe in your environment - Yes History Substance Use Topics ??? Smoking status: Never Smoker ??? Smokeless tobacco: Not on file ??? Alcohol Use: No none Reviewed orders with patient. Reviewed health maintenance and updated orders accordingly - Yes Staff Signature Dasha Mack MA History of abnormal Pap smear: Yes - updated in Problem List and Health Maintenance accordingly All Histories reviewed and updated in [facility]. Pt has been not her normal self, feeling irritable, treated with anxiety in the past, that has resolved but she improved. Recently in the last few months she noticed she is more angry, temperamental, irritable, not sleeping well ( since she has the baby 6 months ago), she is worrying a lot about the baby, she worry about something happening to him or to the baby. Also worry about her salvador. Cries easily, her self esteem has slightly decreased, problem with concentration. ROS: CONSTITUTIONAL:weigh gain trying to loose. I: NEGATIVE for worrisome rashes, moles or lesions E: NEGATIVE for vision changes or irritation ENT: sore throat, and lump felt in the side of the neck. R: NEGATIVE for significant cough or SOB B: NEGATIVE for masses, tenderness or discharge CV: NEGATIVE for chest pain, palpitations or peripheral edema GI: NEGATIVE for nausea, abdominal pain, heartburn, or change in bowel habits female: dyspareunia, investigated in the past. MUSCULOSKELETAL:generalized aches and pain. N: NEGATIVE for weakness, dizziness or paresthesias PSYCHIATRIC: as above. OBJECTIVE: ? Unknown GENERAL APPEARANCE: healthy, alert and no distress EYES: Eyes grossly normal to inspection, PERRL and conjunctivae and sclerae normal HENT: ear canals and TM's normal, nose and mouth without ulcers or lesions, oropharynx clear and oral mucous membranes moist NECK: no adenopathy, no asymmetry, masses, or scars and mass ion the thyroid on the L side. RESP: lungs clear to auscultation - no rales, rhonchi or wheezes CV: regular rate and rhythm, normal S1 S2, no S3 or S4, no murmur, click or rub, no peripheral edemaand peripheral pulses strong ABDOMEN: soft, nontender, no hepatosplenomegaly, no masses and bowel sounds normal MS: no musculoskeletal defects are noted and gait is age appropriate without ataxia SKIN: mole on the L axilla. NEURO: Normal strength and tone, sensory exam grossly normal, mentation intact and speech normal PSYCH: mentation appears normal and affect normal/bright COUNSELING: regular exercise weight management reports that she has never smoked. She does not have any smokeless tobacco history on file. There is no height or weight on file to calculate BMI. No family hx of blood clots, no heart disease in the family. No hx of breast cancer, no ovarian or uterus cancer. ATP III Guidelines FRAX Risk Assessment ICSI Preventive Guidelines ASSESSMENT/PLAN: V70.0 Routine general medical examination at a health care facility (primary encounter diagnosis) Comment: Plan: LIPID REFLEX TO DIRECT LDL PANEL 300.02 Generalized anxiety disorder Comment: Plan: sertraline (ZOLOFT) 50 MG tablet, TRAZodone (DESYREL) 50 MG tablet, Basic metabolic panel, CBC with platelets 241.0B Thyroid nodule Comment: Plan: US Thyroid, TSH with free T4 reflex, T3 Free, T4 free V25.01D OCP (oral contraceptive pills) initiation Comment: talked about risks. Plan: HCG qualitative urine, norgestrel-ethinyl estradiol (LO/OVRAL) 0.3-30 MG-MCG per tablet Start on the first day of period, use condoms until that time and for the first month. documented in this encounter Nursing Notes 01/03/2011 10:15 AM CDT >> ANTONIETA Herrera Jan 03, 2011 10:26 AM Patient presents with: Physical - physical with no pap, wants to talk about getting control Anxiety - had a baby, can't seem to calm down about stuff, parent's , sleep problems Mass - swollen gland on left side of neck Initial BP 110/60 Pulse 91 Temp(Src) 98 ??F (36.7 ??C) (Oral) Ht 5' 6 (1.676 m) Wt 205 lb (92.987 kg) BMI 33.09 kg/m2 SpO2 99% LMP 12/22/2010 Estimated Body mass index is 33.09 kg/(m^2) as calculated from the following: Height as of this encounter: 5' 6(1.676 m). Weight as of this encounter: 205 lb(92.987 kg).. BP completed using cuff size: large Antonieta Shukla, Student MA documented in this encounter Plan of Treatment Not on filedocumented as of this encounter Procedures Procedure Name Priority Date/Time Associated Diagnosis Comme nts HCG QUALITATIVE Routine 01/03/2011 10:59 OCP (oral Results for this URINE AM CDT contraceptive pills) procedu re are in initiation the results section. TSH Routine 01/03/2011 10:58 Thyroid nodule Results f or this AM CDT procedure are i n the results section. T4 FREE Routine 01/03/2011 10:58 Thyroid nodule Results f or this AM CDT procedure are i n the results section. LIPID REFLEX TO Routine 01/03/2011 10:58 Routine general Resul ts for this DIRECT LDL PANEL AM CDT medical examination proc edure are in at a health care the results facility section. T3 FREE Routine 01/03/2011 10:58 Thyroid nodule Results f or this AM CDT procedure are i n the results section. BASIC METABOLIC Routine 01/03/2011 10:58 Generalized anxiety R esults for this PANEL AM CDT disorder procedure are i n the results section. CBC WITH PLATELETS Routine 01/03/2011 10:58 Generalized anxiet y Results for this AM CDT disorder procedure are i n the results section. documented in this encounter Results HCG qualitative urine (01/03/2011 10:59 AM CDT) athologist Signature HCG Qual Urine Negative NEG [facility] Specimen Anatomical Collection Method Collection Time Receive d Time (Source) Location / / Volume Laterality Urine specimen 01/03/2011 10:59 1 (specimen) AM CDT 11:00 AM CDT Adolfo Reyes MD LAB - URINE ORDERABLES Performing Organization Address [facility]/ZIP Code Phon e Number [facility] [address] [place] [address] [facility] TSH (01/03/2011 10:58 AM CDT) athologist Signature TSH 3.65 0.4 - 5.0 [facility] mU/[facility] Specimen Anatomical Collection Method Collection Time Receive d Time (Source) Location / / Volume Laterality Blood specimen 01/03/2011 10:58 1 (specimen) AM CDT 11:00 AM CDT Adolfo Reyes MD LAB - BLOOD ORDERABLES Performing Organization Address City/State/ZIP Code Phon e Number [facility] [address] [place] [address] [facility] CBC with platelets (01/03/2011 10:58 AM CDT) athologist Signature WBC 4.5 4.0 - 11.0 [facility] [place] 10e9/L [facility] RBC Count 4.37 3.8 - 5.2 [place] 10e12/L [facility] Hemoglobin 13.2 11.7 - [place] 15.7 g/dL [facility] Hematocrit 39.5 35.0 - [place] 47.0 % [facility] MCV 90 78 - 100 [facility] MCH 30.2 26.5 - [place] 33.0 pg [facility] MCHC 33.4 31.5 - [place] 36.5 g/dL [facility] RDW 12.5 10.0 - [place] 15.0 % [facility] Platelet Count 152 150 - 450 [facility] 10[facility]9/L [facility] Specimen Anatomical Collection Method Collection Time Receive d Time (Source) Location / / Volume Laterality Blood specimen 01/03/2011 10:58 1 (specimen) AM CDT 11:00 AM CDT Adolfo Reyes MD LAB - BLOOD ORDERABLES Performing Organization Address City/[facility]/ZIP Code Phon e Number [facility] [address] [place] [address] [facility] Basic metabolic panel (01/03/2011 10:58 AM CDT) P athologist Signature Sodium 141 133 - 144 [facility] mmol/L [facility] Potassium 3.9 3.4 - 5.3 [facility] mmol/L [facility] Chloride 105 94 - 109 [facility] mmol/L [facility] Carbon Dioxide 26 20 - 32 [facility] mmol/L [facility] Anion Gap 10 6 - 17 [facility] mmol/L [facility] Glucose 90 60 - 99 [facility] mg/dL [facility] Urea Nitrogen 11 5 - 24 [facility] mg/dL [facility] Creatinine 0.79 0.52 - [facility] 1.04 mg/dL [facility] GFR Estimate 88 >60 [facility] mL/min/1.7 [facility] m2 GFR Estimate If >90 >60 [facility] Black mL/min/1.7 [facility] m2 Calcium 9.4 8.5 - 10.4 [facility] mg/dL [facility] Specimen Anatomical Collection Method Collection Time Receive d Time (Source) Location / / Volume Laterality Blood specimen 01/03/2011 10:58 1 (specimen) AM CDT 11:00 AM CDT Adolfo Reyes MD LAB - BLOOD ORDERABLES Performing Organization Address City/[facility]/ZIP Code Phon e Number [facility] [address] [place] [address] [facility] T4 free (01/03/2011 10:58 AM CDT) P athologist Signature T4 Free 0.71 0.70 - 1.85 [facility] [place] ng/dL [facility] Specimen Anatomical Collection Method Collection Time Receive d Time (Source) Location / / Volume Laterality Blood specimen 01/03/2011 10:58 1 (specimen) AM CDT 11:00 AM CDT Adolfo Reyes MD LAB - BLOOD ORDERABLES Performing Organization Address City/State/ZIP Code Phon e Number [facility] [address] [place] [address] [facility] T3 Free (01/03/2011 10:58 AM CDT) athologist Signature Free T3 3.1 2.3 - 4.2 [facility] pg/mL [facility] Specimen Anatomical Collection Method Collection Time Receive d Time (Source) Location / / Volume Laterality Blood specimen 01/03/2011 10:58 1 (specimen) AM CDT 11:00 AM CDT Adolfo Reyes MD LAB - BLOOD ORDERABLES Performing Organization Address City/State/ZIP Code Phon e Number [facility] [address] [place] [address] [facility] (ABNORMAL) LIPID REFLEX TO DIRECT LDL PANEL (01/03/2011 10:58 AM CDT) athologist Signature Cholesterol 133 0 - 200 [facility] mg/dL [facility] Comment: LDL Cholesterol is the primary guide to therapy. The NCEP recommends further evaluation of: patients with cholesterol greater than 200 mg/dL if additional risk facto rs are present, cholesterol greater than 240 mg/dL, triglycerides greater than 1 50 mg/dL, or HDL less than 40 mg/dL. Triglycerides 63 0 - 150 mg/dL [facility] HDL Cholesterol 46 (L) 50 - 110 mg/dL [facility] LDL Cholesterol Calculated 75 0 - 129 mg/dL [facility] Comment: LDL Cholesterol is the primary guide to therapy: LDL-cholesterol goal in high risk patients is <100 mg/dL and in very high risk patients is <70 mg/dL. VLDL-Cholesterol 13 0 - 30 mg/dL [facility] Cholesterol/HDL Ratio 2.9 0.0 - 5.0 [facility] Specimen Anatomical Collection Method Collection Time Receive d Time (Source) Location / / Volume Laterality Blood specimen 01/03/2011 10:58 1 (specimen) AM CDT 11:00 AM CDT Adolfo Reyes MD LAB - BLOOD ORDERABLES Performing Organization Address City/State/ZIP Code Phon e Number [address] [address] [facility] documented in this encounter Visit Diagnoses Diagnosis Routine general medical examination at a health care facility - Primary Generalized anxiety disorder Thyroid nodule Nontoxic uninodular goiter OCP (oral contraceptive pills) initiatio n General counseling for prescription of o ral contraceptives documented in this encounter Care Teams Fabricating Machine Operator Relationship Specialty Start Date End Date Barry Galo MD PCP - General 04/14/03 01/16/11 [address] [place] [address] documented as of this encounter
--- OUTSIDE RECORDS SUMMARY | 2022-01-10 08:09 | XMS_ITS | Encounter Summary ---
:1985 Author Organization [place] Address [address] [place] [id number] Care Team Providers Name Role Phone Barry Galo MD Primary Care Provider Encounter Details Date Type Department Care Team Description 03/02/2010 Results Only [facility] Rama Garcia MD Hospital Results [address] [place] [address] [phone] (Wo rk) Social History Tobacco Use Types Packs/Day Years Used Date Smoking Tobacco: Never Alcohol Use Standard Drinks/Week Comments No 0 (1 standard drink = 0.6 oz pure alcoho l) Sex Assigned at Date Recorded Not on file documented as of this encounter Plan of Treatment Not on filedocumented as of this encounter Procedures Procedure Name Priority Date/Time Associated Diagnosis Comme nts US LOWER EXTREMITY Routine 03/02/2010 3:33 PM Res ults for this VENOUS DUPLEX LEFT AUTOMOTIVE ASSEMBLER procedure are in the results section. documented in this encounter Results US leg lt venous (03/02/2010 3:33 PM AUTOMOTIVE ASSEMBLER) Anatomical Region Laterality Modality Vascular, Thigh, Leg Other Specimen (Source) Anatomical Collection Method Collection Time Re ceived Time Location / / Volume Laterality 03/02/2010 3:33 PM AUTOMOTIVE ASSEMBLER Impressions 03/02/2010 3:41 PM AUTOMOTIVE ASSEMBLER US VENOUS LOWER EXT UNI LEFT-1 ??Feb 3:33:00 PM HISTORY: ??Leg swelling. COMPARISON: None. FINDINGS: The left lower extremity venou s ultrasound is negative ??for DVT. ??The veins do ??augment and compre ss normally. ??No ??thrombus is seen. IMPRESSION: Negative for DVT. Rama Garcia MD IMG US ORDERABLES documented in this encounter Visit Diagnoses Not on filedocumented in this encounter Care Teams Electrical Assembler Relationship Specialty Start Date End Date Barry Galo MD PCP - General 04/14/03 01/16/11 [address] [place] [address] documented as of this encounter
--- OUTSIDE RECORDS SUMMARY | 2022-01-10 08:09 | XMS_ITS | Encounter Summary ---
:1985 Author Organization [facility] Address [address] [place] [address] Care Team Providers Name Role Phone Adolfo Reyes MD Primary Care Provider Reason for Visit Auth/Cert - Closed Specialty Diagnoses / Procedures Referred By Contact Refer red To Contact Surgery Diagnoses Left Thyroid Nodule Rh Periop Services Procedures PROCEDURE PLACEHOLDER GENERAL [address] [place], [place] [address] Phone: Fax: Referral ID Status Reason Start Date Expiration Date Visits Requ ested Visits Authorized [id number] Closed 05/08/2011 11/04/2011 1 1 Encounter Details Date Type Department Care Team Description 05/13/2011 Surgery [facility] Malathi Decker, Left Thyroid Lobectomy [place] [facility] [address] [place], [place] [phone] [place], [place] [address] (Wo rk) Surgery Details Date/Time Status Location OR Service Patient Case Class Case Type Trauma Class Case? 05/13/11 8:30 Posted [facility] OR OR 15 General Surgery AM Admit Panel 1 Procedure LRB Anes Op Region Wound Class Commen ts Left Thyroid Lobectomy Left General Neck I-Clean Le ft Thyroid Lobectomy Surgeon Surgeon Role Service Panel Malathi Decker MD Primary General 1 Pema Peter PA-C Certified Family Mediator Authorizati on 1 documented in this encounter Social History Tobacco [...] Comments Blood Pressure 130/77 05/14/2011 7:25 AM FABRIC AWNING REPAIRER Pulse 86 05/14/2011 7:25 AM FABRIC AWNING REPAIRER Temperature 36 ??C (96.8 ??F) 05/14/2011 7:25 AM FABRIC AWNING REPAIRER Respiratory Rate 16 05/14/2011 7:25 AM FABRIC AWNING REPAIRER Oxygen Saturation 100% 05/14/2011 7:25 AM FABRIC AWNING REPAIRER Inhaled Oxygen Concentration - - Weight 93.8 kg (206 lb 12.7 oz) 05/13/2011 7:53 AM FABRIC AWNING REPAIRER Height 170.2 cm (5' 7.01) 05/13/2011 7:53 AM FABRIC AWNING REPAIRER Body Mass Index 32.38 05/13/2011 7:53 AM FABRIC AWNING REPAIRER documented in this encounter Discharge Instructions Discharge InstructionsIsmaelCallie cortés Rolando Soto 05/14/2011 9:50 AM CST HOME CARE FOLLOWING [...] Walk around frequently. You may consider an erde-ehd-jaamdow stool-softener. Your Pharmacist can assist you with [...] to discuss with the nurse or physician medical billing assistant. # There is a surgeon EARTH SCIENCE PROFESSOR on weekday evenings and over the weekend in case of urgent need only, andmay be contacted at the same number. If you are having an emergency, call 911 or proceed to your nearest emergency department. IC AWNING REPAIRER documented in this encounter Medications at Time [...] as of this encounter Progress Notes Callie Candelaria - 05/14/2011 10:02 AM CST D: Patient has orders to discharge. A/I: Reviewed discharge orders with the patient. PIV removed. Medication orders were reviewed and instructions given as to the frequency to take each med. Prescription for [place] sent with patient. Patient belongings sent with patient. Patient instructed to follow up with primary physican with any further questions they may have. Patient states they understand discharge orders as they are written and has no questions. P: Patient was discharged at 1005 accompanied by family. IC AWNING REPAIRER Pema Ferraro PA-C - 05/14/2011 9:17 AM CST [facility] General Surgery Progress Note Assessment and Plan: Assessment: POD #1, s/p Left Thyroid Lobectomy Plan: DC home Rx [place] RTC 1-3 weeks Interval History: Doing well, [...] WBC 5.5 4.5 5.9 Pema Ferraro PA-C IC AWNING REPAIRER documented in this encounter H&P Notes Malathi Decker MD - 05/12/2011 4:20 PM FABRIC AWNING REPAIRER IC AWNING REPAIRER Theresa Ortiz - 05/12/2011 10:36 AM CST This note is for the purpose of making the H&P performed in clinic within the last 30 days available in the hospital surgical encounter. IC AWNING REPAIRER Source Note - Valencia Gann - 05/08/2011 11:31 AM FABRIC AWNING REPAIRER [address] [address] PRE-OP EVALUATION: Today's date: 05/08/2011 Stuart Diego (: 1985) presents for pre-operative evaluation assessment as requested by Dr. Decker. She requires evaluation and anesthesia risk assessment prior to undergoing surgery/procedure for treatment of thyroid . Date of Surgery/ Procedure: 05/13/11 Time of Surgery/ Procedure: [facility] Hospital/Surgical Facility: [facility] Fax number for surgical facility: [phone] Primary Physician: Dr. Reyes Type of Anesthesia [...] Malathi Decker MD - 05/15/2011 6:43 PM FABRIC AWNING REPAIRER IC AWNING REPAIRER documented in this encounter Miscellaneous Notes Initial Assessments - Malathi Decker MD - 05/15/2011 6:42 PM FABRIC AWNING REPAIRER IC AWNING REPAIRER Plan of Care - Guillermina Gutierres - 05/14/2011 5:38 AM CST Problem: IP GENERAL POC-ADULT,OB,BEHAVIORAL FVCPM Goal: Individualization/Patient-Specific Goal (Adult,OB,Behavioral The patient and/or their education courses sales representative will achieve their patient-specific goals related to the plan of care. The patient-specific goals include: Pt. Likes ice to neck and provide reassurance as pt. Has some anxiety Surgery left thyroid lobectomy 05/13/11 Outcome: Improving nauseated, zofran with relief. Denies pain. Dsg cdi. Ice to neck. Sm amt drg from juan j. Up ind. voiding. IC AWNING REPAIRER Plan of Care - Becky Galloway, ROSY - 05/13/2011 10:20 PM CST Problem: IP GENERAL POC-ADULT,OB,BEHAVIORAL FVCPM Goal: Individualization/Patient-Specific Goal (Adult,OB,Behavioral The patient and/or their education courses sales representative will achieve their patient-specific goals [...] in room with patient for the night. IC AWNING REPAIRER Pharmacy-Admission Medication History - Juan Pablo Martinez RPH - 05/13/2011 3:34 PM CST Med rec completed IC AWNING REPAIRER Plan of Care - Bree Puga RN - 05/13/2011 3:02 PM CST Problem: IP GENERAL POC-ADULT,OB,BEHAVIORAL FVCPM Goal: Individualization/Patient-Specific Goal (Adult,OB,Behavioral The patient and/or their education courses sales representative will achieve their patient-specific goals related to the plan of care. The patient-specific goals include: Pt. Likes ice to neck and provide reassurance as pt. Has some anxiety Surgery left thyroid lobectomy 05/13/11 Outcome: Improving Some nausea but tolerating clear liquids and frances cracker compazine given IC AWNING REPAIRER Op Note - Malathi Decker MD - 05/13/2011 10:15 AM CST General Surgery Operative Note PREOPERATIVE DIAGNOSIS: Left Thyroid Nodule POSTOPERATIVE DIAGNOSIS: Same PROCEDURE: Thyroid Lobectomy, Left ANESTHESIA: General. PREOPERATIVE MEDICATIONS: Ancef IV. SURGEON: Malathi Decker MD SKATE MAKER: Pema Ferraro PA-C ESTIMATED BLOOD LOSS: 25 [...] 05/13/2011 9:54 AM Pathology Malathi Decker MD IC AWNING REPAIRER documented in this encounter Plan of Treatment Not on filedocumented as of this encounter Procedures Procedure Name Priority Date/Time Associated Diagnosis Comme nts SURGICAL PATHOLOGY Routine 05/13/2011 9:54 AM Res ults for this EXAM FABRIC AWNING REPAIRER procedure are i n the results section. THYROIDECTOMY, 05/13/2011 8:34 AM Left Thyroid Nodule TOTAL FABRIC AWNING REPAIRER HIM OTHER SCAN Routine 05/13/2011 documented in this encounter Results Surgical pathology exam (05/13/2011 9:54 AM FABRIC AWNING REPAIRER) Component Value Ref Test Analysis Performed At [facility] Method Time Signature Copath Report Patient Name: STUART DIEGO MR#: [id number] Specimen #: [id number] Collected: 05/13/2011 Received: 05/13/2011 Reported: 05/14/2011 13:45 [...] chronic thyroiditis. MGP/kd 05-14-11 TESTING LAB LOCATION: [address] ??[id number] COLLECTION SITE: Client: [facility] Location: RHOR (R) Specimen Anatomical Collection Method Collection Time Receive d Time (Source) Location / / Volume Laterality 05/13/2011 9:54 AM 2 FABRIC AWNING REPAIRER 10:02 AM FABRIC AWNING REPAIRER Malathi Decker MD [facility] Organization Address City/State/ZIP Code Phon e Number [facility] [place] - [place] Other Scan (05/13/2011) Narrative This result has an attachment that is no t available. Malathi Decker MD IP NURSING ACTIVITY documented in this encounter Visit Diagnoses Not on filedocumented in this encounter Active and Recently Administered Medications Times are shown in FABRIC AWNING REPAIRER. Scheduled Medication Order 05/12/2011 05/13/2011 05/14/2011 ceFAZolin (ANCEF) IVPB 2 g (COMPLETED) 0 840 (Given - Provider: Yassine Chen APRN JOURNEYMAN WIREMAN) 2 g, Intravenous, for 30 Minutes, PRE-OP /PRE-PROCEDURE, For 1 dose, Give first dose within 1 hour PRIOR to incision., Pre-procedure sodium chloride 0.9 % flush 3 mL (CANCELED) 1100 (Not Given - Provider: Bree Puga RN - Reason: IV Infusing)1900 (Not Given - [...] (CANCELED) 1337 (New Bag - Provider: Bree Puga RN) Intravenous, at 100 mL/hr, CONTINUOUS, S tarting Thu05/13/11 at 1230, Discontinue IV fluids when PO well tolerated., Post-procedure PRN Medication Order 05/12/2011 05/13/2011 05/14/2011 acetaminophen (TYLENOL) tablet 325-650 mg (CANCELED) 2003 (Given - Provider: Becky Galloway RN) 325-650 mg, Oral, EVERY 4 HOURS PRN, mil d pain, or temp > 102 degrees F., Starting Thu05/13/11 at 1154, Max dose Acetaminophen = 4 gm / 24 hours. May give in addition to other bxj-ryhiyvhycbohq-iwmqt ining analgesic if moderate to severe pa in is unrelieved 15 minutes after administration., Post-procedure hydrocodone-acetaminophen 5-325 MG per tablet 1-2 tablet 1-2 tablet, Oral, EVERY 4 HOURS PRN, mod erate to severe pain, Starting Thu05/13/11 at 1154, Post-procedure metoclopramide (REGLAN) injection 10 mg (CANCELED) 1642 (Given - Provider: Becky Galloway, ROSY) 10 mg, Intravenous, EVERY 6 HOURS PRN, N ausea and Vomiting, Starting Thu05/13/11 at 1154, Use with caution due to possible interaction with sertraline. This is Step 3 of nausea and vomiting protocol. Gi ve if nausea not resolved 15 minutes aft er giving prochlorperazine. If nausea not resolved in 15-30 minutes, Notify MD., Post-procedure metoprolol (LOPRESSOR) injection 1-2 mg (CANCELED) 1135 (Given - Provider: Meng Mirza, RN) 1-2 mg, Intravenous, EVERY 5 MIN PRN, hi gh blood pressure, for SBP > 160 and HR > 60. , Starting 05/13/11 at 1112, Max cumulative dose = 10 mg. For PACU USE ONLY. DC WHEN TRANSFERRED TO FLOOR., PACU ondansetron (ZOFRAN) injection 4 mg (CANCELED) 1157 (Given - Provider: Callie Candelaria)2354 (Given - Provider: Guillermina Gutierres) 4 mg, Intravenous, EVERY 6 HOURS PRN, na usea, vomiting, for 2 Minutes, Starting 05/13/11 at 1154, Post-procedure phenol-menthol (CEPASTAT) lozenge 1-2 lozenge (CANCELED) 1533 (Given - Provider: Telma Torres LPN) 0733 (Given - Provider: Carly Ardon LPN) 1-2 lozenge, Buccal, EVERY 1 HOUR PRN, m oderate pain, Starting e 05/13/11 at 1154, Post-procedure prochlorperazine (COMPAZINE) tablet 5-10 mg (CANCELED) 1317 (Given - Provider: Bree Puga, ROSY) 5-10 mg, Oral, EVERY 6 HOURS PRN, nausea , vomiting, Starting e 05/13/11 at 1154, Offer first, Post-procedure zolpidem (AMBIEN) tablet 5 mg (CANCELED) 2215 (Given - Provider: Becky Galloway, ROSY) 5 mg, Oral, AT BEDTIME PRN, sleep, Starting e 2 at 1154, Post-procedure documented in this encounter Care Teams Field Service Technician Poultry Relationship Specialty Start Date End Date Adolfo Reyes MD PCP - General Family Practice 01/17/11 05/11/12 [address] [place] [address] documented as of this encounter
--- OUTSIDE RECORDS SUMMARY | 2022-01-10 08:09 | XMS_ITS | Encounter Summary ---
:1985 Author Organization [facility] Address [address] [place] [address] Care Team Providers Name Role Phone Barry Galo MD Primary Care Provider Encounter Details Date Type Department Care Team Description 12/08/2010 Emergency room [facility] Results EMERGENCY PHYSI [facility] [place] [address] [place], [place] [address] Social History Tobacco Use Types Packs/Day Years Used Date Smoking Tobacco: Never Alcohol Use Standard Drinks/Week Comments No 0 (1 standard drink = 0.6 oz pure alcoho l) Sex Assigned at Date Recorded Not on file documented as of this encounter Progress Notes Interface, Power Shovel Operator - 12/09/2010 5:10 PM CDT FINAL Chief Complaint - History of Present Illness - MD Time:: 18:16 - Chief Complaint: Sore throat and headache - HPI: Stuart Diego 25 year old female patient who presents to the emergency department for evaluation of sore throat and headache. The patient reports that for the past few days she has had a sore throat, headache that radiates down to her shoulder, left ear pain, swollen lymph nodes, intermittent chills, and non-productive cough. 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 Her pain level on exam is 3/10 associated with her symptoms on exam. She otherwise denies any fever, diarrhea, vomiting, difficulty swallowing, drooling, or other symptoms at this time. Medications - Medications: None Allergies Septra;Vomiting Past Medical/Family History - H is positive for: None \n Surgical history: Social History - - The patient denies the use of alcohol, tobacco, or illicit drugs. Review of Systems - - All other systems negative except - General Negative for fever, Positive for chills, Negative for weakness - Skin Negative for rash - HENT Positive for headaches, Positive for ear pain, Positive for sore throat - Respiratory Positive for cough, Negative for sputum production - Gastrointestinal Negative for nausea, Negative for vomiting Vital Signs-Triage Temp F: 97.9 degrees F Temp C: 36.6 degrees C Temp site: Oral Heart Rate: 80 bpm Resp Rate: 16 Pulse Oximetry: 100 Cuff Systolic BP mmH Cuff Diastolic BP mmH Physical Exam - HENT atraumatic, Posterior oropharynx erythema. No exudates or exudate. TMs normal bilaterally - Eyes pupils equal, round, and reactive to light, conjunctiva normal, extraocular movements normal, no scleral icterus present - Cardiovascular normal rate, regular rhythm, heart sounds normal, no murmur present - Pul/Chest Wall effort normal, breath sounds normal, no respiratory distress present, no wheezes present, no rales present - Abdominal soft, bowel sounds present, no distention present, no tenderness present, no rebound present, no guarding present - Musculoskeletal normal range of motion, no deformity present, no edema present - Neurologic alert, oriented x3, no cranial nerve deficit present, normal strength, normal sensory - Skin warm, dry, no erythema present, no rash present, normal color present - Psychiatric affect normal - Heme/Lymph Left sided cervical adenopathy. Laboratory information - -: Rapid strep A screen: Negative R/O Beta Strep Group A: Pending \n ED Course: Interventions/Consultations/Procedures - -: ED Course: I examined the patient. Plan of care discussed. Patient agrees with this plan. Recheck. I discussed the laboratory results with the patient and she understands. The patient will be discharged home to follow up with primary care doctor per discharge instructions. Indications for return to the ED were discussed and the patient understands. All questions were answered prior to discharge. \n Medical Decision Making - -: This is a 25 year old female who presents with a sore throat. She has had no fevers and has no meningismus or symptoms concerning for meningitis. She has normal respiratory effect and normal lung sounds so I am not concerned for pneumonia. There is no evidence of deep space tissue in her neck. Strep is negative and this almost certainly represents a viral pharyngitis. She is nontoxic appearing and will discharged home at this time with symptomatic care. \n Diagnosis - -: 1. Viral pharyngitis \n Disposition Plan - -: Discharge home. Follow up as needed. \n Scribe Disclosure I, Karmen Chong ,am serving as a scribe to document services personally performed by Dr. Seth ,based on my observations and the provider's statements to me. Electronically signed on 12/09/2010 17:10 by SMITA SETH MD As dictated by KARMEN CHONG MT: TH Name: STUART DIEGO Account: [id number] : 1985 Visit Date: 12/08/2010 Document: [id number] documented in this encounter Plan of Treatment Not on filedocumented as of this encounter Visit Diagnoses Not on filedocumented in this encounter Care Teams Telephone Directory Deliverer Relationship Specialty Start Date End Date Barry Galo MD PCP - General 04/14/03 01/16/11 [address] [place] [address] documented as of this encounter
--- OUTSIDE RECORDS SUMMARY | 2022-01-10 08:09 | XMS_ITS | Encounter Summary ---
:1985 Author Organization [facility] Address [address] [place] [address]. [place] [address] Care Team Providers Name Role Phone Adolfo Reyes MD Primary Care Provider Reason for Visit Reason Comments Depression f/u Encounter Details Date Type Department Care Team Description 01/20/2011 Office Visit [facility] Adolfo Reyes MD Generalized anxiety disorder (Primary Dx ); [facility] [id number] [place] [address] Screening for depression [id number] [place] [phone] Social History Tobacco Use Types Packs/Day Years Used Date Smoking Tobacco: Never Smokeless Tobacco: Never Alcohol Use Standard Drinks/Week Comments No 0 (1 standard drink = 0.6 oz pure alcoho l) Sex Assigned at Date Recorded Not on file documented as of this encounter Last Filed Vital Signs Vital Sign Reading Time Taken Comments Blood Pressure 132/82 01/20/2011 11:09 AM CDT Pulse 84 01/20/2011 11:12 AM CDT Temperature 36.6 ??C (97.8 ??F) 01/20/2011 11:12 AM CDT Respiratory Rate - - Oxygen Saturation 98% 01/20/2011 11:12 AM CDT Inhaled Oxygen Concentration - - Weight 93.9 kg (207 lb) 01/20/2011 11:09 AM CDT Height - - Body Mass Index 33.41 01/03/2011 10:05 AM CDT documented in this encounter Progress Notes Danya Connelly - 01/20/2011 12:31 PM CDT Addended by: DANYA CONNELLY on: 01/20/2011 Modules accepted: Orders, SmartSet Adolfo Reyes MD - 01/20/2011 11:38 AM CDT SUBJECTIVE: Mindy Jacob is a 25 year old female who presents for follow up of depressive symptoms. Currentsymptoms include sleep problem., pt is still anxious about her thyroid problem.. Onset approximately3 week(s) ago; symptoms have been gradually improving. Depression risk factors: previous episode of depression. Previous history of depression: Yes Current thoughts of suicide or homicide:No Guns stored in the home: No Previous treatment modalities employed include none. REVIEW OF SYSTEMS CONSTITUTIONAL:NEGATIVE for fever, chills, change in weight OBJECTIVE: Presentation- normal:Abstract reasoning Attention and concentration Coherency and relevance of thought Dress, grooming, personal hygiene Facial expression Information Judgment Memory Mood Orientation Perceptions Posture and motor behavoir Speech Thought content,abnormal:none. ASSESSMENT: Anxiety (300.02) improved significantly. PLAN: Continue same management. \ Reviewed concept of depression as function of biochemical imbalance of neurotransmitters/rationale for treatment. Patient instructed to call for significant side effects medications or problems documented in this encounter Nursing Notes 01/20/2011 11:00 AM CDT >> MOHAN Cobian Jan 20, 2011 11:14 AM Patient presents with: Depression - f/u Initial BP 132/82 Pulse 84 Temp(Src) 97.8 ??F (36.6 ??C) (Oral) Wt 207 lb (93.895 kg) SpO2 98% LMP 12/22/2010 Estimated Body mass index is 33.41 kg/(m^2) as calculated from the following: Height as of 11: 5' 6(1.676 m). Weight as of this encounter: 207 lb(93.895 kg).. BP completed using cuff size regular-RA documented in this encounter Plan of Treatment Not on filedocumented as of this encounter Visit Diagnoses Diagnosis Generalized anxiety disorder - Primary Screening for depression documented in this encounter Care Teams Protocol Manager Relationship Specialty Start Date End Date Adolfo Reyes MD PCP - General Family Practice 01/17/11 05/11/12 [address] [place] [address] documented as of this encounter
--- OUTSIDE RECORDS SUMMARY | 2022-01-10 08:09 | XMS_ITS | Encounter Summary ---
:1985 Author Organization [facility] Address [address] [place] [address] Care Team Providers Name Role Phone Barry Galo MD Primary Care Provider [phone] Encounter Details Date Type Department Care Team Description 01/22/2010 Historic Notes INTERFACED REPORT Interface, Transcript onMD Social History Tobacco Use Types Packs/Day Years Used Date Smoking Tobacco: Never Alcohol Use Standard Drinks/Week Comments No 0 (1 standard drink = 0.6 oz pure alcoho l) Sex Assigned at Date Recorded Not on file documented as of this encounter Progress Notes Interface, Computational Chemist - 06/07/2010 4:43 PM CDT follow up. Baby is doing better and getting on the breast. Mom breastfeeds and then supplements PRN. No shield needed. Encouraged mom to call us PRN. [Signature] Author: Sarah Simms (RN) [Signed 16:17] documented in this encounter Plan of Treatment Not on filedocumented as of this encounter Visit Diagnoses Not on filedocumented in this encounter Care Teams Priming Machine Operator Relationship Specialty Start Date End Date Barry Galo MD PCP - General 04/14/03 01/16/11 [address] [place] [address] documented as of this encounter
--- OUTSIDE RECORDS SUMMARY | 2022-01-10 08:09 | XMS_ITS | Encounter Summary ---
:1985 Author Organization [place] Address [address] [place] [address] Care Team Providers Name Role Phone Barry Galo MD Primary Care Provider Encounter Details Date Type Department Care Team Description 03/02/2010 Emergency room [facility] Results EMERGENCY PHYSI MELISSA GUNTER [address] [place], [place] [address] Social History Tobacco Use Types Packs/Day Years Used Date Smoking Tobacco: Never Alcohol Use Standard Drinks/Week Comments No 0 (1 standard drink = 0.6 oz pure alcoho l) Sex Assigned at Date Recorded Not on file documented as of this encounter Progress Notes Interface, Players Assistant - 03/03/2010 7:53 AM PARTS PROCESSOR FINAL Chief Complaint - History of Present Illness - MD Time:: 14:12 - Chief Complaint: My left leg is really red - HPI: Stuart Benton is a 24 year old female who presents to the Emergency Department for evaluation of redness to the left lower extremity. Yesterday morning the patient reports onset of redness at the medial aspect of her left lower extremity/calf. She explains that the redness has progressively worsened since onset, and this afternoon the patient was evaluated at a [facility] to determine a proper course of action. The area of redness at her extremity was marked, and she was informed that she should be evaluated at the Emergency Department. Upon arrival the patient denies any trauma to the area, but does note that there is a nucleation point at the center of the area of redness. She denies any fever, chills, nausea, vomiting, urinary symptoms, or any other symptoms. Of note, the patient is seven weeks , and gave via section. This was her first . The patient is not currently breast feeding. No bug bites or trauma to the area. Medications - Medications: None Allergies Septra;Vomiting Past Medical/Family History - [facility] is positive for: section - Family History: The patient does not provide any significant family history. Social History - Is negative for Tobacco use, Illicit drug use, Alcohol use Review of Systems - - All other systems negative except - General Negative for fever, Negative for chills - Skin Positive for rash - Cardiovascular Negative for chest pain - Respiratory Negative for cough, Negative for shortness of breath - Gastrointestinal Negative for nausea, Negative for vomiting, Negative for abdominal pain - Genitourinary Negative for dysuria, Negative for urgency, Negative for frequency, Negative for hematuria - Neurological Negative for tingling, Negative for sensory change, Negative for focal weakness No history of pustules or other skin rashes. Her baby is 7 weeks old with no infections. Not . No fevers. Vital Signs-Triage Temp F: 97.3 degrees F Temp C: 36.2 degrees C Temp site: Oral Heart Rate: 113 bpm Resp Rate: 18 Pulse Oximetry: 100 Oxygen Delivery: Room air Cuff Systolic BP mmH Cuff Diastolic BP mmH Physical Exam - Constitutional Well developed, nourished, no distress present, Atraumatic, pleasant. - HENT atraumatic, right external ear normal, left external ear normal, oropharynx clear and moist, nose normal, TM's flat and white. - Eyes pupils equal, round, and reactive to light, conjunctiva normal, extraocular movements normal, no scleral icterus present - Neck range of motion normal, no meningismus present, no tracheal deviation present, no stridor present, no jugular vein distention present, no cervical adenopathy present, Trachea midline. - Cardiovascular normal rate, regular rhythm, heart sounds normal, no murmur present, no rub present, no gallop present - Pul/Chest Wall effort normal, breath sounds normal, no respiratory distress present, no wheezes present, no rales present, no chest tenderness present - Abdominal soft, bowel sounds present, no distention present, no tenderness present, no rebound present, no guarding present, no mass present, No organomegaly. - Musculoskeletal normal range of motion, no deformity present, no edema present, no tenderness present, Full ROM at joints. - Neurologic alert, oriented x3, Vallejo Coma Score is 15, DTR's normal, no cranial nerve deficit present, normal coordination, normal strength, normal sensory, No ataxia. Normal tandem gait. - Skin warm, dry, non-diaphoretic, , No petechiae. - . Round and erythematous area at the left medial calf measures 10cm vertically and 11 cm horizontally (warmth with redness in a circular pattern). Does not involve the knee or ankle. No fluctuance, no pustules or hardness to suggest abscess at this time. Compartments at knee nontenderwith positive popliteal and DP/PT pulses. No lympangitic streaks up leg. No obvious center lesion tosuggest skin violation. - Psychiatric not suicidal, homicidal, psychotic or delusional - Heme/Lymph no lymphadenopathy, ... - . No bruising. No contusions. Back: No midline spinal tenderness. No CVA tenderness. Extremities: No clubbing, cyanosis, or edema. Intact distal pulses x4. No deformities to palpation. Normal ROM at knee and ankle. Diagnostic information - -: Imaging: Ultrasound Venous Lower Extremity Left: Per Radiologist: No evidence of DVT. \n ED Course: Interventions/Consultations/Procedures - -: ED Course: The patient's medical record and nursing notes were reviewed. The patient's vitals were obtained as above. A physical examination was performed. The patient was reassured concerning her symptoms. An ultrasound workup was obtained. On recheck the workup findings were discussed with the patient and all questions were answered to the patient's satisfaction. The patient was provided with appropriate follow up instructions. The patient was prescribed Augmentin. The patient was discharged to home in stable condition. Indications for return to the Emergency Department were reviewed. The patient was aware of the plan and was in agreement. All questions were addressed to the patient's satisfaction. \n Medical Decision Making - -: Differential diagnosis includes cellulitis versus abscess versus DVT vs joint infection. \n The ultrasound does not show any evidence of DVT. I have outlined the wound. It appears to be on her left medial calf. There is a cellulitis which appears to be [id number]. The plan is to have the patient take antibiotics. She is aware that she may have side effects of diarrhea. She will come back for increased redness, hardness, any signs of abscess such as a pustule. She will take all her antibiotics. \n Diagnosis - -: 1. Left Lower extremity Calf Cellulitis \n Disposition Plan - -: Discharge to home. She will be prescribed Augmentin BID x7 days. \n Scribe Disclosure I, Cheryle Fritz ,am serving as a scribe to document services personally performed by Dr. Claudio, based on my observations and the provider's statements to me. Electronically signed on 03/03/2010 07:53 by CASANDRA CLAUDIO MD As dictated by CHERYLE FRITZ MT: Name: STUART BENTON Account: [id number] : 1985 Visit Date: 03/02/2010 Document: [id number] cc: Barry Galo MD S PROCESSOR documented in this encounter Plan of Treatment Not on filedocumented as of this encounter Visit Diagnoses Not on filedocumented in this encounter Care Teams Physician Obstetrician Relationship Specialty Start Date End Date Barry Galo MD PCP - General 04/14/03 01/16/11 [address] [place] [address] documented as of this encounter
--- OUTSIDE RECORDS SUMMARY | 2022-01-10 08:09 | XMS_ITS | Encounter Summary ---
:1985 Author Organization [place] Address [address] [place] [address] Care Team Providers Name Role Phone Barry Galo MD Primary Care Provider Encounter Details Date Type Department Care Team Description 09/09/2010 Hospital Laboratory [facility] Rudy Diaz MD [facility]GENC[facility] Results [place] [address] [place], [place] [address] (Wo rk) Social History [...] Procedure Name Priority Date/Time Associated Comments Diagnosis CBC WITH PLATELETS & STAT 09/09/2010 6:55 PM R esults for this DIFFERENTIAL CDT procedure are i n the results section. HCG QUALITATIVE STAT 09/09/2010 6:55 PM Result s for this CDT procedure are i n the results section. WET PREPARATION STAT 09/09/2010 6:47 PM Result s for this CDT procedure are i n the results section. NEISSERIA GONORRHOEAE STAT 09/09/2010 6:47 PM Results for this PCR CDT procedure are i n the results section. CHLAMYDIA TRACHOMATIS STAT 09/09/2010 6:47 PM Results for this PCR CDT procedure are i n the results section. ROUTINE UA WITH STAT 09/09/2010 6:35 PM Result s for this MICROSCOPIC CDT procedure are i n the results section. documented in this encounter Results HCG qualitative (09/09/2010 6:55 PM CDT) [facility] Method Time Signature HCG Qualitative Negative NEG [facility] LAB Specimen Anatomical Collection Method Collection Time Receive d Time (Source) Location / / Volume Laterality 09/09/2010 6:55 PM 1 6:59 CDT PM CDT Garry Diaz MD LAB - BLOOD ORDERABLES Performing Organization Address City/State/ZIP Code Phon e Number [facility] [address] [place], [place] [address] [facility] LAB CBC with platelets differential (09/09/2010 6:55 PM CDT) [facility] Method Time Signature WBC 5.9 4.0 - [place] 11.0 [facility] 109/[facility] RBC Count 4.63 3.8 - 5.2 [place] 10e12/L [facility] Hemoglobin 14.0 11.7 - [place] 15.7 g/dL [facility] Hematocrit 40.9 35.0 - [place] 47.0 % [facility] MCV 88 78 - 100 [facility] LAB MCH 30.2 26.5 - [facility] 33.0 pg [facility] MCHC 34.2 31.5 - [place] 36.5 g/dL [facility] RDW 13.0 10.0 - [place] 15.0 % [facility] Platelet Count 183 150 - 450 [place] 10e9/L [facility] Diff Method Automated [facility] LAB % Neutrophils 72.6 40 - 75 % [facility] LAB % Lymphocytes 22.5 20 - 48 % [facility] % Monocytes 4.4 0 - 12 % [facility] % Eosinophils 0.3 0 - 6 % [facility] % Basophils 0.2 0 - 2 % [facility] Absolute 4.3 1.6 - 8.3 [place] Neutrophil 10e9/L [facility] Absolute 1.3 0.8 - 5.3 [place] Lymphocytes 10e9/L [facility] Absolute 0.3 0.0 - 1.[address] LAB Absolute 0.0 0.0 - 0.[address] LAB Absolute 0.0 0.0 - 0.[address] LAB Specimen Anatomical Collection Method Collection Time Receive d Time (Source) Location / / Volume Laterality 09/09/2010 6:55 PM 1 6:59 CDT PM CDT Garry Diaz MD LAB - BLOOD ORDERABLES Performing Organization Address City/State/ZIP Code Phon e Number [facility] [address], [place] [address] [facility] Neisseria gonorrhoeae PCR (09/09/2010 6:47 PM CDT) Component Value Ref Test Analysis Performed At [email or web address] [place] Method Time Signature Specimen Cervical [facility] LAB N Gonorrhea Negative for N. gonorrhoeae rRNA by transport nurse mediated amplification. FUM PCR A negative result by transc ription mediated amplification does not preclude the [place] presence of N. gonorrhoeae infection because re sults are dependent on proper CAMPUS LABS and adequate collection, absence of inhibitors, and suffici ent rRNA to be detected. Specimen Anatomical Collection Method Collection Time Receive d Time (Source) Location / / Volume Laterality 09/09/2010 6:47 PM 1 9:06 CDT PM CDT Barry Galo MD LAB - MICRO GENERAL ORDERABL ES Performing Organization Address City/State/ZIP Code Phon e Number [address] [address] [facility] Chlamydia trachomatis PCR (09/09/2010 6:47 PM CDT) Component Value Ref Test Analysis Performed At [email or web address] [place] Method Time Signature Specimen Cervical [facility] LAB Chlamydia Negative for C. trachomatis rRNA by transport nurse mediated amplification. [facility] Trachomatis A negative result by transc ription mediated amplification does not preclude the [place] PCR presence of C. trachomatis infection because results are dependent on proper CAMPUS LABS and adequate collection, absence of inhibitors, and suffici ent rRNA to be detected. Specimen Anatomical Collection Method Collection Time Receive d Time (Source) Location / / Volume Laterality 09/09/2010 6:47 PM 1 9:06 CDT PM CDT Barry Galo MD LAB - MICRO GENERAL ORDERABL ES Performing Organization Address City/State/ZIP Code Phon e Number [facility] [address] [place] [address] [facility] Wet prep (09/09/2010 6:47 PM CDT) [facility] Method Time Signature Specimen Vagina [place] Description [facility] Wet Prep Few PMNs seen [place] No yeast seen [facility] No Trichomonas seen [facility] No clue cells seen Micro Report FINAL [place] Status 09/09/2010 [facility] Specimen Anatomical Collection Method Collection Time Receive d Time (Source) Location / / Volume Laterality 09/09/2010 6:47 PM 1 9:06 CDT PM CDT Barry Galo MD LAB - MICRO GENERAL ORDERABL ES Performing Organization Address City/[facility]/ZIP Code Phon e Number [place] [address] [place], [place] [address] [facility] (ABNORMAL) Routine UA with microscopic (09/09/2010 6:35 PM CDT) [facility] Method Time Signature Color Urine Yellow [facility] LAB Appearance Urine Clear [facility] Glucose Urine Negative NEG mg/dL [facility] LAB Bilirubin Urine Negative NEG [facility] Ketones Urine Negative NEG mg/dL [facility] LAB Specific Staples 1.005 1.003 - [place] Urine 1.035 [facility] Blood Urine Small (A) NEG [facility] LAB pH Urine 8.0 (H) 5.0 - 7.0 [place] pH [facility] Protein Albumin 10 (A) NEG mg/dL [facility] LAB Urobilinogen Normal 0.0 - 2.0 [place] mg/dL mg/dL [facility] Nitrite Urine Negative NEG [facility] Leukocyte Negative NEG [place] Esterase Urine [facility] Source Midstream [place] Urine [facility] WBC Urine 0 0 - 2 [place] /HPF [facility] RBC Urine 0 0 - 2 [facility] /HPF [facility] Squamous 2 (H) 0 - 1 [place] Epithelial /HPF /HPF [facility] Urine [facility] LAB Specimen Anatomical Collection Method Collection Time Receive d Time (Source) Location / / Volume Laterality 09/09/2010 6:35 PM 1 6:44 CDT PM CDT Garry Diaz MD LAB - URINE ORDERABLES Performing Organization Address City/State/ZIP Code Phon e Number [facility] [address] [place], [place] [address] [facility] documented in this encounter Visit Diagnoses Not on filedocumented in this encounter Care Teams Drilling Field Professional Relationship Specialty Start Date End Date Barry Galo MD PCP - General 04/14/03 01/16/11 [address] [place] [address] documented as of this encounter
--- OUTSIDE RECORDS SUMMARY | 2022-01-10 08:09 | XMS_ITS | Encounter Summary ---
:1985 Author Organization [place] Address [address] [place] [address]. [place] [address] Care Team Providers Name Role Phone Barry Galo MD Primary Care Provider [phone] Encounter Details Date Type Department Care Team Description 01/18/2010 Historic Notes INTERFACED REPORT Interface, Transcript onMD Social History Tobacco Use Types Packs/Day Years Used Date Smoking Tobacco: Never Alcohol Use Standard Drinks/Week Comments No 0 (1 standard drink = 0.6 oz pure alcoho l) Sex Assigned at Date Recorded Not on file documented as of this encounter Progress Notes Interface, Order Clerk - 06/07/2010 4:57 PM CDT follow up. Pumping for latch difficulty. Feels like baby is pinching, still using the shield. Mom would like another call on Thursday for progress. [Signature] Author: Sarah Simms (RN) [Signed 16:41] documented in this encounter Plan of Treatment Not on filedocumented as of this encounter Visit Diagnoses Not on filedocumented in this encounter Care Teams Glove Cuffer Relationship Specialty Start Date End Date Barry Galo MD PCP - General 04/14/03 01/16/11 [address] [place] [address] documented as of this encounter
--- OUTSIDE RECORDS SUMMARY | 2022-01-10 08:09 | XMS_ITS | Encounter Summary ---
:1985 Author Organization [place] Address [address] [place] [address]. [place] [address] Care Team Providers Name Role Phone Barry Galo MD Primary Care Provider Encounter Details Date Type Department Care Team Description 01/12/2010 Historic Results [facility] Jeniffer Piper MD [facility] ED-[place] CONSULT [address] [place] [address] (Wo rk) Social History Tobacco Use Types [...] Diagnosis Comme nts CBC WITH PLATELETS Routine 01/12/2010 7:15 AM Res ults for this CDT procedure are i n the results section. documented in this encounter Results (ABNORMAL) CBC with platelets (01/12/2010 7:15 AM CDT) Analysis Performed At Patho logist Time Signature MCV 94 78 - 100 [facility] fl MCH 31.8 26.5 - [facility] 33.0 pg MCHC 33.8 31.5 - [facility] 36.5 g/dL RDW 13.2 10.0 - [facility] 15.0 % WBC 10.0 4.0 - 11.0 [facility] 10e9/L RBC Count 3.24 (L) 3.8 - 5.2 [facility] 10e12/L Hemoglobin 10.3 (L) 11.7 - [facility] 15.7 g/dL Hematocrit 30.5 (L) 35.0 - [facility] 47.0 % Platelet Count 113 (L) 150 - 450 [facility] 10e9/L Specimen (Source) Anatomical Collection Method Collection Time Re ceived Time Location / / Volume Laterality 01/12/2010 7:15 AM 0 CDT Valery Piper MD LAB - BLOOD ORDERABLES Performing Organization Address City/State/ZIP Code Phon e Number [facility] documented in this encounter Visit Diagnoses Not on filedocumented in this encounter Care Teams Recovery Manager Relationship Specialty Start Date End Date Barry Galo MD PCP - General 04/14/03 01/16/11 [address] [place] [address] documented as of this encounter
--- OUTSIDE RECORDS SUMMARY | 2022-01-10 08:09 | XMS_ITS | Encounter Summary ---
:1985 Author Organization [place] Address [address] [place] [address] Care Team Providers Name Role Phone Adolfo Reyes MD Primary Care Provider Encounter Details Date Type Department Care Team Description 02/05/2011 Orders Only [facility] Abstract, Provider DIAG NOSIS NOT YET [facility] [place] DEFINED (Primary Dx) [address] [place] [address] Social History Tobacco Use Types [...] Date/Time Associated Diagnosis Comme nts TSH Routine 02/05/2011 DIAGNOSIS NOT YET Results fo r this DEFINED procedure are i n the results section . ABSTRACT [facility] Routine 02/05/2011 DIAGNOSIS NOT YET REPORT DEFINED documented in this encounter Results TSH (02/05/2011) P athologist Signature TSH 2.35 mcU/mL [facility] Specimen (Source) Anatomical Location Collection Method / Collectio n Time Received Time / Laterality Volume Blood specimen (specimen) Provider Abstract LAB - BLOOD ORDERABLES Performing Organization Address City/State/ZIP Code Phon e Number [facility] ABSTRACT [facility] REPORT (02/05/2011) Narrative This result has an attachment that is no t available. Provider Abstract LABORATORY Performing Organization Address City/State/ZIP Code Phon e Number [facility] documented in this encounter Visit Diagnoses Diagnosis DIAGNOSIS NOT YET DEFINED - Primary documented in this encounter Care Teams Computer Security Manager Relationship Specialty Start Date End Date Adolfo Reyes MD PCP - General Family Practice 01/17/11 05/11/12 [address] [place] [address] documented as of this encounter
--- OUTSIDE RECORDS SUMMARY | 2022-01-10 08:09 | XMS_ITS | Encounter Summary ---
:1985 Author Organization [place] Address [address] [place] [address]. [place] [address] Care Team Providers Name Role Phone Barry Galo MD Primary Care Provider [phone] Reason for Visit (Routine) - Closed Specialty Diagnoses / Procedures Referred By Contact Refer red To Contact Radiology Diagnoses US THYROID Procedure Notes: Thyroid nodule Rh Ultrasound Procedures RADIOLOGY [address] [place], [place] [address] Phone: Fax: Referral ID Status Reason Start Date Expiration Date Visits Requ ested Visits Authorized [id number] Closed 01/04/2011 01/04/2012 1 1 Encounter Details Date Type Department Care Team Description 01/07/2011 Hospital Encounter [facility] Adolfo Reyes MD Thyroid nodule [facility] [address] [place], [place] [id number] Social History Tobacco Use Types Packs/Day [...] (ZOLOFT) 50 MG Take 1 tablet by 30 tablet 1 12/2101/20/2011 tabletIndications: mouth daily. Take Generalized anxiety half a pill for 1 disorder week. TRAZodone (DESYREL) 50 MG Take 1 tablet by 30 tablet 3 12/2101/20/2011 tabletIndications: mouth nightly as Generalized anxiety needed for sleep. disorder documented as of this encounter Plan of Treatment Not on filedocumented as of this encounter Procedures Procedure Name Priority Date/Time Associated Diagnosis Comme nts US THYROID Routine 01/07/2011 11:31 AM Thyroid nodule Result s for this CDT procedure are i n the results section . documented in this encounter Results US Thyroid (01/07/2011 11:31 AM CDT) Anatomical Region Laterality Modality Head Ultrasound Specimen (Source) Anatomical Collection Method Collection Time Re ceived Time Location / / Volume Laterality 01/07/2011 11:31 AM CDT Impressions 01/07/2011 4:41 PM CDT THYROID ULTRASOUND Jan 07, 2011 11:31:00 AM HISTORY: ??Thyroid nodule FINDINGS: The right lobe of the thyroid measures 4 .8 x 1.4 x 1.2 cm. The left lobe of the thyroid measures 4. 7 x 3.1 x 2.4 cm. Thyroid parenchyma is normal in [facility] except for a large dominant nodule in the left of the thyro id. Individual nodules measured as follows: Right lobe: No discrete nodules identified Left lobe: 3.5 x 3.0 x 2.2 cm solid minimally compl ex nodule occupying most of the left thyroid. IMPRESSION: large dominant complex but p redominantly solid left-sided nodule. Adolfo Reyes MD IMG US ORDERABLES documented in this encounter Visit Diagnoses Diagnosis Thyroid nodule Nontoxic uninodular goiter documented in this encounter Care Teams Channel Director Relationship Specialty Start Date End Date Barry Galo MD PCP - General 04/14/03 01/16/11 [address] [place] [address] documented as of this encounter
--- OUTSIDE RECORDS SUMMARY | 2022-01-10 08:09 | XMS_ITS | Encounter Summary ---
:1985 Author Organization [place] Address [address] [place] [address]. [place] [address] Care Team Providers Name Role Phone Adolfo Reyes MD Primary Care Provider Encounter Details Date Type Department Care Team Description 05/13/[address] [facility] Isidro Wolfe, DO [facility] ANEST[facility]IA [address] [place] [address] PeriOp Services Yassine Chen APRN ADVICE LINE RN S [facility] [address] [place] [address] [address] [place] [address] Anesthesia Record Procedure Summary Procedure Name Responsible Anesthesia Start Anesthesia Stop Time Anesthesiologist Time Left Thyroid Isidro Wolfe DO 05/13/11 0839 05/13/11 10 30 Lobectomy (Left: Neck) Events Date Time Event Comment 05/13/2011 0839 0839 An Start 0845 An Start Data 0851 An Induction 0854 An Intubation 1030 An Stop Name Total ceFAZolin (ANCEF) IVPB 2 g 2 g Agents No agents on file. Blood No blood administrations on file. Lines, Drains, and Airways Type Details Placement Removal Urethral Catheter 05/13/11; 16 fr 05/13/11 0000 by 05/13/11 1917 by Callie Winters RN Nygaard, J enna Rose, RN Closed/Suction Drain 05/13/11; 1; Neck; Bulb; 05/13/11 0000 by 0 05/14/11 1001 by 10 Callie Carcamo RN Kruell, Sa ra Rolando RETIRED ETT 05/13/11; 0854; Cuffed; 05/13/11 0854 by 2 1024 by Oral endotracheal tube; Yassine Chen, SYSTEM ADMINISTRATION ADVISOR Yassine Clay, Blade Type: Pacheco; ADVICE LINE RN SYSTEM ADMINISTRATION ADVISOR ADVICE LINE RN Blade Size: 2; Place by: MDT; Insertion Attempts: 1; Secured at (cm)to lip: 21 cm; Breath Sounds: Equal, clear and bilateral; End Tidal CO2: Present; Dentition: Intact; Grade View of Cords: 1 Incision/Surgical 05/13/11; 0919; Neck; 05/13/11 0919 by 2 1321 by Site 07/04/11; 1321 Callie Winters RN Braun, Sha wnda, RN documented in this encounter Social History Tobacco Use Types Packs/Day Years Used Date Smoking Tobacco: Never Smokeless Tobacco: Never Alcohol Use Standard Drinks/Week Comments No 0 (1 standard drink = 0.6 oz pure alcoho l) Sex Assigned at Date Recorded Not on file documented as of this encounter OR Notes Anesthesia Postprocedure Evaluation - Jim Mcconnell MD - 05/13/2011 1:07 PM CST Anesthesia Post-Evaluation Note Patient: Mindy Jacob Patient Condition Respiratory Function (RR / SpO2 / Airway Patency): Satisfactory Cardiac Function (HR / Rhythm / BP): Satisfactory Mental Status: Satisfactory Temperature: Satisfactory Pain Control: Satisfactory PONV: None or treated Beta-Brock Therapy: None indicated, given if indicated Blood pressure 139/82, temperature 97.4 ??F (36.3 ??C), temperature source Oral, resp. rate 16, height 1.702 m (5' 7.01), weight 93.8 kg (206 lb 12.7 oz), last menstrual period 05/02/2011, SpO2 99.00%. Additional Comments: Doing Well AKollitzMD ND SPECIALIST Anesthesia Preprocedure Evaluation - Isidro Wolfe DO - 05/13/2011 9:15 AM CST Anesthesia Evaluation history and physical reviewed . ROS/MED HX Pulmonary: - neg pulmonary ROS Neurologic: - neg neurologic ROS Cardiovascular: - neg cardiovascular ROS METS/Exercise Tolerance: Hematologic: - neg hematologic ROS Musculoskeletal: - neg musculoskeletal ROS GI/Hepatic: - neg GI/hepatic ROS Renal: - neg renal ROS Endo: - neg endo ROS (+) thyroid problem Thyroid disease - Other, Psychiatric: - neg psychiatric ROS Infectious Disease: - neg infectious disease ROS Other: - neg other ROS Physical Exam Normal systems: cardiovascular, pulmonary and dental Airway Dental Cardiovascular Rhythm and rate: regular and normal Pulmonary breath sounds clear to auscultation Anesthesia Plan ASA Score 1 . Plan for General and ETT with Inhalation induction. Maintenance will be Inhalation and Balanced. Routine analgesia and antiemetics to be used for post-operative care. Anesthetic plan, risks, benefits and alternatives discussed with: patient or office machines sales representative. . ND SPECIALIST documented in this encounter Miscellaneous Notes Anesthesia Care Transfer Note - Yassine Chen APRN CRNA - 05/13/2011 10:30 AM CST Anesthesia Care Transfer Note Patient: Mindy Jacob Transferred to: PACU Patient vital signs: stable Airway: none ND SPECIALIST documented in this encounter Plan of Treatment Not on filedocumented as of this encounter Visit Diagnoses Not on filedocumented in this encounter Administered Medications Inactive Administered Medications - up to 3 most recent administrations Medication Order MAR Action Action Date Dose Rate Site ceFAZolin (ANCEF) IVPB 2 g Given 05/13/2011 8:40 AM REFUND SPECIALIST 2 g Routine, 2 g, Intravenous, PRE-OP/PRE-PROCEDURE, Starting on Thu05/13/11 at 0745, For 1 dose, Give first dose within 1 hour PRIOR to incision., Pre-procedure documented in this encounter Care Teams Mat Weaver Relationship Specialty Start Date End Date Adolfo Reyes MD PCP - General Family Practice 01/17/11 05/11/12 [address] [place] [address] documented as of this encounter
--- OUTSIDE RECORDS SUMMARY | 2022-01-10 08:10 | XMS_ITS | Encounter Summary ---
:1985 Author Organization [place] Address [address] [place] [address] Care Team Providers Name Role Phone Barry Galo MD Primary Care Provider Reason for Visit Reason Comments Allied Health Visit drug allergy question Encounter Details Date Type Department Care Team Description 12/25/2009 Allied Health/Nurse Health [place] All ied Health Visit Visit Clinic [place] (drug allergy question) [address] [place] [phone] Social History Tobacco Use Types Packs/Day Years Used Date Smoking Tobacco: Never Alcohol Use Standard Drinks/Week Comments No 0 (1 standard drink = 0.6 oz pure alcoho l) Sex Assigned at Date Recorded Not on file documented as of this encounter Progress Notes Meng Bar - 12/25/2009 4:29 PM CDT Patient walks in to clinic to review her medication allergies. She is due to deliver baby boy 01/10/10. 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 Informed of her med allergies that we have listed and she offered that she has taken amoxicillin in the past without an allergic response. Patient advised to follow OB's recommendation. We also discussed that there will be immediate help available if allergic response develops during delivery. Patient verbalized understanding. Meng Bar RN documented in this encounter Plan of Treatment Not on filedocumented as of this encounter Visit Diagnoses Not on filedocumented in this encounter Care Teams Beef Pluck Trimmer Relationship Specialty Start Date End Date Barry Galo MD PCP - General 04/14/03 01/16/11 [address] [place] [address] documented as of this encounter
--- OUTSIDE RECORDS SUMMARY | 2022-01-10 08:10 | XMS_ITS | Encounter Summary ---
:1985 Author Organization [place] Address [address] [place] [address] Care Team Providers Name Role Phone Unavailable Primary Care Provider Unavailable Reason for Visit Reason Comments Flu Shot Encounter Details Date Type Department Care Team Description 02/06/2003 Allied Health/Nurse Health [place] [facility] Flu Shot Visit [place] [phone] Social History Tobacco Use Types Packs/Day Years Used Date Smoking Tobacco: Never Assessed Sex Assigned at Date Recorded Not on file documented as of this encounter Nursing Notes 02/06/2003 4:15 PM CST >> TAYA CRUZ 02/06/2003 3:30 pm Pt and/or guardian denies allergic reaction to eggs,moderate or severe illness today, reaction to any previous flu shot or history of GBS. pneumovax also given Taya Cruz RN documented in this encounter Plan of Treatment Not on filedocumented as of this encounter Visit Diagnoses Diagnosis Need for prophylactic vaccination and in oculation against influenza - Primary documented in this encounter
--- OUTSIDE RECORDS SUMMARY | 2022-01-10 08:10 | XMS_ITS | Encounter Summary ---
:1985 Author Organization [place] Address [address] [place] [address] Care Team Providers Name Role Phone Barry Galo MD Primary Care Provider Reason for Visit Reason Onset Date Comments Results 05/28/2009 Ultrasound Encounter Details Date Type Department Care Team Description 05/28/2009 Telephone [facility] Barry Galo Result s (Ultrasound) Clinic [place] MD Art [address] [place] [id number] [phone] (Wo rk) Social History Tobacco Use Types Packs/Day Years Used Date Smoking Tobacco: Never Alcohol Use Standard Drinks/Week Comments No 0 (1 standard drink = 0.6 oz pure alcoho l) Sex Assigned at Date Recorded Not on file documented as of this encounter Miscellaneous Notes Telephone Encounter - Gerhard Gutierrez - 05/30/2009 4:35 PM FLIGHT LINE MECHANIC Addended by: GERHARD GUTIERREZ on: 05/30/2009 Modules accepted: Orders HT LINE MECHANIC Telephone Encounter - Gerhard Gutierrez - 05/30/2009 4:35 PM CST [facility] radiology calls back, needs u/s order changed to first trimester, ordered, sent Gerhard Gutierrez RN HT LINE MECHANIC Telephone Encounter - Vojaneth Gerhard - 05/30/2009 4:19 PM FLIGHT LINE MECHANIC Addended by: JOSUE GERHARD on: 05/30/2009 Modules accepted: Orders HT LINE MECHANIC Telephone Encounter - Michaeljaneth Gerhard - 05/30/2009 4:19 PM CST [facility] calls, needs u/s orders faxed to [facility] at [phone], also needs transvaginal sent, done Gerhard Gutierrez RN HT LINE MECHANIC Telephone Encounter - Pema Headley - 05/28/2009 1:06 PM CST Spoke with PT on phone regarding // ultrasound results and informed PT to F/U ultrasound in [address] Davison reccommendations. Pema Headley CMA HT LINE MECHANIC documented in this encounter Plan of Treatment Not on filedocumented as of this encounter Procedures Procedure Name Priority Date/Time Associated Diagnosis Comme nts HC US OB 1ST Routine 07/12/2009 11:21 AM Absence of Results for this TRIMESTER CDT menstruation procedure are in MAT/, SINGLE bradycardia the r esults GESTATION section. documented in this encounter Results US, PREG UTER, REAL TIME W/IMAGE DOCUMENT, & MATERNAL, 1ST TRIMEST, TRANSABDOM; SINGL/1ST GEST (07/12/2009 11:21 AM CDT) Anatomical Region Laterality Modality Other Specimen (Source) Anatomical Collection Method Collection Time Re ceived Time Location / / Volume Laterality 07/12/2009 11:21 AM CDT Impressions 07/19/2009 9:35 AM CDT ULTRASOUND OBSTETRIC ??FIRST TRIMESTER A 2009 11:21 AM INDICATION: cardiac activity low f ollow up. Patient is 10 weeks. COMPARISON: 05/24/2009. FINDINGS: Transabdominal ultrasound demo nstrates a single live IUP of 12 weeks, 5 days based on crown-rump dick gth. heart rate is 150-156 on several measurements. No subc horionic hemorrhage or other abnormality seen. The right ovary is neg ative. Left ovary is not seen. No free fluid. The estimated date of del gladys is 01/19/2010. IMPRESSION: Single live IUP 12 weeks, 5 days. No abnormality seen. Barry Galo MD SPECIAL IMAGING STUDIES documented in this encounter Visit Diagnoses Diagnosis Absence of menstruation bradycardia Abnormality in heart rate or rhyth m, unspecified as to time of onset documented in this encounter Care Teams Cigar Packing Examiner Relationship Specialty Start Date End Date Barry Galo MD PCP - General 04/14/03 01/16/11 [address] [place] [address] documented as of this encounter
--- OUTSIDE RECORDS SUMMARY | 2022-01-10 08:10 | XMS_ITS | Encounter Summary ---
:1984 Author Organization [place] Address [address] [place] [address]. [place] [address] Care Team Providers Name Role Phone Barry Galo MD Primary Care Provider Reason for Visit Reason Comments RECHECK medication Encounter Details Date Type Department Care Team Description 01/09/2004 Office Visit [facility] Barry Galo PHOBIA NOS (Primary Clinic Codie Cordova MD Dx) [address] [place] [phone] [phone] Social History Tobacco Use Types Packs/Day Years Used Date Smoking Tobacco: Never Alcohol Use Standard Drinks/Week Comments No 0 (1 standard drink = 0.6 oz pure alcoho l) Sex Assigned at Date Recorded Not on file documented as of this encounter Last Filed Vital Signs Vital Sign Reading Time Taken Comments Blood Pressure 122/80 01/09/2004 10:52 AM CDT Pulse - - Temperature - - Respiratory Rate - - Oxygen Saturation - - Inhaled Oxygen Concentration - - Weight - - Height - - Body Mass Index - - documented in this encounter Progress Notes 01/09/2004 10:30 AM CDT Inventory of mental status shows issues with anxiety and frequent panic episodes with some depression. Discussed regarding anxiety, sleep, anhedonia, irritability, energy, perspective, self image, affect, current stressors, holistic parameters, work situation, physical and social mitigating factors. Past history has included panic episodes and positive family history. Prior treatment has included ssri and talk therapy is ongoing with new counsellor online for November. Not suicidal. No problems with vision, hearing, thyroid, chest pain, dyspnea,rash, stomach upset, polyuria, polydipsia, dysuria,muscle aches, numbness, cough, tics or balance issues. Memory is unaffected . YOLY,thyroid normal, lungs clear, s1s2,soft abdoman, symmetrical dtrs, no abdominal mass,good peripheral pulses, vs stable. Anxiety and panic disorder documented in this encounter Nursing Notes 01/09/2004 10:30 AM CDT >> TRAMAINE GANN 01/09/04 10:52 am Mindy Benton presents for follow up on medication. Initial BP 122/80. BP completed using cuff size: regular. Tramaine Gann MA documented in this encounter Plan of Treatment Not on filedocumented as of this encounter Visit Diagnoses Diagnosis Phobia, unspecified - Primary documented in this encounter Care Teams Deck Supervisor Relationship Specialty Start Date End Date Barry Galo MD PCP - General 04/14/03 01/16/11 [address] [place] [address] documented as of this encounter
--- OUTSIDE RECORDS SUMMARY | 2022-01-10 08:10 | XMS_ITS | Encounter Summary ---
:1984 Author Organization [place] Address [address] [place] [address] Care Team Providers Name Role Phone Barry Galo MD Primary Care Provider [phone] Reason for Visit Reason Comments Physical with pap Medication Request Encounter Details Date Type Department Care Team Description 08/10/2008 Office Visit [facility] Barry Galo Physical Examination (Primary Dx); [facility] [place] [address] [phone] [phone] Social History Tobacco Use Types Packs/Day Years Used Date Smoking Tobacco: Never Alcohol Use Standard Drinks/Week Comments No 0 (1 standard drink = 0.6 oz pure alcoho l) Sex Assigned at Date Recorded Not on file documented as of this encounter Last Filed Vital Signs Vital Sign Reading Time Taken Comments Blood Pressure 110/64 08/10/2008 10:42 AM CDT Pulse 68 08/10/2008 10:42 AM CDT Temperature 36.7 ??C (98.1 ??F) 08/10/2008 10:42 AM CDT Respiratory Rate - - Oxygen Saturation - - Inhaled Oxygen Concentration - - Weight 72.6 kg (160 lb) 08/10/2008 10:42 AM CDT Height 167.6 cm (5' 6) 08/10/2008 10:42 AM CDT Body Mass Index 25.82 08/10/2008 10:42 AM CDT documented in this encounter Progress Notes Barry Galo - 08/10/2008 12:53 PM CDT Inventory of mental status shows issues with anxiety and depression. Discussed regarding anxiety, sleep, anhedonia, irritability, energy, perspective, self image, affect, current stressors, holistic parameters, work situation, physical and social mitigating factors. Past history has included prior episodes and pos family history. 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 Suicidal ideation is absent. No problems with vision, hearing, thyroid, chest pain, dyspnea,rash, stomach upset, polyuria, polydipsia, dysuria,muscle aches, numbness, cough, tics or balance issues. Memory is unaffected . YOYL,thyroid normal, lungs clear, s1s2,soft abdoman, symmetrical dtrs, no abdominal mass,good peripheral pulses, vs stable. Discussed ssri options, talk therapy and follow up documented in this encounter Nursing Notes 08/10/2008 10:30 AM CDT >> TRAMAINE GANN [facility] August 10, 2008 10:46 AM Patient presents with: Physical - with pap Medication Request Initial BP 110/64 Pulse 68 Temp (Src) 98.1 ??F (36.7 ??C) (Oral) Ht 5' 6 (1.676 m) Wt 160 lb (72.576 kg) LMP 08/03/2008 Body mass index is 25.82 kg/(m^2).. BP completed using cuff size large LMP:08/03/08 Last Pap:07/2007 - normal Last Mammo:n/a Last Dexa:n/a Last Colonoscopy:n/a SBE:yes Last Td:08/10/08 Tramaine Gann CMA documented in this encounter Plan of Treatment Not on filedocumented as of this encounter Visit Diagnoses Diagnosis Routine physical examination - Primary Routine general medical examination at a health care facility Anxiety Anxiety state, unspecified documented in this encounter Care Teams Supervisor Assembly Relationship Specialty Start Date End Date Barry Galo MD PCP - General 04/14/03 01/16/11 [address] [place] [address] documented as of this encounter
--- OUTSIDE RECORDS SUMMARY | 2022-01-10 08:10 | XMS_ITS | Encounter Summary ---
:1984 Author Organization [place] Address [address] [place] [address]. [place] [address] Care Team Providers Name Role Phone Barry Galo MD Primary Care Provider [phone] Reason for Visit Reason Comments Anxiety Encounter Details Date Type Department Care Team Description 04/14/2003 Office Visit [facility] Barry Galo ACUTE STRESS REACT NOS; Clinic [address] MD Art DEPRESSIVE DISORDER [address] [address] [phone] Social History Tobacco Use Types Packs/Day Years Used Date Smoking Tobacco: Never Assessed Sex Assigned at Date Recorded Not on file documented as of this encounter Last Filed Vital Signs Vital Sign Reading Time Taken Comments Blood Pressure 120/72 04/14/2003 2:00 PM AIRPORT OPERATIONS OFFICER Pulse 90 04/14/2003 2:00 PM AIRPORT OPERATIONS OFFICER Temperature - - Respiratory Rate - - Oxygen Saturation - - Inhaled Oxygen Concentration - - Weight 70.3 kg (155 lb) 04/14/2003 2:00 PM AIRPORT OPERATIONS OFFICER Height - - Body Mass Index 24.28 11/29/2002 3:30 PM CDT Body Mass Index Percentile 76.47 % 04/14/2003 2:00 PM CS T Growth Chart: CDC (Girls, 2-20 Years) documented in this encounter Progress Notes 04/14/2003 2:00 PM AIRPORT OPERATIONS OFFICER SUBJECTIVE: CC: Mindy Benton is a 17 year old female who presents for follow up of depressive pro blems with ocd and panic problems. Fired from her job for phobic behavior. HPI: prior history with a ssociated phobic componant and history of celexa 20 and risperdal .25 Father attends with her. PRO BLEM LIST: There is no problem list on file for this patient. PAST MEDICAL HISTORY: Review of patient's past medical history indicates: ESOTROPIA NOS VARICELLA UNCOMPLICATED PAST SURGICAL HISTORY: Review of patient's past surgical history indicates: NONSPECIFIC PROCEDURE 1993 & Comment: Eye surgeries CURRENT MEDICATIONS: Cu rrent prescriptions: RISPERDAL 0.25 MG OR TABS 1 TABLET TWICE DAILY IMITREX 50 MG OR TABS as directed FAMILY HISTORY: Patient's family history None on file HEALTH MAINTENANCE: REVIEW OF OUTSIDE RECORDS: YES - Date: 2001 REVIEW OF SYSTEMS: C: NEGATIVE for fever, c hills, change in weight I: NEGATIVE for worrisome rashes, moles or lesions E/M: NEGATIVE for ear, kayleigh th and throat problems R: NEGATIVE for significant cough or SOB CV: NEGATIVE for chest pain, palpitat ions or peripheral edema GI: NEGATIVE for nausea, abdominal pain, heartburn, or change in bowel habit s : NEGATIVE for frequency, dysuria, or hematuria M: NEGATIVE for significant arthralgias or myalgi a N: NEGATIVE for weakness, dizziness or paresthesias E: NEGATIVE for temperature intolerance, skin/h air changes. EXAM: BP 120/72 Pulse 90 Wt 155 lbs (70.3kg) GENERAL APPEARANCE: healthy, alert a nd no distress EXAM: GENERAL APPEARANCE: healthy, alert and no distress EYES: EOMI, fundi benign- P ERRL HENT: ear canals and TM's normal and nose and mouth without ulcers or lesions NECK: no adenopath y, no asymmetry, masses, or scars and thyroid normal to palpation RESP: lungs clear to auscultation - no rales, rhonchi or wheezes CV: regular rates and rhythm, normal S1 S2, no S3 or S4 and no murmur, click or rub - Abdomen: soft, nontender, no HSM or masses and bowel sounds normal MS: extremities nor mal- no gross deformities noted, no evidence of inflammation in joints, FROM in all extremities. SKIN : no suspicious lesions or rashes NEURO: Normal strength and tone, sensory exam grossly normal, menta tion intact and speech normal PSYCH: mentation appears normal. and affect normal/bright LYMPHATICS: N o axillary, cervical, inguinal, or supraclavicular nodes. ASSESSMENT/PLAN 308.9 ACUTE STRESS R EACT NOS 311 DEPRESSIVE DISORDER NEC-reinstate prior meds, follow 6 weeks I have discussed with patient the risks, benefits, medications, treatment options and modalities. I ojeda ve instructed the patient to call or schedule a follow-up appointment if any problems or failure to i mprove. documented in this encounter Nursing Notes 04/14/2003 2:00 PM CST >> DOMITILA SRINIVASAN 04/14/2003 2:07 pm BP cuff size: regular, pt. comes into the clinic today wanting to start back on anti-anxiety meds. Domitila Srinivasan RN. documented in this encounter Plan of Treatment Not on filedocumented as of this encounter Visit Diagnoses Diagnosis Unspecified acute reaction to stress Depressive disorder, not elsewhere class ified documented in this encounter Care Teams Escalator Attendant Relationship Specialty Start Date End Date Barry Galo MD PCP - General 04/14/03 01/16/11 [address] [place] [address] documented as of this encounter
--- OUTSIDE RECORDS SUMMARY | 2022-01-10 08:10 | XMS_ITS | Encounter Summary ---
:1984 Author Organization [place] Address [address] [place] [address] Care Team Providers Name Role Phone Barry Galo MD Primary Care Provider [phone] Encounter Details Date Type Department Care Team Description 01/29/2006 Telephone [facility] [place] [address] [phone] [place], [place] [id number] (Wo rk) Social History Tobacco Use Types Packs/Day Years Used Date Smoking Tobacco: Never Alcohol Use Standard Drinks/Week Comments No 0 (1 standard drink = 0.6 oz pure alcoho l) Sex Assigned at Date Recorded Not on file documented as of this encounter Plan of Treatment Not on filedocumented as of this encounter Visit Diagnoses Not on filedocumented in this encounter Care Teams Video News Editor Relationship Specialty Start Date End Date Barry Galo MD PCP - General 04/14/03 01/16/[id number] [place] [id number] documented as of this encounter
--- OUTSIDE RECORDS SUMMARY | 2022-01-10 08:10 | XMS_ITS | Encounter Summary ---
:1985 Author Organization [place] [facility] Address [address] [place] [address] Care Team Providers Name Role Phone Barry Galo MD Primary Care Provider Encounter Details Date Type Department Care Team Description 01/01/2010 Historic Results INTERFACED REPORT Wilcox MD [facility] OBGYN CONSULTS [address] [place], [place] [address] (Wo rk) Social History Tobacco Use Types Packs/Day Years Used Date Smoking Tobacco: Never Alcohol Use Standard Drinks/Week Comments No 0 (1 standard drink = 0.6 oz pure alcoho l) Sex Assigned at Date Recorded Not on file documented as of this encounter Plan of Treatment Not on filedocumented as of this encounter Procedures Procedure Name Priority Date/Time Associated Comments Diagnosis PLATELET COUNT Timed 01/01/2010 7:10 PM Results for this CDT procedure are i n the results section. CBC WITH PLATELETS & Timed 01/01/2010 6:00 AM R esults for this DIFFERENTIAL CDT procedure are i n the results section. URIC ACID Timed 01/01/2010 6:00 AM Results f or this CDT procedure are i n the results section. UREA NITROGEN (BUN) Timed 01/01/2010 6:00 AM Re sults for this CDT procedure are i n the results section. CREATININE Timed 01/01/2010 6:00 AM Results f or this CDT procedure are i n the results section. AST Timed 01/01/2010 6:00 AM Results f or this CDT procedure are i n the results section. ALT Timed 01/01/2010 6:00 AM Results f or this CDT procedure are i n the results section. documented in this encounter Results (ABNORMAL) Platelet count (01/01/2010 7:10 PM CDT) P athologist Signature Platelet Count 102 (L) 150 - 450 [facility] 10e9/L Specimen Anatomical Collection Method Collection Time Receive d Time (Source) Location / / Volume Laterality 01/01/2010 7:10 PM 0 6:00 CDT PM CDT Jaleesa Tenorio MD LAB - BLOOD ORDERABLES Performing Organization Address City/State/ZIP Code Phon e Number MISYS (ABNORMAL) CBC with platelets differential (01/01/2010 6:00 AM CDT) Patholo gist Method Time Signature MCV 93 78 - 100 [place] fl MCH 32.1 26.5 - [facility] 33.0 pg MCHC 34.5 31.5 - [facility] 36.5 g/dL RDW 12.5 10.0 - [facility]IS[facility] 15.0 % WBC 7.5 4.0 - [facility] 11.0 10e9/L RBC Count 3.80 3.8 - 5.2 M[facility] 10e12/L Hemoglobin 12.2 11.7 - MISYS 15.7 g/dL Hematocrit 35.4 35.0 - MISYS 47.0 % % Neutrophils 75 40 - 75 % MISYS % Lymphocytes 17 (L) 20 - 48 % MISYS % Monocytes 8 0 - 12 % MISYS % Eosinophils 0 0 - 6 % MISYS % Basophils 0 0 - 2 % MISYS Platelet Count 90 (L) 150 - 450 [facility] 10e9/L Absolute 5.7 1.6 - 8.3 M[facility] Neutrophil 10e9/L Absolute 1.2 0.8 - 5.3 M[facility] Lymphocytes 10e9/L Absolute 0.6 0.0 - 1.3 [facility] Monocytes 10e9/L Absolute 0.0 0.0 - 0.7 [facility] Eosinophils 10e9/L Absolute 0.0 0.0 - 0.2 M[facility] Basophils 10e9/L Diff Method Automated MISYS Method Specimen Anatomical Collection Method Collection Time Receive d Time (Source) Location / / Volume Laterality 01/01/2010 6:00 AM 0 6:00 CDT AM CDT Martine Toscano MD LAB - BLOOD ORDERABLES Performing Organization Address City/State/ZIP Code Phon e Number MISYS AST (01/01/2010 6:00 AM CDT) athologist Signature AST 26 0 - 45 U/L MISYS Specimen Anatomical Collection Method Collection Time Receive d Time (Source) Location / / Volume Laterality 01/01/2010 6:00 AM 0 6:00 CDT AM CDT Martine Toscano MD LAB - BLOOD ORDERABLES Performing Organization Address City/[facility] Code Phon e Number MISYS ALT (01/01/2010 6:00 AM CDT) athologist Signature ALT 22 0 - 50 U/L MISYS Specimen Anatomical Collection Method Collection Time Receive d Time (Source) Location / / Volume Laterality 01/01/2010 6:00 AM 0 6:00 CDT AM CDT Martine Toscano MD LAB - BLOOD ORDERABLES Performing Organization Address City/[facility] Code Phon e Number MISYS Creatinine (01/01/2010 6:00 AM CDT) athologist Signature Creatinine 0.64 0.52 - 1.04 MISYS mg/dL Comment: New IDMS-traceable calibration beginning 07/22/07 GFR Estimate >90 >60 mL/min/1.7m2 MISYS GFR Estimate If Black >90 >60 mL/min/1.7m2 M ISYS Specimen Anatomical Collection Method Collection Time Receive d Time (Source) Location / / Volume Laterality 01/01/2010 6:00 AM 0 6:00 CDT AM CDT Martine Toscano MD LAB - BLOOD ORDERABLES Performing Organization Address City/[facility]/ZIP Code Phon e Number MISYS Uric acid (01/01/2010 6:00 AM CDT) athologist Signature Uric Acid 4.9 2.5 - 6.2 MISYS mg/dL Specimen Anatomical Collection Method Collection Time Receive d Time (Source) Location / / Volume Laterality 01/01/2010 6:00 AM 0 6:00 CDT AM CDT Martine Toscano MD LAB - BLOOD ORDERABLES Performing Organization Address City/State/ZIP Code Phon e Number MISYS Urea nitrogen (01/01/2010 6:00 AM CDT) P athologist Signature Urea Nitrogen 5 5 - 24 MIS[facility] mg/dL Specimen Anatomical Collection Method Collection Time Receive d Time (Source) Location / / Volume Laterality 01/01/2010 6:00 AM 0 6:00 CDT AM CDT Martine Toscano MD LAB - BLOOD ORDERABLES Performing Organization Address City/State/ZIP Code Phon e Number MISYS documented in this encounter Visit Diagnoses Not on filedocumented in this encounter Care Teams Liberal Arts Dean Relationship Specialty Start Date End Date Barry Galo MD PCP - General 04/14/03 01/16/11 [address] [place] [address] documented as of this encounter
--- OUTSIDE RECORDS SUMMARY | 2022-01-10 08:10 | XMS_ITS | Encounter Summary ---
:1985 Author Organization [facility] Address [address] [place] [address] Care Team Providers Name Role Phone Unavailable Primary Care Provider Unavailable Encounter Details Date Type Department Care Team Description 07/26/2002 Abstract [facility] Temi Gracia [address] [place] [address] [phone] Social History Tobacco Use Types Packs/Day Years Used Date Smoking Tobacco: Never Assessed Sex Assigned at Date Recorded Not on file documented as of this encounter Plan of Treatment Not on filedocumented as of this encounter Visit Diagnoses Not on filedocumented in this encounter
--- OUTSIDE RECORDS SUMMARY | 2022-01-10 08:10 | XMS_ITS | Encounter Summary ---
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 (Primary Dx) [address] [phone] [address] [place] [address] Social History Tobacco Use Types Packs/Day Years Used Date Smoking Tobacco: Never Alcohol Use Standard Drinks/Week Comments No 0 (1 standard drink = 0.6 oz pure alcoho l) Sex Assigned at Date Recorded Not on file documented as of this encounter Last Filed Vital Signs Vital Sign Reading Time Taken Comments Blood Pressure 118/60 10/17/2004 1:45 PM CDT Pulse - - Temperature - - Respiratory Rate - - Oxygen Saturation - - Inhaled Oxygen Concentration - - Weight 72.6 kg (160 lb) 10/17/2004 1:45 PM CDT Height 172.7 cm (5' 8) 10/17/2004 1:45 PM CDT Body Mass Index 24.33 10/17/2004 1:45 PM CDT documented in this encounter Progress Notes Garry Fish W - 10/17/2004 2:17 PM CDT SUBJECTIVE: 19 year old patient presents with chief complaint of: arm pain x week or 2 from overuse, no singel trauma OBJECTIVE: EXAM: BP 118/60 Ht 5' 8 (1.73m) Wt 160 lbs (72.6kg) forearm swelling and tenderness, decrease microwave oven assembler ASSESSMENT/PLAN 727.05 TENOSYNOV HAND/WRIST NEC (primary encounter diagnosis) Note: ice, ibuprofen advised , less massage until better Plan: ORDER FOR DME documented in this encounter Nursing Notes 10/17/2004 1:45 PM CDT >> JONATHON DE JESUS 10/17/2004 1:59 pm Mindy Benton presents for right forearm, hurts to flex hand up or down, x1.5 weeks, 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 Initial BP 118/60 Ht 5' 8 (1.73m) Wt 160 lbs (72.6kg) Body Mass Index is 24.33 kg/(m^2). . BP completed using cuff size: regular. Jonathon De Jesus, Surveying Technician documented in this encounter Plan of Treatment Not on filedocumented as of this encounter Visit Diagnoses Diagnosis Other tenosynovitis of hand and wrist - Primary documented in this encounter Care Teams Orchard Manager Relationship Specialty Start Date End Date Barry Galo MD PCP - General 04/14/03 01/16/11 [address] [place] [address] documented as of this encounter
--- OUTSIDE RECORDS SUMMARY | 2022-01-10 08:10 | XMS_ITS | Encounter Summary ---
:1985 Author Organization [facility] Address [address] [place] [address]. [place] [address] Care Team Providers Name Role Phone Barry Galo MD Primary Care Provider [phone] Reason for Visit Reason Comments RECHECK f/u U/C--was seen at [facility] on 08/02/2006 for uri symptoms--getting worse--c/o bilateral ear pain, ST (neg RSS), cough Encounter Details Date Type Department Care Team Description 08/05/2006 Office Visit [facility] Cisco Hearn CUTMarty SINUSITIS NOS (Primary Dx); [facility] [place] Neil Mesa MD COUGH [address] [place] [address] [place] [phone] [address] [phone] [place], [place] [address] (Wo rk) Social History Tobacco Use Types Packs/Day Years Used Date Smoking Tobacco: Never Alcohol Use Standard Drinks/Week Comments No 0 (1 standard drink = 0.6 oz pure alcoho l) Sex Assigned at Date Recorded Not on file documented as of this encounter Last Filed Vital Signs Vital Sign Reading Time Taken Comments Blood Pressure 120/80 08/05/2006 11:00 AM CDT Pulse 68 08/05/2006 11:00 AM CDT Temperature 36.7 ??C (98.1 ??F) 08/05/2006 11:00 AM CDT Respiratory Rate 16 08/05/2006 11:00 AM CDT Oxygen Saturation - - Inhaled Oxygen Concentration - - Weight 63.5 kg (140 lb) 08/05/2006 11:00 AM CDT Height 167.6 cm (5' 6) 08/05/2006 11:00 AM CDT Body Mass Index 22.6 08/05/2006 11:00 AM CDT documented in this encounter Progress Notes Cisco Hearn - 08/05/2006 11:27 AM CDT SUBJECTIVE: Mindy Benton is a 21 year old female here with concerns about sinus infection. She states onset of symptoms were 1 week(s) ago. She has had maxillary pressure. Course of illness is worsening. Severity moderate Current and Associated symptoms: nasal congestion, rhinorrhea, cough , ear pain bilateral, sore throat, facial pain/pressure and post-nasal drainage Predisposing factors include none. Recent treatment has included: Antihistamine, Decongestants and OTC meds. She was seen at [facility] on 08/02 and had a negative strep test. Past Medical History Diagnosis Date ??? ESOTROPIA NOS ??? VARICELLA UNCOMPLICATED History Substance Use Topics ??? Tobacco Use: Never ??? Alcohol Use: No ROS: Review of systems negative except as stated above. OBJECTIVE: BP 120/80 Pulse 68 Temp (Src) 98.1 (Oral) Resp 16 Ht 5' 6 (1.68m) Wt 140 lbs (63.5kg) GENERAL APPEARANCE: healthy, alert and no distress EYES: EOMI, PERRL, conjunctiva clear HENT: TM's normal bilaterally, nasal turbinates erythematous, swollen, frontal sinus tenderness and maxillary sinus tenderness NECK: supple, nontender, no lymphadenopathy RESP: lungs clear to auscultation - no rales, rhonchi or wheezes CV: regular rates and rhythm, normal S1 S2, no murmur noted ASSESSMENT/PLAN: 461.9 ACUTE SINUSITIS NOS (primary encounter diagnosis) Plan: AUGMENTIN 875-125 MG OR TABS as directed and Sudafed q 12hours and saline nasal spray Q4 hoursfor congestion. May use tylenol/motrin prn, steam and warm paks to face, in addition. 786.2 COUGH Note: secondary to post-nasal drainage Plan: as above Cisco Hearn MD [facility] documented in this encounter Nursing Notes 08/05/2006 11:00 AM CDT >> TYLER GLASGOW 08/05/2006 11:10 am Patient presents with: RECHECK - f/u U/C--was seen at [facility] on 08/02/2006 for uri symptoms--getting worse--c/o bilateral ear pain, ST (neg RSS), cough Initial BP 120/80 Pulse 68 Temp (Src) 98.1 (Oral) Resp 16 Ht 5' 6 (1.68m) Wt 140 lbs (63.5kg) Body mass index is 22.61 kg/(m^2).. BP completed using cuff size regular Tyler Glasgow/URBAN documented in this encounter Plan of Treatment Not on filedocumented as of this encounter Visit Diagnoses Diagnosis Acute sinusitis, unspecified - Primary Cough documented in this encounter Care Teams Fish Housekeeper Relationship Specialty Start Date End Date Barry Galo MD PCP - General 04/14/03 01/16/11 [address] [place] [address] documented as of this encounter
--- OUTSIDE RECORDS SUMMARY | 2022-01-10 08:10 | XMS_ITS | Encounter Summary ---
:1985 Author Organization [facility] Address [address] [place] [address]. [place] [address] Care Team Providers Name Role Phone Barry Galo MD Primary Care Provider Reason for Visit Reason Comments Knee Pain Right Knee Pain x 1 week. Fe els Hot Inside. Encounter Details Date Type Department Care Team Description 02/17/2006 Office Visit [facility] Barry Galo JOINT PAIN-LOWER LEG (Primary Dx); Clinic [facility]any Cord[place] MD DERMATOPHYTOSIS OF FOOT [address] [place] [id number] Social History Tobacco Use Types Packs/Day Years Used Date Smoking Tobacco: Never Alcohol Use Standard Drinks/Week Comments No 0 (1 standard drink = 0.6 oz pure alcoho l) Sex Assigned at Date Recorded Not on file documented as of this encounter Last Filed Vital Signs Vital Sign Reading Time Taken Comments Blood Pressure 120/72 02/17/2006 10:45 AM MEDICAL CODER Pulse - - Temperature - - Respiratory Rate - - Oxygen Saturation - - Inhaled Oxygen Concentration - - Weight 68 kg (150 lb) 02/17/2006 10:45 AM MEDICAL CODER Height 167.6 cm (5' 6) 02/17/2006 10:45 AM MEDICAL CODER Body Mass Index 24.21 02/17/2006 10:45 AM MEDICAL CODER documented in this encounter Progress Notes Barry Galo - 02/17/2006 11:11 AM CST Knee Subjective: recurrent acute knee pain. Pain is in the right knee(s), and began 2 month(s) prior to presentation, and is slowly progressing since onset. Pain is characterized as aching, and at worst is a 6 on a scale of 1-10. No problems with vision, hearing, dental or neck pain. No chest pain, palpitations, dyspnea, change in bowel habits, blood in stool or dyspepsia. No rashes, changing moles, weakness, lassitude or back problems. No diabetes, thyroid or cancer. No dysuria or menstrual irregularity. Patient not a smoker. No problems with significant headaches. Pain location: anterior. Associated sx: no other symptoms. Mechanism of injury: none. Pain exacerbated by: walking, extended rest and inclines or declines/stairs. Pain relieved by: tried nothing for pain relief. Meds used for pain relief: Tylenol 325 mg 1-3 tabs po q4hr prn. Patient denies prior hx of knee pain/injury. Aggravated by long periods of standing, General joint exam normal Discussed quad strengthenin, discussed nsaid rx, treatment of tinea pedis BP 120/72 Ht 5' 6 (1.68m) Wt 150 lbs (68.0kg) Focused knee examination: full range of motion, no effusion, no laxity with Magno's, varus or valgus stress, no joint line tenderness and negative Mansi's. Knee Xrays: not taken. CAL CODER documented in this encounter Nursing Notes 02/17/2006 10:45 AM CST >> SHONA AGUILERA 02/17/2006 10:55 am Patient presents with: Knee Pain - Right Knee Pain x 1 week. Feels Hot Inside. Initial BP 120/72 Ht 5' 6 (1.68m) Wt 150 lbs (68.0kg) Body mass index is 24.22 kg/(m^2). BP completed using cuff size regular Left Arm Kerline Aguilera CONTENT MANAGEMENT SPECIALIST documented in this encounter Plan of Treatment Not on filedocumented as of this encounter Visit Diagnoses Diagnosis Pain in joint, lower leg - Primary Dermatophytosis of foot documented in this encounter Care Teams [employer] Relationship Specialty Start Date End Date Barry Galo MD PCP - General 04/14/03 01/16/11 [address] [place] [address] documented as of this encounter
--- OUTSIDE RECORDS SUMMARY | 2022-01-10 08:10 | XMS_ITS | Encounter Summary ---
:1985 Author Organization [facility] Address [address] [place] [address]. [place] [address] Care Team Providers Name Role Phone Barry Galo MD Primary Care Provider Reason for Visit Reason Onset Date Comments Forms 05/28/2009 Encounter Details Date Type Department Care Team Description 05/28/2009 Telephone [facility] Barry Galo, Forms Codie Saenz MD [address] [place] [phone] [place] [address] (Wo rk) Social History Tobacco Use Types Packs/Day Years Used Date Smoking Tobacco: Never Alcohol Use Standard Drinks/Week Comments No 0 (1 standard drink = 0.6 oz pure alcoho l) Sex Assigned at Date Recorded Not on file documented as of this encounter Miscellaneous Notes Telephone Encounter - Leigh Fontanez - 07/19/2009 2:16 PM CDT PICKED UP AT FRONT ON 05/29/2009 FROM [facility] Telephone Encounter - Elena Anderson - 05/29/2009 3:37 PM CST Patient called back, I informed her of form ready to be picked up. Also made sure she was made awareof her ultrasound results and follow up advise. She may be transferring her care to an Indirect Sales Representative clinic and will let us know if she wants her records transferred. Elena Anderson RN HOUSE UNLOADER Telephone Encounter - Elena Anderson - 05/29/2009 3:24 PM CST LMTCB- Form completed and left at front desk lead to be picked up. I also wanted to know if she has been notified of her ultrasound result and recommendations to have a follow up ultrasound in 1 month? Elena Anderson RN HOUSE UNLOADER Telephone Encounter - Georgia Leslie - 05/28/2009 5:01 PM CST Pt states she dropped off a form today for proof of . She does NOT want them faxed. She would like to worm picker when ready as she has to sign the form. Pt also wanted me to cancel her 1st OB appt. As she is only 6 weeks. She will reschedule. Georgia Leslie RN HOUSE UNLOADER documented in this encounter Plan of Treatment Not on filedocumented as of this encounter Visit Diagnoses Not on filedocumented in this encounter Care Teams Hand Silvering Supervisor Relationship Specialty Start Date End Date Barry Galo MD PCP - General 04/14/03 01/16/11 [address] [place] [address] documented as of this encounter
--- OUTSIDE RECORDS SUMMARY | 2022-01-10 08:10 | XMS_ITS | Encounter Summary ---
:1985 Author Organization [facility] Address [address] [place] [address] Care Team Providers Name Role Phone Barry Galo MD Primary Care Provider [phone] Reason for Referral - Closed Specialty Diagnoses / Procedures Referred By Contact Refer red To Contact Diagnoses Dysthymic disorder Iwona Whitaker MD [facility] [address] [place] [address] Fax: Referral ID Status Reason Start Date Expiration Date Visits Requ ested Visits Authorized [id number] Closed 12/24/2005 03/22/2011 1 1 Reason for Visit Reason Comments Depression wanting to resume antidepres sants, wanting to try paxil CR Encounter Details Date Type Department Care Team Description 12/24/[address] [facility] Iwona Whitaker DYSTHYM IC DISORDER Clinic [place] MD Farrah (Primary Dx) [address] [place], [place] CLINIC [address] [address] [phone] [place], [place] [address] Social History Tobacco Use Types Packs/Day Years Used Date Smoking Tobacco: Never Alcohol Use Standard Drinks/Week Comments No 0 (1 standard drink = 0.6 oz pure alcoho l) Sex Assigned at Date Recorded Not on file documented as of this encounter Last Filed Vital Signs Vital Sign Reading Time Taken Comments Blood Pressure 100/60 12/24/2005 10:30 AM CDT Pulse 80 12/24/2005 10:30 AM CDT Temperature - - Respiratory Rate 16 12/24/2005 10:30 AM CDT Oxygen Saturation - - Inhaled Oxygen Concentration - - Weight 69.4 kg (153 lb) 12/24/2005 10:30 AM CDT Height 172.7 cm (5' 8) 12/24/2005 10:30 AM CDT Body Mass Index 23.26 12/24/2005 10:30 AM CDT documented in this encounter Progress Notes Iwona Whitaker - 12/24/2005 11:25 AM CDT SUBJECTIVE: Mindy Benton is a 20 year old female who presents for evaluation and treatment of depressive symptoms. Current symptoms include: depressed mood, diminished interest or pleasure in activities, weight loss, decreased appetite, insomnia, psychomotor retardation, fatigue, anxiety. Onset approximately one month ago; symptoms have been gradually worsening since that time. Family history is positive for depression in the patient???s mother and maternal grandmother. Previous treatment she has tried include medication(s) Celexa and Risperdal. She was also in counseling. Depression risk factors: positive family history in patient's mother and Aunt(s) and previous episode of depression Organic causes of depression present: none Mindy reports: no previous history with chemical dependency or abuse Depressed mood Markedly diminished interest or pleasure in all or almost all activities Insomnia or hypersomnia Psychomotor agtitation or retardation Fatigue or loss of energy Patient Active Problem List Diagnoses Code ??? PHOBIA NOS 300.20 Current outpatient prescriptions Medication Sig ??? IMITREX 50 MG OR TABS as directed History Substance Use Topics ??? Tobacco Use: Never ??? Alcohol Use: No OBJECTIVE: Blood pressure 100/60, pulse 80, resp. rate 16, height 5' 8 (1.73 m), weight 153 lbs (69.4 kg). MENTAL STATUS EXAM: 1. Clinical observations: Mindy was clean and well-groomed and was appropriately groomed. Mindy'semotional presentation was open and cooperative. She spoke soft. She maintained adequate and minimaleye contact and she was cooperative in answering questions. 2. She appeared to be well-oriented in all spheres with coherent, logical, goal directed and relevent thinking. 3. Thought content: She denies intact, auditory hallucinations and visual hallucinations. 4. Affect and mood: Mindy's affect is described as sad/depressed and her emotional attitude was open and cooperative. 5. Sensorium and cognition: She was in contact with reality and oriented to place, time, person andsituation. She demonstrated no impairment in immediate, recent, or remote memory. Her insight was good and her intelligence appeared to be average. Today's Depression Rating was 19 ASSESSMENT/PLAN: 300.4 DYSTHYMIC DISORDER (primary encounter diagnosis) Note: with components of anxiety as well Plan: PAXIL CR 12.5 MG OR TB24, CONSULT PSYCHIATRY (P), TRAZODONE HCL 50 MG OR TABS Will try Paxil CR-start with 1/2 tablet and then go up to 1 tablet daily. Will use Trazodone to help with falling asleep. She is also interested in getting back into counseling. She will follow up in 4-6 weeks. documented in this encounter Nursing Notes 12/24/2005 10:30 AM CDT >> MAGGY CONWAY 12/24/2005 10:52 am Mindy Benton presents for anxiety, and depression. Pt is inquiring about starting paxil CR. Initial BP 100/60 Pulse 80 Resp 16 Ht 5' 8 (1.73m) Wt 153 lbs (69.4kg) Body mass index is 23.27 kg/(m^2).. BP completed using cuff size: July Cohen R.N. documented in this encounter Plan of Treatment Not on filedocumented as of this encounter Visit Diagnoses Diagnosis Dysthymic disorder - Primary documented in this encounter Care Teams Supervisor Vine Fruit Farming Relationship Specialty Start Date End Date Barry Galo MD PCP - General 04/14/03 01/16/11 [address] [place] [address] documented as of this encounter
--- OUTSIDE RECORDS SUMMARY | 2022-01-10 08:10 | XMS_ITS | Encounter Summary ---
:1985 Author Organization [place] Address [address] [place] [address] Care Team Providers Name Role Phone Barry Galo MD Primary Care Provider Encounter Details Date Type Department Care Team Description 05/15/2009 Orders Only [facility] [place], DIAGNOSIS NOT YET Clinic [place] MD Silke DEFINED (Primary Dx) [address] [place], [place] [employer] [phone] [phone] [facility] [address] [place] [address] (Wo rk) Social History Tobacco Use Types Packs/Day Years Used Date Smoking Tobacco: Never Alcohol Use Standard Drinks/Week Comments No 0 (1 standard drink = 0.6 oz pure alcoho l) Sex Assigned at Date Recorded Not on file documented as of this encounter Plan of Treatment Not on filedocumented as of this encounter Procedures Procedure Name Priority Date/Time Associated Diagnosis Comme [facility] [place] ASSESSMENT Routine 05/15/2009 DIAGNOSIS NOT YET DEFINED FORM documented in this encounter Results [place] ASSESSMENT FORM (05/15/2009) Narrative This result has an attachment that is no t available. Silke Davison MD EVALUATION AND MGMT documented in this encounter Visit Diagnoses Diagnosis DIAGNOSIS NOT YET DEFINED - Primary documented in this encounter Care Teams Filter Filler Relationship Specialty Start Date End Date Barry Galo MD PCP - General 04/14/03 01/16/11 [address] [place] [address] documented as of this encounter
--- OUTSIDE RECORDS SUMMARY | 2022-01-10 08:10 | XMS_ITS | Encounter Summary ---
:1984 Author Organization [place] Address [address] [place] [address] Care Team Providers Name Role Phone Barry Galo MD Primary Care Provider [phone] Reason for Visit Reason Onset Date Comments Erroneous encounter-disregard 09/20/2008 Encounter Details Date Type Department Care Team Description 09/20/2008 [facility] Barry Galo [facility] Dany Cordova MD encounter-disregard [address] [facility] [address] [place] [phone] [id number] (Wo rk) Social History Tobacco Use Types Packs/Day Years Used Date Smoking Tobacco: Never Alcohol Use Standard Drinks/Week Comments No 0 (1 standard drink = 0.6 oz pure alcoho l) Sex Assigned at Date Recorded Not on file documented as of this encounter Miscellaneous Notes Telephone Encounter - Georgia Leslie - 09/20/2008 4:07 PM CDT Opened in error. Georgia Leslie RN documented in this encounter Plan of Treatment Not on filedocumented as of this encounter Visit Diagnoses Not on filedocumented in this encounter Care Teams Store Leader Relationship Specialty Start Date End Date Barry Galo MD PCP - General 04/14/03 01/16/11 [address] [place], [place] [id number] documented as of this encounter
--- OUTSIDE RECORDS SUMMARY | 2022-01-10 08:10 | XMS_ITS | Encounter Summary ---
:1984 Author Organization [place] Address [address] [place] [address]. [place] [address] Care Team Providers Name Role Phone Barry Galo MD Primary Care Provider [phone] Reason for Referral Specialty Diagnoses / Procedures Referred By Contact Refer red To Contact Barry Galo ph, MD [address] [place] [phone] Referral ID Status Reason Start Date Expiration Date Visits Requ ested Visits Authorized [facility] Encounter Details Date Type Department Care Team Description 01/30/2004 Orders Only [facility] Barry Galo SIS NOT YET Clinic PlainDany Cordova MD DEFINED (Primary Dx) [address] [address] [phone] Social History Tobacco Use Types Packs/Day Years Used Date Smoking Tobacco: Never Alcohol Use Standard Drinks/Week Comments No 0 (1 standard drink = 0.6 oz pure alcoho l) Sex Assigned at Date Recorded Not on file documented as of this encounter Plan of Treatment Not on filedocumented as of this encounter Procedures Procedure Name Priority Date/Time Associated Diagnosis Comme nts [facility] PSYCHOLOGY REFERRAL Routine 01/30/2004 DIAGNOSIS NOT YET DEFINED documented in this encounter Results CONSULT TO PSYCHOLOGY (01/30/2004) Specimen (Source) Anatomical Location Collection Method / Collectio n Time Received Time / Laterality Volume 01/30/2004 Narrative This result has an attachment that is no t available. Barry Galo MD REFERRAL documented in this encounter Visit Diagnoses Diagnosis DIAGNOSIS NOT YET DEFINED - Primary documented in this encounter Care Teams Contact Center Associate Relationship Specialty Start Date End Date Barry Galo MD PCP - General 04/14/03 01/16/11 [address] [place] [address] documented as of this encounter
--- OUTSIDE RECORDS SUMMARY | 2022-01-10 08:10 | XMS_ITS | Encounter Summary ---
:1984 Author Organization [place] Address [address] [place] [address] Care Team Providers Name Role Phone Barry Galo MD Primary Care Provider Reason for Visit Reason Comments Cough cough x 2 1/2 weeks, fatigue , tightness upper chest Sinus Problem sinus duke, headache across eyes Encounter Details Date Type Department Care Team Description 12/08/[address] [facility] [place] TE MAXILLARY SINUSITIS (Primary Dx); Clinic [place] [address] [place] [address] Social History Tobacco Use Types Packs/Day Years Used Date Smoking Tobacco: Never Alcohol Use Standard Drinks/Week Comments No 0 (1 standard drink = 0.6 oz pure alcoho l) Sex Assigned at Date Recorded Not on file documented as of this encounter Last Filed Vital Signs Vital Sign Reading Time Taken Comments Blood Pressure 130/70 12/08/2003 10:49 AM CDT Pulse - - Temperature 36.6 ??C (97.8 ??F) 12/08/2003 10:49 AM CDT Respiratory Rate - - Oxygen Saturation - - Inhaled Oxygen Concentration - - Weight 69.9 kg (154 lb) 12/08/2003 10:49 AM CDT Height - - Body Mass Index 24.12 11/29/2002 3:30 PM CDT documented in this encounter Progress Notes 12/08/2003 10:45 AM CDT S: Patient here w/ mother for c/o tight, non-productive cough, worse at night and in am. Onset: 2.5weeks. Other symptoms include fever, chills, body aches, nasal congestion, post-nasal drainge, mucopurulent discharge. 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 Histories reviewed. O: Appears lethargic. HEENT: Eyes clear. TMs dull. Nares: Mucopurulent d/c. Sinus pressure and painw/ palpation. OP: mildly injected w/ post-nasal drip. Neck: supple. LS: decreased but clear. Dry cough demononstrated. Heart: rrr w/o m,r,g. Skin: warm and dry. CBC noted. documented in this encounter Nursing Notes 12/08/2003 10:45 AM CDT >> DONTA REDD 12/08/03 10:53 am Mindy A Ausmus presents for cough, sinus duke, headache, temp ranges between 98.7 to 100.3. Initial BP 130/70 Temp (Src) 97.8 (Oral) Wt 154 lbs (69.9kg). BP completed using cuff size: regular. Donta Redd RN documented in this encounter Plan of Treatment Not on filedocumented as of this encounter Procedures Procedure Name Priority Date/Time Associated Diagnosis Comme nts CL AFF CBC WITH Routine 12/08/2003 11:13 AM Acute Maxillary Re sults for this PLATELETS, DIFF CDT Sinusitis procedure are in Cough the results section. documented in this encounter Results CBC WITH PLATELETS, DIFF (12/08/2003 11:13 AM CDT) [facility] gist Method Time Signature WBC 5.6 4.0 - [facility] 11.0 [facility] 10e9/L CLINIC LAB RBC Count 4.59 3.8 - 5.2 [facility] 10e12/L [facility] Hemoglobin 14.1 11.7 - [facility] 15.7 g/dL [facility] Hematocrit 40.9 35.0 - [facility] 47.0 % [facility] MCV 89 78 - 100 [facility] fl [facility] MCH 30.7 26.5 - [facility] 33.0 pg [facility] MCHC 34.5 32.0 - [facility] 36.0 g/dL [facility] RDW 14.0 10.0 - [facility] 15.0 % [facility] Platelet Count 177 150 - 450 [place] 10e9/L [facility] Diff Method Automated [place] Method [facility] % Lymphocytes 29 20 - 48 % [facility] % Monocytes 7 0 - 12 % [facility] % Granulocytes 64 40 - 75 % [facility] Absolute 1.6 0.8 - 5.3 [place] Lymphocytes 10e9/L [facility] Absolute 0.4 0.0 - 1.3 [place] Monocytes 10e9/L [facility] Absolute 3.6 1.6 - 8.3 [place] Granulocytes 10e9/L [facility] Specimen Anatomical Collection Method Collection Time Receive d Time (Source) Location / / Volume Laterality 12/08/2003 11:13 12/08/2003 AM CDT 11:14 AM CDT [place] [facility] Performing Organization Address City/State/ZIP Code Phon e Number [facility] [address] [place] [address] [facility] documented in this encounter Visit Diagnoses Diagnosis Acute maxillary sinusitis - Primary Cough documented in this encounter Care Teams Supervisory Cbp Officer Relationship Specialty Start Date End Date Barry Galo MD PCP - General 04/14/03 01/16/[id number] [place] [address] documented as of this encounter
--- OUTSIDE RECORDS SUMMARY | 2022-01-10 08:10 | XMS_ITS | Encounter Summary ---
:1985 Author Organization [place] Address [address] [place] [address] Care Team Providers Name Role Phone Barry Galo MD Primary Care Provider Encounter Details Date Type Department Care Team Description 03/07/2006 Telephone [facility] [place] [address] [facility] [address] [place] [phone] [place], [place] [phone] (Wo rk) Social History Tobacco Use Types Packs/Day Years Used Date Smoking Tobacco: Never Alcohol Use Standard Drinks/Week Comments No 0 (1 standard drink = 0.6 oz pure alcoho l) Sex Assigned at Date Recorded Not on file documented as of this encounter Plan of Treatment Not on filedocumented as of this encounter Visit Diagnoses Not on filedocumented in this encounter Care Teams Soda Dry House Operator Relationship Specialty Start Date End Date Barry Galo MD PCP - General 04/14/03 01/16/[id number] [place] [address] documented as of this encounter
--- OUTSIDE RECORDS SUMMARY | 2022-01-10 08:10 | XMS_ITS | Encounter Summary ---
:1984 Author Organization [place] Address [address] [place] [address]. [place] [address] Care Team Providers Name Role Phone Barry Galo MD Primary Care Provider Reason for Visit Reason Comments Sinus Problem Ear Problem ear ache both ear Headache head congestion Fatigue Cough Encounter Details Date Type Department Care Team Description 10/23/2004 Office Visit [facility] Brary Galo ACUTE MAXILLARY Clinic Codie Cordova MD SINUSITIS (Primary Dx) [address] [address] [phone] Social History Tobacco Use Types Packs/Day Years Used Date Smoking Tobacco: Never Alcohol Use Standard Drinks/Week Comments No 0 (1 standard drink = 0.6 oz pure alcoho l) Sex Assigned at Date Recorded Not on file documented as of this encounter Last Filed Vital Signs Vital Sign Reading Time Taken Comments Blood Pressure 120/78 10/23/2004 3:45 PM CDT Pulse 78 10/23/2004 3:45 PM CDT Temperature 36.8 ??C (98.3 ??F) 10/23/2004 3:45 PM CDT Respiratory Rate - - Oxygen Saturation - - Inhaled Oxygen Concentration - - Weight 71.2 kg (157 lb) 10/23/2004 3:45 PM CDT Height - - Body Mass Index 23.87 10/17/2004 1:45 PM CDT documented in this encounter Progress Notes Barry Galo - 10/23/2004 4:27 PM CDT Patient complains of congestion with sore throat, nasal congestion and sinus pain. Some mucopurulantdischarge but no upper dental pain and no sustained fever. Duration less than one week with sore throat and sinus pain. has history of airborn allergy or asthma. No chest pain, diaphoresis, or sob. non productive cough. TMs dull not red, sinus tenderness left lungs clear, s1s2,soft abd,no distress, cyanosis or stridor. A:URI with sinusitis P:fluids, antipyretics,rest and amoxicillin as directed. Recheck PRN worsening or non-improvement over 5 days. Discussed signs of systemic or constutional illness. documented in this encounter Nursing Notes 10/23/2004 3:45 PM CDT >> AMOL PATINO 10/23/2004 3:45 pm Mindy Coleman Benton presents for sinus problem,STEPHEN,head congestion,ear ache,fatigue and cough x 1 week . Initial BP 120/78 Pulse 78 Temp (Src) 98.3 (Oral) Wt 157 lbs (71.2kg) Estimated Body Mass Index is 23.88 kg/(m^2) as calculated from: Height of 5' 8 (1.727m) as of 10/17/04 Weight of 157 lbs (71.215 kg) as of this encounter . BP completed using cuff size: regular.AMOL PATINO CMA documented in this encounter Plan of Treatment Not on filedocumented as of this encounter Visit Diagnoses Diagnosis Acute maxillary sinusitis - Primary documented in this encounter Care Teams Coat Cutter Relationship Specialty Start Date End Date Barry Galo MD PCP - General 04/14/03 01/16/11 [address] [place] [address] documented as of this encounter
--- OUTSIDE RECORDS SUMMARY | 2022-01-10 08:10 | XMS_ITS | Encounter Summary ---
:1984 Author Organization [place] Address [address] [place] [address] Care Team Providers Name Role Phone Barry Galo MD Primary Care Provider Encounter Details Date Type Department Care Team Description 12/15/2009 Historic Results INTERFACED REPORT Romulo Padron MD [facility] CONSULTS [address] [place] [address] (Wo rk) Social History Tobacco Use Types Packs/Day Years Used Date Smoking Tobacco: Never Alcohol Use Standard Drinks/Week Comments No 0 (1 standard drink = 0.6 oz pure alcoho l) Sex Assigned at Date Recorded Not on file documented as of this encounter Plan of Treatment Not on filedocumented as of this encounter Procedures Procedure Name Priority Date/Time Associated Comments Diagnosis ROUTINE UA WITH Routine 12/15/2009 11:00 Results for this MICROSCOPIC PM CDT procedure are i n the results section. URINE CULTURE Routine 12/15/2009 11:00 Results fo r this PM CDT procedure are i n the results section. RUPTURE OF MEMBRANES Routine 12/15/2009 8:20 PM R esults for this BY AMNISURE CDT procedure are i n the results section. documented in this encounter Results (ABNORMAL) Routine UA with microscopic (12/15/2009 11:00 PM CDT) [facility] Method Time Signature Source Midstream MISYS Urine Color Urine Yellow MISYS Appearance Urine Slightly MISYS Cloudy Glucose Urine Negative NEG mg/dL MISYS Bilirubin Urine Negative NEG MISYS Ketones Urine Negative NEG mg/dL MISYS Specific [place] 1.023 1.003 - MISYS Urine 1.035 Blood Urine Negative NEG MISYS pH Urine 5.5 5.0 - 7.0 MISYS pH Protein Albumin 10 (A) NEG mg/dL MISYS Urine Urobilinogen Normal 0.0 - 2.0 MISYS mg/dL mg/dL Nitrite Urine Negative NEG MISYS Leukocyte Trace (A) NEG MISYS Esterase Urine WBC Urine 4 (H) 0 - 2 MISYS /HPF RBC Urine 1 0 - 2 MISYS /HPF Squamous 22 (H) 0 - 1 MISYS Epithelial /HPF /HPF Urine Bacteria Urine Few (A) NEG /HPF MISYS Mucous Urine Present (A) NEG /LPF MISYS Specimen Anatomical Collection Method Collection Time Receive d Time (Source) Location / / Volume Laterality 12/15/2009 11:00 12/15/2009 PM CDT 11:01 PM CDT Radha Padron MD LAB - URINE ORDERABLES Performing Organization Address [facility] Phon e Number MISYS Urine culture (12/15/2009 11:00 PM CDT) Patholo gist Method Time Signature Specimen Midstream MISYS Description Urine Culture Micro 10 to 50,000 MISYS colonies/mL Multiple species present, probable perineal Comment: contamination. Micro Report Status FINAL 12/17/2009 MIS YS Specimen Anatomical Collection Method Collection Time Receive d Time (Source) Location / / Volume Laterality 12/15/2009 11:00 12/15/2009 PM CDT 11:33 PM CDT Radha Padron MD LAB - MICRO GENERAL ORDERABL ES Performing Organization Address [facility] Phon e Number MISYS Rupture of membranes by Amnisure (12/15/2009 8:20 PM CDT) P athologist Signature Amnisure Negative NEG MISYS Specimen Anatomical Collection Method Collection Time Receive d Time (Source) Location / / Volume Laterality 12/15/2009 8:20 PM 0 CDT 10:21 PM CDT Radha Padron MD LAB - BODY FLUIDS ORDERABLES Performing Organization Address [facility] Phon e Number MISYS documented in this encounter Visit Diagnoses Not on filedocumented in this encounter Care Teams Regional Clinical Director Relationship Specialty Start Date End Date Barry Galo MD PCP - General 04/14/03 01/16/11 [address] [place] [address] documented as of this encounter
--- OUTSIDE RECORDS SUMMARY | 2022-01-10 08:10 | XMS_ITS | Encounter Summary ---
:1984 Author Organization [place] Address [address] [place] [address] Care Team Providers Name Role Phone Unavailable Primary Care Provider Unavailable Reason for Visit Reason Comments Diarrhea Encounter Details Date Type Department Care Team Description 11/29/[address] [facility] Charbel Alonzo MD VIRAL ENTERITIS NOS (Primary Dx); Clinic [facility] MEDICINE ESOPHAGEAL REFLUX [id number] [place] [address] [place] [place] [address] [place], [place] [phone] (Wo rk) Social History Tobacco Use Types Packs/Day Years Used Date Smoking Tobacco: Never Assessed Sex Assigned at Date Recorded Not on file documented as of this encounter Last Filed Vital Signs Vital Sign Reading Time Taken Comments Blood Pressure 130/78 11/29/2002 3:30 PM CDT Pulse - - Temperature 36.7 ??C (98.1 ??F) 11/29/2002 3:30 PM CDT Respiratory Rate - - Oxygen Saturation - - Inhaled Oxygen Concentration - - Weight 73.9 kg (163 lb) 11/29/2002 3:30 PM CDT Height 170.2 cm (5' 7) 11/29/2002 3:30 PM CDT Body Mass Index 25.53 11/29/2002 3:30 PM CDT Body Mass Index Percentile 83.84 % 11/29/2002 3:30 PM CD T Growth Chart: CDC (Girls, 2-20 Years) documented in this encounter Progress Notes 11/29/2002 3:30 PM CDT (S) Mindy Benton is a 17 year old female with complaints of gastrointestinal symptoms of diarrhea for 3 days. No blood in stool. Has had stomach cramps, temperature of 99.0. Imodium seems to be helpi ng, symptoms are improving. She has also had problems with burning sensation in epigastrium extending to substernal area after eating meals and at nighttime over the last month or so. Has not had anych brad in diet at all. Has not been eating regular lunches over the last [facility] Denies use of NSAIDs. (O) Physical exam reveals the patient appears well. Hydration statu s: well hydrated. Abdomen: mild tenderness in the epigastric area, no rebound tenderness, no guarding or rigidity, no CVA tenderness,no masses noted. The abdomen is soft without tenderness, guarding, m ass, rebound or organomegaly. Shashi wel sounds are normal. No CVA tenderness or inguinal adenopathy noted . Chest is clear, no wheezing or rales. Normal symmetric air entry throughout both lung crowley. No ch est wall deformities or tenderness. S1 and S2 normal, no murmurs, clicks, gallops or rubs. Regular ra te and rhythm. Chest is clear; no wheezes or rales. No edema or JVD. (A) Viral Gastroenteritis GERD (P) I have recommended small amounts clear fluids frequently, soups, juices, water, advance t astolerated and Immodium OTC prn diarrhea. Return office visit if symptoms persist or worsen; I ojeda ve alerted the patient to call if high fever, dehydration, marked weakness, fainting, increased abdom inal pain, blood in stool or vomit. Will start Axid 150 mg. daily for GERD. Notes for school and work . documented in this encounter Nursing Notes 11/29/2002 3:30 PM CDT >> NATALIA MARSHALL 11/29/2002 3:24 pm diarrhea, onset 3 days. Had a fever of 99.0 yesterday. has been taking immodium . She also states that she has been experiencing a burning sensation just below her sternum following meals and at night. Natalia Marshall LPN documented in this encounter Plan of Treatment Not on filedocumented as of this encounter Visit Diagnoses Diagnosis Intestinal infection due to other organi sm, not elsewhere classified - Primary Esophageal reflux documented in this encounter
--- OUTSIDE RECORDS SUMMARY | 2022-01-10 08:10 | XMS_ITS | Encounter Summary ---
:1985 Author Organization [facility] Address [address] [place] [address] Care Team Providers Name Role Phone Barry Galo MD Primary Care Provider [phone] Reason for Referral (Routine) - Closed Specialty Diagnoses / Procedures Referred By Contact Refer red To Contact Diagnoses Acute maxillary sinusitis Cisco Hearn MD [facility] [place] [address] Referral ID Status Reason Start Date Expiration Date Visits V isits Requested Authorized [id number] Closed Consult Only 12/18/2003 02/17/2004 1 1 Reason for Visit Reason Comments Sinus Problem sinus pain/pressure [id number] Cough cough x1 month Encounter Details Date Type Department Care Team Description 12/18/[address] [facility] Cisco Hearn MAXILLARY SINUSITIS; [facility] [place] Neil Meas MD COUGH [address] [place], [place] [address] [address] [phone] [place], [place] [address] (Wo rk) Social History Tobacco Use Types Packs/Day Years Used Date Smoking Tobacco: Never Alcohol Use Standard Drinks/Week Comments No 0 (1 standard drink = 0.6 oz pure alcoho l) Sex Assigned at Date Recorded Not on file documented as of this encounter Last Filed Vital Signs Vital Sign Reading Time Taken Comments Blood Pressure 118/70 12/18/2003 11:10 AM CDT Pulse 100 12/18/2003 11:10 AM CDT Temperature 37.1 ??C (98.8 ??F) 12/18/2003 11:10 AM CDT Respiratory Rate 16 12/18/2003 11:10 AM CDT Oxygen Saturation - - Inhaled Oxygen Concentration - - Weight 68 kg (150 lb) 12/18/2003 11:10 AM CDT Height - - Body Mass Index 23.49 11/29/2002 3:30 PM CDT documented in this encounter Progress Notes 12/18/2003 11:00 AM CDT SUBJECTIVE: Stuart Benton is a 18 year old female patient complaining of sinus pressure, cough, and nasal congestion for 1 month. No fevers, chills, nausea, or vomiting. Patient has had a decreased appetite. Has been seen recently for sinusitis and treated with Augmentin BID for 10 days. Patient isfeeling worse with some dizziness. Review of patient's past medical history indicates: ESOTROPIA NOS VARICELLA UNCOMPLICATED Meds as of 12/18/2003: LEONEL-D 60-120 MG OR TB12 1 tab po: BID (Twice per day) as need for allergy symptoms RISPERDAL 0.25 MG OR TABS 1 TABLET TWICE DAILY CELEXA 20 MG OR TABS one half pill daily for 7 days then one daily IMITREX 50 MG OR TABS as directed Review of the patient's allergies finds: Sulfamethoxazole W/trimethoprim septra OBJECTIVE: BP 118/70 Pulse 100 Temp (Src) 98.8 (Oral) Resp 16 Wt 150 lbs (68.0kg) The patient appears healthy, alert and no distress. EARS: External ears normal. Canals clear. TM's normal. NOSE/SINUS: positive findings: mucosa erythematous and swollen, purulent rhinorrhea Sinus palpation: Frontal sinus and Maxillary sinus tender to palpation THROAT: moderate erythema, no tonsillar hypertrophy, no exudates present and post nasal drainage NECK:Neck supple. No adenopathy. Thyroid symmetric, normal size, CHEST: Clear to auscultation CV: RRR nl s1s2 Sinus x-ray: opacification right max. sinus and air fluid level on left. ASSESSMENT/PLAN: 461.0 ACUTE MAXILLARY SINUSITIS Note: ongoing sinusitis Plan: CONSULT OTOLARYNGOLOGY for sinusitis and possible allergy testing. LEVAQUIN 500 MG OR TABS BID x 14 days, saline nasal spray, sudafed q8 hours, and a sample of nasonex to use daily Advised to return for evaluation if symptoms persist or worsen. 786.2 COUGH Note: Secondary to post-nasal drip Plan: as above Cisco Hearn MD [facility] documented in this encounter Nursing Notes 12/18/2003 11:00 AM CDT >> TYLER GLASGOW 12/18/03 11:11 am Stuart A Chetan presents for uri symptoms x1 month, c/o sinus pain/pressure and cough. Initial BP 118/70 Pulse 100 Temp (Src) 98.8 (Oral) Resp 16 Wt 150 lbs (68.0kg). BP completed using cuff size: regular. Tyler Glasgow/URBAN documented in this encounter Plan of Treatment Not on filedocumented as of this encounter Procedures Procedure Name Priority Date/Time Associated Comments Diagnosis ZZ CONSULT Routine 12/19/2003 Acute Maxillary OTOLARYNGOLOGY (ENT) Sinusitis HC X-RAY SINUSES <3 Routine 12/18/2003 1:00 PM Acute Maxillary Results for this VIEWS CDT Sinusitis procedure are i n the results section. documented in this encounter Results CONSULT OTOLARYNGOLOGY (12/19/2003) Narrative This result has an attachment that is no t available. Cisco Hearn MD REFERRAL X-RAY SINUSES <3 VW (12/18/2003 1:00 PM CDT) Anatomical Region Laterality Modality Other Impressions 12/18/2003 1:00 PM CDT REPORT OF OUTSIDE FILMS FROM [facility] ??CLINIC [place], STUART A. ??: [address] V[address] OF THE SINUS: 12/18/03 FINDINGS: ??There is opacification of th e left maxillary sinus and considerable soft tissue density in the inferior right maxillary sinus. ??The findings are consistent wit h sinusitis. ??Frontal sinus appears clear. ?? Jim Loera M.D. FRANCISCO J/smrene D/ Ordering MD/Provider Initial Interpretat ion: Abnormal with New Findings. Electronically filed by Yessenia Aleman ??12/18/2003 ??1:00 PM Cisco Hearn MD [facility] documented in this encounter Visit Diagnoses Diagnosis Acute maxillary sinusitis Cough documented in this encounter Care Teams Insurance Rater Relationship Specialty Start Date End Date Barry Galo MD PCP - General 04/14/03 01/16/11 [address] [place] [address] documented as of this encounter
--- OUTSIDE RECORDS SUMMARY | 2022-01-10 08:10 | XMS_ITS | Encounter Summary ---
:1985 Author Organization [facility] Address [address] [place] [address] Care Team Providers Name Role Phone Unavailable Primary Care Provider Unavailable Encounter Details Date Type Department Care Team Description 07/27/2002 Office Visit [facility] MAHESH GNOSIS NOT YET DEFINED [place] (Primary Dx) [address] [place] [address] Social History Tobacco Use Types Packs/Day Years Used Date Smoking Tobacco: Never Assessed Sex Assigned at Date Recorded Not on file documented as of this encounter Plan of Treatment Not on filedocumented as of this encounter Procedures Procedure Name Priority Date/Time Associated Comments Diagnosis HCL UA MICRO IF Routine 07/27/2002 9:01 AM DIAGNOSIS NOT YET R esults for this POSITIVE CDT DEFINED procedure are i n the results section. CL AFF CBC WITH Routine 07/27/2002 9:01 AM DIAGNOSIS NOT YET R esults for this PLATELETS, DIFF CDT DEFINED procedure ar e in the results section. HCL COMPREHENSIVE Routine 07/27/2002 9:01 AM DIAGNOSIS NOT YET Results for this METABOLIC PANEL CDT DEFINED procedure ar e in the results section. HCL TSH Routine 07/27/2002 9:01 AM DIAGNOSIS NOT YET Resu lts for this CDT DEFINED procedure are i n the results section. documented in this encounter Results (ABNORMAL) A.M.A. COMPREHENSIVE MET.PANEL (07/27/2002 9:01 AM CDT) Analysis Performed At Patho logist Time Signature Sodium 143 133 - 144 [facility] mmol/L [facility] Potassium 4.4 3.4 - 5.3 [facility] mmol/L [facility] Chloride 106 96 - 110 [facility] mmol/L [facility] Carbon Dioxide 25 20 - 32 [facility] mmol/L [facility] Anion Gap 12 6 - 17 [facility] mmol/L [facility] Glucose 94 60 - 115 [facility] mg/dL [facility] Urea Nitrogen 10 5 - 24 [facility] mg/dL [facility] Creatinine 0.8 0.6 - 1.2 [facility] mg/dL [facility] Calcium 9.9 8.7 - 10.8 [facility] mg/dL [facility] Bilirubin Total 0.9 0.2 - 1.3 [facility] mg/dL [facility] Albumin 4.7 (H) 3.3 - 4.6 [facility] g/dL [facility] Protein Total 7.6 6.0 - 8.2 [facility] g/dL [facility] Alkaline 98 40 - 150 [facility] Phosphatase U/L [facility] ALT 25 0 - 35 U/L [facility] AST 12 0 - 35 U/L [facility] Specimen Anatomical Collection Method Collection Time Receive d Time (Source) Location / / Volume Laterality 07/27/2002 9:01 AM 3 9:06 CDT AM CDT Tee Marcos MD LABORATORY Performing Organization Address City/[facility]/ZIP Code Phon e Number [address] [address] [facility] TSH- (07/27/2002 9:01 AM CDT) P athologist Signature TSH 1.24 0.4 - 5.0 [facility] mU/L [facility] Specimen Anatomical Collection Method Collection Time Receive d Time (Source) Location / / Volume Laterality 07/27/2002 9:01 AM 3 9:06 CDT AM CDT Tee Marcos MD LABORATORY Performing Organization Address City/[facility]/ZIP Code Phon e Number [address] [address] [facility] CBC WITH PLATELETS, DIFF (07/27/2002 9:01 AM CDT) [facility] Method Time Signature WBC 4.5 4.0 - [facility] 11.0 [facility] 10e9/L CLINIC LAB RBC Count 4.26 3.8 - 5.2 [place] 10e12/L [facility] Hemoglobin 13.7 11.7 - [place] 15.7 g/dL [facility] Hematocrit 39.2 35.0 - [place] 47.0 % [facility] MCV 92 78 - 100 [place] fl [facility] MCH 32.2 26.5 - [facility] 33.0 pg [facility] MCHC 34.9 32.0 - [place] 36.0 g/dL [facility] RDW 13.2 10.0 - [place] 15.0 % [facility] Platelet Count 176 150 - 450 [place] 10e9/L [facility] Diff Method Automated [place] Method [facility] % Lymphocytes 33 20 - 48 % [facility] % Monocytes 6 0 - 12 % [facility] % Granulocytes 61 % [facility] Absolute 1.5 0.8 - 5.3 [place] Lymphocytes 10e9/L [facility] Absolute 0.2 0.0 - 1.3 [place] Monocytes 10e9/L [facility] Absolute 2.8 10e9/L [place] Granulocytes [facility] Specimen Anatomical Collection Method Collection Time Receive d Time (Source) Location / / Volume Laterality 07/27/2002 9:01 AM 200 3 9:06 CDT AM CDT Tee Marcos MD LABORATORY Performing Organization Address City/State/ZIP Code Phon e Number [facility] [address] [place], [place] [id number] [facility] UA, MICRO IF* (07/27/2002 9:01 AM CDT) [facility] Method Time Signature Color Urine Yellow [facility] Appearance Urine Clear [facility] Glucose Urine Negative NEG mg/dL [facility] Bilirubin Urine Negative NEG [facility] Ketones Urine Negative NEG mg/dL [facility] Specific [place] 1.020 1.001 - [place] Urine 1.035 [facility] Blood Urine Negative NEG [facility] pH Urine 6.0 5.0 - 7.0 [place] pH [facility] Protein Albumin Negative NEG mg/dL [place] Urine [facility] Urobilinogen 0.2 0.2 - 1.0 [place] Urine EU/dL [facility] Nitrite Urine Negative NEG [facility] Leukocyte Negative NEG [place] Esterase Urine [facility] Source Midstream [place] Urine [facility] Specimen Anatomical Collection Method Collection Time Receive d Time (Source) Location / / Volume Laterality 07/27/2002 9:01 AM 3 9:06 CDT AM CDT Tee Marcos MD LABORATORY Performing Organization Address City/State/ZIP Code Phon e Number [facility] [address] [place] [address] [facility] documented in this encounter Visit Diagnoses Diagnosis DIAGNOSIS NOT YET DEFINED - Primary documented in this encounter
--- OUTSIDE RECORDS SUMMARY | 2022-01-10 08:10 | XMS_ITS | Encounter Summary ---
:1985 Author Organization [facility] Address [address] [place] [address]. [place] [address] Care Team Providers Name Role Phone Barry Galo MD Primary Care Provider [phone] Reason for Visit Reason Comments Sinus Problem pressure, headache, drainage , fever, ear pain, barky cough Encounter Details Date Type Department Care Team Description 06/06/[address] [facility] Barry Galo ACUTE MAXILLARY Clinic Codie Cordova MD SINUSITIS (Primary Dx) [address] [id number] Social History Tobacco Use Types Packs/Day Years Used Date Smoking Tobacco: Never Alcohol Use Standard Drinks/Week Comments No 0 (1 standard drink = 0.6 oz pure alcoho l) Sex Assigned at Date Recorded Not on file documented as of this encounter Last Filed Vital Signs Vital Sign Reading Time Taken Comments Blood Pressure 120/76 06/06/2005 11:00 AM WEATHER FORCASTER Pulse - - Temperature 36.7 ??C (98.1 ??F) 06/06/2005 11:00 AM WEATHER [place]CA[facility] Respiratory Rate - - Oxygen Saturation - - Inhaled Oxygen Concentration - - Weight 71.2 kg (157 lb) 06/06/2005 11:00 AM WEATHER [place]CA[facility] Height 172.7 cm (5' 8) 06/06/2005 11:00 AM WEATHER [place]CA[facility] Body Mass Index 23.87 06/06/2005 11:00 AM WEATHER [place]CASTER documented in this encounter Progress Notes Barry Galo - 06/06/2005 11:42 AM CST Patient complains of congestion with sore throat, nasal congestion and sinus pain. Some mucopurulantdischarge but no upper dental pain and no sustained fever. Duration less than three days withfever to 101. Has history of airborn allergy or asthma. No chest pain, diaphoresis, or sob. Non productive cough. TMs dull not red, sinus tenderness left lungs clear, s1s2,soft abd,no distress, cyanosis or stridor. A:URI with sinusitis P:fluids, antipyretics,rest and amox as directed. Recheck PRN worsening or non-improvement over 5 days. Discussed signs of systemic or constutional illness. HER [place]CASTER documented in this encounter Nursing Notes 06/06/2005 11:00 AM CST >> TRAMAINE GANN 06/06/2005 11:12 am Patient presents with: Sinus Problem - pressure, headache, drainage, fever, ear pain, barky cough Initial BP 120/76 Temp (Src) 98.1 (Oral) Ht 5' 8 (1.73m) Wt 157 lbs (71.2kg) Body mass index is 23.88 kg/(m^2).. BP completed using cuff size regular Tramaine Gann CMA documented in this encounter Plan of Treatment Not on filedocumented as of this encounter Visit Diagnoses Diagnosis Acute maxillary sinusitis - Primary documented in this encounter Care Teams Book Coverer Relationship Specialty Start Date End Date Barry Galo MD PCP - General 04/14/03 01/16/11 [address] [place] [address] documented as of this encounter
--- OUTSIDE RECORDS SUMMARY | 2022-01-10 08:10 | XMS_ITS | Encounter Summary ---
:1984 Author Organization [facility] Address [address] [place] [address]. [place] [address] Care Team Providers Name Role Phone Barry Galo MD Primary Care Provider [phone] Adolfo Reyes MD Primary Care Provider Anca Matos MD Primary Care Provider Callie Kumar Unavailable Unavailable Georgia Valentino MD Unavailable Reason for Visit Reason Comments Headache Float/Hemant 07/27/2002 vis it Encounter Details Date Type Department Care Team Description 09/30/2002 Abstract [facility] Hemant Michael Painter [address] [place] [address] [phone] [id number] [place] [address] [place], [place] [address] [phone] Social History Tobacco Use Types Packs/Day Years Used Date Smoking Tobacco: Never Assessed Sex Assigned at Date Recorded Not on file documented as of this encounter Plan of Treatment Not on filedocumented as of this encounter Visit Diagnoses Not on filedocumented in this encounter Care Teams Iron Piler Relationship Specialty Start Date End Date Barry Galo, PCP - General 04/14/0316/02 [address] [place] [address] Adolfo Reyes MD PCP - General Family Practice 01/17/11 05/11/12 [address] [place] [address] Anca Matos MD PCP - General electrical machinist 05/12/12 Callei Kumar Assigned OBGYN Provider 01/13/20 04/20/21 Georgia Valentino MD Assigned OBGYN Provider 04/21/21 05/11/[address] [place] [address] documented as of this encounter
--- OUTSIDE RECORDS SUMMARY | 2022-01-10 08:10 | XMS_ITS | Encounter Summary ---
:1984 Author Organization [facility] Address [address] [place] [address]. [place] [address] Care Team Providers Name Role Phone Barry Galo MD Primary Care Provider Reason for Visit Reason Comments Conjunctivitis Encounter Details Date Type Department Care Team Description 02/27/2006 Office Visit [facility] Barry Galo ACUTE CONJUNCTIVITIS [facility] [place]ckettDany Cordova MD (Primary Dx) [address] [place] [id number] [phone] Social History Tobacco Use Types Packs/Day Years Used Date Smoking Tobacco: Never Alcohol Use Standard Drinks/Week Comments No 0 (1 standard drink = 0.6 oz pure alcoho l) Sex Assigned at Date Recorded Not on file documented as of this encounter Last Filed Vital Signs Vital Sign Reading Time Taken Comments Blood Pressure 120/72 02/27/2006 3:00 PM CAMPUS WELLNESS COORDINATOR Pulse - - Temperature 36.7 ??C (98.1 ??F) 02/27/2006 3:00 PM CAMPUS WELLNESS COORDINATOR Respiratory Rate - - Oxygen Saturation - - Inhaled Oxygen Concentration - - Weight 73.5 kg (162 lb) 02/27/2006 3:00 PM CAMPUS WELLNESS COORDINATOR Height 167.6 cm (5' 6) 02/27/2006 3:00 PM CAMPUS WELLNESS COORDINATOR Body Mass Index 26.15 02/27/2006 3:00 PM CAMPUS WELLNESS COORDINATOR documented in this encounter Progress Notes Barry Galo - 02/27/2006 3:08 PM CST Symptoms of eye itching, mattering and watering since two days ago. Did start with a household contact. Does not attend day care. Does have associated uri symptoms of coryza,cough and fever. No abnormality of ear, throat,lungs,skin, adenopathy and no neck stiffness. No corneal fluoroscein uptake or foreign body seen. Bacterial conjunctivitis US WELLNESS COORDINATOR documented in this encounter Nursing Notes 02/27/2006 3:00 PM CST >> TRAMAINE GANN 02/27/2006 2:53 pm Patient presents with: Conjunctivitis Initial BP 120/72 Temp (Src) 98.1 (Oral) Ht 5' 6 (1.68m) Wt 162 lbs (73.5kg) Body mass index is 26.16 kg/(m^2).. BP completed using cuff size regular Tramaine Gann CMA documented in this encounter Plan of Treatment Not on filedocumented as of this encounter Visit Diagnoses Diagnosis Acute conjunctivitis, unspecified - Prim nicole documented in this encounter Care Teams Building Serviceman Relationship Specialty Start Date End Date Barry Galo MD PCP - General 04/14/03 01/16/11 [address] [place] [address] documented as of this encounter
--- OUTSIDE RECORDS SUMMARY | 2022-01-10 08:10 | XMS_ITS | Encounter Summary ---
:1984 Author Organization [place] [facility] Address [address] [place] [address]. [place] [address] Care Team Providers Name Role Phone Barry Galo MD Primary Care Provider Reason for Referral Consultation - Closed Specialty Diagnoses / Procedures Referred By Contact Refer red To Contact Diagnoses Labial cyst Libia Trejo, OBSTETRICS & GYNECOLOGY PA-Arturo SPEC [facility] [address] [facility] [address] [facility] [place] [address] [address] [place] [address] Referral ID Status Reason Start Date Expiration Date Visits Requ ested Visits Authorized [id number] Closed 09/20/2008 03/22/2011 1 1 Reason for Visit Reason Comments Vaginal Problem cyst? x5 days Insulation Machine Operator Exam pap Encounter Details Date Type Department Care Team Description 09/20/2008 Office Visit [facility] Libia Trejo Labial Cyst (Primary Clinic [place] BAKARI Romero Dx) [address] [place], [place] [address] [facility] [phone] [address] 553 79 Social History Tobacco Use Types Packs/Day Years Used Date Smoking Tobacco: Never Alcohol Use Standard Drinks/Week Comments No 0 (1 standard drink = 0.6 oz pure alcoho l) Sex Assigned at Date Recorded Not on file documented as of this encounter Last Filed Vital Signs Vital Sign Reading Time Taken Comments Blood Pressure 120/66 09/20/2008 11:19 AM CDT Pulse 86 09/20/2008 11:19 AM CDT Temperature 36.8 ??C (98.3 ??F) 09/20/2008 11:19 AM CDT Respiratory Rate - - Oxygen Saturation - - Inhaled Oxygen Concentration - - Weight 72.6 kg (160 lb) 09/20/2008 11:19 AM CDT Height - - Body Mass Index 25.82 08/10/2008 10:42 AM CDT documented in this encounter Progress Notes Libia Beaulieu - 09/20/2008 11:30 AM CDT CC: Labial Cyst [624.8U] Pt presents with a 5 day hx of a cyst on her L labia. Pt has had no tx to date. Area is painful to touch and getting worse. Exam: Skin: erythematous, gum-ball sized palpable mass, tender to palpation I/P: Labial Cyst [624.8U] Area was cleaned with alcohol and numbed with 1% lidocaine. Area was I&D with an 11 blade. Area was cleaned and bandaged. Pt was given pain medication and abx. Pt was referred to Insulation Machine Operator for f/u. documented in this encounter Nursing Notes 09/20/2008 11:15 AM CDT >> ANAI FARR ThuSep 20, 2008 11:23 AM Patient presents with: Vaginal Problem - cyst? x5 days Insulation Machine Operator Exam - pap Initial BP 120/66 Pulse 86 Temp (Src) 98.3 ??F (36.8 ??C) (Oral) Wt 160 lb (72.576 kg) Estimated Body mass index is 25.82 kg/(m^2) as calculated from: Height of 5' 6 (1.676 m) as of 08/10/08 Weight of 160 lb (72.576 kg) as of this encounter. BP completed using cuff size regular Anai Farr CMA documented in this encounter Plan of Treatment Not on filedocumented as of this encounter Visit Diagnoses Diagnosis Labial cyst - Primary Other specified noninflammatory disorder of vulva and perineum documented in this encounter Care Teams Cleaning Handyman Relationship Specialty Start Date End Date Barry Galo MD PCP - General 04/14/03 01/16/11 [address] [place] [address] documented as of this encounter
--- OUTSIDE RECORDS SUMMARY | 2022-01-10 08:10 | XMS_ITS | Encounter Summary ---
:1985 Author Organization [facility] Address [address] [place] [address] Care Team Providers Name Role Phone Barry Galo MD Primary Care Provider [phone] Encounter Details Date Type Department Care Team Description 01/02/2010 Historic Results INTERFACED REPORT [facility] [address] [place] [address] (Wo rk) Social History Tobacco Use Types Packs/Day Years Used Date Smoking Tobacco: Never Alcohol Use Standard Drinks/Week Comments No 0 (1 standard drink = 0.6 oz pure alcoho l) Sex Assigned at Date Recorded Not on file documented as of this encounter Plan of Treatment Not on filedocumented as of this encounter Procedures Procedure Name Priority Date/Time Associated Diagnosis Comme nts URIC ACID Timed 01/02/2010 3:20 PM Results f or this CDT procedure are i n the results section. CREATININE Timed 01/02/2010 3:20 PM Results f or this CDT procedure are i n the results section. AST Timed 01/02/2010 3:20 PM Results f or this CDT procedure are i n the results section. ALT Timed 01/02/2010 3:20 PM Results f or this CDT procedure are i n the results section. CBC WITH PLATELETS Timed 01/02/2010 3:20 PM Res ults for this CDT procedure are i n the results section. URIC ACID Timed 01/02/2010 6:10 AM Results f or this CDT procedure are i n the results section. CREATININE Timed 01/02/2010 6:10 AM Results f or this CDT procedure are i n the results section. AST Timed 01/02/2010 6:10 AM Results f or this CDT procedure are i n the results section. ALT Timed 01/02/2010 6:10 AM Results f or this CDT procedure are i n the results section. CBC WITH PLATELETS Timed 01/02/2010 6:10 AM Res ults for this CDT procedure are i n the results section. documented in this encounter Results ALT (01/02/2010 3:20 PM CDT) athologist Signature ALT 28 0 - 50 U/L MISYS Specimen Anatomical Collection Method Collection Time Receive d Time (Source) Location / / Volume Laterality 01/02/2010 3:20 PM 0 3:00 CDT PM CDT Hayley Hogan MD LAB - BLOOD ORDERABLES Performing Organization Address City/[facility]/ZIP Code Phon e Number MISYS AST (01/02/2010 3:20 PM CDT) athologist Signature AST 29 0 - 45 U/L MISYS Specimen Anatomical Collection Method Collection Time Receive d Time (Source) Location / / Volume Laterality 01/02/2010 3:20 PM 0 3:00 CDT PM CDT Hayley Hogan MD LAB - BLOOD ORDERABLES Performing Organization Address City/[facility]/ZIP Code Phon e Number MISYS (ABNORMAL) CBC with platelets (01/02/2010 3:20 PM CDT) Analysis Performed At Patho logist Time Signature MCV 94 78 - 100 MISYS fl MCH 32.2 26.5 - MISYS 33.0 pg MCHC 34.4 31.5 - MISYS 36.5 g/dL RDW 12.6 10.0 - MISYS 15.0 % WBC 7.2 4.0 - 11.0 MISYS 10e9/L RBC Count 3.66 (L) 3.8 - 5.2 MISYS 10e12/L Hemoglobin 11.8 11.7 - MISYS 15.7 g/dL Hematocrit 34.3 (L) 35.0 - MISYS 47.0 % Platelet Count 92 (L) 150 - 450 MISYS 10e9/L Specimen Anatomical Collection Method Collection Time Receive d Time (Source) Location / / Volume Laterality 01/02/2010 3:20 PM 0 3:00 CDT PM CDT Hayley Hogan MD LAB - BLOOD ORDERABLES Performing Organization Address [facility]/ZIP Code Phon e Number MISYS Creatinine (01/02/2010 3:20 PM CDT) P athologist Signature Creatinine 0.69 0.52 - 1.04 MISYS mg/dL Comment: New IDMS-traceable calibration beginning 07/22/07 GFR Estimate >90 >60 mL/min/1.7m2 MISYS GFR Estimate If Black >90 >60 mL/min/1.7m2 M ISYS Specimen Anatomical Collection Method Collection Time Receive d Time (Source) Location / / Volume Laterality 01/02/2010 3:20 PM 0 3:00 CDT PM CDT Hayley Hogan MD LAB - BLOOD ORDERABLES Performing Organization Address [facility] Phon e Number MISYS Uric acid (01/02/2010 3:20 PM CDT) P athologist Signature Uric Acid 5.0 2.5 - 6.2 MISYS mg/dL Specimen Anatomical Collection Method Collection Time Receive d Time (Source) Location / / Volume Laterality 01/02/2010 3:20 PM 0 3:00 CDT PM CDT Hayley Hogan MD LAB - BLOOD ORDERABLES Performing Organization Address [facility] Code Phon e Number MISYS (ABNORMAL) CBC with platelets (01/02/2010 6:10 AM CDT) Analysis Performed At Patho logist Time Signature MCV 93 78 - 100 MISYS fl MCH 32.0 26.5 - MISYS 33.0 pg MCHC 34.3 31.5 - MISYS 36.5 g/dL RDW 12.8 10.0 - MISYS 15.0 % WBC 6.8 4.0 - 11.0 MISYS 10e9/L RBC Count 3.75 (L) 3.8 - 5.2 MISYS 10e12/L Hemoglobin 12.0 11.7 - MISYS 15.7 g/dL Hematocrit 35.0 35.0 - MISYS 47.0 % Platelet Count 90 (L) 150 - 450 MISYS 10e9/L Specimen Anatomical Collection Method Collection Time Receive d Time (Source) Location / / Volume Laterality 01/02/2010 6:10 AM 0 6:00 CDT AM CDT Jaleesa Tenorio MD LAB - BLOOD ORDERABLES Performing Organization Address City/[facility]/ZIP Code Phon e Number MISYS ALT (01/02/2010 6:10 AM CDT) P athologist Signature ALT 25 0 - 50 U/L MISYS Specimen Anatomical Collection Method Collection Time Receive d Time (Source) Location / / Volume Laterality 01/02/2010 6:10 AM 0 6:00 CDT AM CDT Jaleesa Tenorio MD LAB - BLOOD ORDERABLES Performing Organization Address [facility] Code Phon e Number MISYS AST (01/02/2010 6:10 AM CDT) P athologist Signature AST 26 0 - 45 U/L MISYS Specimen Anatomical Collection Method Collection Time Receive d Time (Source) Location / / Volume Laterality 01/02/2010 6:10 AM 0 6:00 CDT AM CDT Jaleesa Tenorio MD LAB - BLOOD ORDERABLES Performing Organization Address [facility] Code Phon e Number MISYS Creatinine (01/02/2010 6:10 AM CDT) P athologist Signature Creatinine 0.73 0.52 - 1.04 MISYS mg/dL Comment: New IDMS-traceable calibration beginning 07/22/07 GFR Estimate >90 >60 mL/min/1.7m2 MISYS GFR Estimate If Black >90 >60 mL/min/1.7m2 M ISYS Specimen Anatomical Collection Method Collection Time Receive d Time (Source) Location / / Volume Laterality 01/02/2010 6:10 AM 0 6:00 CDT AM CDT Jaleesa Tenorio MD LAB - BLOOD ORDERABLES Performing Organization Address City/[facility]/ZIP Code Phon e Number MISYS Uric acid (01/02/2010 6:10 AM CDT) P athologist Signature Uric Acid 5.0 2.5 - 6.2 MISYS mg/dL Specimen Anatomical Collection Method Collection Time Receive d Time (Source) Location / / Volume Laterality 01/02/2010 6:10 AM 0 6:00 CDT AM CDT Jalesea Tenorio MD LAB - BLOOD ORDERABLES Performing Organization Address City/State/ZIP Code Phon e Number MISYS documented in this encounter Visit Diagnoses Not on filedocumented in this encounter Care Teams Documentation Engineer Relationship Specialty Start Date End Date Barry Galo MD PCP - General 04/14/03 01/16/11 [address] [place] [address] documented as of this encounter
--- OUTSIDE RECORDS SUMMARY | 2022-01-10 08:10 | XMS_ITS | Encounter Summary ---
:1985 Author Organization [facility] Address [address] [place] [address]. [place] [address] Care Team Providers Name Role Phone Barry Galo MD Primary Care Provider Reason for Visit Reason Onset Date Comments Confirmation Of 05/11/2009 Encounter Details Date Type Department Care Team Description 05/11/2009 Telephone [facility] Barry Galo [facility] [place] [address] [address] [phone] (Wo rk) Social History Tobacco Use Types Packs/Day Years Used Date Smoking Tobacco: Never Alcohol Use Standard Drinks/Week Comments No 0 (1 standard drink = 0.6 oz pure alcoho l) Sex Assigned at Date Recorded Not on file documented as of this encounter Miscellaneous Notes Telephone Encounter - Keiry Álvarez RN - 05/11/2009 10:22 AM CST Pt had pos UPT. Appt made for confirmation 05/15/09 with Alesha. Pt states she does not have any insurance. I told her she would need to pay something up front for appt but did not knowhow much. LMOM for Leigh re: this. Pt will also start looking into [place] [facility] to see if she canget coverage due to . Please call pt back re: payment for appt. Cecilia Henri, RN CELL TUBER documented in this encounter Plan of Treatment Not on filedocumented as of this encounter Visit Diagnoses Not on filedocumented in this encounter Care Teams Edging Machine Operator Relationship Specialty Start Date End Date Barry Galo MD PCP - General 04/14/03 01/16/11 [address] [place] [address] documented as of this encounter
--- OUTSIDE RECORDS SUMMARY | 2022-01-10 08:10 | XMS_ITS | Encounter Summary ---
:1985 Author Organization [facility] Address [address] [place] [address] Care Team Providers Name Role Phone Barry Galo MD Primary Care Provider [phone] Reason for Visit Reason Comments URI cough and chest congestion x 1 week Encounter Details Date Type Department Care Team Description 12/01/2003 Office Visit [facility] [place] Neil Mesa MD NASAL & SINUS DIS NEC [address] [place], [place] [address] [address] [phone] [place], [place] [address] (Wo rk) Social History Tobacco Use Types Packs/Day Years Used Date Smoking Tobacco: Never Assessed Sex Assigned at Date Recorded Not on file documented as of this encounter Last Filed Vital Signs Vital Sign Reading Time Taken Comments Blood Pressure 120/78 12/01/2003 9:46 AM CDT Pulse 80 12/01/2003 9:46 AM CDT Temperature 37.2 ??C (98.9 ??F) 12/01/2003 9:46 AM CDT Respiratory Rate 20 12/01/2003 9:46 AM CDT Oxygen Saturation - - Inhaled Oxygen Concentration - - Weight - - Height - - Body Mass Index - - documented in this encounter Progress Notes 12/01/2003 9:45 AM CDT SUBJECTIVE: Mindy is a 18 year old female presenting with chest congestion and cough slightly productive. No fevers, chills, nausea, or vomiting. No seasonal allergies. Onset of symptoms was 7 days ago. Course of illness is worsening. Treatment measures tried include fluids and OTC meds. Predisposing factors include daycare exposures. Review of patient's past medical history indicates: ESOTROPIA NOS VARICELLA UNCOMPLICATED Active Medications as of 12/01/2003: IMITREX 50 MG OR TABS, as directed, D: , R: RISPERDAL 0.25 MG OR TABS, 1 TABLET TWICE DAILY, D: 60, R: 1 CELEXA 20 MG OR TABS, one half pill daily for 7 days then one daily, D: 30, R: 1 OBJECTIVE: BP 120/78 Pulse 80 Temp (Src) 98.9 (Oral) Resp 20 General appearance: alert and no apparent distress Skin color is normal HEENT: Conjunctiva are not injected without discharge. Left TM is normal: no effusions, no erythema, and normal landmarks. Right TM is normal: no effusions, no erythema, and normal landmarks. Nasal mucosa is discharge clear and inflamed. Oropharyngeal exam is normal: no lesions, erythema, adenopathy or exudate and post-nasal drip. Neck is supple with no adenopathy CARDIAC:NORMAL - regular rate and rhythm without murmur. RESP: Normal - CTA without rales, rhonchi, or wheezing. ASSESSMENT: Upper respiratory infection with cough Rhinitis PLAN: OTC cough suppressant/expectorant, Rx: fuentes-D samples BID for congestion, saline gargles, salinenasal spray and warm packs to face Follow up only if unimproved. documented in this encounter Nursing Notes 12/01/2003 9:45 AM CDT >> TYLER [place] 12/01/03 9:46 am Mindy A Ausmus presents for cough and chest congestion x1 week. Initial BP 120/78 Pulse 80 Temp (Src) 98.9 (Oral) Resp 20 completed using BP cuff size: regular. Tyler [place]/URBAN documented in this encounter Plan of Treatment Not on filedocumented as of this encounter Visit Diagnoses Diagnosis Cough Nasal/sinus dis NEC Other diseases of nasal cavity and sinus es documented in this encounter Care Teams Signal Apprentice Relationship Specialty Start Date End Date Barry Galo MD PCP - General 04/14/03 01/16/11 [address] [place] [address] documented as of this encounter
--- OUTSIDE RECORDS SUMMARY | 2022-01-10 08:10 | XMS_ITS | Encounter Summary ---
:1985 Author Organization [facility] Address [address] [place] [address] Care Team Providers Name Role Phone Barry Galo MD Primary Care Provider Reason for Visit Reason Comments OB Education OB Confirmation Encounter Details Date Type Department Care Team Description 05/15/2009 Office [facility] Absence of Menstruation (Primary Dx); Visit [facility] [place] [facility] [address] [place] [address] Social History Tobacco Use Types Packs/Day Years Used Date Smoking Tobacco: Never Alcohol Use Standard Drinks/Week Comments No 0 (1 standard drink = 0.6 oz pure alcoho l) Sex Assigned at Date Recorded Not on file documented as of this encounter Last Filed Vital Signs Vital Sign Reading Time Taken Comments Blood Pressure 128/62 05/15/2009 9:17 AM RECREATION PROGRAM COORDINATOR Pulse - - Temperature - - Respiratory Rate - - Oxygen Saturation - - Inhaled Oxygen Concentration - - Weight 78.5 kg (173 lb) 05/15/2009 9:17 AM RECREATION PROGRAM COORDINATOR Height 167.6 cm (5' 6) 05/15/2009 9:17 AM RECREATION PROGRAM COORDINATOR Body Mass Index 27.92 05/15/2009 9:17 AM RECREATION PROGRAM COORDINATOR documented in this encounter Patient Instructions Patient InstructionsElena Anderson - 05/15/2009 10:07 AM CST Advised patient if she has any sx's of pain, bleeding, SOB, faintness, contractions or heart palpitations to seek medical attention. EATION PROGRAM COORDINATOR documented in this encounter Progress Notes Silke Davison - 05/24/2009 5:49 PM RECREATION PROGRAM COORDINATOR Addended by: MICHAEL DAVISON on: 05/24/2009 Modules accepted: Orders EATION PROGRAM COORDINATOR Elena Anderson - 05/15/2009 9:47 AM CST Subjective: 23 year old patient presents for confirmation. Her last menstrual period she believes was at the end of February but is unsure of the date. She states she had a couple of days of light spotting that started on April 05. She has had a positive HPT. This is her 1st , G1, P0. She has had no previous deliveries. She would like to be seen here for her care. She has not started vitamins. She had recently stopped taking her Sertraline when she found out she was . She states she feels she is doing well without the medication and will talk more about this with Dr. Davison. Exam: BP 128/62 Ht 5' 6 (1.676 m) Wt 173 lb (78.472 kg) General Appearance: Well appearing, in no distress, comfortable. Her urine test is positive. Assessment: Positive confirmation. Plan: Patient has an EDC of unsure, we believe she is due in November. An ultrasound has been ordered to confirm dates and EDC. She will schedule her first OB appointment with Dr. Davison. Risk assessment done. We discussed medications, basic care, diet, exercise and vitamins. I have ordered a vitamim to her pharmacy and she plans to start this today. Elena Anderson RN EATION PROGRAM COORDINATOR documented in this encounter Nursing Notes 05/15/2009 9:00 AM CST >> ELENA Muir May 15, 2009 10:08 AM Here for OB Confirmation, see progress notes. Elena Anderson RN documented in this encounter Plan of Treatment Not on filedocumented as of this encounter Procedures Procedure Name Priority Date/Time Associated Diagnosis Comme nts [facility] OB 1ST Routine 05/24/2009 10:27 Absence of Results for this TRIMESTER AM RECREATION PROGRAM COORDINATOR menstruation procedure are i n MAT/, SINGLE the result s GESTATION section. HCL HCG URINE QUAL Routine 05/15/2009 8:55 AM Absence of Res ults for this RECREATION PROGRAM COORDINATOR Menstruation procedure are i n the results section. documented in this encounter Results US, PREG UTER, REAL TIME W/IMAGE DOCUMENT, & MATERNAL, 1ST TRIMEST, TRANSABDOM; SINGL/1ST GEST (05/24/2009 10:27 AM RECREATION PROGRAM COORDINATOR) Anatomical Region Laterality Modality Other Specimen (Source) Anatomical Collection Method Collection Time Re ceived Time Location / / Volume Laterality 05/24/2009 10:27 AM RECREATION PROGRAM COORDINATOR Impressions 05/24/2009 11:19 AM RECREATION PROGRAM COORDINATOR PELVIC ULTRASOUND May 24, 2009 10:27:00 A M HISTORY: Unsure of dates. COMPARISON: None. TECHNIQUE: Transabdominal and transvagin al imaging were obtained. Transvaginal imaging was obtained to bet ter evaluate the gestational sac. FINDINGS: Single live intrauterine pregn shelley identified with a crown-rump dimension of 0.3 cm correspon ding with a gestational age of 5 weeks 6 days. cardiac activity i dentified, however, the rate is slow at 88 BPM. Followup study might be helpful for further evaluation if clinically indicated. Yolk sac identified. Mean sac dimension is 1.5 cm which corresponds wi th a gestational age of 5 weeks 5 days. 1.8 x 1.7 x 1.8 cm cyst in the right ovary consistent with a corpus luteum cyst. Both ovaries are otherwise normal. No adnexal mass. Small amount of fluid in t he cul-de-sac. Remainder of the scan is unremarkable. IMPRESSION: 1. Single live intrauterine of approximately 5 week 6 day gestation. 2. cardiac activity is somewhat sl ow with a rate of 88 BPM. Followup study might be helpful for furt her evaluation if clinically indicated. 3. Small amount of fluid in the cul-de-s ac. Silke Davison MD SPECIAL IMAGING STUDIES (ABNORMAL) HCG QUAL URINE (05/15/2009 8:55 AM RECREATION PROGRAM COORDINATOR) [facility] Method Time Signature HCG Qual Positive NEG [facility] Urine This test provides a presum ptive diagnosis of or non-. A [facility] confirmed diagnosis should only be made by a ph ysician after all CLINIC LAB clinical and laboratory findings have been evaluated. (A) Specimen Anatomical Collection Method Collection Time Receive d Time (Source) Location / / Volume Laterality 05/15/2009 8:55 AM 0 8:59 RECREATION PROGRAM COORDINATOR AM RECREATION PROGRAM COORDINATOR Barry Galo MD LABORATORY Performing Organization Address City/State/ZIP Code Phon e Number [facility] [address] [place] [address] [facility] documented in this encounter Visit Diagnoses Diagnosis Absence of menstruation - Primary bradycardia Abnormality in heart rate or rhyth m, unspecified as to time of onset documented in this encounter Care Teams Clear Coat Sprayer Relationship Specialty Start Date End Date Barry Galo MD PCP - General 04/14/03 01/16/11 [address] [place] [address] documented as of this encounter
--- OUTSIDE RECORDS SUMMARY | 2022-01-10 08:10 | XMS_ITS | Encounter Summary ---
:1985 Author Organization [facility] Address [address] [place] [address]. [place] [address] Care Team Providers Name Role Phone Barry Galo MD Primary Care Provider [phone] Reason for Visit Reason Comments Dizziness pt c/o dizziness and lighthe adedness x 1 months --getting worse--some nause but not much--some sweating- -worse in am and early eating--worse when she does not eat Encounter Details Date Type Department Care Team Description 10/07/2006 Office Visit [facility] Davida Murdock MD DIZZINESS (Primary Dx); Clinic [place] [id number] [place], [place] [address]Marty [employer] [address] [place] [phone] Social History Tobacco Use Types Packs/Day Years Used Date Smoking Tobacco: Never Alcohol Use Standard Drinks/Week Comments No 0 (1 standard drink = 0.6 oz pure alcoho l) Sex Assigned at Date Recorded Not on file documented as of this encounter Last Filed Vital Signs Vital Sign Reading Time Taken Comments Blood Pressure 115/55 10/07/2006 1:15 PM CDT Pulse 80 10/07/2006 1:15 PM CDT Temperature 36.7 ??C (98.1 ??F) 10/07/2006 1:15 PM CDT Respiratory Rate - - Oxygen Saturation - - Inhaled Oxygen Concentration - - Weight 69.9 kg (154 lb) 10/07/2006 1:15 PM CDT Height - - Body Mass Index 24.86 08/05/2006 11:00 AM CDT documented in this encounter Progress Notes Davida Murdock - 10/07/2006 1:53 PM CDT SUBJECTIVE: Mindy Benton is a 21 year old female who presents with dizziness. Head lowe when standing. Feels like might pass out. Still a little that way when sits. When bends over, feels like may keep going. Feeling like going up and down. Perhaps a little spinning sensation. Noted a month ago; real bad this week. Has been there all along, but waxed and waned. Any time of day; sporadically. Eyes can get fuzzy; feels a little better when laying down. This week, has had some sweating. Happened at same time as dizziness. Blood pressure 154/80 the other day at work (with the sweating). Face felt red and flushed. Palpitations at that time as well. This morning, had some tightness in chest; almost a piercing sensation, brief. Works in [employer]. It is air conditioned. Eating is inconsistent. 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 Eats on the run. Couple months ago, lost a lot of weight due to eating habits changing. Drinks a lot of juice. Not a lot of water or pop. Not much caffeine. Tries to exercise 2-3 times per week. Will sometimes feel more dizzy after wards. No passing out or falling. Past Medical History Diagnosis Date ??? ESOTROPIA NOS ??? VARICELLA UNCOMPLICATED Past Surgical History Procedure Date ? ? Nonspecific procedure 1993 & Eye surgeries Notes grandmother has vertigo. Denies smoking, alcohol. No other drugs. Denies any possibility of periods. No head congestion. Ears only mildly plugged. Feels did get better after sinus infection. Periods are heavy. OBJECTIVE: EXAM ==== BP 115/55 Pulse 80 Temp (Src) 98.1 (Oral) Wt 154 lbs (69.9kg) LMP 09/15/2006 GENERAL APPEARANCE: healthy, alert and no distress HENT: ear canals and TM's normal and nose and mouth without ulcers or lesions NECK: no adenopathy, no asymmetry, masses, or scars and thyroid normal to palpation RESP: lungs clear to auscultation - no rales, rhonchi or wheezes CV: RRR normal S1S2 without murmurs, rubs or gallops. MS: no edema NEURO: Cranial nerves II-XII intact. Cerebellar exam with FNF, rapid alternating movements, screwinglightbulb into the ceiling, heel to page normal. Negative romberg. No pronator drift. Normal tandem gait. Mentation and speech intact. IMPRESSION and PLAN: 780.4 DIZZINESS (primary encounter diagnosis) Note: uncertain etiolgy. I suspect a large amount may be due to some of her eating habits. Will check labs; does have heavy menses. Plan: CBC WITH PLATELETS, A.M.A. COMPREHENSIVE MET.PANEL Recommend if labs normal, to work on eating regularly (3 times per day or several small meals, not skip breakfast; discussed some protein on board, decrease juice and more water). Return if not helping. 626.2 EXCESSIVE MENSTRUATION Note: Plan: CBC WITH PLATELETS documented in this encounter Nursing Notes 10/07/2006 1:15 PM CDT >> KELLIE YAÑEZ 10/07/2006 2:18 pm Letter was written for pt for work excuse --see letters Kellie Yañez CMA >> KELLIE YAÑEZ 10/07/2006 1:28 pm Dot phrases not working see Chief complaint Kellie Yañez cma documented in this encounter Plan of Treatment Not on filedocumented as of this encounter Procedures Procedure Name Priority Date/Time Associated Diagnosis Comme nts CL AFF CBC WITH Routine 10/07/2006 1:52 DIZZINESS Results for this PLATELETS PM CDT Excessive procedure are i n Menstruation the results section. HCL COMPREHENSIVE Routine 10/07/2006 1:52 DIZZINESS Results for this METABOLIC PANEL PM CDT procedure ar e in the results section. documented in this encounter Results (ABNORMAL) A.M.A. COMPREHENSIVE MET.PANEL (10/07/2006 1:52 PM CDT) Analysis Performed At Patho logist Time Signature Sodium 140 133 - 144 [facility] mmol/L [facility] Potassium 4.1 3.4 - 5.3 [facility] mmol/L [facility] Chloride 103 94 - 109 [facility] mmol/L [facility] Carbon Dioxide 26 20 - 32 [facility] mmol/L [facility] Anion Gap 12 6 - 17 [place] mmol/L [facility] Glucose 67 60 - 99 [place] mg/dL [facility] Urea Nitrogen 13 5 - 24 [place] mg/dL [facility] Creatinine 0.90 0.60 - [place] 1.30 mg/dL [facility] GFR Estimate 83 >60 [place] mL/min/1.7 [facility] m2 LAB GFR Estimate If >90 >60 [place] Black mL/min/1.7 [facility] m2 LAB Calcium 9.6 8.5 - 10.4 [place] mg/dL [facility] Bilirubin Total 1.4 (H) 0.2 - 1.3 [place] mg/dL [facility] Albumin 4.3 3.3 - 4.6 [place] g/dL [facility] Protein Total 7.5 6.0 - 8.2 [place] g/dL [facility] Alkaline 68 40 - 150 [place] Phosphatase U/L [facility] ALT 15 0 - 50 U/L [facility] AST 14 0 - 45 U/L [facility] Specimen Anatomical Collection Method Collection Time Receive d Time (Source) Location / / Volume Laterality 10/07/2006 1:52 PM 7 1:57 CDT PM CDT Davida Murdock MD LABORATORY Performing Organization Address City/State/ZIP Code Phon e Number [address] [address] [facility] CBC WITH PLATELETS (10/07/2006 1:52 PM CDT) P athologist Signature WBC 8.1 4.0 - 11.0 [place] 10e9/L [facility] RBC Count 4.41 3.8 - 5.2 [place] 10e12/L [facility] Hemoglobin 14.3 11.7 - [place] 15.7 g/dL [facility] Hematocrit 41.7 35.0 - [place] 47.0 % [facility] MCV 95 78 - 100 [facility] MCH 32.4 26.5 - [place] 33.0 pg [facility] MCHC 34.3 31.5 - [place] 36.5 g/dL [facility] RDW 13.0 10.0 - [facility] 15.0 % [facility] Platelet Count 164 150 - 450 [facility] 10e9/L [facility] Specimen Anatomical Collection Method Collection Time Receive d Time (Source) Location / / Volume Laterality 10/07/2006 1:52 PM 7 1:57 CDT PM CDT Davida Murdock MD LABORATORY Performing Organization Address City/State/ZIP Code Phon e Number [facility] [id number] [place] [id number] [facility] documented in this encounter Visit Diagnoses Diagnosis DIZZINESS - Primary Dizziness and giddiness Excessive or frequent menstruation documented in this encounter Care Teams Anodize Machine Operator Relationship Specialty Start Date End Date Barry Galo MD PCP - General 04/14/03 01/16/11 [address] [place] [address] documented as of this encounter
--- OUTSIDE RECORDS SUMMARY | 2022-01-10 08:12 | XMS_ITS | Clinical Summary ---
:1985 Author Organization [facility] [place] [address] Care Team Providers Name Role Phone Cruz Noguera PA-C Primary Care Provider Allergies Active Allergy Reactions Severity Noted Date Comments Citalopram Vomiting 10/01/2012 Sulfamethoxazole-Trimethoprim 08/10/2006 Medications Medication Sig Dispensed Refills Start Date End Date Status albuterol-ipratropium Inhale 3 mL via a 0 03/02/2014 Active (DUONEB) (2.5-0.5 mg) nebulizer 4 times in 3 mL NEBULIZATION daily if needed solution for Wheezing. albuterol HFA Inhale 1 Puff by 1 Inhaler 0 04/11/2014 Active (VENTOLIN HFA) 90 mouth 4 times mcg/actuation daily if needed inhalerIndications: for Shortness Of Wheezing Breath or Wheezing. typhoid Take 1 capsule by 4 capsule 0 05/15/2017 A ctive vaccin,live,attenuated mouth with (VIVOTIF BUD lukewarm water on VACCINE) 2 billion empty stomach on unit days 1,3,5 and 7. capsuleIndications: Typhoid-paratyphoid vaccination atovaquone-proguanil, Take 1 tablet by 17 tablet 0 05/15/2017 Active 250-100 mg, (MALARONE) mouth once daily. 250-100 mg Begin 1-2 days tabletIndications: before and Pharmacologic therapy continue until 1 week after exposure for prevention of malaria. Active Problems Problem Noted Date Incidental lung nodule, > 3mm and < 8mm 04/27/2014 Overview: Stable 6.5 mm right lower lobe pulmonary nodule at [address] in 1 year (03/2016), if stable, no further surveillance necessary. FHx: asthma 04/11/2014 Family history of aneurysm 01/11/2014 Vitamin D deficiency 07/04/2013 Family history of colon cancer 06/13/2013 Overview: Father age 49; patient should have first colonoscopy at age 38 Anxiety state, unspecified 08/10/2006 Major depressive disorder, recurrent episode, unspecif ied 08/10/2006 Immunizations Name Administration Dates Next Due Hepatitis A (Adult) 05/15/2017 Influenza Virus, Unspecified 02/18/2017 Influenza, IIV4 01/09/2014 Pneumococcal Poly,23-Valent (Pneumovax) 02/06/2003 Td, Preservative Free (age >= 7 Years) 05/15/2017 Tdap 08/10/2006 Family History Medical History Relation Name Comments Cancer-colon Father Psychiatric illness Maternal Aunt bipolar Cancer Maternal Grandfather Lung Heart Disease Maternal Grandfather 3 NE's - 50 's Other Maternal Grandmother MS Psychiatric illness Maternal Grandmother schizop hrenia Cancer Mother Thyriod GI Disease Paternal Grandmother gallbladder Hypertension Paternal Grandmother Psychiatric illness Sister bipolar Relation Name Status Comments Father Maternal Aunt Maternal Grandfather Maternal Grandmother Mother Paternal Grandmother Sister Social History Tobacco Use Types Packs/Day Years Used Date Never Smoker Smokeless Tobacco: Never Used Tobacco Cessation: Counseling Given: No Alcohol Use Standard Drinks/Week Comments Yes 0.8 (1 standard drink = 0.6 oz pure al[place] hol) Sex Assigned at Date Recorded Not on file Obstetrics History Para Term AB IAB SAB Ectopic Multiple Living Live Births 2 2 2 2 Date Outcome GA Total Labor/2nd/3rd Weight Sex Delivery Anes PTL Karen A 1 A5 Name Clin Labor 01/10 Term M CS-LTranv Brys o /2009 n 05/31 Term M CS-LTranv Lorne t on Last Filed Vital Signs Vital Sign Reading Time Taken Comments Blood Pressure 116/68 06/03/2017 2:16 PM CDT Pulse 88 06/03/2017 2:16 PM CDT Temperature 36.8 ??C (98.2 ??F) 05/15/2017 10:03 AM [facility] Respiratory Rate 16 04/27/2014 10:59 AM [facility] Oxygen Saturation 99% 06/03/2017 2:16 PM CDT RA at r est Inhaled Oxygen Concentration - - Weight 95.3 kg (210 lb) 06/03/2017 2:16 PM CDT Height 171.5 cm (5' 7.5) 06/03/2017 2:16 PM CDT Body Mass Index 32.41 06/03/2017 2:16 PM CDT Plan of Treatment Health Maintenance Due Date Last Done Comments COVID-19 vaccine series (#1) 01/25/1985 Depression screening for age 12+ 1996 Hepatitis C screening for age 18-79 2002 Pap test for age 21-65 06/13/2016 06/13/2013, 06/01/2012 [facility] 08/10/2006 BMI (ht and wt on same day) for age 0306/03/2018 06/03/2017, 05/15/2017 18+ Influenza for age 9-49 11/21/2021 02/18/2017, 01/09/2014 Tetanus booster 05/15/2027 05/15/2017, 08/10/2006 Tdap Completed 08/10/2006 Results Not on filefrom Last 3 Months Insurance Payer Benefit Plan / Subscriber ID Effective Dates Phone Addre ss Type Group [facility] [id number] 2021-Present [address] [id number] [place] [address] Care Teams Stem Processing Machine Operator Relationship Specialty Start Date End Date Cruz Noguera PACharlesC PCP - General Physician Meringuer 08/09/21 [facility] [place] [address]
--- OUTSIDE RECORDS SUMMARY | 2022-01-10 08:12 | XMS_ITS ---
:1985 Author Care Team Providers Name Role Phone Martine Toscano Primary Care Provider Unavailable Allergies Code Code System Name Reaction Severity Status Onset 973041 RxNorm Bactrim ? ? Active ? [id number] RxNorm Celexa ? ? Active ? Septra ? ? Active ? Medications Name Status Start Date Stop Date ? ? Advair HFA 115 mcg-21 mcg/actuation aerosol inhaler Active ? Not available albuterol sulfate 2.5 mg/3 mL (0.083 %) solution for Active ? Not available nebulization amoxicillin 875 mg-potassium clavulanate 125 mg tablet Completed ? 03/27/2020 benzonatate 100 mg capsule Active ? Not a vailable ferrous gluconate 324 mg (38 mg iron) tablet Active ? Not available ibuprofen 800 mg tablet Active ? Not avai lable ipratropium 0.5 mg-albuterol 3 mg (2.5 mg base)/3 mL Active ? Not available nebulization soln nifedipine 10 mg capsule Completed ? 021 nifedipine ER 30 mg tablet,extended release 24 hr Completed ? 03/27/2020 TAKE ONE TABLET BY MOUTH EVERY DAY ofloxacin 0.3 % eye drops Active ? Not av ailable ondansetron 4 mg disintegrating tablet Active ? Not available PLACE 1 TABLET ON THE TONGUE EVERY 4 TO 6 HOURS oxycodone 5 mg tablet Active ? Not availa ble prednisone 20 mg tablet Completed ? 03/27/19 21 Senna Plus 8.6 mg-50 mg tablet Completed ? 0 03/27/2020 sertraline 50 mg tablet Active ? Not avai lable TAKE ONE-HALF TABLET BY MOUTH DAILY FOR 8 DAYS, THEN TAKE ONE TABLET BY MOUTH EVERY DAY THEREAFTER Ventolin HFA 90 mcg/actuation aerosol inhaler Active ? Not available Problems Name Status Onset Date Source ? Unknown 11/10/2019 ? Hypertensive Disorder Active 03/10/2020 ? Procedures Date Name Performed by ? 09/20/2008 Excision of Labial Cyst Information not available ? Strabismus Surgery Information not avai lable Notes: 1989, 1993 ? Section Information not avai lable Notes: *Surgery Date: 12/22 04/01 *Notes: C/Section for Mild PIH, Thrombocytopenia, Failed induction, [facility]-Dr. Matos, 05/31/12: Repeat C/S. 03/17/2020 - repeat , Dr. Villarreal ? Thyroidectomy Information not avai lable Notes: *Surgery Date: 05-12 *Notes: left thyroidectomy (lg nodule), Dr. Mistry 02/27/2020 US, Obstetric, Biophysical Profile [id number] [facility] [address] [place] [address] (Work Place) Results Lab Results Date Name Specimen Result Interpretation Description Value Range Status Address ? 04/25/2020 HPV DNA, CERVIX&CERVIX ? HPV negative negative [facility] High-risk [facility] for [facility] type 16. type 16. Health - Type Lab: [address], [place] ? ? CERVIX&CERVIX ? HPV negative negative Comple te [place] High for HPV for HPV [facility] Risk type 18. type 18. Health - Type Lab: [address], [place] ? ? CERVIX&CERVIX ? HPV negative negative Comple [facility] Other for other for other Alvin rial High high risk high risk Heal th - Risk HPV HPV Lab: [address], [place] 04/25/2020 Pap, LB CERVIX&CERVIX ? Case see note ? Com plete Matti Report [facility] - Lab: [address], [place] 02/21/2020 ALT ? Alt 15 IU/L 12- Complete Nor th (Alanine (Sgpt) IU/L [facility] Aminotransf Healt h - erase), Lab: [address] Plasma N, [place] 02/21/2020 Creatine, ? Creat 0.71 0.55-1.02 [facility] Blood inine mg/dL mg/dL [facility] - Lab: [address], [place] ? ? ? Est >[address] [facility] GFR mL/min mL/min [facility] (CKD-e Health - pi) Lab: [address], [place] ? ? ? Est >60 >60 Complete [place] GFR If mL/min mL/min [facility] AM Lab: [address], [place] 02/21/2020 AST/SGOT Low Ast 11 IU/L 12-37 Complete orth (Aspartate (Sgot) IU/L [facility] Aminotransf Healt h - erase), Lab: [address] Plasma N, [place] 02/21/2020 Cbc ? Wbc 6.3 K/uL 4.3-10.8 Complete [place] K/uL [facility] - Lab: [address], [place] ? ? Low Rbc 3.54 M/uL 4.20-5.40 Complete No rth M/uL [facility] - Lab: [address], [place] ? ? Low Hemog 10.5 12.0-16.0 Complete [place] lobin gm/dL gm/dL [facility] - Lab: [address], [place] ? ? Low Hemat 31.8 % 36.0-48.0 Complete [place] ocrit % [facility] - Lab: [address], [place] ? ? ? Mcv 90 fL 80-100 fL Complete [facility] - Lab: [address], [place] ? ? ? Mch 30 pg 27-33 pg Complete [facility] - Lab: [address], [place] ? ? ? Mchc 33 gm/dL 33-36 Complete [place] gm/dL [facility] - Lab: [address], [place] ? ? ? Rdw 12.6 % 11.5-14.5 Complete [place] % [facility] - Lab: [address], [place] ? ? Low Plate 122 K/uL 150-400 [facility] let K/uL [facility] - Lab: [address], [place] ? ? ? Mpv 11.8 6.5-12 Complete [facility] - Lab: [address], [place] 02/21/2020 Protein:cre ? Prot/ 0.14 <0.16 Complete [place] atinine cre mg/mg mg/mg [facility] Ratio, Ratio creat creat [facility] - Urine U Lab: [address], [place] ? ? ? Creat 56.6 ? Complete [place] inine mg/dL [facility] Urine [facility] - Lab: [address], [place] ? ? ? Prote 8 mg/dL <12 mg/dL Complete Nort h in [facility] Urine [facility] - Lab: [address], [place] 02/13/2020 Streptococc ? Group no group no group Comp lete [facility] Group B B B B Memori al DNA Strep streptoco streptoco Heal th - by PCR ccus ccus Lab: [address] by PCR. by PCR. N, [place] 01/30/2020 Cbc ? Wbc 7.3 K/uL 4.3-10.8 Complete [place] K/uL [facility] - Lab: [address], [place] ? ? Low Rbc 3.59 M/uL 4.20-5.40 Complete No rth M/uL [facility] Lab: [address], [place] ? ? Low Hemog 10.8 12.0-16.0 [facility] lobin gm/dL gm/dL [facility] Lab: [address], [place] ? ? Low Hemat 33.4 % 36.0-48.0 Complete [place] ocrit % [facility] - Lab: [address], [place] ? ? ? Mcv 93 fL 80-100 fL Complete [facility] - Lab: [address], [place] ? ? ? Mch 30 pg 27-33 pg Complete [facility] - Lab: [address], [place] ? ? Low Mchc 32 gm/dL 33-36 Complete [place] gm/dL [facility] Lab: [address], [place] ? ? ? Rdw 12.6 % 11.5-14.5 Complete [place] % [facility] - Lab: [address], [place] ? ? Low Plate 131 K/uL 150-400 Complete [place] let K/uL [facility] - Lab: [address], [place] ? ? ? Mpv 11.8 6.5-12 Complete [facility] - Lab: [address], [place] 12/26/2019 Glucose ? Gest 121.0 70.0-154. Complete [facility]. 2 hr Ogtt 2 mg/dL 0 mg/dL [facility] - Lab: [address], [place] 12/26/2019 Glucose ? Gest 83.0 70.0-139. Complete [place] Debbie. 3 hr Ogtt 3 mg/dL 0 mg/dL [facility] Health - Lab: [address], [place] 12/26/2019 Glucose ? Gest 146.0 70.0-179. Complete [place] Debbie. 1 hr Ogtt 1 mg/dL 0 mg/dL [facility] Health - Lab: [address], [place] 12/26/2019 Glucose Hig Gluco 98.0 70.0-94.0 Complete [place] Debbie. h se mg/dL mg/dL [facility] Fasting Debbie. [facility] - Fastin Lab: [address], [place] 12/22/2019 ALT ? Alt 16 IU/L 12-68 Complete [place] th (Alanine (Sgpt) IU/L [facility]), Lab: [address] Plasma [address], [place] 12/22/2019 AST/SGOT Low Ast 5 IU/L 12-37 Complete No rth (Aspartate (Sgot) IU/L [facility] Aminotrans Heal h - erase), Lab: [address] Plasma N, [place] 12/22/2019 Protein:cre ? Prot/ 0.10 <0.16 Complete [place] atinine cre mg/mg mg/mg [facility] Ratio, Ratio creat creat [facility] - Urine U Lab: [address], [place] ? ? ? Creat 69.1 ? Complete [place] inine mg/dL [facility] Urine Health - Lab: [address], [place] ? ? ? Prote 7 mg/dL <12 mg/dL Complete Nort h in [facility] Urine [facility] - Lab: [address], [place] 12/22/2019 Cbc ? Wbc 6.7 K/uL 4.3-10.8 Complete North K/uL [facility] - Lab: [address], [place] ? ? Low Rbc 3.59 M/uL 4.20-5.40 Complete No rth M/uL [facility] - Lab: [address], [place] ? ? Low Hemog 10.9 12.0-16.0 Complete [place] lobin gm/dL gm/dL [facility] - Lab: [address], [place] ? ? Low Hemat 34.0 % 36.0-48.0 Complete [place] ocrit % [facility] - Lab: [address], [place] ? ? ? Mcv 95 fL 80-100 fL Complete [facility] - Lab: [address], [place] ? ? ? Mch 30 pg 27-33 pg Complete [facility] - Lab: [address], [place] ? ? Low Mchc 32 gm/dL 33-36 Complete [place] gm/dL [facility] - Lab: [address], [place] ? ? ? Rdw 12.8 % 11.5-14.5 Complete [place] % [facility] - Lab: [address], [place] ? ? Low Plate 136 K/uL 150-400 Complete [place] let K/uL [facility] Count [facility] - Lab: [address], [place] ? ? Hig Mpv 12.4 6.5-12 Complete [place] h [facility] - Lab: [address], [place] 12/22/2019 Glucose Hig Gluco 144 mg/dL 70-139 Complete [place] Tolerance h se mg/dL Memoria l Test, [facility] - Gestational ional Lab: [address], [place] ? Chromosome ? No ? ? ? Sequen om Analysis observ INC: 359 5 (Karyotype) rocío Fernandez [address] , [address], [place] Blood/tissu ed. Drew e ? Hemoglobin ? Finge 13.1 g/dL 12.0-15.0 ? [id number] (Hb), rstick g/dL ale_[place] Fingerstick Hemogl le: [address] , Blood obin [place] [address], [place] ? Hemoglobin ? Finge 11.4 g/dL 12.0-15.0 ? [id number] (Hb), rstick g/dL [place] Fingerstick Hemogl le: [address] , Blood obin [place] [address], [place] Past Encounters None recorded. Social History Tobacco Smoking Status Never Smoker Notes: Tobacco *Status: Never *Note: 08/17/2019 - Vaccine List Vaccine Type Tdap 01/11/2010 unknown 11/22/2009 Plan of Care Reminders Provider Appointments None recorded. ? ? Lab None recorded. ? ? Referral None recorded. ? ? Procedures None recorded. ? ? Surgeries None recorded. ? ? Imaging None recorded. ? ? Vitals 04/25/2020 03:15PM G_POST VISIT Height Weight BMI Blood Pressure 5 ft 6 in 230 lbs 37.1 kg/m2 120/70 mm[Hg] 03/27/2020 03:00PM G_OFFICE VISIT Height Weight BMI Blood Pressure 5 ft 6 in 236.2 lbs 38.1 kg/m2 132/84 mm[Hg] 03/12/2020 11:30AM G_POST PROBLEM Height Weight BMI Blood Pressure 5 ft 6 in 236 lbs 38.1 kg/m2 122/80 mm[Hg] 02/27/2020 02:45PM G_OB VISIT Height Weight BMI Blood Pressure 5 ft 6 in 259.8 lbs 41.9 kg/m2 140/87 mm[Hg] 02/21/2020 10:15AM G_OB VISIT Height Weight BMI Blood Pressure 5 ft 6 in 258.2 lbs 41.7 kg/m2 140/90 mm[Hg] 02/13/2020 08:15AM G_OB VISIT Height Weight BMI Blood Pressure 5 ft 6 in 255.4 lbs 41.2 kg/m2 134/84 mm[Hg] 01/30/2020 08:15AM G_OB VISIT Height Weight BMI Blood Pressure 5 ft 6 in 255.8 lbs 41.3 kg/m2 120/80 mm[Hg] 01/09/2020 10:15AM G_OB VISIT Weight Blood Pressure 254 lbs 120/78 mm[Hg] 12/22/2019 09:45AM G_OB VISIT Height BMI Blood Pressure 5 ft 6 in 40.6 kg/m2 (1) 140/80 mm[Hg] (2) 130/80 mm[Hg] 11/24/2019 04:15PM G_OB VISIT Weight Blood Pressure 255 lbs 122/80 mm[Hg] 08/17/2019 Height Weight BMI Blood Pressure 5 ft 6 in 239 lbs 38.58 kg/m2 126/74 mm[Hg] 10/08/2016 Height Weight BMI Blood Pressure 5 ft 6 in 213 lbs 34.38 kg/m2 132/70 mm[Hg] 12/31/2015 Height Weight BMI Blood Pressure 5 ft 6 in 234.81 lbs 37.90 kg/m2 124/78 mm[Hg] 05/24/2015 Height Weight BMI Blood Pressure 5 ft 6 in 217.56 lbs 35.12 kg/m2 132/80 mm[Hg] 05/21/2015 Height Weight BMI Blood Pressure 5 ft 6 in 217.19 lbs 35.05 kg/m2 144/86 mm[Hg] 07/13/2012 Height Weight BMI Blood Pressure 5 ft 6 in 224.38 lbs 36.21 kg/m2 122/78 mm[Hg] 06/04/2012 Height Weight BMI Blood Pressure 5 ft 6 in 232 lbs 37.45 kg/m2 (1) 138/84 mm[H g] (2) 132/80 mm[Hg ] 05/24/2012 Height Weight BMI Blood Pressure 5 ft 6 in 241 lbs 38.90 kg/m2 124/76 mm[Hg] 11/13/2011 Height Weight BMI Blood Pressure 5 ft 6 in 212 lbs 34.22 kg/m2 124/66 mm[Hg] 02/26/2010 Height Weight BMI Blood Pressure 5 ft 6 in 205 lbs 33.09 kg/m2 120/78 mm[Hg] 06/21/2009 Height Weight BMI Blood Pressure 5 ft 6 in 181 lbs 29.21 kg/m2 118/64 mm[Hg] 10/05/2008 Height Weight BMI Blood Pressure 5 ft 6 in 162 lbs 26.15 kg/m2 126/64 mm[Hg]
--- NOTE | 2022-01-10 08:15 | CRLHL7_ITS ---
For Patients: As a result of the Century Cures Act, medical imaging exams and procedure reports are released immediately into your electronic medical record. You may view this report before your referring provider. If you have questions, please contact your health care provider. INDICATION: Tinnitus. TECHNIQUE: [id number] MRA images acquired through the head. Axial diffusion imaging acquired through the brain. COMPARISON: None. FINDINGS: The visualized internal carotid, middle cerebral, and anterior cerebral arteries are widely patent. The vertebral, basilar, and posterior arteries are widely patent. No intracranial aneurysm or high-flow vascular malformation. No diffusion restriction to suggest acute infarction. IMPRESSION: 1. Unremarkable MRA of the head. 2. No acute infarction. Dictated by Mejia Chisholm MD @ 01/10/2022 11:17:53 AM (Electronically Signed)
== END 2022-01-10 08:05 | disposition home or self-care (01) ==
PROVIDERS: PCP Physician Assistant Medical; Visit Provider Otolaryngology
DX: H93.A9 Pulsatile tinnitus, unspecified ear (principal)
CPT/HCPCS: 70544

== ENCOUNTER 2022-09-16 13:04 | Outpatient (CLI) | payer OTHER, SELFPAY | END 2022-09-16 13:05 | disposition home or self-care (01) | LOC: NFLDREF 09-17 06:41 | PROVIDERS: PCP Physician Assistant Medical; Referring Provider Physician Assistant Medical; Visit Provider Physician Assistant Medical | DX: E89.0 Postprocedural hypothyroidism (principal) | CPT/HCPCS: 84443 ==

== ENCOUNTER 2023-02-06 09:43 | Outpatient (CLI) | payer OTHER, SELFPAY | END 2023-02-06 09:44 | disposition home or self-care (01) | LOC: NFLDREF 02-13 10:21 | PROVIDERS: PCP Physician Assistant Medical; Referring Provider Physician Assistant Medical; Visit Provider Physician Assistant Medical | DX: Z00.00 Encounter for general adult medical examination without abnormal findings (principal); E89.0 Postprocedural hypothyroidism; J45.909 Unspecified asthma, uncomplicated; J45.20 Mild intermittent asthma, uncomplicated; Z13.6 Encounter for screening for cardiovascular disorders | CPT/HCPCS: 80053; 80061; 84443 ==

== ENCOUNTER 2023-10-26 08:38 | Outpatient (CLI) | payer OTHER, SELFPAY ==
--- OUTSIDE RECORDS SUMMARY | 2023-10-27 13:31 | XMS_ITS | Encounter Summary ---
Author Organization [place] Address [address] [place] [address] Care Team Providers Care Science And Operations Officer Name Role Phone Anca Matos MD Primary Care Provider [phone]- [phone] Callie Kumar MD Unavailable Unavaila ble Georgia Valentino MD Unavailable Encounter Details Date Type Department Care Team (Late st Contact Info) Description 02/29/2020 Orders Only [facility] [address] [place] [address] Red Villarreal MD [address] [place] [address] [address] [place] [address] Pre-operative laboratory examination (Primary Dx) Social History Tobacco Use Types Packs/Day Years Used Date Smoking Tobacco: Never Smokeless Tobacco: Never Alcohol Use Standard Drinks/Week Comments No 0 (1 standard drink = 0.6 oz pur e alcohol) Comments Yes Sex and Gender Information Value Date Recorded Sex Assigned at Not on file Gender Identity Not on file Sexual Orientation Not on file COVID-19 Exposure Response Date Recorded In the last month, have you been in contact with someone who was confirmed or suspected to have Coronavirus / COVID-19? No / Unsure 02/29/2020 3:30 PM MULTICRAFT OPERATOR documented as of this encounter Plan of Treatment Not on file documented as of this encounter Results * Treponema Abs w Reflex to RPR and Titer (03/06/2020 4:11 PM MULTICRAFT OPERATOR) Treponema Antibodies Nonreactive NR^Nonrea ctive 03/07/2020 12:25 PM MULTICRAFT OPERATOR [facility] Comment: Methodology Change: Test performed on the DiaSorin Liaison XL by Treponema pallidum Total Antibodies Assay as of 06.07.2019. Blood specimen (specimen) 03/06/2020 4:11 PM MULTICRAFT OPERATOR 03/06/2020 4:12 PM MULTICRAFT OPERATOR Red Villarreal MD LAB - BLOOD ORDERABL ES [facility] [address] [place] [address] * (ABNORMAL) Hemoglobin (03/06/2020 4:11 PM MULTICRAFT OPERATOR) Hemoglobin 10.4(L) 11.7 - 15.7 g/dL 03/06/2020 4:25 PM MULTICRAFT OPERATOR [facility] Blood specimen (specimen) 03/06/2020 4:11 PM MULTICRAFT OPERATOR 03/06/2020 4:12 PM MULTICRAFT OPERATOR Red Villarreal MD LAB - BLOOD ORDERABL ES Performing Organization Address [facility] Co de Phone Number [facility] [address] [place] [address] [phone] * ABO/Rh type and screen (03/06/2020 4:11 PM MULTICRAFT OPERATOR) ABO AB 03/06/2020 5:01 PM MULTICRAFT OPERATOR [facility] RH(D) Pos [facility] Antibody Screen Neg 03/06/2020 5:01 PM MULTICRAFT OPERATOR [facility] Test Valid Only At [facility] 03/06/2020 5:01 PM MULTICRAFT OPERATOR [facility] Specimen Expires 03/09/2020 03/06/2020 5:01 PM MULTICRAFT OPERATOR [facility] Blood specimen (specimen) 03/06/2020 4:11 PM MULTICRAFT OPERATOR 03/06/2020 4:12 PM MULTICRAFT OPERATOR Red Villarreal MD LAB - BLOOD BANK SAM T ORDER [facility] [address] [place] [address], [facility] [phone] documented in this encounter Visit Diagnoses Diagnosis Pre-operative laboratory examination- Primary Pre-procedural laboratory examination documented in this encounter Care Teams Science And Operations Officer Relationship Specialty Start Date End Date Anca Matos MD PCP - General unemployment insurance hearing officer 05/12/12 Callie Kumar MD Assigned OBGYN Provider 01/13/20 04/20/21 Georgia Valentino MD [facility] [address] [place] [address], [address] [place] [address] Assigned OBGYN Provider 04/21/21 documented as of this encounter
--- OUTSIDE RECORDS SUMMARY | 2023-10-27 13:31 | XMS_ITS | Referral Summary ---
Author Organization [place] Address [address] [place] [address] Care Team Providers Care Operating Room Specialist Name Role Phone Anca Matos MD Primary Care Provider [phone]- [phone] Allergies Active Allergy Reactions Criticality Noted Date Comments Citalopram Hydrobromide GI Disturbance 08/11/19 09 Sulfamethoxazole W/Trimethoprim Nausea and Vomiting 11/29/2002 septra Medications Medication Sig Dispensed Refills Start Date End Date Status Vit-Fe Fumarate-FA ( MULTIVITAMIN PLUS IRON) 27-0.8 MG TABS Take 1 tablet by mouth daily. Active sertraline (ZOLOFT) 50 MG tablet Take 50 mg by mouth daily Active Ferrous Gluconate (FERGON) 240 (27 Fe) MG TABSIndications:Deliv eduardo of by section Take 20 mg by mouth daily chewable 90 tablet 03/09/2020 Active ibuprofen (ADVIL/MOTRIN) 800 MG tabletIndications:Del gladys of by section Take 1 tablet (800 mg) by mouth every 6 hours 60 tablet 03/09/2020 Active oxyCODONE (ROXICODONE) 5 MG tabletIndications:Del gladys of by section Take 1 tablet (5 mg) by mouth every 4 hours as needed for severe pain 20 tablet 03/09/2020 Active acetaminophen (TYLENOL) 325 MG tabletIndications:Del gladys of by section Take 3 tablets (975 mg) by mouth every 6 hours 60 tablet 03/09/2020 Active senna-docusate (SENOKOT-S/PERICOLACE ) 8.6-50 MG tabletIndications:Del gladys of by section Take 1 tablet by mouth 2 times daily 60 tablet 03/09/2020 Active Active Problems Problem Noted Date Diagnosed Date Delivery of by section 2019 Post-operative state 03/07/2020 S/P repeat low transverse 05/31/2012 Deviated septum 05/08/2011 Thyroid nodule 01/03/2011 Generalized anxiety disorder 01/03/2011 OCP (oral contraceptive pills) initiation 2010 CARDIOVASCULAR SCREENING; LDL GOAL LESS THAN 160 01/20/2010 Dysthymic disorder 03/07/2006 Pain in joint, lower leg 02/17/2006 Dermatophytosis of foot 02/17/2006 Anxiety state 01/29/2006 Overview: Problem list name updated by automated process. Provider to review Phobia 01/09/2004 Overview: Problem list name updated by automated process. Provider to review Immunizations Name Administration Dates Next Due DT (PEDS <7y) 11/10/1996 Influenza (IIV3) PF 02/06/2003 MMR 11/10/1996 Pneumococcal 23 valent 02/06/2003 TDAP Vaccine (Adacel) 01/30/2010 Social History Tobacco Use Types Packs/Day Years Used Date Smoking Tobacco: Never Smokeless Tobacco: Never Alcohol Use Standard Drinks/Week Comments No 0 (1 standard drink = 0.6 oz pur e alcohol) Ophiem Depression Scale Answer Date Recorded Ophiem Depression Score 2 03/09/2020 Last EPDS Self Harm Result Not on file 03/09 Adolescent Education Answer Date Record ed Getting School Help Needed Not on file 12/28 Sex and Gender Information Value Date Recorded Sex Assigned at Not on file Gender Identity Not on file Sexual Orientation Not on file Last Filed Vital Signs Vital Sign Reading Time Taken Comments Blood Pressure 130/78 03/09/2020 7:54 AM INGREDIENT SPECIALIST Pulse 77 03/09/2020 7:54 AM INGREDIENT SPECIALIST Temperature 36.7 ??C (98 ??F) 03/09/2020 7:54 AM INGREDIENT SPECIALIST Respiratory Rate 20 03/09/2020 7:54 AM INGREDIENT SPECIALIST Oxygen Saturation 98% 03/08/2020 5:02 AM INGREDIENT SPECIALIST Inhaled Oxygen Concentration - - Weight 115.7 kg (255 lb) 03/07/2020 7:10 AM INGREDIENT SPECIALIST Height 167.6 cm (5' 6) 03/07/2020 7:25 AM INGREDIENT SPECIALIST Body Mass Index 41.16 03/07/2020 7:10 AM INGREDIENT SPECIALIST Plan of Treatment Not on file Advance Directives For more information, please contact: [phone] * Full Code (Latest Code Status on File) Date Activated Date Inactivated Comments 03/08/2020 7:56 AM 03/09/2020 1:43 PM All basic and advanced life-sustaining interventions are performed as appropriate Question Answer Comments Code status determined by: Discussion with jesus alberto nt/ legal decision maker Care Teams Operating Room Specialist Relationship Specialty Start Date End Date Anca Matos MD PCP - General missile technician 05/12/12
--- OUTSIDE RECORDS SUMMARY | 2023-10-27 13:31 | XMS_ITS | Data Portability ---
Author Organization [employer], [id number] Address [address] [place] [address] Assessment Encounter Date Assessment Date Assessment LastModified by Organization Details LastModified Time 03/12/2020 03/12/2020 >50% of the visit was spent in consultation or coordination of care. Total time spent was 20 minutes. [email or web address] Not available 03/12/2020 13:04:27 04/25/2020 04/25/2020 Normal examination status post repeat section. No postoperative or complications. Transient blood pressure elevation immediately after delivery, resolved. Not available 04/25/2020 17:31:40 Plan of Treatment Reminders Order Date Submit Date Provider Last Modified By Organization Details Last Modified Time Details Appointments None recorded. Lab unlisted lab - HPV high risk DNA with 16/[address] [facility], [address] [place], [address], 08:12:54 pap, LB [address] [facility], [address] [place], [address], 1 08:12:54 hemoglobin (Hb), fingerstic k, blood 2020 021 [id number] _osceola , [address] [place] [address] [address], [address], [place], [address], 1 17:13:05 Referral None recorded. Procedures None recorded. Surgeries None recorded. Imaging US, obstetric, biophysica l profile 2019 [email or web address] [id number] le_helena, [address], [address], [place], [address], 0 18:07:55 Medication Orders sertraline 50 mg tablet 2019 020 INTERFACE [id number], [address], [place], [address], 0 12:47:59 Patient TargetsNo targets recorded. Patient Instructions Encounter Date Encounter Id Patient Instructions Last Modified By Organization Details Last Modified Time 02/27/2020 [id number] BPP today reassuring. Discussed signs and symptoms of pre-eclampsia. All questions answered. Repeat C/S is scheduled for 03/07/20. Not available 02/27/2020 20:45:49 03/12/2020 [id number] Reassured BP WNL today, no other s/sx preE. Continue procardia as rx'd, call with any concerns. Start Zoloft. OK to use NSAIDs for incisional discomfort or headache. RTC 2 wks for incision check, BP and mood checks also. Continue to monitor left breast lump, may need further evaluation in the future. [email or web address] Not available 03/12/2020 13:07:32 04/25/2020 [id number] Discussed contraception, the couple elected to use condoms for control. Call for any concerns or issues. Return in 1 year for annual examination. Not available 04/25/2020 17:31:56 Patient's clinic al presentation and examination were discussed. This was a normal /post section examination and visit. The couple plan condoms for control. Pap smear with cotesting submitted. Indications to call or return were discussed and the patient expressed understanding and agreement with the plan of care. Discussed reassuring depression and anxiety scores. Continue Zoloft 25 mg orally daily. Not available 04/25/2020 17:32:39 Reason for Referral None Reported. Results Created Date Observation Date Name Description Value Unit Range Abnormal Flag LastModifiedBy Organization Detail LastModifiedTime 04/25/2020 hemog lobin (Hb), finge rstic k, blood fingerstick hemoglobin 13.1 g/dL 12.0-1 5.0 Not Available [address], [place], [address], 04/25/2020 16:36:07 02/13/2020 hemog lobin (Hb), finge rstic k, blood fingerstick hemoglobin 11.4 g/dL 12.0-1 5.0 Not Available [address], [place], [address], 02/13/2020 09:27:31 01/30/20 20 01/30/2020 CBC WBC 7.3 K/uL 4.3-10 .8 Not Available [facility] [address] [place], [address], 01/30/2020 16:24:21 01/30/20 20 01/30/2020 CBC RBC 3.59 M/uL 4.20-5 .40 low Not Available [facility] [address] [place], [address], 01/30/2020 16:24:21 01/30/20 20 01/30/2020 CBC hemoglobin 10.8 gm/dL 12.0-1 6.0 low Not Available [facility] [address] [place], [address], 01/30/2020 16:24:21 01/30/20 20 01/30/2020 CBC hematocrit 33.4 % 36.0-4 8.0 low Not Available [facility] [address] [place], [address], 01/30/2020 16:24:21 01/30/20 20 01/30/2020 CBC MCV 93 fL 80-100 Not Available [facility] [address], [address], 01/30/2020 16:24:21 01/30/20 20 01/30/2020 CBC MCH 30 pg 27-33 Not Available [facility] [address] [place], [address], 01/30/2020 16:24:21 01/30/20 20 01/30/2020 CBC MCHC 32 gm/dL 33-36 low Not Available [facility] [address] [place], [address], 01/30/2020 16:24:21 01/30/20 20 01/30/2020 CBC RDW 12.6 % 11.5-1 4.5 Not Available [facility] [address] [place], [address], 01/30/2020 16:24:21 01/30/20 20 01/30/2020 CBC platelet count 131 K/uL 150-40 0 low Not Available [facility] [address] [place], [address], 01/30/2020 16:24:21 01/30/20 20 01/30/2020 CBC MPV 11.8 6.5-12 Not Available [facility] [address] [place], [address], 01/30/2020 16:24:21 02/13/20 20 02/13/2020 strep tococ cus group B DNA group B strep by PCR No Group B Strept ococcu s detect ed by PCR. no group B strept ococcu s detect ed by PCR. Not Available [facility] [address] [place], [address], 02/15/2020 11:45:12 02/21/20 20 02/21/2020 ALT (ifrah ine amino trans feras e), serum or plasm a ALT (SGPT) 15 IU/L 12-68 Not Available [facility] [address], [address], 02/21/2020 17:08:38 02/21/20 20 02/21/2020 creat ine, blood creatinine 0.71 mg/dL 0.55-1 .02 Not Available [facility] [address], [address], 02/21/2020 17:08:38 02/21/20 20 02/21/2020 creat ine, blood est GFR (CKD-epi) >60 mL/mi n >60 Not Available [facility] [address] [place], [address], 02/21/2020 17:08:38 02/21/20 20 02/21/2020 creat ine, blood est GFR if AM >60 mL/mi n >60 Not Available [facility] [address] [place], [address], 02/21/2020 17:08:38 02/21/20 20 02/21/2020 AST/S GOT (aspa rtate amino trans feras e), serum or plasm a AST (SGOT) 11 IU/L 12-37 low Not Available [facility] [address], [address], 02/21/2020 17:08:39 02/21/20 20 02/21/2020 CBC WBC 6.3 K/uL 4.3-10 .8 Not Available [facility] [address], [address], 02/21/2020 17:08:39 02/21/20 20 02/21/2020 CBC RBC 3.54 M/uL 4.20-5 .40 low Not Available [facility] [address] [place], [address], 02/21/2020 17:08:39 02/21/20 20 02/21/2020 CBC hemoglobin 10.5 gm/dL 12.0-1 6.0 low Not Available [facility] [address] [place], [address], 02/21/2020 17:08:39 02/21/20 20 02/21/2020 CBC hematocrit 31.8 % 36.0-4 8.0 low Not Available [facility] [address] [place], [address], 02/21/2020 17:08:39 02/21/20 20 02/21/2020 CBC MCV 90 fL 80-100 Not Available [facility] [address] [place], [address], 02/21/2020 17:08:39 02/21/20 20 02/21/2020 CBC MCH 30 pg 27-33 Not Available [facility] [address] [place], [address], 02/21/2020 17:08:39 02/21/20 20 02/21/2020 CBC MCHC 33 gm/dL 33-36 Not Available [facility] [address] [place], [address], 02/21/2020 17:08:39 02/21/20 20 02/21/2020 CBC RDW 12.6 % 11.5-1 4.5 Not Available [facility] [address] [place], [address], 02/21/2020 17:08:39 02/21/20 20 02/21/2020 CBC platelet count 122 K/uL 150-40 0 low Not Available [facility] [address] [place], [address], 02/21/2020 17:08:39 02/21/20 20 02/21/2020 CBC MPV 11.8 6.5-12 Not Available [facility] [address], [address], 02/21/2020 17:08:39 02/21/20 20 02/21/2020 prote in:cr eatin ine ratio , urine prot/cre ratio U 0.14 mg/mg _crea t <0.16 Not Available [facility] [address] [place], [address], 02/21/2020 17:08:40 02/21/20 20 02/21/2020 prote in:cr eatin ine ratio , urine creatinine urine 56.6 mg/dL Not Available [facility] [address] [place], [address], 02/21/2020 17:08:40 02/21/20 20 02/21/2020 prote in:cr eatin ine ratio , urine protein urine 8 mg/dL <12 Not Available [facility] [address] [place], [address], 02/21/2020 17:08:40 04/25/19 21 04/25/2020 HPV DNA, high- risk HPV high risk type 16 Negati ve for HPV type 16. negati ve for HPV type 16. Not Available [facility] [address] [place], [address], 05/07/2020 08:12:53 04/25/19 21 04/25/2020 HPV DNA, high- risk HPV high risk type 18 Negati ve for HPV type 18. negati ve for HPV type 18. Not Available [facility] [place], [address], 05/07/2020 08:12:53 04/25/19 21 04/25/2020 HPV DNA, high- risk HPV other high risk types Negati ve for other high risk HPV types. negati ve for other high risk HPV types. Not Available [facility] [address], [place], [address], 05/07/2020 08:12:53 04/25/1904/25/2020 pap, LB case report See note Not Available [facility] [address], [place], [address], 05/07/2020 08:12:54 02/27/20 US, obste tric, bioph ysica l profi le No observ ation record ed. [email or web address] [address], [place], [address], 03/08/2020 18:17:51 Result Notes None recorded. Problems Name Status Onset Date Resolution Date Notes Provider Name and Address Organization Details Recorded Time Platelet disorder Completed h/o gestational thrombocytopen ia - plt 182 at NOB, 146 at 16 weeks, 136K at 28 weeks, 131,000 at 33.5 weeks Pamela Greenfiel d null, [place] - [employer] 0 12:55:25 Past history of pre-eclampsia Completed with first ; nl baseline labs; on 81 mg ASA Pamela Greenfiel d null, [place] - [employer] 0 12:55:25 Obesity Completed BMI 38; Early GTT wnl Pamela Greenfiel d null, [place] - [facility] [employer] 0 12:55:25 Past history of section Completed x2, for repeat Pamela Greenfiel d null, [place] - [facility] [employer] 0 12:55:25 Advanced maternal age Completed Nl MT21 and level 2 US Pamela Greenfiel d null, [place] - [facility] [employer] 0 12:55:25 Completed 201903/12/2020 Pamela Greenfiel d null, [place] - [facility] [employer] 0 12:55:31 Mixed anxiety and depressive disorder Completed stopped sertraline w +UPT; no h/o PPD and hasn't needed meds PP in the past Pamela kim null, [facility] WELFARE ELIGIBILITY WORKER 0 12:55:25 Hypertensive disorder [place] [address], [facility] [place], [address], [facility] WELFARE ELIGIBILITY WORKER 0 18:37:50 Problem Notes None recorded. Procedures Surgical History Date Name Laterality Status Provider Name and Address Organization Details Recorded Time 04/25/19 21 Date of Last Pap Smear completed Chaitanya fritz, [facility] W[employer] ELIGIBILITY WORKER 05/09/2020 16:40:28 09/21/19 09 excision [place] [address] [address] [facility],[address], [place], [address], [facility] W[employer] ELIGIBILITY WORKER 03/27/2020 22:16:51 thyroidectomy completed Not Available [facility] 10/31/2019 01:04:43 [place] [address] [address] [facility],[address], [place], [address], [facility] W[employer] ELIGIBILITY WORKER 03/27/2020 22:17:37 strabismus [place] [address] [address] [facility],[address], [place], [address], [facility] WELFARE ELIGIBILITY WORKER 03/27/2020 22:18:32 Imaging Results Imaging Date Name Status LastModified by Organiz ation Details LastModified Time 02/27/2020 US, obstetric, biophysical profile completed [email or web address] [address], [place], [address], 03/08/2020 18:17:51 Procedure Notes None recorded. Medical Equipment None Reported. Allergies Allergen ID Allergen Name Allergen Category Reaction Reaction Severity Criticality Documentation Date Start Date Code Code System Note Provider Name and Address Organization Details Recorded Time 634891 Celexa medicatio n Not available Not available Not available 10/28/2019 20762 8 RxNorm *Note : 08/16 - GI upset Not Available [facility] 0 16:57:02 048689 sulfameth oxazole / trimethop rim medicatio n Not available Not available Not available 10/28/2019 25833 RxNorm *Note : 08/16 - sulfa metho xazol e with trime thopr im, GI upset Not Available [facility] 0 16:57:02 251502 Bactrim medicatio n Not available Not available Not available 10/28/2019 93177 9 RxNorm *Note : 08/16 - GI upset Not Available [facility] 0 16:57:02 Medications Name Sig Start Date Stop Date Status Note LastModified by Organization Details LastModified Time nifedipine ER 30 mg tablet,exte nded release 24 hr TAKE ONE TABLET BY MOUTH EVERY DAY 03/27 completed Not Available Not Available Not Available ipratropium 0.5 mg-albutero l 3 mg (2.5 mg base)/3 mL nebulizatio n soln active Not Available Not Available Not Available albuterol sulfate 2.5 mg/3 mL (0.083 %) solution for nebulizatio n active Not Available Not Available Not Available ibuprofen 800 mg tablet active Not Available Not Available Not Available ofloxacin 0.3 % eye drops active Not Available Not Available Not Available prednisone 20 mg tablet 03/27 completed Not Available Not Available Not Available nifedipine 10 mg capsule Take 1 capsule 4 times a day by oral route as needed. 03/27 completed Not Available Not Available Not Available benzonatate 100 mg capsule active Not Available Not Available Not Available ondansetron 4 mg disintegrat ing tablet PLACE 1 TABLET ON THE TONGUE EVERY 4 TO 6 HOURS active Not Available Not Available No t Available sertraline 50 mg tablet TAKE ONE-HALF TABLET BY MOUTH DAILY FOR 8 DAYS, THEN TAKE ONE TABLET BY MOUTH EVERY DAY THEREAFTE R active Not Available Not Available No t Available amoxicillin 875 mg-potassprimitivou m clavulanate 125 mg tablet 03/27 completed Not Available Not Available Not Available Ventolin HFA 90 mcg/actuati on aerosol inhaler active Not Available Not Available Not Available oxycodone 5 mg tablet active Not Available Not Available No t Available Senna Plus 8.6 mg-50 mg tablet 03/27 completed Not Available Not Available Not Available Advair HFA 115 mcg-21 mcg/actuati on aerosol inhaler active Not Available Not Available Not Available ferrous gluconate 324 mg (38 mg iron) tablet active Not Available Not Available Not Available Vitals Date Recorded Body height Body mass index (BMI) Body weight Provider Name and Address Organization Details Last Updated DateTime 02/27/2020 167.64 cm 41.9 kg/m2 599832.6808 26 g Radha Quinteros (TERMED) [facility] WELFARE ELIGIBILITY WORKER 02/27/2020 16:01:33 Date Recorded Systolic blood pressure Diastolic blood pressure Provider Name and Address Organization Details Last Updated DateTime 02/27/2020 140 mm[Hg] 87 mm[Hg] [place] [address] [facility],[address], [place], [address], [facility] WEL[employer] ELIGIBILITY WORKER 02/27/2020 16:36:49 Date Recorded Body height Body mass index (BMI) Systolic blood pressure Diastolic blood pressure Provider Name and Address Organization Details Last Updated DateTime 03/12/2020 167.64 cm 38.1 kg/m2 122 mm[Hg] 80 mm[Hg] Ken Ahumada (TERMED) [facility] WELFARE ELIGIBILITY WORKER 03/12/2020 12:31:30 Date Recorded Body weight Provider Name an d Address Organization Details Last Updated DateTime 03/12/2020 516466.19041 g Pamela Strong [facility] OB/ [employer] 03/12/2020 12:55:29 Date Recorded Body height Body mass index (BMI) Body weight Systolic blood pressure Diastolic blood pressure Provider Name and Address Organization Details Last Updated DateTime 03/27/2020 167.64 cm 38.1 kg/m2 393664.5 2 g 132 mm[Hg] 84 mm[Hg] Roxana Adkins [facility] W[employer] ELIGIBILITY WORKER 15:55:43 Date Recorded Body height Body mass index (BMI) Body weight Systolic blood pressure Diastolic blood pressure Provider Name and Address Organization Details Last Updated DateTime 04/25/2020 167.64 cm 37.1 kg/m2 677773.2 5 g 120 mm[Hg] 70 mm[Hg] [place] Augustus Agee [employer] ELIGIBILITY WORKER 1 16:34:04 Social History Question Answer Notes LastModified by Bookya Details LastModified Time Tobacco Smoking Status Never Smoker Tobacco *Status: Never *Note: 08/17/2019 - Not Available [facility] 10/31/2019 13:51:46 What Is Your Level Of Alcohol Consumption? None Alcohol *Status: Former *Qty: 1dr/month *Note: [email or web address] Information not available 10/31/2019 What Is Your Level Of Caffeine Consumption? 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 Moderate Moderate Amount of Exercise (1-3 times weekly) Carbonated [email or web address] Information not available 10/31/2019 Mental Status None recorded. Family History Relationship Description Onset Age of this Age Resolved Age Notes Mother Family history of mental disorder Depression Maternal Grandfather Benign essential hypertension Hypertension Maternal Grandfather Hyperlipidemia High Choleste rol / Hyperlipidemia Maternal Grandfather Old myocardial infarction Heart Attack Sister Family history of mental disorder Depression Paternal Grandmother Family history of Blood disorder Clots in legs: vein surgery Paternal Grandmother Benign essential hypertension Hypertension Paternal Grandmother Endometriosis (clinical) Endometriosis Maternal Grandmother Family history of mental disorder Depression Unspecified Relation Depressive disorder aunt Medical History Condition Response Psych- Depression Y Hematology-Other Y Cardiology-Other Psych- Anxiety Disorder GI- Reflux/Ulcers Neurology- Headaches/Migraines Y Gynecological History Statement/Question Response Sexually Active Y History of Abnormal PAP N Date of Last Pap Smear 04/25/2020 HPV Test Negative Date of LMP 06/08/2019 Obstetrics History GPAL:G 4 P 3 0 1 3 Type Value Multiple Births 0 Full Term 3 Induced 0 Spontaneous 1 Premature 0 Living 3 Ectopics 0 Total 4 Immunizations Vaccine Type Date Status Provider Name a nd Address Organization Details Recorded Time Td 01/11/2010 completed Not Available [facility] 01:06:16 unknown 11/22/2009 completed [facility] W[facility] - [employer]IBILITY WORKER 04/25/2020 16:04:44 Past Encounters Encounter ID Performer Location Encounter Start Date Encounter Closed Date Diagnosis/Indication Diagnosis SNOMED-CT Code [id number] Pamela Strong [id number] [place] ERLINDA [address] [place] [address] 11/10/2019 00:00:00 [id number] RENEE VALDES MD [id number] [place] ,[address] [place] [address] 11/24/2019 17:11:04 11/25/2019 08:20:50 [id number] RENEE VALDES MD [id number] [place] ,[address] [place] [address] 12/22/2019 10:34:45 12/22/2019 11:44:35 [id number] ALBA AMBROCIO MD [id number] [place]_[address] ,[address] [place] [address] 01/09/2020 11:16:45 01/09/2020 12:29:01 [id number] ALBA AMBROCIO MD [id number] [place] ,[address] [place] [address] 01/30/2020 09:17:20 01/30/2020 10:08:48 Benign gestational thrombocytopenia [id number] Pamela Daiglefield [id number] [place]_[address] [place] [address], [address] [place] [address] 01/30/2020 00:00:00 [id number] ALBA AMBROCIO MD [id number] [place]_[address] ,[address] [place] [address] 02/13/2020 09:17:50 02/13/2020 10:58:13 Routine care [id number] ALBA AMBROCIO MD [id number] [place]_[address] [facility] ,[address] [place] [address] 02/21/2020 11:14:33 02/21/2020 13:03:34 [id number] RENEE VALDES MD [id number] [address] [place] [address] 02/27/2020 11:32:49 02/27/2020 12:24:22 Advanced maternal age 436756320 [id number] ALBA AMBROCIO MD [id number] [address] [place] [address] 02/27/2020 15:43:36 02/27/2020 16:54:21 [id number] [facility] [id number] [address] [place] [address] 03/12/2020 12:22:54 03/12/2020 13:13:02 Anxiety 14308574 Past pregn shelley history of gestational hypertension 333222355 state 0991376 1 [id number] JOI STEPHENS MD [id number] [address] ,[address] [place] [address] 03/27/2020 15:50:41 03/27/2020 17:15:45 Surgical incision wound of skin 860548452947 [id number] ALBA AMBROCIO MD [id number] [address] ,[address] [place] [address] 04/25/2020 16:03:58 04/25/2020 17:04:20 state 32166259 Gynecologi c examination [id number] Health Concerns Section Related Observation LastModified by Organization Detai ls LastModified Time None Recorded Concern Status LastModified by Organization Details LastModified Time None Recorded Advance Directives Directive None Recorded Payers Encounter Date Sequence Insurance Name Policy Number Policy Snow Covered Member ID Snow Member ID Guarantor Name 02/27/2020 1 [facility] [id number] Clint Erazo Jacob [id number] Mindy Jacob 02/27/2020 1 [facility] [id number] Clint L Jacob [id number] Mindyevelyn Jacob 03/12/2020 1 [facility] [id number] Clint L Jacob [id number] Mindy Gemma Cecil 03/27/2020 1 [facility] [id number] Clint L Missy's Candy [id number] Mindy Gemma Cecil 04/25/2020 1 [facility] [id number] Clint L Jacob [id number] Mindyevelyn Jacob Notes Date Note Type Note Provider Name and Address Organization Details Recorded Time 03/12/2020 text/html HPI Notes: Postp artum ([facility]) Reported by patient. Reason for visit: blood pressure f/u Delivering Provider: Phil Date of Delivery: 03/07/2020 Type of Delivery: repeat C- section Gestational Age at Delivery: 39 weeks Antepartum Problems: AMA Weight of Baby: Phillips: 8 lbs; 12 oz NICU Stay for Baby: no Breast or Bottle Feeding: Problems: headache; anxiety Depression: frequent crying spells or anxiety Notes: Called over the weekend and spoke to Dr. Douglas. She was concerned because she had a couple of home BP readings of 150s/90s and was worried about preE. She was also experiencing a STEPHEN. She was resistant to presenting to hospital because she didn't want to be from baby. She was started on procardia Xl 30 mg once daily and was given an rx for nifedipine for any sBP readings over 160. He reviewed s/sx of severe preE. He instructed her to RTC early this week. Cierra is very tearful in clinic today, worried about pre-E, states I just don't want anything bad to happen. Difficlut to console. Reassured her that BP is normal in clinic today, she does not exhibit any s/sx of preE. She had been on Zoloft 50 mg pre- but d/c. Discussed restarting now and she agrees. Discussed safety profile with . Also mentioned lump in left armpit for a couple of days on form. TYLER HINOJOSA, [place]- [address] [facility],[address], [place], [address], [facility] WORKER 03/12/2020 13:08:04 03/27/2020 text/html HPI Notes: Caitlin paulino delivered via repeat on 03/07/2020. Started on procardia due to elevated BPs at home. Overall feeling well. Incision has been more sore recently, especially on the right side and she presents to evaluation of ths concern. She denies fever, chills, N/V. eating well. Baby nursing well and sleeping well. No redness [place] [address], [place], [address], [facility] WELFARE ELIGIBILITY WORKER 03/27/2020 22:27:52 04/25/2020 text/html HPI Notes: Suzanne perez presents to our office for her examination. She was delivered by repeat section on March 07, 2020. She did well postoperatively and was sent home on nifedipine XL and short acting nifedipine. She took these blood pressure medications for just a couple of days and when her pressures normalized, they were stopped. She continues to do well and is breast-feeding and pumping. Vaginal bleeding has stopped. The patient did receive Tdap during her and her blood type is Rh+. She and her plan on using condoms for contraception. She voices no other concerns or issues at this time. Her baby girl is sleeping through the night which is much appreciated. She did start back up on her Zoloft 25 mg orally daily. Her depression and anxiety screening shows no concerns[place] [address], [place], [address], [facility] WELFARE ELIGIBILITY WORKER 04/25/2020 17:33:05 OBGyn Episode Ob Episode Information Episode Created Date Number of Fetuses Patient Bloodtype Patient rh Status Prepregnancy Weight lbs Domestic Partner Domestic Partner Phone Father Name Trauma Manager Status 11/10/19 20 1 AB Positive 239 CLOSED Fetus Data First Name Last Name Admitted to NICU Weight (g) Sex Living Outcome Pediatric Complications Fetus ID Race Codes Race Delivery Type 3968.93 F true Full Term 2293 Problems Problem Notes Problem Name Start Date End Date Resolution Snomed Code Not e Mixed anxiety and depressive disorder 930390491 stopped sertral ine w +UPT; no h/o PPD and hasn't needed meds PP in the past Platelet disorder [id number] h/o gestational thrombocytopenia - plt 182 at NOB, 146 at 16 weeks, 136K at 28 weeks, 131,000 at 33.5 weeks Past history of pre-eclampsia [id number] with first ; nl baseline labs; on 81 mg ASA Obesity 145780577 BMI 38; Ea rly GTT wnl Past history of section [id number] x2, for rep eat Advanced maternal age [id number] Nl MT21 and lev el 2 US Kam Calculation Initial Kam Date Initial Exam Date Initial Exam Provider Initial Ultrasound Date Last Menstrual Period Date Ultra Sound Weeks Gestation 03/14/2020 11/10/2019 06/08/2019 0 Eighteen To Twenty Week Kam Update Ultra Sound Date Fundal Height At Umbil Quickening Date Ultra Sound Latest Weeks Gestation Final Kam Confirmed By Final Kam Confirmed Date Final Kam Date Ultra Sound Latest Days Gestation 0 03/14/20 20 0 Pre- Flowsheet Flowsheet Date 11/10/2019 Mirza Score Blood Edema Fundus Height Fundus Units Glucose Ketones Leukocytes Nitrite Labor Signs Protein Cervic Dilation Cervic Effacement Cervic Station Type Weight in lbs BP Diastolic BP Location Tested BP Systolic BP Type Fetus Heart Rate Present Fetus Movement Comments Repeat level 2 US due to erlinda dequate views on first, normal. Flowsheet Date 11/24/2019 Mirza Score Blood Edema Fundus Height Fundus Units Glucose Ketones Leukocytes Nitrite Labor Signs Protein Cervic Dilation Cervic Effacement Cervic Station 26 cm none neg Type Weight in lbs BP Diastolic BP Location Tested BP Systolic BP Type 80 122 Fetus Heart Rate Present A Present Fetus Movement A Yes Comments Pt has been taking her BP at home. Highest is 130/80. Usually 127/77. Pt taking ASA 81 mg. Flowsheet Date 12/22/2019 Mirza Score Blood Edema Fundus Height Fundus Units Glucose Ketones Leukocytes Nitrite Labor Signs Protein Cervic Dilation Cervic Effacement Cervic Station 30 wks none neg Type Weight in lbs BP Diastolic BP Location Tested BP Systolic BP Type 80 140 80 130 Fetus Heart Rate Present A Present Fetus Movement A Yes Comments 132/77 is highest BP at home . Pt denies preeclampsia symptoms. 28 week packet reviewed. Preeclampsia labs. Flowsheet Date 01/09/2020 Mirza Score Blood Edema Fundus Height Fundus Units Glucose Ketones Leukocytes Nitrite Labor Signs Protein Cervic Dilation Cervic Effacement Cervic Station 33 none neg Type Weight in lbs BP Diastolic BP Location Tested BP Systolic BP Type 78 R arm 120 sitting Fetus Heart Rate Present A 146 Fetus Movement A Yes Comments Doing fine, baby active. No contraction pattern of note. Feeling well, no pre-E signs or symptoms. Taking baby ASA daily. RTC in 2 weeks or sooner if home blood pressures are a concern. Plan repeat CBC with platelets at 34 weeks (gestational thromocytopenia). Patient received Flu shot Elsewhere 12/2019. Flowsheet Date 01/30/2020 Mirza Score Blood Edema Fundus Height Fundus Units Glucose Ketones Leukocytes Nitrite Labor Signs Protein Cervic Dilation Cervic Effacement Cervic Station none 34 cm none neg Type Weight in lbs BP Diastolic BP Location Tested BP Systolic BP Type 80 120 Fetus Heart Rate Present A 150 Fetus Movement A Yes Comments Doing fine, baby active. Blo od pressures have been normal at home, normal today. movement normal. Some BH contractions but no pattern. CBC with platelets today (gestational thrombocytopenia). RTC in 2 weeks. Repeat C/S on 03/07/20 0900 hours. All questions answered. Flowsheet Date 01/30/2020 Mirza Score Blood Edema Fundus Height Fundus Units Glucose Ketones Leukocytes Nitrite Labor Signs Protein Cervic Dilation Cervic Effacement Cervic Station Type Weight in lbs BP Diastolic BP Location Tested BP Systolic BP Type Fetus Heart Rate Present Fetus Movement Comments Platelet count from today is 131,000. Patient informed. Flowsheet Date 02/13/2020 Mirza Score Blood Edema Fundus Height Fundus Units Glucose Ketones Leukocytes Nitrite Labor Signs Protein Cervic Dilation Cervic Effacement Cervic Station none 36 cm none neg 0cm 30% -4 Type Weight in lbs BP Diastolic BP Location Tested BP Systolic BP Type 84 134 Fetus Heart Rate Present A 130 Fetus Movement A Yes Comments Doing fine, baby active. Pre op today for repeat section (this will be her third section). Patient does not desire tubal sterilization. GBS rectovaginal PCR submitted. No penicillin allergy. Patient was given ERAS instructions and will follow accordingly. Given history of gestational thrombocytopenia, we will draw CBC with platelets the day of surgery. EFW 6.5 pounds. Flowsheet Date 02/21/2020 Mirza Score Blood Edema Fundus Height Fundus Units Glucose Ketones Leukocytes Nitrite Labor Signs Protein Cervic Dilation Cervic Effacement Cervic Station none 36 none neg Type Weight in lbs BP Diastolic BP Location Tested BP Systolic BP Type 90 140 Fetus Heart Rate Present A 146 Fetus Movement A Yes Comments Doing OK, baby active. Some headaches this week, not severe, feel like muscle tension (neck) headaches. Blood pressure today 140/90. Edema minimal and no change. Will check pre-E labs. Also, will add a BPP to next weeks visit on 02/27/20. Indications to call or return were discussed. If evidence of pre-E or gestational HTN, consider move up of repeat C/S to 38 weeks. (currently scheduled for 03/07/20). All discussed. EFW 7# Flowsheet Date 02/27/2020 Mirza Score Blood Edema Fundus Height Fundus Units Glucose Ketones Leukocytes Nitrite Labor Signs Protein Cervic Dilation Cervic Effacement Cervic Station Type Weight in lbs BP Diastolic BP Location Tested BP Systolic BP Type Fetus Heart Rate Present Fetus Movement Comments Flowsheet Date 02/27/2020 Mirza Score Blood Edema Fundus Height Fundus Units Glucose Ketones Leukocytes Nitrite Labor Signs Protein Cervic Dilation Cervic Effacement Cervic Station none neg Type Weight in lbs BP Diastolic BP Location Tested BP Systolic BP Type 87 140 Fetus Heart Rate Present A 135 Fetus Movement A Yes Comments Doing fine, baby active. No issues or concerns. No pre-E signs or symptoms. Pre- E labs from last week normal. BPP today 8/8, MALISSA 13.26, MVP 5.1. Covid test is scheduled for 03/04/20. Repeat C/S scheduled for 03/07/20. Plan platelet count the day of surgery, patient hoping to be able to have a spinal block for surgery. EFW 7.5 # now, anticipate 8+ # at delivery next week. Pre-op has already been completed. Indications to call or return were discussed. Given gestational thrombocytopenia, recommend stopping the daily baby ASA at this time. All discussed. Flowsheet Date 03/12/2020 Mirza Score Blood Edema Fundus Height Fundus Units Glucose Ketones Leukocytes Nitrite Labor Signs Protein Cervic Dilation Cervic Effacement Cervic Station Type Weight in lbs BP Diastolic BP Location Tested BP Systolic BP Type 80 122 Fetus Heart Rate Present Fetus Movement Comments Menstrual History Last Menstrual Date Menses Monthly On Bcp Conception Prior Menses Frequency Hcg Plus Date Menarche Onset Age 0306/08/2019 true false Genetic Screening And Infection History Question Response Note Any Other Genetic History false Anthony Disease false Other Infection History false Thalassemia (Honduran, Cameroonian, Mediterranean, Or Background): MCV < 80 false Patient Or Baby's Father Had A Child With Defects Not Listed Above false Patient's Age Will Be 35 Yea rs Or Older At Estimated Date of Delivery false Recurrent Loss, Or A Stillbirth false Maternal Metabolic Disorder (eg, Type 1 Diabetes, PKU) false Muscular Dystrophy false History Of STD, Gonorrhea, Chlamydia, HPV, Syphi lis false History of Hepatitis false Prior GBS-infected child false If Yes, Was Person Tested For Fragile X? false If Yes, Agent(s) And Strength/Dosage false Rash Or Viral Illness Since Last Menstrual Perio d false Muscular Dystrophy false Cystic Fibrosis false Mental Retardation/Autism false Live With Someone With TB Or Exposed To TB false Thalassemia (Honduran, Cameroonian, Mediterranean, Or Background): MCV < 80 false Sickle Cell Disease Or Trait () false Intellectual Disability/Autism true s on -developmental delay Patient Or Partner Has History Of Genital Herpes false History of HIV false Julian-Sachs (eg, Protestant, Cajun, Romanian-Adams) f alse Neural Tube Defect (Meningom yelocele, Spina Bifida, Or Anencephaly) false Hemophilia Or Other Blood Disorders false [place]'s Chorea false Congenital Heart Defect false Other Inherited Genetic Or Chromosomal Disorder false Down Syndrome false Sickle Cell Disease Or Trait () false Congenital Heart Defect false [place]'s Chorea false Medications (including Suppl ements, Vitamins, Herbs, OTC Drugs), Illicit/Recreational Drugs, Alcohol false Cystic Fibrosis false Down Syndrome false Delivery Information Delivery Date Delivery Type Labor Anesthesia Weeks Gestation Incision Type Labor Labor Length Hrs Delivered By Post Complications Tubal Sterilization Discharge Date Comments 0 Regional-Sp inal 39 Low Transvers e ALBA AMBROCIO MD Repeat c/s, gestation al thrombocy topenia Discharge Information Feeding Method Contraceptive Method Maternal HG B and HCT Levels Ob Episode Information Episode Created Date Number of Fetuses Patient Bloodtype Patient rh Status Prepregnancy Weight lbs Domestic Partner Domestic Partner Phone Father Name Trauma Manager Status 01/09/20 20 1 CLOSED Fetus Data First Name Last Name Admitted to NICU Weight (g) Sex Living Outcome Pediatric Complications Fetus ID Race Codes Race Delivery Type 3458.63 9 M Full Term [id number] Kam Calculation Initial Kam Date Initial Exam Date Initial Exam Provider Initial Ultrasound Date Last Menstrual Period Date Ultra Sound Weeks Gestation 0 Eighteen To Twenty Week Kam Update Ultra Sound Date Fundal Height At Umbil Quickening Date Ultra Sound Latest Weeks Gestation Final Kam Confirmed By Final Kam Confirmed Date Final Kam Date Ultra Sound Latest Days Gestation 0 0 Menstrual History Last Menstrual Date Menses Monthly On Bcp Conception Prior Menses Frequency Hcg Plus Date Menarche Onset Age Delivery Information Delivery Date Delivery Type Labor Anesthesia Weeks Gestation Incision Type Labor Labor Length Hrs Delivered By Post Complications Tubal Sterilization Discharge Date Comments 0 39 Mild Pih . Thrombocy topenia. Failed Induction . Dr Matos Discharge Information Feeding Method Contraceptive Method Maternal HG B and HCT Levels Ob Episode Information Episode Created Date Number of Fetuses Patient Bloodtype Patient rh Status Prepregnancy Weight lbs Domestic Partner Domestic Partner Phone Father Name Trauma Manager Status 01/09/20 1 CLOSED Fetus Data First Name Last Name Admitted to NICU Weight (g) Sex Living Outcome Pediatric Complications Fetus ID Race Codes Race Delivery Type 3515.33 8 M Full Term [id number] Kam Calculation Initial Kam Date Initial Exam Date Initial Exam Provider Initial Ultrasound Date Last Menstrual Period Date Ultra Sound Weeks Gestation 0 Eighteen To Twenty Week Kam Update Ultra Sound Date Fundal Height At Umbil Quickening Date Ultra Sound Latest Weeks Gestation Final Kam Confirmed By Final Kam Confirmed Date Final Kam Date Ultra Sound Latest Days Gestation 0 0 Menstrual History Last Menstrual Date Menses Monthly On Bcp Conception Prior Menses Frequency Hcg Plus Date Menarche Onset Age Delivery Information Delivery Date Delivery Type Labor Anesthesia Weeks Gestation Incision Type Labor Labor Length Hrs Delivered By Post Complications Tubal Sterilization Discharge Date Comments 3 Regional-Sp inal 39 Discharge Information Feeding Method Contraceptive Method Maternal HG B and HCT Levels
--- OUTSIDE RECORDS SUMMARY | 2023-10-27 13:31 | XMS_ITS | Encounter Summary ---
Author Organization [facility] Address [address] [place] [address]. [place] [address] Care Team Providers Care Computer Systems Consultant Name Role Phone Barry Galo MD Primary Care Provider Unavailable Adolfo Reyes MD Primary Care Provider [phone] Anca Matos MD Primary Care Provider [phone] Callie Kumar MD Unavailable Unavaila Georgia Grant MD Unavailable Reason for Visit * Reason Comments Headache Float/Hemant 2002 visit Encounter Details Date Type Department Care Team (Late st Contact Info) Description 09/30/2002 Abstract [facility] [address] [place] [id number] Michael Marcos [address] [place] [address] [address] [place], [place] [id number] Social History Tobacco Use Types Packs/Day Years Used Date Smoking Tobacco: Never Assessed Sex and Gender Information Value Date Recorded Sex Assigned at Not on file Gender Identity Not on file Sexual Orientation Not on file documented as of this encounter Plan of Treatment Not on file documented as of this encounter Visit Diagnoses Not on filedocumented in this encounter Care Teams Computer Systems Consultant Relationship Specialty Start Date End Date Barry Galo MD PCP - General 04/14/03 01/16/11 Adolfo Reyes MD [id number] [place] [id number] PCP - General Family Practice 01/17/11 05/11/12 [place] [address] [place] [address] PCP - General rock climbing team member 05/12/12 Callie Kumar MD Assigned OBGYN Provider 01/13/20 04/20/21 Georgia Valentino MD [facility] [address] [facility], [address] [place] [address] Assigned OBGYN Provider 04/21/21 documented as of this encounter
--- OUTSIDE RECORDS SUMMARY | 2023-10-27 13:31 | XMS_ITS | Clinical Summary ---
Author Organization [employer] [facility] [employer] [facility] Address [place], [place] [address] Care Team Providers Care Language Instructor Name Role Phone Cruz Noguera PA-C Primary Care Provider [phone] Allergies Active Allergy Reactions Criticality Noted Date Comments Citalopram Vomiting 10/01/2012 Sulfamethoxazole-Trimethoprim 2006 Medications Medication Sig Dispensed Refills Start Date End Date Status albuterol-ipratropiu m (DUONEB) (2.5-0.5 mg) in 3 mL NEBULIZATION solution Inhale 3 mL via a nebulizer 4 times daily if needed for Wheezing. 0 03/02/2014 Active albuterol HFA (VENTOLIN HFA) 90 mcg/actuation inhalerIndications:W heezing Inhale 1 Puff by mouth 4 times daily if needed for Shortness Of Breath or Wheezing. 1 Inhaler 0 04/11/2014 Active typhoid vaccin,live,attenuat ed (VIVOTIF BUD VACCINE) 2 billion unit capsuleIndications:T yphoid-paratyphoid vaccination Take 1 capsule by mouth with lukewarm water on empty stomach on days 1,3,5 and 7. 4 capsule 05/15/2017 Active atovaquone-proguanil , 250-100 mg, (MALARONE) 250-100 mg tabletIndications:Ph armacologic therapy Take 1 tablet by mouth once daily. Begin 1-2 days before and continue until 1 week after exposure for prevention of malaria. 17 tablet 05/15/2017 Active Active Problems Problem Noted Date Diagnosed Date Incidental lung nodule, > 3mm and < 8mm 04/27/19 15 Overview: Stable 6.5 mm right lower lobe [...] unspecified 08/10/2006 Major depressive disorder, recurrent episode, un specified 08/10/2006 Immunizations Name Administration Dates Next Due Hepatitis A (Adult) 05/15/2017 Influenza Virus, Unspecified 02/18/2017 Influenza, IIV4 01/09/2014 Pneumococcal Poly,23-Valent (Pneumovax) 02/07/20 03 Td, Preservative Free (age >= 7 Years) 8 Tdap 08/10/2006 Family History Medical History Relation Name Comments Cancer-colon Father Psychiatric illness Maternal Aunt bipolar Cancer Maternal Grandfather Lung Heart Disease Maternal Grandfather 3 MT's - 50's Other Maternal Grandmother MS Psychiatric illness Maternal Grandmother schizophrenia Cancer Mother Thyriod GI Disease Paternal Grandmother gallbla dder Hypertension Paternal Grandmother Psychiatric illness Sister bipolar Relation Name Status Comments Father Maternal Aunt Maternal Grandfather Maternal Grandmother Mother Paternal Grandmother Sister Social History Tobacco Use Types Packs/Day Years Used Date Smoking Tobacco: Never Smokeless Tobacco: Never Tobacco Cessation:Counseling Given: No Alcohol Use Standard Drinks/Week Comments Yes 0.8 (1 standard drink = 0.6 oz p ure alcohol) Sex and Gender Information Value Date Recorded Sex Assigned at Not on file Gender Identity Not on file Sexual Orientation Not on file Obstetrics History Para Term AB IAB SAB Ectopic Multiple Livin g Live Births 2 2 2 2 Date Outcome GA Total Labor Labor/2nd/3rd Weight Sex Type Anes PTL Karen A1 A5 Name Clin 2009 Term M CS-LT ranv Sagar 2012 Term M CS-LT ranv Russell Last Filed Vital Signs Vital Sign Reading Time Taken Comments Blood Pressure 116/68 06/03/2017 2:16 PM CDT Pulse 88 06/03/2017 2:16 PM CDT Temperature 36.8 ??C (98.2 ??F) 05/15/2017 10:[address] Respiratory Rate 16 04/27/2014 10:59 AM SUPERVISOR NUT PROCESSING Oxygen Saturation 99% 06/03/2017 2:16 PM CDT RA at rest Inhaled Oxygen Concentration - - Weight 95.3 kg (210 lb) 06/03/2017 2:16 PM CDT Height 171.5 cm (5' 7.5) 06/03/2017 2:16 PM CDT Body Mass Index 32.41 06/03/2017 2:16 PM CDT Plan of Treatment Health Maintenance Due Date Last Done Comments Depression screening for age 12+ 1996 HIV for age 15-65 07/26/1999 Hepatitis C screening for age 18-79 2002 Pap test for age 21-65 06/13/2016 4, 06/01/2012 (Completed [facility]), 08/10/2006 BMI (ht and wt on same day) for age 18+ 06/03/2018 06/03/2017, 05/15/2017 COVID-19 vaccine series (2022- season) 2022 Influenza for age 9-49 11/22/2023 02/18/2017, 2013 Tetanus booster 05/15/2027 05/15/2017, 08/10/2006 Pneumococcal series for age 6-64 Aged Out 02/06/2003 No longer eligible based on patient's age to complete this topic Tdap Completed 08/10/2006 Procedures Procedure Name Priority Date/Time Associated Diagnosis Comments POCKET MAKER THIN PREP PAP SCREEN IMAGED Routine 06/13/2013 9:20 AM CDT Pap smear for cervical cancer screening from Last 3 Months or Most Recently Relevant to Health Maintenance Results * POCKET MAKER THIN PREP PAP SCREEN IMAGED (06/13/2013 9:20 AM CDT) CYTOLOGY CYTOPATHOLOGY REPORT [facility] [employer] Status: Final Status ?[id number] CLINICAL INFORMATION Last Date of LMP ? :05/25/2013 Last Pap Date ?:1442-5049 Last Pap Result ?:NIL ABN [place]/Bx Past 5 YRS :None Hormone Usage ?:BCP/OCP/Patch/R ing Menstrual Status ? :Regular Periods [place]/Bx done today ? :No Additional Information :None given HPV Request ?:HPV if ASCUS SPECIMEN SOURCE ?:Cervical/vagina l ThinPrep Vial, screening SPECIMEN ADEQUACY ?:Satisfactory for evaluation Endocervical component ? present. INTERPRETATION/RES ULT Negative for intraepithelial lesion or malignancy (NIL) Cytology 1st Screener ??:rylie Signed by ?:rylie This specimen was screened by the FDA approved ThinPrep Imaging System and manually reviewed. NOTE: ??The Pap test is a screening technique, not a diagnostic procedure. ??It is used ??primarily to screen for squamous cancers and precursor lesions. ??Published studies have shown that it is subject to both false negative and false positive results. ??The pap test should not be used as the sole means to diagnose or exclude pre-malignant and malignant lesions. COLLECTED:06/13/13 ? ACCESSIONED: ??06/14/13 ?? SIGNED: ??06/18/13 [facility] [place] CODE NIL [facility] Tissue specimen (specimen) (Cervical/Vagina l) 06/13/2013 9:20 AM CDT 06/13/2013 9:19 AM CDT Mindy Borjas MD PATHOLOGY/CYTOL OGY [facility] INTERNAL ZIP [address] [address] [place] [address] from Last 3 Months or Most Recently Relevant to Health Maintenance Care Teams Language Instructor Relationship Specialty Start Date End Date Cruz Noguera PA-C [address] [place] [address] PCP - General Physician Cloth Washer Operator 08/09/21
--- OUTSIDE RECORDS SUMMARY | 2023-10-27 13:31 | XMS_ITS | Encounter Summary ---
Author Organization [facility] Address [address] [place] [address]. [place] [address] Care Team Providers Care Environmental Sampler Name Role Phone Barry Galo MD Primary Care Provider Unavailable Adolfo Reyes MD Primary Care Provider [phone] Anca Matos MD Primary Care Provider [phone]- [phone] Callie Kumar MD Unavailable Unavaila Georgia Grant MD Unavailable Reason for Referral * Referral not Required - Closed Specialty Diagnoses / Procedures Referred By Contac t Referred To Contact Diagnoses [place] [address] [place] [address] [facility] [address] [address] Referral ID Status Reason Start Date Expiration Date Visits Re quested Visits Authorized [id number] Closed 01/08/2011 07/07/2011 1 1 Comments Your provider has referred you to: [facility] [phone]/fax [phone] (Praveen Hercules, Garry Baum, Conrad Abebe, Ban Michelle and Barry Mcdowell) Appt scheduled with Dr Baum for 01/22/11. Please be aware that coverage of these services is subject to the terms and limitations of your health insurance plan. Call member services at your health plan with any benefit or coverage questions. Please bring the following to your appointment: >> Any x-rays, CTs or MRIs which have been performed. Contact the facility where they were done to arrange for steel pickler prior to your scheduled appointment. Any new CT, MRI or other procedures ordered by your specialist must be performed at a [facility] or coordinated by your clinic's referral office. >> List of current medications >> This referral request >> Any documents/labs given to you for this referral Reason for Visit * Reason Onset Date Comments Thyroid Problem 01/08/2011 US results Encounter Details Date Type Department Care Team (Late st Contact Info) Description 01/08/2011 MyC Medical Advice [address] [address] Adolfo Reyes MD [address] [place] [address] Thyroid Problem (US results) Social History Tobacco Use Types Packs/Day Years Used Date Smoking Tobacco: Never Alcohol Use Standard Drinks/Week Comments No 0 (1 standard drink = 0.6 oz pur e alcohol) Sex and Gender Information Value Date Recorded Sex Assigned at Not on file Gender Identity Not on file Sexual Orientation Not on file documented as of this encounter Miscellaneous Notes * Telephone Encounter - Concepcino Cramer - 01/08/2011 2:06 PM CDT I scheduled Mindy with Dr Baum at the [facility] in [place] for 01/22/11. Mindy informed. (Concepcion in referrals) * Telephone Encounter - Venita Martinez - 01/08/2011 10:17 AM CDT Pt calls: [phone] (home) Had questions regarding US results. Pt not able to get into BV location until February. Patient willing to go anywhere to get in sooner. Patient does not have any swelling but can feel lump on side of throat. States noticed difficulty swallowing more so after US results. Patient very worried. Message handled by Nurse Triage. Madhavi Martinez RN * Telephone Encounter - Venita Martinez - 01/08/2011 10:08 AM CDT Concepcion, Can you see if patient can get earlier appointment with Endo regarding thyroid nodule seen on ultrasound? Madhavi Martinez RN documented in this encounter Plan of Treatment Not on file documented as of this encounter Procedures Procedure Name Priority Date/Time Associated Diagnosis Comments ADULT ENDOCRINOLOGY CONCIERG E REFERRAL Routine 12/01/2011 Thyroid nodule documented in this encounter Results * ENDOCRINOLOGY ADULT REFERRAL (12/01/2011) Adolfo Reyes MD REFERRAL documented in this encounter Visit Diagnoses Diagnosis Thyroid nodule- Primary Nontoxic uninodular goiter documented in this encounter Care Teams Environmental Sampler Relationship Specialty Start Date End Date Barry Galo MD PCP - General 04/14/03 01/16/11 [place] [address] [place] [address] PCP - General Family Practice 01/17/11 05/11/12 [place] [address] [place] [address] PCP - General head inspector and center marker 05/12/12 Callie Kumar MD Assigned OBGYN Provider 01/13/20 04/20/21 Georgia Valentino MD [facility] [address] [place] [address], [address] [place] [address] Assigned OBGYN Provider 04/21/21 documented as of this encounter
--- OUTSIDE RECORDS SUMMARY | 2023-10-27 13:31 | XMS_ITS | Encounter Summary ---
Author Organization [facility] Address [address] [place] [address] Care Team Providers Care Perishable Freight Inspector Name Role Phone Anca Matos MD Primary Care Provider [phone]- [phone] Callie Kumar MD Unavailable Unavaila ble Georgia Valentino MD Unavailable Encounter Details Date Type Department Care Team (Late st Contact Info) Description 02/29/2020 Orders Only [facility] [address] [place] [address] Red Villarreal MD [address] [place] [address] Pre-operative laboratory examination (Primary Dx) Social [...] COVID-19? No / Unsure 02/29/2020 3:30 PM CUTTER [employer] PASTER [employer]ESS CLIPPINGS documented as of this encounter Plan of Treatment Scheduled Orders Name Type Priority Associated Diagnoses Orde r Schedule ABO/Rh type and screen Blood Bank Routine Pre-operative laboratory examination Ordered: 02/29/2020 Hemoglobin Lab Routine Pre-operative laboratory examination Ordered: 02/29/2020 Treponema Abs w Reflex to RPR and Titer Lab Routine Pre-operative laboratory examination Ordered: 02/29/2020 documented as of this encounter Visit Diagnoses Diagnosis Pre-operative laboratory examination- Primary Pre-procedural laboratory examination documented in this encounter Care Teams Perishable Freight Inspector Relationship Specialty Start Date End Date Anca Matos MD PCP - General brick yard hand 05/12/12 Callie Kumar MD Assigned OBGYN Provider 01/13/20 04/20/21 Georgia Valentino MD [facility] [address] [place] [address], [address] [place] [address] Assigned OBGYN Provider 04/21/21 documented as of this encounter
--- OUTSIDE RECORDS SUMMARY | 2023-10-27 13:31 | XMS_ITS | Clinical Summary ---
Author Organization [facility] Address [address] [place] [address] Care Team Providers Care Turn Out Name Role Phone Anca Matos MD Primary Care Provider [phone]- [phone] Allergies Active Allergy Reactions Criticality Noted Date [...] drink = 0.6 oz pur e alcohol) [place] Depression Scale Answer Date Recorded [place] Depression Score 2 03/09/2020 Last EPDS Self [...] Comments Blood Pressure 130/78 03/09/2020 7:54 AM PLATING OPERATOR Pulse 77 03/09/2020 7:54 AM PLATING OPERATOR Temperature 36.7 ??C (98 ??F) 03/09/2020 7:54 AM PLATING OPERATOR Respiratory Rate 20 03/09/2020 7:54 AM PLATING OPERATOR Oxygen Saturation 98% 03/08/2020 5:02 AM PLATING OPERATOR Inhaled Oxygen Concentration - - Weight 115.7 kg (255 lb) 03/07/2020 7:10 AM PLATING OPERATOR Height 167.6 cm (5' 6) 03/07/2020 7:25 AM PLATING OPERATOR Body Mass Index 41.16 03/07/2020 7:10 AM PLATING OPERATOR Plan of Treatment Not on file Advance Directives For more information, please contact: [phone] * Full Code (Latest Code Status on File) Date Activated Date Inactivated Comments 03/08/2020 7:56 AM 03/09/2020 1:43 PM All basic and advanced life-sustaining interventions are performed as appropriate Question Answer Comments Code status determined by: Discussion with jesus alberto nt/ legal decision maker Care Teams Turn Out Relationship Specialty Start Date End Date Anca Matos MD PCP - General variety performer 05/12/12
== END 2023-10-26 08:39 | disposition home or self-care (01) ==
LOC: NFLDREF 10-27 13:29
PROVIDERS: PCP Physician Assistant Medical; Referring Provider Physician Assistant Medical; Visit Provider Physician Assistant Medical
DX: R53.83 Other fatigue (principal); E89.0 Postprocedural hypothyroidism
CPT/HCPCS: 80053; 82306; 82607; 82728; 84443

== ENCOUNTER 2023-10-29 13:10 | Emergency (ER) | payer OTHER, SELFPAY ==
[2023-10-29 13:14] VITALS: BP 152/94; PULSE 95; RESP 18; TEMP 36.3; O2SAT 100; BMI 32.6
--- NOTE | 2023-10-29 14:27 | ED.ANXIETY ---
HPI - Anxiety General Time Seen by Provider: 14:27 Date Seen: 10/29/23 Chief Complaint: Anxiety Stated Complaint: anxiety attack Time Seen by Provider: 10/29/23 13:11 Source: patient and RN notes reviewed Mode of arrival: ambulatory Limitations: no limitations History of Present Illness HPI narrative: This 38-year-old female is coming in worried that something is wrong with her brain. She admits to anxiety and feeling that she has herself worked up into this. She has a history of anxiety, is denying current depression. She has no visual or auditory hallucinations. She is quite worried that she could have a brain tumor or dementia. She did have an MRA before due to pulsatile tinnitus, this was on 01/10/2022. She notes over the last few months she has got herself worked up thinking about different ailments. She notes her vision sometimes will be blurry at bedtime but she has significant astigmatism. Otherwise no blurry vision, no double vision. Yesterday she almost felt like her right arm was weak which frightened her. There is no numbness tingling weakness today, no incoordination, no falls. No headaches but does feel funny in her head at times. She is tearful talking about this. She is actually going to be starting a new job and notes will be out of the house, is excited about this. She really does not endorse any new significant anxiety stressors. She has not tolerated citalopram before but has been on sertraline and that went well. She states she has not been on the sertraline for years. She feels her symptoms are anxiety but just cannot talk herself out of something being wrong. She will feel like her head feels funny or full, just does not feel right. She remembers feeling this way back when she was a teenager with anxiety. Patient states there is no chance for . She is here with her and daughter para complaint: anxiety Related Data Previous Rx's ?Medication ?Instructions ?Recorded albuterol sulfate 90 mcg/actuation 2 puff inhalation Q4H PRN 02/06/23 aerosol inhaler shortness of breath or wheezing #8.5 grams levothyroxine 50 mcg tablet 50 mcg PO QDAY #90 tabs 02/06/23 sertraline 25 mg tablet 25 mg PO DAILY #14 tabs 10/29/23 Allergies Allergy/AdvReac Type Severity Reaction Status Date / Time citalopram [From Celexa] Allergy Verified 02/06/23 09:09 sulfamethoxazole Allergy Verified 02/06/23 09:09 [From Septra] trimethoprim [From Septra] Allergy Verified 02/06/23 09:09 medrol dose pack Allergy Uncoded 02/06/23 09:09 Review of Systems Status of ROS: Reports: 6 or more systems reviewed and unremarkable except as noted in History and below PFSH PFS Medical History Acne ?L70.9 - Acne, unspecified (ICD-10) Anxiety about health ?F41.8 - Other specified anxiety disorders (ICD-10) Surgical History History of partial thyroidectomy ?E89.0 - Postprocedural hypothyroidism (ICD-10) History of nasal septoplasty ?Z98.890 - Other specified postprocedural states (ICD-10) History of section ?Z98.891 - History of uterine scar from previous surgery (ICD-10) Social History What is your current living situation?: I presently have a place to live Problems where you live: no known problems In the past 12 months, utilities in danger of being shut off: no In past 12 months, lack of transportation kept you from medical appts, meetings, work, or getting things needed for daily living: no In the past 12 mos, have been you worried that your food would run out before you had money to buy more?: never true In the past 12 mos, the food you bought just didn't last and you didn't have money to buy more?: never true Smoking Status: Never smoker How often do you have a drink containing alcohol: monthly or less AUDIT-C Alcohol total score: 1 Non-prescribed substance use: denies use How often does anyone, including family, friends and others, physically hurt you: never How often does anyone, including family, friends and others, insult or talk down to you: never How often does anyone, including family, friends and others, threaten you with harm: never How often does anyone, including family, friends and others, scream or curse at you: never Little interest or pleasure in doing things: not at all Feeling down, depressed, or hopeless: not at all Exam Const: Vital Signs, click to edit/add: Vital Signs - 24 hr 10/29/23 13:14 Temperature 97.3 F L Pulse Rate [Right Pulse Oximeter] 95 Respiratory Rate 18 Blood Pressure [Ri ght Upper Arm] 152/94 H Pulse Oximetry 100 Oxygen Delivery Me thod Room Air This 38-year-old female is alert, interactive, no apparent distress but is certainly tearful and anxious. She has good eye contact, speech is not pressured. Pupils are equal round, sclera clear, do see left eye a sometimes seems like it is a little lateral deviated but patient notes she has an astigmatism. Symmetrical facial function. Neck supple, no adenopathy or masses. Lungs are clear, good air entry, no wheezing or crackles. CV regular rate and rhythm, no murmur, normal S1-S2, no S3-S4. She has no lower extremity edema. Strength is 5/5 and symmetric throughout her upper extremities and lower extremities, normal light touch sensation, no tremors. Documenting provider has reviewed patient's vital signs: yes Course Course ED Course: Patient and I did discuss this. It certainly sounds as if this is anxiety and not depression. She would be willing to re-initiate sertraline in follow-up in clinic. As for head imaging, she and I did discuss head CT, discussed the risk of radiation and the fact that radiation can be cancer inducing in high enough amounts. She states she has never had head imaging before. I unfortunately do not think that simple examination and reassurance is going to be sufficient for this patient. She is having symptoms that I certainly would consider doing a head CT outside of a patient with anxiety. Thus, we will proceed with a noncontrast head CT which she is extremely appreciative. She certainly does understand that this male be health-related anxiety but I do think this is a case where the imaging may alleviate her fears. If head CT imaging is normal, will likely discharge as planned with initiation of sertraline and follow up in clinic. She did just have recent screening labs including thyroid which were normal. Reevaluation(s) Time of Reevaluation #1: 15:42 Reevaluation #1: Reviewed with patient her normal head CT. She is reassured by this. Will send in a prescription for sertraline. Did go over some of the initial side effects when 1st taking this. She will follow-up in clinic as well. Vital Signs Vital signs: Initial Vital Signs Temperature 97.3 F L 10/29/23 13:14 Temperature Source Temporal Artery Scan 10/29/23 13:14 Pulse Rate 95 10/29/23 13:14 Pulse Rhythm Regular 10/29/23 13:14 Pulse Strength 3+ Normal 10/29/23 13:14 Respiratory Rate 18 10/29/23 13:14 Blood Pressure 152/94 H 10/29/23 13:14 Blood Pressure Mean 113 H 10/29/23 13:14 Blood Pressure Position Sitting 10/29/23 13:14 Pulse Oximetry 100 10/29/23 13:14 Oxygen Delivery Method Room Air 10/29/23 13:14 Vital Signs Temperature 97.3 F L 10/29/23 13:14 Pulse Rate 95 10/29/23 13:14 Respiratory Rate 18 10/29/23 13:14 Blood Pressure 152/94 H 10/29/23 13:14 Pulse Oximetry 100 10/29/23 13:14 Oxygen Delivery Method Room Air 10/29/23 13:14 Temperature 97.3 F L 10/29/23 13:14 Pulse Rate 95 10/29/23 13:14 Respiratory Rate 18 10/29/23 13:14 Blood Pressure 152/94 H 10/29/23 13:14 Pulse Oximetry 100 10/29/23 13:14 Oxygen Delivery Method Room Air 10/29/23 13:14 MDM - Anxiety Medical Records Attestation: I reviewed the patient's medical records. Medical records narrative: Patient had a normal CBC, basic metabolic panel, hemoglobin A1c, ferritin, liver panel, B12, 25 hydroxy vitamin-D, TSH on 10/26/2023. Imaging Data CT scan - head: Attestation: I have reviewed the pertinent imaging results. Radiologist's impression: Patient: STUART DIEGO Facility:?[facility] Patient ID:?[id number] Site Patient ID:?[id number]. Site :?[id number] Study:?CT-Head WITHOUT-10/29/2023 2:57:44 PM Ordering Physician:Eliza Pereyra Final Report: INDICATION: HEAD FEELING FUNNY, PRESSURE TECHNIQUE: CT head without contrast. COMPARISON: MRIs dating back to 2018 FINDINGS: No intracranial hemorrhage. No discrete mass or mass effect. There is no midline shift. The basilar cisterns are patent. No hydrocephalus. The escobar-white matter interface is otherwise preserved. No acute osseous abnormality. No extracalvarial soft tissue abnormality. The mastoid air cells are clear. The paranasal sinuses are well-aerated. The visualized portions of the orbits and globes are unremarkable. IMPRESSION: No acute intracranial process per unenhanced head CT. Please note that all CT scans at this facility use dose modulation, iterative reconstruction, and/or weight-based dosing when appropriate to reduce radiation dose to as low as reasonably achievable. Dictated by Red Mccoy MD @ 10/29/2023 3:18:39 PM (Electronic Signature) Discharge Plan Discharge Clinical Impression: Acute anxiety Patient Disposition: Home, Self-Care Condition: Stable Instructions: Generalized Anxiety Disorder (ED) Additional Instructions: Start sertraline 25 mg and take daily. Need to schedule clinic followup within the next 1-2 weeks. Recommend talking to your primary care provider about doing therapy or counseling for anxiety as well. Activity Level: No Restrictions Prescriptions: New sertraline 25 mg tablet 25 mg PO DAILY Qty: 14 0RF No Action albuterol sulfate 90 mcg/actuation HFA aerosol inhaler 2 puff inhalation Q4H PRN (Reason: shortness of breath or wheezing) Qty: 8.5 3RF levothyroxine 50 mcg tablet 50 mcg PO QDAY Qty: 90 3RF Follow Up/Referrals: Cruz Noguera PA-C [Primary Care Provider] - Stand Alone Forms: [employer] Info Instructions
--- NOTE | 2023-10-29 14:37 | CRLHL7_ITS ---
For Patients: As a result of the Century Cures Act, medical imaging exams and procedure reports are released immediately into your electronic medical record. You may view this report before your referring provider. If you have questions, please contact your health care provider. INDICATION: HEAD FEELING FUNNY, PRESSURE TECHNIQUE: CT head without contrast. COMPARISON: MRIs dating back to 2018 FINDINGS: No intracranial hemorrhage. No discrete mass or mass effect. There is no midline shift. The basilar cisterns are patent. No hydrocephalus. The escobar-white matter interface is otherwise preserved. No acute osseous abnormality. No extracalvarial soft tissue abnormality. The mastoid air cells are clear. The paranasal sinuses are well-aerated. The visualized portions of the orbits and globes are unremarkable. IMPRESSION: No acute intracranial process per unenhanced head CT. Please note that all CT scans at this facility use dose modulation, iterative reconstruction, and/or weight-based dosing when appropriate to reduce radiation dose to as low as reasonably achievable. Dictated by Red Mccoy MD @ 10/29/2023 3:18:39 PM (Electronically Signed)
--- OUTSIDE RECORDS SUMMARY | 2023-10-29 14:52 | XMS_ITS | Clinical Summary ---
Author Organization [facility] Address [address] [place] [address] Care Team Providers Care Case Planner Name Role Phone Anca Matos MD Primary Care Provider +1- [phone] Allergies Active Allergy Reactions Criticality Noted Date [...] drink = 0.6 oz pur e alcohol) [place] Depression Scale Answer Date Recorded [place] Depression Score 2 03/09/2020 Last EPDS Self [...] Comments Blood Pressure 130/78 03/09/2020 7:54 AM CHIEF CATALYST OPERATOR Pulse 77 03/09/2020 7:54 AM CHIEF CATALYST OPERATOR Temperature 36.7 ??C (98 ??F) 03/09/2020 7:54 AM CHIEF CATALYST OPERATOR Respiratory Rate 20 03/09/2020 7:54 AM CHIEF CATALYST OPERATOR Oxygen Saturation 98% 03/08/2020 5:02 AM CHIEF CATALYST OPERATOR Inhaled Oxygen Concentration - - Weight 115.7 kg (255 lb) 03/07/2020 7:10 AM CHIEF CATALYST OPERATOR Height 167.6 cm (5' 6) 03/07/2020 7:25 AM CHIEF CATALYST OPERATOR Body Mass Index 41.16 03/07/2020 7:10 AM CHIEF CATALYST OPERATOR Plan of Treatment Not on file Advance Directives For more information, please contact: [phone] * Full Code (Latest Code Status on File) Date Activated Date Inactivated Comments 03/08/2020 7:56 AM 03/09/2020 1:43 PM All basic and advanced life-sustaining interventions are performed as appropriate Question Answer Comments Code status determined by: Discussion with jesus alberto nt/ legal decision maker Care Teams Case Planner Relationship Specialty Start Date End Date Anca Matos MD PCP - General cow washer 05/12/12
--- OUTSIDE RECORDS SUMMARY | 2023-10-29 14:52 | XMS_ITS | Encounter Summary ---
Author Organization [facility] Address [address] [place] [address] Care Team Providers Care Gear Grinding Machine Operator Name Role Phone Anca Matos MD Primary Care Provider +1- [phone] Callie Kumar MD Unavailable Unavaila ble Georgia Valentino MD Unavailable Encounter Details Date Type Department Care Team (Late st Contact Info) Description 02/29/2020 Orders Only [facility] [address] [place] [address] Red Villarreal MD [address] [place] [address] [address] [place] [address] Pre-operative laboratory examination (Primary Dx) [...] COVID-19? No / Unsure 02/29/2020 3:30 PM MACHINING MANAGER documented as of this encounter Plan of Treatment Not on file documented as of this encounter Results * Treponema Abs w Reflex to RPR and Titer (03/06/2020 4:11 PM MACHINING MANAGER) Treponema Antibodies Nonreactive NR^Nonrea ctive 03/07/2020 12:25 PM MACHINING MANAGER [facility] Comment: Methodology Change: Test performed on the DiaSorin Liaison XL by Treponema pallidum Total Antibodies Assay as of 06.07.2019. Blood specimen (specimen) 03/06/2020 4:11 PM MACHINING MANAGER 03/06/2020 4:12 PM MACHINING MANAGER Red Villarreal MD LAB - BLOOD ORDERABL ES [facility] [address] [place] [address] * (ABNORMAL) Hemoglobin (03/06/2020 4:11 PM MACHINING MANAGER) Hemoglobin 10.4(L) 11.7 - 15.7 g/dL 03/06/2020 4:25 PM MACHINING MANAGER [facility] Blood specimen (specimen) 03/06/2020 4:11 PM MACHINING MANAGER 03/06/2020 4:12 PM MACHINING MANAGER Red Villarreal MD LAB - BLOOD ORDERABL ES Performing Organization Address [facility] Co de Phone Number [facility] [address] [place] [id number] [phone] * ABO/Rh type and screen (03/06/2020 4:11 PM MACHINING MANAGER) ABO AB 03/06/2020 5:01 PM MACHINING MANAGER [facility] RH(D) Pos [facility] Antibody Screen Neg 03/06/2020 5:01 PM MACHINING MANAGER [facility] Test Valid Only At [facility] 03/06/2020 5:01 PM MACHINING MANAGER [facility] Specimen Expires 03/09/2020 03/06/2020 5:01 PM MACHINING MANAGER [facility] Blood specimen (specimen) 03/06/2020 4:11 PM MACHINING MANAGER 03/06/2020 4:12 PM MACHINING MANAGER Red Villarreal MD LAB - BLOOD BANK SAM T ORDER [facility] [address] [place] [address], [facility] [phone] documented in this encounter Visit Diagnoses Diagnosis Pre-operative laboratory examination- Primary Pre-procedural laboratory examination documented in this encounter Care Teams Gear Grinding Machine Operator Relationship Specialty Start Date End Date Anca Matos MD PCP - General sanitary engineering teacher 05/12/12 Callie Kumar MD Assigned OBGYN Provider 01/13/20 04/20/21 Georgia Valentino MD [facility] [address] [place] [address], [address] [place] [address] Assigned OBGYN Provider 04/21/21 documented as of this encounter
--- OUTSIDE RECORDS SUMMARY | 2023-10-29 14:52 | XMS_ITS | Referral Summary ---
Author Organization [facility] Address [address] [place] [address] Care Team Providers Care New Media Strategist Name Role Phone Anca Matos MD Primary Care Provider [phone] Allergies Active Allergy Reactions Criticality Noted Date [...] drink = 0.6 oz pur e alcohol) Burwell Depression Scale Answer Date Recorded Burwell Depression Score 2 03/09/2020 Last EPDS Self [...] Comments Blood Pressure 130/78 03/09/2020 7:54 AM ACCOUNTING MACHINE SERVICER Pulse 77 03/09/2020 7:54 AM ACCOUNTING MACHINE SERVICER Temperature 36.7 ??C (98 ??F) 03/09/2020 7:54 AM ACCOUNTING MACHINE SERVICER Respiratory Rate 20 03/09/2020 7:54 AM ACCOUNTING MACHINE SERVICER Oxygen Saturation 98% 03/08/2020 5:02 AM ACCOUNTING MACHINE SERVICER Inhaled Oxygen Concentration - - Weight 115.7 kg (255 lb) 03/07/2020 7:10 AM ACCOUNTING MACHINE SERVICER Height 167.6 cm (5' 6) 03/07/2020 7:25 AM ACCOUNTING MACHINE SERVICER Body Mass Index 41.16 03/07/2020 7:10 AM ACCOUNTING MACHINE SERVICER Plan of Treatment Not on file Advance Directives For more information, please contact: [phone] * Full Code (Latest Code Status on File) Date Activated Date Inactivated Comments 03/08/2020 7:56 AM 03/09/2020 1:43 PM All basic and advanced life-sustaining interventions are performed as appropriate Question Answer Comments Code status determined by: Discussion with jesus alberto nt/ legal decision maker Care Teams New Media Strategist Relationship Specialty Start Date End Date Anca Matos MD PCP - General director broadcast 05/12/12
--- OUTSIDE RECORDS SUMMARY | 2023-10-29 14:52 | XMS_ITS | Encounter Summary ---
Author Organization [place] Address [address] [place] [address]. [place] [address] Care Team Providers Care Automotive Parts Interpreter Name Role Phone Barry Galo MD Primary Care Provider Unavailable Adolfo Reyes MD Primary Care Provider Anca Matos MD Primary Care Provider [phone] Callie Kumar MD Unavailable Unavaila Georgia Grant MD Unavailable Reason for Visit * Reason Comments Headache Float/Hemant 2002 visit Encounter Details Date Type Department Care Team (Late st Contact Info) Description 09/30/[address] [facility] [address] [place] [id number] Michael Marcos [address] [place] [address] [address] [place], [place] [id number] Social History Tobacco Use Types Packs/Day Years Used Date Smoking Tobacco: Never Assessed Sex and Gender Information Value Date Recorded Sex Assigned at Not on file Gender Identity Not on file Sexual Orientation Not on file documented as of this encounter Plan of Treatment Not on file documented as of this encounter Visit Diagnoses Not on filedocumented in this encounter Care Teams Automotive Parts Interpreter Relationship Specialty Start Date End Date Barry Galo MD PCP - General 04/14/03 01/16/11 Adolfo [place] [id number] [place] [id number] PCP - General Family Practice 01/17/11 05/11/12 [place] [address] [place] [address] PCP - General form raiser 05/12/12 Callie Kumar MD Assigned OBGYN Provider 01/13/20 04/20/21 Georgia Valentino MD [facility] [address], [address] [place] [address] Assigned OBGYN Provider 04/21/21 documented as of this encounter
--- OUTSIDE RECORDS SUMMARY | 2023-10-29 14:52 | XMS_ITS | Encounter Summary ---
Author Organization [place] Address [address] [place] [address]. [place] [address] Care Team Providers Care Nickel Operator Name Role Phone Barry Galo MD Primary Care Provider Unavailable Adolfo Reyes MD Primary Care Provider [phone] Anca Matos MD Primary Care Provider [phone]- [phone] Callie Kumar MD Unavailable Unavaila Georgia Grant MD Unavailable Reason for Referral * Referral not Required - Closed Specialty Diagnoses / Procedures Referred By Contac t Referred To Contact Diagnoses [place] [address] [place] [address] [facility] [address] [address] Referral ID Status Reason Start Date Expiration Date Visits Re quested Visits Authorized [id number] Closed 01/08/2011 07/07/2011 1 1 Comments Your provider has referred you to: [facility] [phone]/fax [phone] (Praveen Hercules, Garry Baum, Conrad Abebe, Ban [...] where they were done to arrange for picking machine operator prior to your scheduled appointment. Any new CT, MRI or other procedures ordered by your specialist must be performed at a [facility] or coordinated by your clinic's referral office. >> List of current medications >> This referral request >> Any documents/labs given to you for this referral Reason for Visit * Reason Onset Date Comments Thyroid Problem 01/08/2011 US results Encounter Details Date Type Department Care Team (Late st Contact Info) Description 01/08/2011 MyC Medical Advice [address] [address] Adolfo Reyes MD [address] [place] [id number] Thyroid Problem (US results) Social History [...] encounter Miscellaneous Notes * Telephone Encounter - Concepcion Cramer - 01/08/2011 2:06 PM CDT I scheduled Mindy with Dr Baum at the [facility] in [place] for 01/22/11. Mindy informed. (Concepcion in referrals) * Telephone Encounter - Venita Martinez - 01/08/2011 10:17 AM CDT Pt calls: [phone] (home) Had questions regarding US results. Pt [...] goiter documented in this encounter Care Teams Nickel Operator Relationship Specialty Start Date End Date Barry Galo MD PCP - General 04/14/03 01/16/11 [place] [address] [place] [address] PCP - General Family Practice 01/17/11 05/11/12 [place] [address] [place] [address] PCP - General clinical nursing manager 05/12/12 Callie Kumar MD Assigned OBGYN Provider 01/13/20 04/20/21 Georgia Valentino MD [facility] [address] [place] [address], [address] [place] [address] Assigned OBGYN Provider 04/21/21 documented as of this encounter
--- OUTSIDE RECORDS SUMMARY | 2023-10-29 14:52 | XMS_ITS | Encounter Summary ---
Author Organization [place] Address [address] [place] [address] Care Team Providers Care Rn Staffing Name Role Phone Anca Matos MD Primary Care Provider [phone]- [phone] Callie Kumar MD Unavailable Unavaila ble Georgia Valentino MD Unavailable Encounter Details Date Type Department Care Team (Late st Contact Info) Description 02/29/2020 Orders Only [facility] [address] [place] [address] Red Villarreal MD [address] [place] [phone] Pre-operative laboratory examination (Primary Dx) Social [...] COVID-19? 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
--- OUTSIDE RECORDS SUMMARY | 2023-10-29 14:52 | XMS_ITS | Clinical Summary ---
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 Oxygen Saturation 99% 06/03/2017 2:16 PM CDT [...] 21-65 06/13/2016 4, 06/01/2012 [facility] 08/10/2006 BMI (ht and wt on same day) for age 18+ 06/03/2018 06/03/2017, 05/15/2017 COVID-19 vaccine series (2022- season) 2022 Influenza for age 9-49 11/22/2023 02/18/2017, 2013 Tetanus booster 05/15/2027 05/15/2017, 08/10/2006 Pneumococcal series for age 6-64 Aged Out 02/06/2003 No longer eligible based on patient's age to complete this topic Tdap Completed 08/10/2006 Procedures Procedure Name Priority Date/Time Associated Diagnosis Comments FOOD ORDER EXPEDITER THIN PREP PAP SCREEN IMAGED Routine 06/13/2013 9:20 AM CDT Pap smear for cervical cancer screening from Last 3 Months or Most Recently Relevant to Health Maintenance Results * FOOD ORDER EXPEDITER THIN PREP PAP SCREEN IMAGED (06/13/2013 9:20 AM CDT) CYTOLOGY CYTOPATHOLOGY REPORT [facility] Status: Final Status ?[id number] CLINICAL INFORMATION Last Date of LMP ? :05/25/2013 Last Pap Date ?:[id number] Last Pap Result ?:NIL ABN [place]/Bx Past 5 YRS :None Hormone Usage ?:BCP/OCP/Patch/R ing Menstrual Status ? :Regular Periods [place]/Bx done today ? :No Additional Information :None [...] COLLECTED:06/13/13 ? ACCESSIONED: ??06/14/13 ?? SIGNED: ??06/18/13 [facility] [place] CODE NIL [facility] Tissue specimen (specimen) (Cervical/Vagina l) 06/13/2013 9:20 AM CDT 06/13/2013 9:19 AM CDT Mindy Borjas MD PATHOLOGY/CYTOL OGY [facility] [place]NAL ZIP [address] [address] [place] [address] from Last 3 Months or Most Recently Relevant to Health Maintenance Care Teams Heel Sprayer First Relationship Specialty Start Date End Date Cruz Noguera PA-C [address] [place] [address] PCP - General Physician Bag Machine Operator 08/09/21
--- OUTSIDE RECORDS SUMMARY | 2023-10-29 14:52 | XMS_ITS | Data Portability ---
Author Organization [facility]ENG [facility] [employer], [id number] Address [address] [place] [address] Assessment Encounter Date Assessment Date Assessment LastModified by Organization Details LastModified Time 03/12/2020 03/12/2020 >50% of the visit was spent in consultation or coordination of care. Total time spent was 20 minutes. [email or web address] Not available 03/12/2020 13:04:27 04/25/2020 04/25/2020 Normal examination status post repeat section. No postoperative or complications. Transient blood pressure elevation immediately after delivery, resolved. Not available 04/25/2020 17:31:40 Plan of Treatment Reminders Order Date Submit Date Provider Last Modified By Organization Details Last Modified Time Details Appointments None recorded. Lab unlisted lab - HPV high risk DNA with 16/18 genotyping 2020 021 [facility], [address] [place], [address], 08:12:54 pap, LB 2020 021 [facility], [address] [place], [address], 1 08:12:54 hemoglobin (Hb), fingerstic k, blood 2020 021 [id number] , [address] [place] [address] [place], [address], [place], [address], 1 17:13:05 Referral None recorded. Procedures None recorded. Surgeries None recorded. Imaging US, obstetric, biophysica l profile 2019 [email or web address] [id number] le_helena, [address], [address], [place], [address], 0 18:07:55 Medication Orders sertraline 50 mg tablet 2019 020 INTERFACE [id number], [address], [place], [address], 0 12:47:59 Patient TargetsNo targets recorded. Patient Instructions Encounter Date Encounter Id Patient Instructions Last Modified By Organization Details Last Modified Time 02/27/2020 [id number] BPP today reassuring. Discussed signs and symptoms of pre-eclampsia. All questions answered. Repeat C/S is scheduled for 03/07/20. Not available 02/27/2020 20:45:49 03/12/2020 [id number] Reassured BP WNL today, no other s/sx preE. Continue procardia as rx'd, call with any concerns. Start Zoloft. OK to use NSAIDs for incisional discomfort or headache. RTC 2 wks for incision check, BP and mood checks also. Continue to monitor left breast lump, may need further evaluation in the future. [email or web address] Not available 03/12/2020 13:07:32 04/25/2020 [id number] Discussed contraception, the couple elected to use [...] hemoglobin 13.1 g/dL 12.0-1 5.0 Not Available [address], [place], [address], 04/25/2020 16:36:07 02/13/2020 hemog lobin (Hb), finge rstic k, blood fingerstick hemoglobin 11.4 g/dL 12.0-1 5.0 Not Available [address], [place], [address], 02/13/2020 09:27:31 01/30/20 20 01/30/2020 CBC WBC 7.3 K/uL 4.3-10 .8 Not Available [facility] [address] [place], [address], 01/30/2020 16:24:21 01/30/20 20 01/30/2020 CBC RBC 3.59 M/uL 4.20-5 .40 low Not Available [facility] [address] [place], [address], 01/30/2020 16:24:21 01/30/20 20 01/30/2020 CBC hemoglobin 10.8 gm/dL 12.0-1 6.0 low Not Available [facility] [address] [place], [address], 01/30/2020 16:24:21 01/30/20 20 01/30/2020 CBC hematocrit 33.4 % 36.0-4 8.0 low Not Available [facility] [address] [place], [address], 01/30/2020 16:24:21 01/30/20 20 01/30/2020 CBC MCV 93 fL 80-100 Not Available [facility] [address], [address], 01/30/2020 16:24:21 01/30/20 20 01/30/2020 CBC MCH 30 pg 27-33 Not Available [facility] [address] [place], [address], 01/30/2020 16:24:21 01/30/20 20 01/30/2020 CBC MCHC 32 gm/dL 33-36 low Not Available [facility] [address] [place], [address], 01/30/2020 16:24:21 01/30/20 20 01/30/2020 CBC RDW 12.6 % 11.5-1 4.5 Not Available [facility] [address] [place], [address], 01/30/2020 16:24:21 01/30/20 20 01/30/2020 CBC platelet count 131 K/uL 150-40 0 low Not Available [facility] [address] [place], [address], 01/30/2020 16:24:21 01/30/20 20 01/30/2020 CBC MPV 11.8 6.5-12 Not Available [facility] [address] [place], [address], 01/30/2020 16:24:21 02/13/20 20 02/13/2020 strep tococ cus group B DNA group B strep by PCR No Group B Strept ococcu s detect ed by PCR. no group B strept ococcu s detect ed by PCR. Not Available [facility] [address] [place], [address], 02/15/2020 11:45:12 02/21/20 20 02/21/2020 ALT (ifrah ine amino trans feras e), serum or plasm a ALT (SGPT) 15 IU/L 12-68 Not Available [facility] [address], [address], 02/21/2020 17:08:38 02/21/20 20 02/21/2020 creat ine, blood creatinine 0.71 mg/dL 0.55-1 .02 Not Available [facility] [address], [address], 02/21/2020 17:08:38 02/21/20 20 02/21/2020 creat ine, blood est GFR (CKD-epi) >60 mL/mi n >[address] [facility] [address] [place], [address], 02/21/2020 17:08:38 02/21/20 20 02/21/2020 creat ine, blood est GFR if AM >60 mL/mi n >60 Not Available [facility] [address] [place], [address], 02/21/2020 17:08:38 02/21/20 20 02/21/2020 AST/S GOT (aspa rtate amino trans feras e), serum or plasm a AST (SGOT) 11 IU/L 12-37 low Not Available [facility] [address], [address], 02/21/2020 17:08:39 02/21/20 20 02/21/2020 CBC WBC 6.3 K/uL 4.3-10 .8 Not Available [facility] [address] [place], [address], 02/21/2020 17:08:39 02/21/20 20 02/21/2020 CBC RBC 3.54 M/uL 4.20-5 [address] [facility] [address] [place], [address], 02/21/2020 17:08:39 02/21/20 20 02/21/2020 CBC hemoglobin 10.5 gm/dL 12.0-1 6.0 low Not Available [facility] [address] [place], [address], 02/21/2020 17:08:39 02/21/20 20 02/21/2020 CBC hematocrit 31.8 % 36.0-4 8.0 low Not Available [facility] [address] [place], [address], 02/21/2020 17:08:39 02/21/20 20 02/21/2020 CBC MCV 90 fL 80-100 Not Available [facility] [address] [place], [address], 02/21/2020 17:08:39 02/21/20 20 02/21/2020 CBC MCH 30 pg 27-33 Not Available [facility] [address] [place], [address], 02/21/2020 17:08:39 02/21/20 20 02/21/2020 CBC MCHC 33 gm/dL 33-36 Not Available [facility] [address] [place], [address], 02/21/2020 17:08:39 02/21/20 20 02/21/2020 CBC RDW 12.6 % 11.5-1 4.5 Not Available [facility] [address] [place], [address], 02/21/2020 17:08:39 02/21/20 20 02/21/2020 CBC platelet count 122 K/uL 150-40 0 low Not Available [facility] [address] [place], [address], 02/21/2020 17:08:39 02/21/20 20 02/21/2020 CBC MPV 11.8 6.5-12 Not Available [facility] [address], [address], 02/21/2020 17:08:39 02/21/20 20 02/21/2020 prote in:cr eatin ine ratio , urine prot/cre ratio U 0.14 mg/mg _crea t <0.16 Not Available [facility] [address] [place], [address], 02/21/2020 17:08:40 02/21/20 20 02/21/2020 prote in:cr eatin ine ratio , urine creatinine urine 56.6 mg/dL Not Available [facility] [address] [place], [address], 02/21/2020 17:08:40 02/21/20 20 02/21/2020 prote in:cr eatin ine ratio , urine protein urine 8 mg/dL <12 Not Available [facility] [address] [place], [address], 02/21/2020 17:08:40 04/25/19 21 04/25/2020 HPV DNA, high- risk HPV high risk type 16 Negati ve for HPV type 16. negati ve for HPV type 16. Not Available [facility] [address] [place], [address], 05/07/2020 08:12:53 04/25/19 21 04/25/2020 HPV DNA, high- risk HPV high risk type 18 Negati ve for HPV type 18. negati ve for HPV type 18. Not Available [facility] [place], [address], 05/07/2020 08:12:53 04/25/19 21 04/25/2020 HPV DNA, high- risk HPV other high risk types Negati ve for other high risk HPV types. negati ve for other high risk HPV types. Not Available [facility] [address], [place], [address], 05/07/2020 08:12:53 04/25/1904/25/2020 pap, LB case report See note Not Available [facility] [address], [place], [address], 05/07/2020 08:12:54 02/27/20 US, obste tric, bioph ysica l profi le No observ ation record ed. [email or web address] [address], [place], [address], 03/08/2020 18:17:51 Result Notes None recorded. Problems Name Status Onset Date Resolution Date Notes Provider Name and Address Organization Details Recorded Time Platelet disorder Completed h/o gestational thrombocytopen ia - plt 182 at NOB, 146 at 16 weeks, 136K at 28 weeks, 131,000 at 33.5 weeks Pamela Greenfiel d null, [place] - [facility] [facility] 0 12:55:25 Past history of pre-eclampsia Completed with first ; nl baseline labs; on 81 mg ASA Pamela Greenfiel d null, [place] - [facility] 0 12:55:25 Obesity Completed BMI 38; Early GTT wnl Pamela Greenfiel d null, [place] - [facility] [facility] 0 12:55:25 Past history of section Completed x2, for repeat Pamela Greenfiel d null, [place] - [facility] [facility] 0 12:55:25 Advanced maternal age Completed Nl MT21 and level 2 US Pamela Greenfiel d null, [place] - [facility] [facility] 0 12:55:25 Completed 201903/12/2020 Pamela Greenfiel d null, [place] - [facility] 0 12:55:31 Mixed anxiety and depressive disorder Completed stopped sertraline w +UPT; no h/o PPD and hasn't needed meds PP in the past Pamela kim null, [facility] RADI[employer] C[employer] TESTER 0 12:55:25 Hypertensive disorder [place] [address], [facility] [place], [address], [facility] RADIATOR CORE TESTER 0 18:37:50 Problem Notes None recorded. Procedures Surgical History Date Name Laterality Status Provider Name and Address Organization Details Recorded Time 04/25/19 21 Date of Last Pap Smear completed Chaitanya fritz, [facility] [employer] 05/09/2020 16:40:28 09/21/19 09 excision [place]ial [place] [address] [employer] [facility],[address], [place], [address], [facility] [employer] TE[employer] 03/27/2020 22:16:51 thyroidectomy completed Not Available [facility] 10/31/2019 01:04:43 [place] [address] [employer] [facility],[address], [place], [address], [facility] [employer] TESTER 03/27/2020 22:17:37 strabismus [place] [address] [employer] [facility],[address], [place], [address], [facility] [employer] 03/27/2020 22:18:32 Imaging Results Imaging Date Name Status LastModified by Organiz ation Details LastModified Time 02/27/2020 US, obstetric, biophysical profile completed [email or web address] [address], [place], [address], 03/08/2020 18:17:51 Procedure Notes None recorded. Medical Equipment None Reported. Allergies Allergen ID Allergen Name Allergen Category Reaction Reaction Severity Criticality Documentation Date Start Date Code Code System Note Provider Name and Address Organization Details Recorded Time 503542 Celexa medicatio n Not available Not available Not available 10/28/2019 18306 8 RxNorm *Note : 08/16 - GI upset Not Available [facility] 0 16:57:02 129512 sulfameth oxazole / trimethop rim medicatio n Not available Not available Not available 10/28/2019 45565 RxNorm *Note : 08/16 - sulfa metho xazol e with trime thopr im, GI upset Not Available [facility] 0 16:57:02 834290 Bactrim medicatio n Not available Not available Not available 10/28/2019 95093 9 RxNorm *Note : 08/16 - GI upset Not Available [facility] 0 16:57:02 Medications Name Sig [...] Updated DateTime 02/27/2020 167.64 cm 41.9 kg/m2 548667.9942 26 g Radha Quinteros (TERMED) [facility] [employer] 02/27/2020 16:01:33 Date Recorded Systolic blood pressure Diastolic blood pressure Provider Name and Address Organization Details Last Updated DateTime 02/27/2020 140 mm[Hg] 87 mm[Hg] [place] [address] [facility],[address], [place], [address], [facility] RADI[employer] CORE TESTER 02/27/2020 16:36:49 Date Recorded Body height Body mass index (BMI) Systolic blood pressure Diastolic blood pressure Provider Name and Address Organization Details Last Updated DateTime 03/12/2020 167.64 cm 38.1 kg/m2 122 mm[Hg] 80 mm[Hg] Ken Ahumada (TERMED) [facility] RAD[employer] CORE TESTER 03/12/2020 12:31:30 Date Recorded Body weight Provider Name an d Address Organization Details Last Updated DateTime 03/12/2020 970747.47098 g Pamela Strong [facility] 03/12/2020 12:55:29 Date Recorded Body height Body mass index (BMI) Body weight Systolic blood pressure Diastolic blood pressure Provider Name and Address Organization Details Last Updated DateTime 03/27/2020 167.64 cm 38.1 kg/m2 642929.5 2 g 132 mm[Hg] 84 mm[Hg] Roxana Adkins [facility] RADI[employer] CORE TESTER 15:55:43 Date Recorded Body height Body mass index (BMI) Body weight Systolic blood pressure Diastolic blood pressure Provider Name and Address Organization Details Last Updated DateTime 04/25/2020 167.64 cm 37.1 kg/m2 544034.2 5 g 120 mm[Hg] 70 mm[Hg] [place] Augustus [facility] [employer] 1 16:34:04 Social History Question Answer Notes LastModified by [employer] Details LastModified Time Tobacco Smoking Status Never Smoker Tobacco *Status: Never *Note: 08/17/2019 - Not Available [facility] 10/31/2019 13:51:46 What Is Your Level Of Alcohol Consumption? None Alcohol *Status: Former *Qty: 1dr/month *Note: [email or web address] Information not available 10/31/2019 What Is Your Level Of Caffeine Consumption? 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 Moderate Moderate Amount of Exercise (1-3 times weekly) [employer] - [employer] [email or web address] Information not available 10/31/2019 Mental Status None [...] Recorded Time Td 01/11/2010 completed Not Available [facility] 01:06:16 unknown 11/22/2009 completed SHENG Wills - RADIATOR CORE TESTER 04/25/2020 16:04:44 Past Encounters Encounter ID Performer Location Encounter Start Date Encounter Closed Date Diagnosis/Indication Diagnosis SNOMED-CT Code [id number] Pamela Strong [id number] [place]_ED ERLINDA [address] [place] [address] 11/10/2019 00:00:00 [id number] RENEE VALDES MD [id number] [place]_[address] ,[address] [place] [address] 11/24/2019 17:11:04 11/25/2019 08:20:50 [id number] RENEE VALDES MD [id number] [place]_[address] ,[address] [facility] [place] [address] 12/22/2019 10:34:45 12/22/2019 11:44:35 [id number] ALBA AMBROCIO MD DU330_IED [place]_[address] ,[address] [place] [address] 01/09/2020 11:16:45 01/09/2020 12:29:01 [id number] ALBA AMBROCIO MD [id number] [place]_[address] ,[address] [place] [address] 01/30/2020 09:17:20 01/30/2020 10:08:48 Benign gestational thrombocytopenia [id number] Pamela Daiglefield PT270_PRK [place]_[address] [place] [address] [place] [address] 01/30/2020 00:00:00 [id number] ALBA AMBROCIO MD [id number] [place]_[address] ,[address] [place] [address] 02/13/2020 09:17:50 02/13/2020 10:58:13 Routine care [id number] ALBA AMBROCIO MD [id number]_HAZ [place]_[address] [facility] ,[address] [place] [address] 02/21/2020 11:14:33 02/21/2020 13:03:34 [id number] RNEEE VALDES MD [id number]_SOL [address] [place] [address] 02/27/2020 11:32:49 02/27/2020 12:24:22 Advanced maternal age 116657997 [id number] ALBA AMBROCIO MD [id number] [address] ,[address] [place] [address] 02/27/2020 15:43:36 02/27/2020 16:54:21 [id number] [facility]A [facility] [id number]_DAU [address] [place] [address] 03/12/2020 12:22:54 03/12/2020 13:13:02 Anxiety 83444148 Past pregn shelley history of gestational hypertension 891659542 state 8970119 1 [id number] JOI STEPHENS MD OF636_OLE [address] ,[address] [place] [address] 03/27/2020 15:50:41 03/27/2020 17:15:45 Surgical incision wound of skin 895145923501 [id number] ALBA AMBROCIO MD HG120_WKB [address] ,[address] [place] [address] 04/25/2020 16:03:58 04/25/2020 17:04:20 state 33186176 Gynecologi c examination 63220537 Health Concerns Section Related Observation LastModified by Organization Detai ls LastModified Time None Recorded Concern Status LastModified by Organization Details LastModified Time None Recorded Advance Directives Directive None Recorded Payers Encounter Date Sequence Insurance Name Policy Number Policy Snow Covered Member ID Snow Member ID Guarantor Name 02/27/2020 1 [facility] [id number] Clint Erazo Jacob [id number] Mindy Jacob 02/27/2020 1 [facility] [id number] Clint L Jacob [id number] Mindyevelyn Jacob 03/12/2020 1 [facility] [id number] Clint L Jacob [id number] Mindy Gemma Cecil 03/27/2020 1 [facility] [id number] Clint L ulike [id number] Mindy Gemma Cecil 04/25/2020 1 [facility] [id number] Clint L Jacob [id number] Mindyevelyn Jacob Notes Date Note Type Note [...] of days on form. TYLER HINOJOSA, [place]- [address] [facility],[address], [place], [address], [facility] [facility] 03/12/2020 13:08:04 03/27/2020 text/html HPI Notes: Caitlin [...] or [place] [address], [place], [address], [facility] [employer] 03/27/2020 22:27:52 04/25/2020 text/html HPI Notes: Suzanne [...] screening [place] [address], [place], [address], [facility] 04/25/2020 17:33:05 OBGyn Episode Ob Episode Information Episode Created Date Number of Fetuses Patient Bloodtype Patient rh Status Prepregnancy Weight lbs Domestic Partner Domestic Partner Phone Father Name Consumer Sales Representative Status 11/10/19 20 1 AB Positive 239 CLOSED Fetus Data First Name Last Name Admitted to NICU Weight (g) Sex Living Outcome Pediatric Complications Fetus ID Race Codes Race Delivery Type 3968.93 F true Full Term 2293 Problems Problem Notes Problem Name Start Date End Date Resolution Snomed Code Not e Mixed anxiety and depressive disorder 013414277 stopped sertral ine w +UPT; no h/o PPD and hasn't needed meds PP in the past Platelet disorder 38522864 h/o gestational thrombocytopenia - plt 182 at NOB, 146 at 16 weeks, 136K at 28 weeks, 131,000 at 33.5 weeks Past history of pre-eclampsia [id number] with first ; nl baseline labs; on 81 mg ASA Obesity 350651571 BMI 38; Ea rly GTT wnl Past history of section 243893595 x2, for rep eat Advanced maternal age 972675163 Nl MT21 and lev el 2 US [...] Disease false Other Infection History false Thalassemia (Scottish, Burmese, Mediterranean, Or Background): MCV < 80 false [...] TB Or Exposed To TB false Thalassemia (Scottish, Burmese, Mediterranean, Or Background): MCV < 80 false Sickle Cell Disease Or Trait () false Intellectual Disability/Autism true s on -developmental delay Patient Or Partner Has History Of Genital Herpes false History of HIV false Julian-Sachs (eg, Orthodoxy, Cajun, Swazi-[place]) f alse Neural Tube Defect (Meningom yelocele, Spina Bifida, Or Anencephaly) false Hemophilia Or Other Blood Disorders false [place]'s Chorea false Congenital Heart Defect false Other Inherited Genetic Or Chromosomal Disorder false Down Syndrome false Sickle Cell Disease Or Trait () false Congenital Heart Defect false [place]'s Chorea false Medications (including Suppl ements, Vitamins, [...] Domestic Partner Domestic Partner Phone Father Name Consumer Sales Representative Status 01/09/20 20 1 CLOSED Fetus Data First Name Last Name Admitted to NICU Weight (g) Sex Living Outcome Pediatric Complications Fetus ID Race Codes Race Delivery Type 3458.63 9 M Full Term 99543 Kam Calculation Initial Kam Date Initial Exam [...] Domestic Partner Domestic Partner Phone Father Name Consumer Sales Representative Status 01/09/20 1 CLOSED Fetus Data First Name Last Name Admitted to NICU Weight (g) Sex Living Outcome Pediatric Complications Fetus ID Race Codes Race Delivery Type 3515.33 8 M Full Term 89268 Kam Calculation Initial Kam Date Initial Exam [...]
== END 2023-10-29 15:50 | disposition home or self-care (01) ==
PROVIDERS: Emergency Provider Family Medicine; PCP Physician Assistant Medical
DX: F41.9 Anxiety disorder, unspecified (principal)
CPT/HCPCS: 70450; 99283